=== PATIENT | male | born 1945 | race Caucasian/White ===

== ENCOUNTER 2024-01-31 11:18 | Emergency (ER) | payer MEDICARE, OTHER, SELFPAY ==
[2024-01-31 11:24] VITALS: BP 118/64
[2024-01-31 11:53] LABS: % Basophils 0.4 % (0-2); % Eosinophils 0.1 % (0-6); % Immature Granulocytes 0.6 % (0-0.5); % Monocytes 11.7 % (1.7-9.3); % Neutrophils 75.2 % (42.2-75.2); Absolute Basophils 0.1 10^3/uL (0-0.2); Absolute Immature Granulocytes 0.1 10^3/uL (0-0.05); Absolute Lymphocytes 1.6 10^3/uL (1.2-3.4); Absolute Monocytes 1.6 10^3/uL (0.1-0.6); Absolute Neutrophils 10.1 10^3/uL (1.4-6.5); Hematocrit 43.4 % (39.0-52.0); Hemoglobin 14.8 g/dL (13.0-18.0); Mean Corp Hgb Conc. 34.1 g/dL (33.0-37.0); Mean Corpuscular Hgb 31.5 pg (27.0-31.0); Mean Corpuscular Volume 92.3 fL (80.0-94.0); Mean Platelet Volume 9.9 fL (7.4-10.4); Nucleated Red Blood Cells % 0 % (-); Platelet Count 181 10^3/uL (130-400); Red Cell Dist. Width 13.3 % (11.5-14.5); White Blood Cell Count 13.5 10^3/uL (4.8-10.8)
[2024-01-31 12:01] LABS: ALT (SGPT) 42 U/L (0-50); AST (SGOT) 37 U/L (17-59); Albumin 4.1 g/dl (3.5-5.0); Alkaline Phosphatase 113 U/L (38-126); Blood Urea Nitrogen 21 mg/dl (9-20); Calcium 9.2 mg/dl (8.4-10.2); Carbon Dioxide 23 mmol/L (22-30); Chloride 101 mmol/L (98-107); Glucose 125 mg/dl (70-99); Lipase 59 U/L (23-300); Potassium 3.9 mmol/L (3.5-5.1); Sodium 138 mmol/L (135-145); Total Bilirubin 3.5 mg/dl (0.2-1.3); eGFR > 60.00
[2024-01-31 12:11] LABS: Urine Albumin Negative (Neg - Trace); Urine Bilirubin Negative (Negative); Urine Character Clear (Clear); Urine Color Yellow; Urine Glucose 3+ (Negative); Urine Ketone 1+ (Negative); Urine Leukocyte Trace (Negative); Urine Nitrite Negative (Negative); Urine Occult Blood Negative (Negative); Urine Urobilinogen Negative (Neg - 1+)
[2024-01-31 12:30] VITALS: BP 105/60; BMI 32.5
--- NOTE | 2024-01-31 12:47 | ED.GENMED ---
History of Present Illness
General
Chief Complaint: Abdominal Symptoms
Source: patient and spouse
Exam Limitations: none
Time Seen by Provider: 01/31/24 12:15
Nursing documentation reviewed up to this point in time: agreed with
History of Present Illness
History of Present Illness:
78-year-old male with a past medical history of hypertension, hyperlipidemia, diabetes, CAD status post CABG, pacemaker who presents to the emergency department with his for evaluation of flank pain. Patient reports onset of symptoms about 2
days ago and they have been constant since that time. He reports a sharp pain in the left flank that radiates in a band around his lower abdomen and back. Worse with certain movements. No clear relieving factors noted. Associated with mild
nausea this morning but no vomiting. He says he had some loose stools earlier this week but has been constipated since Saturday. He denies any fever or chills. He denies any dysuria, hematuria, change in urinary frequency. He denies any weakness
or numbness in the legs and has not had any incontinence of bowel or bladder or saddle anesthesia. He does not have radicular symptoms. He does have a history of kidney stones as well as sciatica but says symptoms today are different; he denies
having had symptoms like this in the past. He denies any trauma or injury.
Review of Systems
Review of Systems
All Other Systems: ROS reviewed and negative except as documented in HPI and ROS
Constitutional: Denies fever or chills
Respiratory: Denies trouble breathing
Cardiac: Denies chest pain
ABD/GI: Reports abdominal pain, nausea and constipated; Denies vomiting or diarrhea
: Reports flank pain; Denies dysuria, frequency or bleeding
Musculoskeletal: Reports back pain; Denies neck pain
Neurological: Denies dizzy, headache, weakness or numbness
Phy Exam
Physical Exam
Physical Exam:
General: Awake, alert, oriented x3; no acute distress
Head: Normocephalic, atraumatic
Eyes: Conjunctiva normal, sclera anicteric
Throat: Airway intact, handling secretions
Neck: Trachea midline, supple without meningismus
Lungs: Clear to auscultation bilaterally, no wheezing, rales, rhonchi
Heart: Regular rate and rhythm, no murmurs, gallops, or rubs
Abd: Soft, non distended, tender to palpation across lower abdomen, no palpable masses
No CVA tenderness, mild left paraspinal tenderness in the upper lumbar region
Neuro: Cranial nerves grossly intact, speech fluid, motor and sensory intact lower extremities bilaterally
Skin: no rash
Extremities: No edema in extremities, warm and well-perfused
Scores
Heart Failure Risk
Heart Failure Risk Score: Not Applicable
Heart Score for Chest Pain Patients
STEMI patient?: Not applicable
Withdrawal Assessment of Alcohol
Withdrawal Assessment Completed?: Not applicable
Course
Orders/Labs/Results
Orders:
Orders
01/31/24 11:29
Electrocardiogram (*1) Urgent
Reason for Study: Abdominal Pain
EKG- Treatment ONCE
01/31/24 11:39
Complete Blood Count/With Diff Urgent
Comprehensive Metabolic Panel Urgent
Lipase Urgent
Urinalysis Reflex To Culture Urgent
Date Specimen was Collected: 01/31/24
Time Specimen was Collected: 11:29
Urine Microscopic Reflex Cult Urgent
01/31/24 12:17
CT Abd/pelvis W Iv Cont Urgent
Comment:
Reason For Exam: abd and back pain, constipation
01/31/24 12:46
Ketorolac [Toradol] 15 mg IV NOW STA
01/31/24 15:21
Magnesium Citrate [Citroma] 300 ml PO ONCE ONE
Abnormal Lab Results
01/31/24
11:39
WBC 13.5 H 10^3/uL
(4.8-10.8)
MCH 31.5 H pg
(27.0-31.0)
Abs Immat Gran (auto) 0.1 H 10^3/uL
(0-0.05)
Absolute Neuts (auto) 10.1 H 10^3/uL
(1.4-6.5)
Absolute Monos (auto) 1.6 H 10^3/uL
(0.1-0.6)
Immature Gran % 0.6 H %
(0-0.5)
Lymphocytes % 12.0 L %
(20.5-51.1)
Monocytes % 11.7 H %
(1.7-9.3)
BUN 21 H mg/dl
(9-20)
Glucose 125 H mg/dl
(70-99)
Total Bilirubin 3.5 H mg/dl
(0.2-1.3)
Urine Ketones 1+ A
(Negative)
Leukocyte Esterase Rfl Trace A
(Negative)
Urine Bacteria (Reflex) Few A
(Negative)
Urine Glucose 3+ A
(Negative)
01/31/24 11:39
01/31/24 11:39
Vital Signs
Initial and Last Documented VS:
Initial Vital Signs
Temp Pulse Resp BP Pulse Ox
36.4 C 83 16 118/64 98
01/31/24 11:24 01/31/24 11:24 01/31/24 11:24 01/31/24 11:24 01/31/24 11:24
Last Documented Vital Signs
Temp Pulse Resp BP Pulse Ox
36.4 C 83 18 101/57 95
01/31/24 11:24 01/31/24 14:00 01/31/24 14:00 01/31/24 14:00 01/31/24 14:00
MDM/Problems Addressed
Differential Diagnosis Includes:
Diverticulitis, nephrolithiasis, UTI/pyelonephritis, musculoskeletal back pain, constipation
MDM/Problems Addressed:
78-year-old male presents to the emergency room for evaluation of left flank pain radiating a band across lower abdomen and back for the past 2 days. Vitals and exam as above. Plan to place an IV check labs including a CBC and a CMP, urinalysis.
Will check CT abdomen pelvis. Will treat pain and provide some fluids. Reassess after the above.
Initial labs reviewed: CBC shows leukocytosis to 13.5. CMP shows isolated hyperbilirubinemia with otherwise normal LFTs�unlikely given acute clinical significance possible Gilbert's disease. Urinalysis no infection. Awaiting results of CT.
CT abdomen pelvis shows gallstones incidentally no biliary tract dilation or signs of cholecystitis�while he did have isolated T. bili elevation his LFTs were otherwise normal and he had no upper abdominal tenderness and his pain is really primarily
in the left flank/low back and radiates across the low abdomen and back. And clinically it is very unlikely that gallstones account for his symptoms. He did have moderate volume of stool in the colon and reports that he has been constipated I
think this is a more likely cause of his symptoms although positional pain and reproducible lumbar tenderness would also suggest some component of musculoskeletal pain. On clinical reassessment patient's pain greatly improved with Toradol. His
vitals have been stable. I had a long discussion with the patient about findings on CT and potential diagnoses. He feels comfortable going home we will plan to treat his constipation with magnesium citrate. If this is not improving his symptoms
he will trial NSAIDs, heat and gentle stretching for possible muscular pain. He assured me that if his symptoms are worsening at any point or if he develops any fevers or any other symptoms he would return for reassessment here. We did speak about
follow-up for his gallstones and he feels comfortable with this as well. All questions answered.
*Radiology
Radiology exam reviewed: radiology read reviewed
*Pulse Oximetry
Patient hypoxic: no
*EKG
Interpreted by ED Provider?: Yes
Heart Rate: 83
Rhythm: ventricular paced
*Critical Care Note
Total Time (30-74mins, 75-104mins- exclusive of procedures): Not Applicable
ED Attending Note
-
Portions of this chart may have been created with voice recognition software.� Occasional wrong word or��sound alike� substitutions may have occurred due to the inherent limitations of voice recognition software.
Discharge Plan
Departure
Patient Disposition: Home (Routine Discharge)
Date of Disposition: 01/31/24
Time of Disposition: 15:24
Patient with high blood pressure during this ER visit?: No
Discharge Problem:
Flank pain, Constipation
Instructions: Constipation, Adult (DC), Back Pain
Referrals:
Luly Mendieta, [Family Provider] - Follow up in 5-7 days
Activity Restrictions/Additional Instructions:
You were seen in the emergency room for flank/back pain. You were evaluated with a CT scan and lab work. Your scan did show that you were constipated but it did not show any other serious abnormalities (gallstones were found incidentally but we
think it is unlikely this is causing your symptoms).
It is possible that your symptoms are due to severe constipation and so we gave you medicine to help you move your bowels. You should take this tonight and make sure you are drinking plenty of fluids with it.
It is also possible that your symptoms are from a muscle pain�if your symptoms or not improving with treatment of constipation you should try anti-inflammatories/NSAIDs. You can take ibuprofen 400 mg every 6 hours for the next few days in addition
to heat pack and gentle stretching.
If neither of these interventions is helping you should follow-up with your primary care physician. If at any point in time your symptoms are worsening or if you develop fevers or chills or any new symptoms such as weakness or numbness in the legs
you should immediately return to the emergency room to be reassessed.
Thank you for visiting the Emergency Department at [facility].
1. Please schedule a follow up appointment as directed. Call first thing tomorrow morning to make an appointment.
2. If indicated, please take your medications as instructed and indicated on discharge paperwork.
3. If any of your symptoms do not improve, or persist, or become more severe within 6-12 hours, please return to the emergency department for further care.
4. Please return to the emergency department if you develop a headache, neck pain/stiffness, fever greater than 100.4F, chest pain, shortness of breath, persistent nausea, vomiting, slurred speech, difficulty walking, numbness/tingling, weakness,
signs of infection or any other symptoms that are worrisome to you.
Please call [phone] if you have any questions.
Interventions
Interventions:
*Risk Screen - Suicide Last Done: 01/31/24 11:24
*General Assessment Last Done: 01/31/24 12:30
*Neglect/Abuse Screening Last Done: 01/31/24 11:24
ED- Fall Risk Assessment Last Done: 01/31/24 12:30
*ED COVID-19 Vaccine History Last Done: 01/31/24 12:30
NC-Pvyqmu-Jlopfmxhnn Assessment Last Done: 01/31/24 12:30
Discharge Date and Time
Print Language: CANADIAN
[2024-01-31] MEDS: TORADOL 15 MG IV (13:35)
[2024-01-31 13:57] LABS: Urine Bacteria Few (Negative); Urine Mucus Few; Urine Squamous Cell 0-2 /LPF (Few)
[2024-01-31 13:58] LABS: Urine Red Blood Cell 0-2 /HPF (0-2)
[2024-01-31 14:00] VITALS: BP 101/57
[2024-01-31] MEDS: CITROMA 300 ML PO (15:30)
[2024-01-31 15:36] VITALS: BP 111/66
== END 2024-01-31 16:13 | disposition home or self-care (01) ==
LOC: EMR 11:18
PROVIDERS: Emergency Medicine; EMERGENCY PHYSICIAN Emergency Medicine; FAMILY PHYSICIAN Internal Medicine
DX: R10.9 Unspecified abdominal pain (principal); K59.00 Constipation, unspecified; I10 Essential (primary) hypertension; E78.00 Pure hypercholesterolemia, unspecified; E11.9 Type 2 diabetes mellitus without complications; I25.10 Atherosclerotic heart disease of native coronary artery without angina pectoris; Z87.442 Personal history of urinary calculi; Z95.0 Presence of cardiac pacemaker; Z95.1 Presence of aortocoronary bypass graft
CPT/HCPCS: 99284; 96374; 74177; 80053; 81003; 81015; 83690; 85025; 93005; Q9967

== ENCOUNTER 2024-02-03 02:19 | Inpatient (IN) | payer MEDICARE, OTHER, SELFPAY ==
[2024-02-02 22:44] VITALS: BP 146/84
[2024-02-02 23:02] LABS: % Basophils 0.4 % (0-2); % Eosinophils 0.3 % (0-6); % Immature Granulocytes 1.3 % (0-0.5); % Lymphocytes 9.9 % (20.5-51.1); % Monocytes 10.2 % (1.7-9.3); % Neutrophils 77.9 % (42.2-75.2); Absolute Basophils 0.1 10^3/uL (0-0.2); Absolute Immature Granulocytes 0.2 10^3/uL (0-0.05); Absolute Lymphocytes 1.2 10^3/uL (1.2-3.4); Absolute Monocytes 1.2 10^3/uL (0.1-0.6); Absolute Neutrophils 9.4 10^3/uL (1.4-6.5); Hematocrit 40.9 % (39.0-52.0); Hemoglobin 14.2 g/dL (13.0-18.0); Mean Corp Hgb Conc. 34.7 g/dL (33.0-37.0); Mean Corpuscular Hgb 31.6 pg (27.0-31.0); Mean Corpuscular Volume 90.9 fL (80.0-94.0); Mean Platelet Volume 10.1 fL (7.4-10.4); Nucleated Red Blood Cells % 0 % (-); Platelet Count 215 10^3/uL (130-400); Red Cell Dist. Width 13.3 % (11.5-14.5)
[2024-02-02 23:15] LABS: ALT (SGPT) 332 U/L (0-50); AST (SGOT) 440 U/L (17-59); Albumin 3.8 g/dl (3.5-5.0); Alkaline Phosphatase 617 U/L (38-126); Blood Urea Nitrogen 16 mg/dl (9-20); Calcium 9.1 mg/dl (8.4-10.2); Carbon Dioxide 20 mmol/L (22-30); Chloride 101 mmol/L (98-107); Glucose 237 mg/dl (70-99); Sodium 136 mmol/L (135-145); Total Bilirubin 5.9 mg/dl (0.2-1.3); Total Protein 6.8 g/dl (6.3-8.2); eGFR > 60.00
[2024-02-02 23:16] LABS: Lactic Acid 1.2 mmol/L (0.7-2.0)
[2024-02-03] VITALS (9 sets, daily range): BP systolic 99–139; BP diastolic 52–92; BMI 31.4; BMI 32.0
--- NOTE | 2024-02-03 00:19 | ED.GENMED ---
History of Present Illness
General
Chief Complaint: Abdominal Pain
Source: patient
Exam Limitations: none
Time Seen by Provider: 02/03/24 00:07
History of Present Illness
History of Present Illness:
This is a 78 year old male that comes in with c/o constipation. States that he was here on Saturday as he had low back pain that comes around. State that he also felt Constipated. States that they did a CT scan and he was sent home with Magnesium
Citrate. States that this did not work. States that he took Dulcolax and this didn't help. States that he started vomiting last night and he vomited tonight at 6pm. States that he still has low back pain and sometimes the pain is up higher. State
that his abd is tender and that occasionally he feels dizzy. Denies any fever, chills, chest pain, SOB, diarrhea, headache, urinary burning.
Past History
Past History
ED Past Medical History: CAD, HTN, Hypercholesterolemia and NIDDM
ED Past Surgical History: Cardiac (CABG, SC, Pacemaker, Stent x 1)
Social History
Tobacco: Former smoker
Alcohol: None
Personal:
Living: with family
Review of Systems
Review of Systems
All Other Systems: ROS reviewed and negative except as documented in HPI and ROS
Constitutional: Reports no symptoms; Denies fever or chills
EENT: Reports no symptoms
Respiratory: Reports no symptoms; Denies cough or trouble breathing
Cardiac: Reports no symptoms; Denies chest pain
ABD/GI: Reports abdominal pain (Tender), nausea, vomiting and constipated; Denies diarrhea
: Reports no symptoms; Denies dysuria, frequency or urgency
Musculoskeletal: Reports no symptoms
Skin: Reports no symptoms
Neurological: Reports dizzy (occasionally); Denies headache
Psychiatric: Reports no symptoms
Phy Exam
General Physical Exam
General Presentation: mild distress
General age: appears stated age
General Skin: warm and dry
General Habitus: elderly
General Mental: alert
General Hydration: dry mucous membranes
ENT Exam
ENT Exam: TM's normal, pharynx normal, neck supple and other (Recent nose blood. Dried blood both nostrals)
Eye Exam
Eye Exam: EOMI
Cardiovascular Exam
Cardiovascular Exam: regular rate/rhythm, no edema, no murmur and normal peripheral pulses
Pulmonary Exam
Pulmonary Exam: lungs clear, no respiratory distress, no rales, chest non tender, no crackles, no rhonchi, no wheezing and no cough
Gastrointestinal Exam
Gastrointestinal Exam: soft, no organomegaly, no pulsatile mass, non distended, tender (Slight left sided tenderness with palpation) and other (Hypoactive bowel sounds)
Musculoskeletal Exam
Musculoskeletal Exam: full ROM and no edema
Skin Exam
Skin Exam: normal color, warm/dry, no rash and no petechia
Psychiatric Exam
Psychiatric Exam: normal mood/affect
Course
Orders/Labs/Results
Orders:
Orders
02/02/24 22:54
Complete Blood Count/With Diff Urgent
Comprehensive Metabolic Panel Urgent
Direct Bilirubin Urgent
Comment: ADD ON
Lipase Urgent
02/02/24 22:55
Lactic Acid Urgent
02/03/24 00:18
0.9% Sodium Chloride 1000 ml [Nss] 1,000 ml IV BOLUS
Ketorolac [Toradol] 30 mg IV NOW STA
Ondansetron Injectable [Zofran] 4 mg IV NOW STA
US Abdomen Limited Urgent
Reason For Exam: Elevated liver enzymes,
02/03/24 00:24
Add On- LAB Urgent
Tests Added?: Lipase
02/03/24 00:27
Add On- LAB Urgent
Tests Added?: Direct ana maria
02/03/24 00:33
Prothrombin Time Urgent
Abnormal Lab Results
02/02/24 02/03/24
22:54 00:33
WBC 12.0 H 10^3/uL
(4.8-10.8)
RBC 4.50 L 10^6/uL
(4.70-6.10)
MCH 31.6 H pg
(27.0-31.0)
Abs Immat Gran (auto) 0.2 H 10^3/uL
(0-0.05)
Absolute Neuts (auto) 9.4 H 10^3/uL
(1.4-6.5)
Absolute Monos (auto) 1.2 H 10^3/uL
(0.1-0.6)
Immature Gran % 1.3 H %
(0-0.5)
Neutrophils % 77.9 H %
(42.2-75.2)
Lymphocytes % 9.9 L %
(20.5-51.1)
Monocytes % 10.2 H %
(1.7-9.3)
PT 16.4 H Sec
(11.4-14.6)
Carbon Dioxide 20 L mmol/L
(22-30)
Glucose 237 H mg/dl
(70-99)
Total Bilirubin 5.9 H D mg/dl
(0.2-1.3)
AST 440 H U/L
(17-59)
ALT 332 H U/L
(0-50)
Alkaline Phosphatase 617 H U/L
(38-126)
02/02/24 22:54
02/02/24 22:54
Leukocytosis, carbon dioxide slightly low. Hyperglycemia, Total ana maria elevation, AST/ALT significantly elevated compared to 01/31/24 labs, Alk phos elevation. Lactic acid normal at 1.2
Vital Signs
Initial and Last Documented VS:
Initial Vital Signs
Temp Pulse Resp BP Pulse Ox
97.8 F 87 18 146/84 99
02/02/24 22:44 02/02/24 22:44 02/02/24 22:44 02/02/24 22:44 02/02/24 22:44
Last Documented Vital Signs
Temp Pulse Resp BP Pulse Ox
97.8 F 87 18 146/84 99
02/02/24 22:44 02/02/24 22:44 02/02/24 22:44 02/02/24 22:44 02/02/24 22:44
MDM/Problems Addressed
Differential Diagnosis Includes:
Gallbladder disease,
MDM/Problems Addressed:
This is a 78 year old male that comes in with c/o constipation and vomiting. States that he was here on Saturday and he has not been able to go. States that he also started with vomiting on saturday night and vomiting on Saturday.
Will check labs and get limited Ultrasound to check gallbladder. Explained to patient that his Liver enzymes are elevated and he will most likely be admitted.
Back into see patient. Explained that his US shows gallstones at the neck of the gallbladder. Will admit patient. Hospitalist notified.
Chronic conditions affecting care: DM and CAD
Acute Exacerbation and/or Progression of Chronic Illness: DM
*Radiology
Radiology exam reviewed: radiology read reviewed (US night hawk- The gallbladder contains multiple gallstones near the gallbladder neck. No gallbladder wall thickening, pericholecystic fluid, or a sonographic Mcdaniel's sign. Common bile duct measures
4mm. Unremarkable liver and right kidney. The pancreas is obscured due to [id number] bowel gas)
*Pulse Oximetry
Patient hypoxic: no
*EKG
Interpreted by ED Provider?: NA
Rate: EKG- N/A
*Critical Care Note
Total Time (30-74mins, 75-104mins- exclusive of procedures): Not Applicable
ED Attending Note
-
Portions of this chart may have been created with voice recognition software.� Occasional wrong word or��sound alike� substitutions may have occurred due to the inherent limitations of voice recognition software.
Discharge Plan
Departure
Patient Disposition: Admit
Date of Disposition: 02/03/24
Time of Disposition: 01:23
Admit to: Med/Surg
Presentation/result/management discussed w/ accepting MD/DO: Hospitalist
Patient with high blood pressure during this ER visit?: Yes
Condition: Good
Covid-19: Not Applicable
Discharge Problem:
Elevated liver enzymes, Cholelithiasis
Referrals:
Luly Mendieta DO [Family Provider] -
Interventions
Interventions:
*Risk Screen - Suicide Last Done: 02/03/24 00:16
*General Assessment Last Done: 02/02/24 22:44
*Neglect/Abuse Screening Last Done: 02/03/24 00:16
ED- Fall Risk Assessment Last Done: 02/03/24 00:16
*ED COVID-19 Vaccine History Last Done: 02/02/24 22:44
BF-Rknxwm-Alzmxqymup Assessment Last Done: 02/03/24 00:16
Discharge Date and Time
Print Language: DIVEHI
[2024-02-03] MEDS: NSS 1000 IV (00:35)
[2024-02-03] MEDS: ZOFRAN 4 MG IV (00:37)
[2024-02-03] MEDS: TORADOL 30 MG IV (00:39)
[2024-02-03 00:58] LABS: INR 1.29; PT 16.4 Sec (11.4-14.6)
[2024-02-03 01:50] LABS: Direct Bilirubin 3.5 mg/dl (0.0-0.4); Lipase 223 U/L (23-300)
--- NOTE | 2024-02-03 02:27 | HPS.HSE ---
Family Physician
-
Family Physician: Luly Mendieta
Chief Complaint
-
Abdominal pain nausea vomiting
History of Present Illness
This is a 78-year-old male was past medical history of CAD status post CABG, status post PCI x 1, hypertension, status post pacemaker, A-fib on anticoagulation, and pzm-qaakqmo-rjfvhnxpp diabetes who presents to the emergency department with
recurrent episode of abdominal pain nausea vomiting and found to have elevated LFTs.
The patient reported that she initially had an episode of abdominal distention and pain localized to the bilateral lower quadrants about 1 week ago. She was seen in the ED at that time. Found to have constipation. Urine was negative. He was
given laxatives and discharge. Patient reported that he took laxatives with minimal efficacy. The pain did subside. However sleep few days later he started having abdominal discomfort again. He reports bilateral lower quadrant abdominal pain
that is diffuse and crampy. Denies any urinary symptoms. Reports nausea and vomiting that was nonbloody and nonbilious. Unable to tolerate p.o. Denies having any fevers or chills. Denies right upper quadrant pain. Denies any jaundice. Denies
any urinary symptoms.
In the emergency department the patient was afebrile, blood pressure was stable at 140/80 with a pulse of 87. He has a white count of 12 with otherwise normal CBC. BUN electrolytes are within normal limits. LFTs shows elevation in total bilirubin
to 5.9 and increased from 3.6. ALT and AST are now significantly increased as well as alk phos. Normal lipase. A ultrasound of the abdomen shows common bile duct of 4 mm, numerous gallstones near the neck of the gallbladder. No pericholecystic
fluid or gallbladder wall thickening and no sonographic Mcdaniel sign.
Medical History
Past Medical History
Past Medical History: Reports Arrhythmia (Atrial fibrillation, status post pacemaker), CAD (Status post CABG, status post stents x 1), HTN, Hypercholesterolemia and NIDDM
Additional Past Medical History:
HALLIE on CPAP
Past Surgical History: Reports Cardiac (CABG)
Social History
Tobacco: Former Smoker
Alcohol: None
Drug: None
Personal:
Living: With Family
Family History
Family History: Not pertinent
Allergies / Home Medications
Allergies reflects when Allergies were last updated in [facility].
Home Medications with original date entered in [facility]
Allergy/Medication List:
Allergies
Allergy/AdvReac Type Severity Reaction Status Date / Time
brimonidine Allergy Unknown Verified 01/31/24 11:28
enalapril Allergy Unknown Verified 01/31/24 11:28
metformin Allergy Unknown Verified 01/31/24 11:28
valsartan Allergy Unknown Verified 01/31/24 11:28
Home Medications
apixaban 5 mg tablet 5 mg PO BID 02/03/24
atorvastatin 40 mg tablet 40 mg PO DAILY 02/03/24
cholecalciferol (vitamin D3) 50 mcg (2,000 unit) tablet 50 mcg PO DAILY 02/03/24
cyanocobalamin (vitamin B-12) 1,000 mcg tablet 1,000 mcg PO BID 02/03/24
metoprolol succinate 200 mg tablet,extended release 24 hr 200 mg PO DAILY 02/03/24
multivitamin 1 tab PO DAILY 02/03/24
semaglutide 1 mg/dose (2 mg/1.5 mL) subcutaneous pen injector 1 mg SC QWEEK 02/03/24
spironolactone 25 mg tablet 25 mg PO BID 02/03/24
tamsulosin 0.4 mg capsule 0.4 mg PO HS 02/03/24
Review of Systems
-
History Source: Patient
Constitutional: Reports No Symptoms
EENT: Reports No Symptoms
Respiratory: Reports No Symptoms
Cardiac: Reports No Symptoms
Abdomen/GI: Reports Abdominal Pain, Nausea, Vomiting and Constipated
: Reports No Symptoms
Musculoskeletal: Reports No Symptoms
Skin: Reports No Symptoms
Neurological: Reports No Symptoms
Endocrine: Reports No Symptoms
Hematologic/Lymphatic: Reports No Symptoms
Psych: Reports No Symptoms
Physical Exam
Vital Signs
Vital Signs
Temp Pulse Resp BP Pulse Ox
97.8 F 87 18 146/84 99
02/02/24 22:44 02/02/24 22:44 02/02/24 22:44 02/02/24 22:44 02/02/24 22:44
Physical Exam
General: Well Developed, Well Nourished, No Apparent Distress and Comfortable
HEENT: NormoCephalic, Anicteric, Moist mucous membranes and Atraumatic
Respiratory: Clear
Cardiac: S1/S2 and Regular Rhythm
GI: Soft, Non Distended, Normal Bowel Sounds and Tender
Genito-urinary: Clear Urine
Musculoskeletal: No Clubbing, No Cyanosis and No Edema
Skin: Warm
Neuro: AO x 3
Hematologic/Lymphatic: No Lymphadenopathy
Laboratory Results
-
02/02/24 22:54
02/02/24 22:54
Laboratory Results
PT 16.4 Sec (11.4-14.6) H 02/03/24 00:33
INR 1.29 02/03/24 00:33
Lactic Acid 1.2 mmol/L (0.7-2.0) 02/02/24 22:55
Total Bilirubin 5.9 mg/dl (0.2-1.3) H D 02/02/24 22:54
AST 440 U/L (17-59) H 02/02/24 22:54
ALT 332 U/L (0-50) H 02/02/24 22:54
Alkaline Phosphatase 617 U/L (38-126) H 02/02/24 22:54
Lipase 223 U/L (23-300) 02/02/24 22:54
Data Reviewed
-
Ultrasound: Report Reviewed by me
Lab Data: Labs Reviewed by me
Old Records: Reviewed
Impression/Plan
-
IMPRESSION:
78-year-old with past medical history of CAD status post CABG, atrial fibrillation, status post pacemaker placement with paced rhythm, HALLIE on CPAP, diabetes not on insulin presenting to the emergency department with abdominal pain found to have
likely cholelithiasis with possible choledocholithiasis. No evidence of cholangitis or acute cholecystitis at this time. He is nontoxic-appearing and hemodynamically stable. He has been afebrile. LFTs are moderately elevated. No evidence of
acute pancreatitis.
PLAN:
1. Cholelithiasis - Likely passing stones through the CBD. Does not appear to currently have a stone in CBD but LFTs are elevated.
- admit to telemetry due to paced rhythm,
- npo for now
- trend lfts and lipase
- MRCP in am (Realie RECREATION DIRECTOR-D mod [id number], cond MRI for 1.5 and 3 T)
- pain control and antiemetics
- GI consultation
- Surgery consultation
2. Atrial Fibrillation - paced rhythm seen on telemetry
- holding eliquis in am pending consultations
- continue metoprolol succinate daily
3. DM II
- sliding scale insulin q 6 while NPO
4. Volume - Euvolemic appearing. Limited PO intake
- LR at 60 ml/hr while NPO
- continue spironolactone for now and monitor K
Continue tamsulosin
DVT PPX - SCD pending continuation of anticoagulation
Code Status - Full Code
[2024-02-03] MEDS: LR 1000 IV ×2 (05:04→21:46)
--- NOTE | 2024-02-03 05:05 | PTCARENOTE ---
Patient received from ED. LR gtt started. Admission and assessment completed and documented. RT bedside to put pt on CPAP. Oriented to unit, call waller is within reach.
[2024-02-03 05:56] LABS: Glucose - Point of Care 138 mg/dl (70-99)
[2024-02-03 06:29] LABS: Hematocrit 37.4 % (39.0-52.0); Hemoglobin 12.8 g/dL (13.0-18.0); Mean Corp Hgb Conc. 34.2 g/dL (33.0-37.0); Mean Corpuscular Hgb 31.8 pg (27.0-31.0); Mean Platelet Volume 10.5 fL (7.4-10.4); Platelet Count 182 10^3/uL (130-400); Red Blood Cell Count 4.02 10^6/uL (4.70-6.10); Red Cell Dist. Width 13.2 % (11.5-14.5); White Blood Cell Count 11.4 10^3/uL (4.8-10.8)
--- NOTE | 2024-02-03 06:58 | CON.GI ---
Addendum entered and electronically signed by Cary Mims MD 02/03/24 13:38:
I saw and examined the patient.
The LOCOMOTIVE REPAIRER DIESEL's note was reviewed and I agree with the note.
Comment: This is a 78-year-old male with past medical history as listed below including CABG, A-fib on Eliquis, diabetes on Ozempic, HALLIE who presented with symptoms of abdominal pain with bloating and was constipated and nausea and vomiting, no
fevers or chills and was noted to have elevated LFTs and gallstones. He was in the ER a few days ago with left flank pain. He has not had any further nausea or vomiting his abdominal pain is improved. Ultrasound shows gallstones but no ductal
dilatation or CBD stone and is scheduled for an MRI with MRCP today also been seen by general surgery.
Assessment and plan abdominal pain with nausea vomiting and imaging with gallstones no ductal dilatation and abnormal LFTs will need to rule out possible CBD stone he is scheduled for an MRI with MRCP today if has CBD stone will schedule him for an
ERCP tomorrow otherwise will need cholecystectomy timing per general surgery.
For constipation continue MiraLAX most likely was related to Ozempic
Original Note:
Consultation
-
Date/Time Consultation Requested: 02/03/245
Date/Time Consultation Performed: 02/03/24 0810
Requesting Provider: Rebekah Todd MD
Performing Provider: AAMIR Lomeli, Cary Mims MD
Reason for Consultation: abdominal pain
Medical History
Chief Complaint / HPI
History of Present Illness:
Pt is a 78yo with hx afib on Eliquis, NIDDM on Ozempic with 12 lbs wt loss, CAD with prior CABG and stents, pacer, HTN, hypercholesterolemia, HALLIE with onset of left sided abdominal pain with nausea and vomiting. On admission noted with WBC 12,000
with bili 5.9, T bili 3.5, AST 440, ALT 332, alk phos 617 with rise in lipase to 488 after admission. Pt was in ER several days prior with flank pain and stable labs and only elevated bili 3.5. Initial imaging with CT on 01/30 with cholelithiasis
no duct dilatation, no free air, moderate stool and asbestosis. He now returns with constipation as was recommended mag citrate on prior visit without improvement. He also started with vomiting and noted further rise in LFT's on return. Preliminary
US with stones in GB neck CBD 4 mm pancreas obscured.
At this time Pt states symptoms going on since last week. He admits to left sided pain into back. He also admits to vomiting after eating pizza prior to admission. He denies any change in stool or urine color. He does also have constipation.
+ wt loss 12 lbs with use of Ozempic. He was given mag citrate after ER visit 01/30 with no stools since that time. he denies dysphagia, GERD diarrhea or rectal bleeding. No prior EGD but colon in past at [facility] about 4 years ago.
Past Medical History
Past Medical History: Arrhythmias (afib ), CAD, HTN, Hypercholesterolemia, NIDDM and Other (HALLIE with cpap use)
Past Surgical History: Cardiac (pacer, prior CABG, prior stents)
Social History
Tobacco: Former Smoker (1969)
Alcohol: Former (no current use, heavy in s)
Drug: None
Personal:
Living: With Family
Employment: Retired
Family History
Family History: Other (father with hx colon CA at age 75)
Allergies / Home Medications
Allergy/AdvReac Type Severity Reaction Status Date / Time
brimonidine Allergy Unknown Verified 01/31/24 11:28
enalapril Allergy Unknown Verified 01/31/24 11:28
metformin Allergy Unknown Verified 01/31/24 11:28
valsartan Allergy Unknown Verified 01/31/24 11:28
�Medication �Instructions �Recorded
apixaban 5 mg tablet 5 mg PO BID 02/03/24
atorvastatin 40 mg tablet 40 mg PO DAILY 02/03/24
cholecalciferol (vitamin D3) 50 50 mcg PO DAILY 02/03/24
mcg (2,000 unit) tablet
cyanocobalamin (vitamin B-12) 1,000 mcg PO BID 02/03/24
1,000 mcg tablet
metoprolol succinate 200 mg 200 mg PO DAILY 02/03/24
tablet,extended release 24 hr
multivitamin 1 tab PO DAILY 02/03/24
semaglutide 1 mg/dose (2 mg/1.5 1 mg SC QWEEK 02/03/24
mL) subcutaneous pen injector
spironolactone 25 mg tablet 25 mg PO BID 02/03/24
tamsulosin 0.4 mg capsule 0.4 mg PO HS 02/03/24
Review of Systems
-
History Source: Patient
Constitutional: Reports Weight Loss
EENT: Reports No Symptoms
Respiratory: Reports No Symptoms
Cardiac: Reports No Symptoms
Abdomen/GI: Reports Abdominal Pain, Nausea, Vomiting and Constipated
Musculoskeletal: Reports Other (back pain)
Skin: Reports No Symptoms
Neurological: Reports Weakness
Endocrine: Reports No Symptoms
Hematologic/Lymphatic: Reports No Symptoms
Vital Signs
Temp Pulse Resp BP Pulse Ox
97.9 F 75 18 129/92 95
02/03/24 04:24 02/03/24 04:24 02/03/24 04:24 02/03/24 04:24 02/03/24 05:27
Physical Exam
Exam
General: Well Developed, Well Nourished and No Apparent Distress
HEENT: Normocephalic and Other (jaundice )
Respiratory: Clear
Cardiac: Regular Rhythm
GI: Soft, Non Distended and Tender (left sided pain )
Musculoskeletal: No Clubbing and No Cyanosis
Skin: Warm and Dry
Neuro: Awake, Alert and AO x 3
Psych: Calm
Results
WBC 11.4 10^3/uL (4.8-10.8) H 02/03/24 05:42
Hgb 12.8 g/dL (13.0-18.0) L 02/03/24 05:42
Hct 37.4 % (39.0-52.0) L 02/03/24 05:42
MCV 93.0 fL (80.0-94.0) 02/03/24 05:42
Plt Count 182 10^3/uL (130-400) 02/03/24 05:42
Absolute Neuts (auto) 9.4 10^3/uL (1.4-6.5) H 02/02/24 22:54
PT 16.4 Sec (11.4-14.6) H 02/03/24 00:33
INR 1.29 02/03/24 00:33
Sodium 136 mmol/L (135-145) 02/02/24 22:54
Potassium 4.0 mmol/L (3.5-5.1) 02/02/24 22:54
Chloride 101 mmol/L (98-107) 02/02/24 22:54
Carbon Dioxide 20 mmol/L (22-30) L 02/02/24 22:54
BUN 16 mg/dl (9-20) 02/02/24 22:54
Creatinine 0.8 mg/dL (0.7-1.3) 02/02/24 22:54
Calcium 9.1 mg/dl (8.4-10.2) 02/02/24 22:54
Total Bilirubin 5.9 mg/dl (0.2-1.3) H D 02/02/24 22:54
AST 440 U/L (17-59) H 02/02/24 22:54
ALT 332 U/L (0-50) H 02/02/24 22:54
Alkaline Phosphatase 617 U/L (38-126) H 02/02/24 22:54
Lipase 223 U/L (23-300) 02/02/24 22:54
Diagnostic Image Results:
01/31/24 CT A/p with Iv contrast
Cholelithiasis. No biliary tract dilatation.
Limited evaluation of intestinal tract without oral contrast. No intestinal obstruction or free air. Moderate volume right colonic stool. Small volume stool throughout the remainder of the colon.
Pleural calcification seen within the lower chest bilaterally compatible with asbestos related pleural disease.
No findings to suggest obstructive uropathy bilaterally.
02/03/24 US abdomen pending
02/02 MRI pending
Prior GI Procedures:
EGD: none
Colonoscopy: last 4 years ago at [facility]
Assessment / Plan
-
Pt is a 78yo with hx afib on Eliquis, NIDDM, CAD with prior CABG and stents, pacer, HTN, hypercholesterolemia, HALLIE with onset of abdominal pain with nausea and vomiting. On admission noted with WBC 12,000 with bili 5.9, T bili 3.5, AST 440, ALT 332,
alk phos 617. Pt was in ER several days prior with flank pain and stable labs and only elevated bili 3.5. Initial imaging with CT on 01/30 with cholelithiasis no duct dilatation, no free air, moderate stool and asbestosis. He now returns with
constipation as was recommended mag citrate on prior visit without improvement. He also started with vomiting and noted further rise in LFT's on return. Preliminary US with stones in GB neck CBD 4 mm pancreas obscured.
-abdominal pain with nausea and vomiting and jaundice on admission
-elevated LFT's and lipase
-leukocytosis
-cholelithiasis with possible concern for stone in GB neck
-constipation
-afib on Eliquis
-NIDDM- on Ozempic prior to admission
other med problems:
-CAD with prior CABG/stent
-pacer
-HTN
-hyperlipidemia
-HALLIE
PLAN:etiology of symptoms related to choledocholithiasis with ? stone in GB neck, underlying pancreatic issue vs other
await final read on US
for MRI with MRCP
if + stone than will need to consider ERCP
for surgical eval
remains on IV Zosyn
trend LFT's and lipase
NPO
Eliquis hold last dose 12/8 AM
Ozempic hold last dose 12/5
add Miralax PRN with constipation
-
-
Thank you for consultation and allowing me to participate in the patient's care. Please call the clarification operator GI physician during the after hours with any questions or concerns.
[2024-02-03 07:00] LABS: ALT (SGPT) 259 U/L (0-50); AST (SGOT) 244 U/L (17-59); Albumin 3.1 g/dl (3.5-5.0); Alkaline Phosphatase 474 U/L (38-126); Blood Urea Nitrogen 16 mg/dl (9-20); Calcium 8.5 mg/dl (8.4-10.2); Carbon Dioxide 24 mmol/L (22-30); Chloride 104 mmol/L (98-107); Estimated Creatinine Clearance 71 ml/min; Glucose 137 mg/dl (70-99); Lipase 488 U/L (23-300); Potassium 3.9 mmol/L (3.5-5.1); Sodium 139 mmol/L (135-145); Total Bilirubin 3.7 mg/dl (0.2-1.3); Total Protein 5.8 g/dl (6.3-8.2); eGFR > 60.00
[2024-02-03] MEDS: LIPITOR 40 MG PO (08:50)
[2024-02-03] MEDS: ALDACTONE 25 MG PO ×2 (08:50→19:40)
[2024-02-03] MEDS: TOPROL XL 200 MG PO (08:50)
--- NOTE | 2024-02-03 09:41 | CON.GS ---
Addendum entered and electronically signed by Keven Tucker MD 02/03/24 11:24:
I saw and examined the patient independently.
The Esthetic Dermatologist's note was reviewed and I agree with the note, assessment and plan except where noted below.
Comment: This is a 78-year-old male who presents to our hospital 01 30 for left-sided abdominal pain, LFTs noted to be elevated but no acute findings on CT (but numerous gallstones were noted) and he was discharged home. He represented to our
hospital yesterday with abdominal pain, mild leukocytosis elevated bilirubinemia and lipase concerning for choledocholithiasis and gallstone pancreatitis. His exam is unremarkable.
MRCP to rule out choledocholithiasis. If present will defer to GI regarding management.
Will likely need cholecystectomy this admission.
N.p.o. for now.
IV antibiotics ordered, continue IV fluids.
Hold anticoagulation (last dose of Eliquis was 02/02/2024)
General Surgery will continue to follow
Original Note:
Consultation
-
Date/Time Consultation Requested: 02/03/24 7015
Requesting Provider: Rebekah
Reason for Consultation: cholelithiasis/choledocholithiasis
Medical History
-
Chief Complaint: n/v
History of Present Illness:
Mr. Ferreira is a 78 yo male with a h/o AFib on Eliquis ( morning of 02/01), CABG, PPM, CVA, DM who presented initially on 01/30 for left sided flank pain and GI upset. LFT's noted to be elevated but no acute findings on CT imaging at that time and he
was discharged to home. He notes that he has been persistently constipated and did take mag citrate to relieve his symptoms at home without improvement. On 01/31, he went out for dinner and had [employer] [place] and a few hours later developed nausea and
vomiting. The following day, he did not eat until the afternoon when he had some pizza and again a few hours later developed nausea and vomiting. He notes that the pain to his left flank is now more to his midback. On exam, he does have very minimal
tenderness to the right upper abdomen. He denies jaundice or acholic stools. He denies fevers or chills.
Past Medical History
Past Medical History: Arrhythmias (Afib on Eliquis LD 02/02/24 in the morning, PPM), CAD, CVA, HTN, Hypercholesterolemia, NIDDM and Other (HALLIE uses CPAP, obese on ozempic)
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
Social History
Tobacco: Former Smoker (quit )
Alcohol: None
Personal:
Living: With Family
Family History
Family History: Reviewed & Not Pertinent
Allergies / Home Medications
Allergy/AdvReac Type Severity Reaction Status Date / Time
brimonidine Allergy Unknown Verified 01/31/24 11:28
enalapril Allergy Unknown Verified 01/31/24 11:28
metformin Allergy Unknown Verified 01/31/24 11:28
valsartan Allergy Unknown Verified 01/31/24 11:28
�Medication �Instructions �Recorded �Confirmed �Type
apixaban 5 mg tablet 5 mg PO BID 02/03/24 02/03/24 History
atorvastatin 40 mg tablet 40 mg PO DAILY 02/03/24 02/03/24 History
cholecalciferol (vitamin D3) 50 50 mcg PO DAILY 02/03/24 02/03/24 History
mcg (2,000 unit) tablet
cyanocobalamin (vitamin B-12) 1,000 mcg PO BID 02/03/24 02/03/24 History
1,000 mcg tablet
metoprolol succinate 200 mg 200 mg PO DAILY 02/03/24 02/03/24 History
tablet,extended release 24 hr
multivitamin 1 tab PO DAILY 02/03/24 02/03/24 History
semaglutide 1 mg/dose (2 mg/1.5 1 mg SC QWEEK 02/03/24 02/03/24 History
mL) subcutaneous pen injector
spironolactone 25 mg tablet 25 mg PO BID 02/03/24 02/03/24 History
tamsulosin 0.4 mg capsule 0.4 mg PO HS 02/03/24 02/03/24 History
Review of Systems
-
History Source: Patient
All other systems: Negative unless noted
A 10 point review of systems was completed, and was negative except as per HPI.
Physical Exam
Vital Signs
Temp Pulse Resp BP Pulse Ox
97.5 F 73 18 139/67 98
02/03/24 07:15 02/03/24 07:15 02/03/24 07:15 02/03/24 07:15 02/03/24 07:15
02/02/24 02/03/24 02/04/24
06:59 06:59 06:59
Actual Weight 90 kg
Body Mass Index (BMI) 32.0
Lab Results
02/03/24 05:42
02/03/24 05:42
WBC 11.4 10^3/uL (4.8-10.8) H 02/03/24 05:42
Hgb 12.8 g/dL (13.0-18.0) L 02/03/24 05:42
Hct 37.4 % (39.0-52.0) L 02/03/24 05:42
Plt Count 182 10^3/uL (130-400) 02/03/24 05:42
Abs Immat Gran (auto) 0.2 10^3/uL (0-0.05) H 02/02/24 22:54
Neutrophils % 77.9 % (42.2-75.2) H 02/02/24 22:54
Physical Exam
General: Well Developed and Well Nourished
HEENT: Moist Mucous Membranes
Respiratory: Non Labored Respirations
GI: Soft, Non Distended, Tender (very mild to RUQ) and Obese
Skin: Warm, Dry and Jaundice (mild)
Neuro: Awake, Alert and AO x 3
Psych: Calm
Data Reviewed
-
CT Scan: Image Personally Visualized and interpreted, Report Reviewed by me, Discussed with Physician and Discussed with Patient
Ultrasound: Image Personally Visualized and interpreted, Report Reviewed by me, Discussed with Physician and Discussed with Patient
Labs: Labs Reviewed by me, Discussed with Physician and Discussed with Patient
Old Records: Reviewed
Assessment / Plan
-
78 yo male h/o AFib on Eliquis (LD morning of 02/01), CABG, PPM, CVA, DM on glargine insulin in addition to PO agents and Ozempic who presents with GI upset/n/v after fatty meals over the past 3 days with back pain initially on the left and now more
mid back. CT from ED visit on 01/30 and US from this admission with multiple gallstones although inflammatory changes that would indicate cholecystitis. Hepatic steatosis present. LFT's are elevated with mild elevation in lipase. Bilirubin 3.6 (7.5,
3.5) and direct of 2.0 (3.5). Leukocytosis present. Afebrile with stable vital signs.
Suspect biliary colic with possible choledocholithiasis. Atypical pain pattern, but this can be seen in diabetics. Would recommend cholecystectomy after Eliquis washout but need to determine if choledocholithiasis is present first as he would need
ERCP prior to surgery.
--MRCP pending
--Trend labs/exams
--Start IV abx empirically given possibility of obstructing stone
--NPO for testing
--Hold Eliquis
Medical management as per primary team
[2024-02-03] MEDS: ZOSYN 50 IV ×3 (09:44→19:41)
--- NOTE | 2024-02-03 12:10 | W.PN.HOSP.TC ---
Today's Communication/Plan
-
Awaiting MRI/MRCP
Continue IV Zosyn
IV fluids
GI is following the patient. If MRI/MRCP is positive he might need an ERCP.
Assessment / Plan
Assessment / Plan
78-year-old admitted with abdominal pain nausea and vomiting
Ultrasound of the abdomen-diffuse hepatic echogenicity consistent with fatty infiltration. Cholelithiasis. No acute evidence of cholecystitis
Patient is awake alert oriented x 3.
Pain is better this morning. Cardiovascular system S1-S2 appreciated
Chest clear to auscultation
Abdomen he has right upper quadrant pain.
No pedal edema noted.
CT abdomen pelvis-cholelithiasis. Moderate volume right colonic stool. Pleural calcification in the lower chest compatible with prior pleural disease with asbestos exposure
# Cholelithiasis with pain with jaundice
N.p.o. with IV fluids
Trend LFTs
MRI/MRCP-if positive will need ERCP
Continue IV Zosyn
GI evaluation appreciated
Surgical evaluation appreciated
Hold Eliquis last dose was 02/02/2024 and Ozempic-last dose was 01/30/2024
# Constipation-bowels regimen as soon as patient is able to take anything by mouth.
# Elevated lipase-possible mild gallstone pancreatitis
# Coronary artery disease with history of CABG and stent-hold atorvastatin. Hold Eliquis as above. Continue metoprolol.
# Pacemaker
# Hypertension-continue metoprolol, Aldactone
# Hyperlipidemia-hold statin
# Diabetes-on Ozempic. Hold sliding scale coverage
# Sleep apnea-continue CPAP
# History of CVA-hold Eliquis and statin as above
# Prostate disease-continue Flomax
# Obesity with a BMI of 32-on Ozempic as outpatient
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
# DVT prophylaxis-SCDs
# Full code
Case discussed with the patient's at bedside. Discussed that patient is going to go for an MRI/MRCP now. If it is positive he might need to go for an ERCP.
Anticipated Discharge: > 48 hours
Subjective/Interval History
-
Date of Service: February 03, 2024
Objective Data
-
Labs:
Laboratory Results
02/03/24 02/03/24
00:33 05:42
WBC 11.4 H
Hgb 12.8 L
Hct 37.4 L
Plt Count 182
PT 16.4 H
INR 1.29
Sodium 139
Potassium 3.9
Chloride 104
Carbon Dioxide 24
BUN 16
Creatinine 0.9
Glucose 137 H
Calcium 8.5
Total Bilirubin 3.7 H
AST 244 H
ALT 259 H
Alkaline Phosphatase 474 H
Vital Signs:
Vital Signs
Temp Pulse Resp BP Pulse Ox
97.5 F 73 18 139/67 98
02/03/24 07:15 02/03/24 07:15 02/03/24 07:15 02/03/24 07:15 02/03/24 07:15
I&O
02/02/24 02/03/24 02/04/24
06:59 06:59 06:59
Output Total 200 / 200 200 / 200
Balance -200 / -200 -200 / -200
--- NOTE | 2024-02-03 12:29 | CM ---
Met with pt and his Cindy at bedside
Pt reports he lives with his in a bi-level home; 3 steps to enter. 5 steps to 2nd fl
Retired, active, occasionally uses cane when ambulating, independent with ADL's, driving
DME - single point cane, rolling walker, CPAP thru [facility]
SNF - denies past hx
HH - in past - unsure of agency
Has ride home at discharge
PCP - Dr Ivey at [facility]
Pharm - [facility], [place]
Plan - anticipate home no needs when medially ready
[2024-02-03 12:53] LABS: Glucose - Point of Care 105 mg/dl (70-99)
[2024-02-03 15:51] LABS: Glucose - Point of Care 101 mg/dl (70-99)
[2024-02-03] MEDS: NOVOLOG FLEXPEN-LOW RESISTANCE SC (15:53)
[2024-02-03 21:11] LABS: Glucose - Point of Care 165 mg/dl (70-99)
[2024-02-03] MEDS: FLOMAX 0.4 MG PO (21:46)
[2024-02-04] VITALS (10 sets, daily range): BP systolic 130–149; BP diastolic 65–77; BMI 32.1
[2024-02-04] MEDS: TORADOL 10 MG IV (00:21)
--- NOTE | 2024-02-04 01:12 | PTCARENOTE ---
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
--- NOTE | 2024-02-04 01:43 | PTCARENOTE ---
Pt see a personal service workers at the [facility] in [place]. Pt gave me the clinics number [phone]. pt had pacemaker placed at the [facility] in [place] . number will be reported to oncoming shift, I called they are closed hours 8a-4p, information retrieved per CHICKEN CATCHER
recommendations.
[2024-02-04] MEDS: ZOSYN 50 IV ×4 (02:25→19:36)
[2024-02-04] MEDS: DILAUDID 0.5 MG IV ×2 (02:26→19:51)
[2024-02-04 05:45] LABS: Glucose - Point of Care 133 mg/dl (70-99)
--- NOTE | 2024-02-04 05:45 | W.PN.HOSP.TC ---
Today's Communication/Plan
-
lidocaine patch right lower back pain
cont pain control
NPO IVF support
pending MRCP
Assessment / Plan
Assessment / Plan
Physical Exam
General: no acute distress appears comfortable at this time
Cardiovascular system S1-S2 appreciated NSR
Chest clear to auscultation
Abdomen soft nontender bowel sounds present.
Musculoskeletal: right lower back tenderness
Ext:No pedal edema noted.
Neuro: AOx3
Psych: calm
78-year-old admitted with abdominal pain nausea and vomiting
Ultrasound of the abdomen-diffuse hepatic echogenicity consistent with fatty infiltration. Cholelithiasis. No acute evidence of cholecystitis
CT abdomen pelvis-cholelithiasis. Moderate volume right colonic stool. Pleural calcification in the lower chest compatible with prior pleural disease with asbestos exposure
# Cholelithiasis with pain with jaundice
N.p.o. with IV fluids
Trend LFTs
MRI/MRCP-if positive will need ERCP
Continue IV Zosyn
GI evaluation appreciated
Surgical evaluation appreciated
Hold Eliquis last dose was 02/02/2024 and Ozempic-last dose was 01/30/2024
#Right lower back pain
lidocaine patch
# Constipation-bowels regimen as soon as patient is able to take anything by mouth.
# Elevated lipase-possible mild gallstone pancreatitis
# Coronary artery disease with history of CABG and stent-hold atorvastatin. Hold Eliquis as above. Continue metoprolol.
# Pacemaker
# Hypertension-continue metoprolol, Aldactone
# Hyperlipidemia-hold statin
# Diabetes-on Ozempic. Hold sliding scale coverage
# Sleep apnea-continue CPAP
# History of CVA-hold Eliquis and statin as above
# Prostate disease-continue Flomax
# Obesity with a BMI of 32-on Ozempic as outpatient
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
# DVT prophylaxis-SCDs
# Full code
I spent a total of 50 minutes with the patient or on the floor. More than 50% of this time involved counseling and coordination of care.
Anticipated Discharge: 24 - 48 hours
Subjective/Interval History
-
Date of Service: February 04, 2024
No acute distress, resting comfortably in bed. Overall reports feeling well. Notes right lower back pain tenderness.
Objective Data
-
Labs:
Laboratory Results
02/04/24
06:00
WBC Pending
Hgb Pending
Hct Pending
Plt Count Pending
Sodium Pending
Potassium Pending
Chloride Pending
Carbon Dioxide Pending
BUN Pending
Creatinine Pending
Glucose Pending
Calcium Pending
Total Bilirubin Pending
AST Pending
ALT Pending
Alkaline Phosphatase Pending
Vital Signs:
Vital Signs
Temp Pulse Resp BP Pulse Ox
98.3 F 66 18 136/66 93
02/04/24 03:09 02/04/24 03:09 02/04/24 03:09 02/04/24 03:09 02/04/24 03:09
I&O
02/02/24 02/03/24 02/04/24
06:59 06:59 06:59
Intake Total 2680 / 2680
Output Total 200 / 200 1450 / 1450
Balance -200 / -200 1230 / 1230
[2024-02-04 07:20] LABS: Hematocrit 40.1 % (39.0-52.0); Hemoglobin 13.3 g/dL (13.0-18.0); Mean Corp Hgb Conc. 33.2 g/dL (33.0-37.0); Mean Corpuscular Hgb 31.8 pg (27.0-31.0); Mean Corpuscular Volume 95.9 fL (80.0-94.0); Mean Platelet Volume 10.5 fL (7.4-10.4); Platelet Count 207 10^3/uL (130-400); Red Blood Cell Count 4.18 10^6/uL (4.70-6.10); Red Cell Dist. Width 13.2 % (11.5-14.5); White Blood Cell Count 10.2 10^3/uL (4.8-10.8)
--- NOTE | 2024-02-04 07:25 | W.PN.GS2 ---
Today's Communication / Plan
-
-- MRI
Assessment / Plan
-
Patient is a 78 yo M p/w choledocholithiasis
AVSS
Repeat labs pending
GI consult noted and plan for MRI today. Role of cholecystectomy was reviewed. Ultimately recommend laparoscopic cholecystectomy during this admission.
-- MRI
-- NPO, IVF
-- Continue to hold Apixaban
-- Abx: Zosyn
-- Timing of lap grcae TBD based on MRI results
Subjective Data
-
Date of Service: February 04, 2024
Continues to have some RIGHT sided abdominal discomfort. No nausea or emesis. No fevers. Symptoms have been present for almost 2 weeks. Work with fatty meals. Denies and pale stools or tea colored urine. No abdominal surgery. Of note, he does
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
Objective Data
-
Intake and Output
02/03/24 02/04/24 02/05/24
06:59 06:59 06:59
Intake Total 2680 / 2680
Output Total 200 / 200 1450 / 1450
Balance -200 / -200 1230 / 1230
Intake:
Oral fluids 1680 / 1680
IV fluids (Total) 900 / 900
IV piggybacks 100 / 100
Output:
Urine, Voided 200 / 200 1450 / 1450
Other:
Number of approximated MODERATE 3
amounts of urine
Vital Signs
Temp Pulse Resp BP Pulse Ox
98.3 F 66 18 136/66 93
02/04/24 03:09 02/04/24 03:09 02/04/24 03:09 02/04/24 03:09 02/04/24 03:09
Lab Results
02/04/24 05:56
Calcium 8.5 mg/dl (8.4-10.2) 02/03/24 05:42
Total Bilirubin 3.7 mg/dl (0.2-1.3) H 02/03/24 05:42
Direct Bilirubin 2.0 mg/dl (0.0-0.4) H 02/03/24 05:42
AST 244 U/L (17-59) H 02/03/24 05:42
ALT 259 U/L (0-50) H 02/03/24 05:42
Alkaline Phosphatase 474 U/L (38-126) H 02/03/24 05:42
Total Protein 5.8 g/dl (6.3-8.2) L 02/03/24 05:42
Albumin 3.1 g/dl (3.5-5.0) L 02/03/24 05:42
Physical Exam
-
Gen: NAD
Abd: obese, soft, mild tenderness in RUQ, ND, non-peritoneal, no palpable mass or GB
[2024-02-04 07:31] LABS: ALT (SGPT) 171 U/L (0-50); AST (SGOT) 102 U/L (17-59); Albumin 3.2 g/dl (3.5-5.0); Alkaline Phosphatase 364 U/L (38-126); Blood Urea Nitrogen 15 mg/dl (9-20); Calcium 8.3 mg/dl (8.4-10.2); Carbon Dioxide 18 mmol/L (22-30); Chloride 103 mmol/L (98-107); Estimated Creatinine Clearance 81 ml/min; Glucose 97 mg/dl (70-99); Potassium 4.5 mmol/L (3.5-5.1); Sodium 135 mmol/L (135-145); Total Bilirubin 2.9 mg/dl (0.2-1.3); Total Protein 6.2 g/dl (6.3-8.2); eGFR > 60.00
[2024-02-04 08:03] LABS: Glucose - Point of Care 131 mg/dl (70-99)
[2024-02-04] MEDS: NOVOLOG FLEXPEN-LOW RESISTANCE SC ×3 (08:06→17:19)
[2024-02-04] MEDS: ALDACTONE 25 MG PO ×2 (08:25→19:36)
[2024-02-04] MEDS: TOPROL XL 200 MG PO (08:25)
--- NOTE | 2024-02-04 11:26 | CM ---
Patient seen at bedside. MRCP today per physician. Patient plan is home with no needs at this time. CM will continue to follow for discharge planning needs.
Plan; home with no needs pending physician assessment
[2024-02-04] MEDS: LIDOCAINE 4% PATCH 1 PATCH TOPICAL (11:37)
[2024-02-04] MEDS: LR 1000 IV (11:38)
--- NOTE | 2024-02-04 12:20 | W.PN.GI.CBS2 ---
Today's Communication / Plan
-
MRI with MRCP today
clears ok after MRI if no plan for CCY today
Assessment / Plan
-
Pt is a 78yo with hx afib on Eliquis, NIDDM, CAD with prior CABG and stents, pacer, HTN, hypercholesterolemia, HALLIE with onset of abdominal pain with nausea and vomiting. On admission noted with WBC 12,000 with bili 5.9, T bili 3.5, AST 440, ALT 332,
alk phos 617. Pt was in ER several days prior with flank pain and stable labs and only elevated bili 3.5. Initial imaging with CT on 01/30 with cholelithiasis no duct dilatation, no free air, moderate stool and asbestosis. He now returns with
constipation as was recommended mag citrate on prior visit without improvement. He also started with vomiting and noted further rise in LFT's on return. Preliminary US with stones in GB neck CBD 4 mm pancreas obscured.
-abdominal pain with nausea and vomiting and jaundice on admission
-elevated LFT's and lipase
-leukocytosis
-cholelithiasis with possible concern for stone in GB neck
-constipation
-afib on Eliquis
-NIDDM- on Ozempic prior to admission
other med problems:
-CAD with prior CABG/stent
-pacer
-HTN
-hyperlipidemia
-HALLIE
PLAN:etiology of symptoms related to choledocholithiasis with ? stone in GB neck, underlying pancreatic issue vs other
for MRI with MRCP
if + stone than will need ERCP
surgery on board, timing of CCY per surgery
remains on IV Zosyn
trend LFT's and lipase
Can have clears after the MRI if no plan for surgery today
Eliquis hold last dose 12/8 AM
Ozempic hold last dose 12/5
added Miralax PRN with constipation
Subjective
Subjective
Date of Service: February 04, 2024
Complains of mild abdominal pain but more back pain. Awaiting MRI LFTs are trending down afebrile on antibiotics
Objective
Data Reviewed
Laboratory Data:
Laboratory Results
02/04/24 05:56
02/04/24 05:56
Laboratory Results
PT 16.4 Sec (11.4-14.6) H 02/03/24 00:33
INR 1.29 02/03/24 00:33
Total Bilirubin 2.9 mg/dl (0.2-1.3) H 02/04/24 05:56
AST 102 U/L (17-59) H 02/04/24 05:56
ALT 171 U/L (0-50) H 02/04/24 05:56
Alkaline Phosphatase 364 U/L (38-126) H 02/04/24 05:56
Lipase 488 U/L (23-300) H 02/03/24 05:42
Vital Signs and I&O:
Vital Signs
Temp Pulse Resp BP Pulse Ox
97.4 F 71 18 140/77 95
02/04/24 11:00 02/04/24 11:00 02/04/24 11:00 02/04/24 11:00 02/04/24 11:00
I&O
02/03/24 02/04/24 02/05/24
06:59 06:59 06:59
Intake Total 2680 / 2680
Output Total 200 / 200 1450 / 1450
Balance -200 / -200 1230 / 1230
Physical Exam
Physical Exam
Cardiology: Normal Sinus Rhythm
Pulmonary: Clear
GI: Soft, Non Distended, Tender (Mild right upper quadrant tenderness) and Normal Bowel Sounds
[2024-02-04] MEDS: LR IV (12:44)
[2024-02-04 12:49] LABS: Glucose - Point of Care 198 mg/dl (70-99)
--- NOTE | 2024-02-04 13:15 | W.PN.UPDATE ---
Update Note
Progress Note Update
reviewd with patient and family as delay with MRI. Pt agreeable to proceed with EUS with possible ERCP later today as alternative.
[2024-02-04 15:49] LABS: Glucose - Point of Care 114 mg/dl (70-99)
[2024-02-04 16:57] LABS: Glucose - Point of Care 92 mg/dl (70-99)
--- NOTE | 2024-02-04 17:34 | PTCARENOTE ---
Pt returned to 2S via stretcher, ambulated to bed AX1, gait steady. IVF infusing per order. at bedside asking for an update from the doctor. Dr Gandhi notified via tiger text, awaiting response. Pt verbalized understanding of clear liquid diet.
Bed locked and in the lowest position, safety maintained. Oriented to room and call waller.
[2024-02-04] MEDS: MIRALAX 17 GRAMS PO (19:51)
[2024-02-04] MEDS: FLOMAX 0.4 MG PO (21:24)
[2024-02-04 21:35] LABS: Glucose - Point of Care 191 mg/dl (70-99)
[2024-02-05] VITALS (17 sets, daily range): BP systolic 123–152; BP diastolic 53–80
[2024-02-05 00:49] LABS: Glucose - Point of Care 163 mg/dl (70-99)
[2024-02-05] MEDS: ZOSYN 50 IV ×3 (02:21→20:56)
[2024-02-05 06:43] LABS: Glucose - Point of Care 129 mg/dl (70-99)
[2024-02-05 06:50] LABS: Hematocrit 37.5 % (39.0-52.0); Hemoglobin 13.3 g/dL (13.0-18.0); Mean Corp Hgb Conc. 35.5 g/dL (33.0-37.0); Mean Corpuscular Hgb 32.2 pg (27.0-31.0); Mean Corpuscular Volume 90.8 fL (80.0-94.0); Platelet Count 234 10^3/uL (130-400); Red Blood Cell Count 4.13 10^6/uL (4.70-6.10); Red Cell Dist. Width 12.9 % (11.5-14.5); White Blood Cell Count 12.2 10^3/uL (4.8-10.8)
--- NOTE | 2024-02-05 06:59 | W.PN.HOSP.TC ---
Today's Communication/Plan
-
cont abx
IVF support
NPO for cholecystectomy today
Assessment / Plan
Assessment / Plan
Physical Exam
General: no acute distress appears comfortable at this time
Cardiovascular system S1-S2 appreciated NSR
Chest clear to auscultation
Abdomen soft nontender bowel sounds present.
Musculoskeletal: right lower back tenderness
Ext:No pedal edema noted.
Neuro: AOx3
Psych: calm
78-year-old admitted with abdominal pain nausea and vomiting
Ultrasound of the abdomen-diffuse hepatic echogenicity consistent with fatty infiltration. Cholelithiasis. No acute evidence of cholecystitis
CT abdomen pelvis-cholelithiasis. Moderate volume right colonic stool. Pleural calcification in the lower chest compatible with prior pleural disease with asbestos exposure
# Cholelithiasis with pain with jaundice
IV fluids support while NPO
Trend LFTs
Continue IV Zosyn
GI evaluation appreciated MRI delayed d/t pacemaker EUS performed noted gallstones no evidence pathology Ampulla, Left Lobe Liver, Pancreatic Head
Surgical evaluation appreciated NPO for cholecystectomy today
Hold Eliquis last dose was 02/02/2024 and Ozempic-last dose was 01/30/2024
#Right lower back pain
lidocaine patch
# Constipation-bowels regimen as soon as patient is able to take anything by mouth.
# Elevated lipase-possible mild gallstone pancreatitis
# Coronary artery disease with history of CABG and stent-hold atorvastatin. Hold Eliquis as above. Continue metoprolol.
# Pacemaker
# Hypertension-continue metoprolol, Aldactone
# Hyperlipidemia-hold statin
# Diabetes-on Ozempic. Hold sliding scale coverage
# Sleep apnea-continue CPAP
# History of CVA-hold Eliquis and statin as above
# Prostate disease-continue Flomax
# Obesity with a BMI of 32-on Ozempic as outpatient
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
# DVT prophylaxis-SCDs
# Full code
I spent a total of 50 minutes with the patient or on the floor. More than 50% of this time involved counseling and coordination of care.
Anticipated Discharge: 24 - 48 hours
Subjective/Interval History
-
Date of Service: February 05, 2024
no acute distress, back pain persists.
Objective Data
-
Labs:
Laboratory Results
02/05/24
06:31
WBC 12.2 H
Hgb 13.3
Hct 37.5 L
Plt Count 234
Sodium Pending
Potassium Pending
Chloride Pending
Carbon Dioxide Pending
BUN Pending
Creatinine Pending
Glucose Pending
Calcium Pending
Total Bilirubin Pending
AST Pending
ALT Pending
Alkaline Phosphatase Pending
Vital Signs:
Vital Signs
Temp Pulse Resp BP Pulse Ox
97.8 F 71 18 130/66 100
02/05/24 02:28 02/05/24 02:28 02/05/24 02:28 02/05/24 02:28 02/05/24 02:28
I&O
02/03/24 02/04/24 02/05/24
06:59 06:59 06:59
Intake Total 2680 / 2680 2685 / 2685
Output Total 200 / 200 1450 / 1450 1750 / 1750
Balance -200 / -200 1230 / 1230 935 / 935
[2024-02-05 07:14] LABS: ALT (SGPT) 113 U/L (0-50); AST (SGOT) 52 U/L (17-59); Albumin 2.9 g/dl (3.5-5.0); Alkaline Phosphatase 277 U/L (38-126); Blood Urea Nitrogen 17 mg/dl (9-20); Calcium 8.3 mg/dl (8.4-10.2); Carbon Dioxide 22 mmol/L (22-30); Chloride 99 mmol/L (98-107); Estimated Creatinine Clearance 81 ml/min; Glucose 118 mg/dl (70-99); Magnesium 2.1 mg/dl (1.6-2.3); Phosphorus 3.7 mg/dl (2.5-4.5); Potassium 4.4 mmol/L (3.5-5.1); Sodium 134 mmol/L (135-145); Total Protein 5.7 g/dl (6.3-8.2); eGFR > 60.00
[2024-02-05] MEDS: LR 1000 IV (07:17)
[2024-02-05] MEDS: NOVOLOG FLEXPEN-LOW RESISTANCE SC ×2 (08:39→11:55)
--- NOTE | 2024-02-05 08:47 | W.PN.UPDATE ---
Update Note
Progress Note Update
Pt seen and evaluated at bedside. No complaints, feels well this am. Denies abd pain. On exam belly soft, nt. Plan for CCY today lap vs robo. Procedure discussed in detail with diagrams. Risks including bleeding, infection, injury to intra-abdominal
structures including but not limited to bowel, bile ducts, liver, stomach, bile leak, conversion to open discussed and pt verbalized understanding and agreed to proceed. Added on to today's schedule.
[2024-02-05] MEDS: ALDACTONE 25 MG PO ×2 (08:48→20:52)
[2024-02-05] MEDS: TOPROL XL 200 MG PO (08:48)
[2024-02-05] MEDS: LIDOCAINE 4% PATCH TOPICAL (08:49)
[2024-02-05] MEDS: TYLENOL 650 MG PO ×2 (08:55→17:42)
--- NOTE | 2024-02-05 11:50 | W.PN.GI.CBS2 ---
Today's Communication / Plan
-
CCY per surgery today
added senna and Miralax
Assessment / Plan
-
Pt is a 78yo with hx afib on Eliquis, NIDDM, CAD with prior CABG and stents, pacer, HTN, hypercholesterolemia, HALLIE with onset of abdominal pain with nausea and vomiting. On admission noted with WBC 12,000 with bili 5.9, T bili 3.5, AST 440, ALT 332,
alk phos 617. Pt was in ER several days prior with flank pain and stable labs and only elevated bili 3.5. Initial imaging with CT on 01/30 with cholelithiasis no duct dilatation, no free air, moderate stool and asbestosis. He now returns with
constipation as was recommended mag citrate on prior visit without improvement. He also started with vomiting and noted further rise in LFT's on return. Preliminary US with stones in GB neck CBD 4 mm pancreas obscured.
-abdominal pain with nausea and vomiting and jaundice on admission
-elevated LFT's and lipase
-leukocytosis
-cholelithiasis with possible concern for stone in GB neck
-constipation
-afib on Eliquis
-NIDDM- on Ozempic prior to admission
other med problems:
-CAD with prior CABG/stent
-pacer
-HTN
-hyperlipidemia
-HALLIE
PLAN:
Symptoms are most likely from gallstones with possible mild cholecystitis and also likely passed a CBD stone
LFTs are trending down
Was unable to get MRI since they were unable to [facility] about [facility]
Status post EUS yesterday with gallstones no CBD stone
surgery on board, for CCY today per surgery
remains on IV Zosyn
Eliquis hold last dose 12/8 AM
Ozempic hold last dose 5
Complains of constipation will start him on MiraLAX after the surgery daily with senna
GI will s/o and will be available as needed
Subjective
Subjective
Date of Service: February 05, 2024
Still has mild right upper quadrant but mostly back pain, status post EUS yesterday with no CBD stone, LFTS trending down
Objective
Data Reviewed
Laboratory Data:
Laboratory Results
02/05/24 06:31
02/05/24 06:31
Laboratory Results
PT 16.4 Sec (11.4-14.6) H 02/03/24 00:33
INR 1.29 02/03/24 00:33
Phosphorus 3.7 mg/dl (2.5-4.5) 02/05/24 06:31
Magnesium 2.1 mg/dl (1.6-2.3) 02/05/24 06:31
Total Bilirubin 2.0 mg/dl (0.2-1.3) H 02/05/24 06:31
AST 52 U/L (17-59) 02/05/24 06:31
ALT 113 U/L (0-50) H 02/05/24 06:31
Alkaline Phosphatase 277 U/L (38-126) H 02/05/24 06:31
Lipase 488 U/L (23-300) H 02/03/24 05:42
Vital Signs and I&O:
Vital Signs
Temp Pulse Resp BP Pulse Ox
97.9 F 65 20 135/63 94
02/05/24 11:10 02/05/24 11:10 02/05/24 11:10 02/05/24 11:10 02/05/24 11:10
I&O
02/04/24 02/05/24 02/06/24
06:59 06:59 06:59
Intake Total 2680 / 2680 2685 / 2685
Output Total 1450 / 1450 1750 / 1750
Balance 1230 / 1230 935 / 935
Physical Exam
Physical Exam
Cardiology: Normal Sinus Rhythm
Pulmonary: Clear
GI: Soft, Non Distended, Non Tender and Normal Bowel Sounds
[2024-02-05 11:56] LABS: Glucose - Point of Care 145 mg/dl (70-99)
[2024-02-05] MEDS: ZOSYN IV (14:00)
--- NOTE | 2024-02-05 14:34 | CM ---
Chart reviewed
For OR today
CM will follow for d/c needs post op
Plan - tbd post op
--- NOTE | 2024-02-05 14:46 | W.IMMPOSTOP ---
Surgical Immed Post Op Note
-
Primary Surgeon: Gerald
Assisting: Noel RAWLS
Pre-op Diagnosis: Biliary pancreatitis
Post-op Diagnosis: Chronic cholecystitis
Procedure Performed: Laparoscopic cholecystectomy
Anesthesia Type: GETA
Specimen / Cultures: Gallbladder
Estimated Blood Loss: 25cc
Complications: None immediate
Operative Findings: Softly distended gallbladder with thickened fibrotic wall
--- NOTE | 2024-02-05 14:48 | OR.RPT ---
Operative Report
Operative Report
Primary Surgeon: Gerald
Assisting: Noel RAWLS
Pre-op Diagnosis: Biliary pancreatitis
Post-op Diagnosis: Chronic cholecystitis
Procedure Performed: Laparoscopic cholecystectomy
Anesthesia Type: GETA
Specimen / Cultures: Gallbladder
Estimated Blood Loss: 25cc
Complications: None immediate
Operative Findings: Softly distended gallbladder with thickened fibrotic wall
Date of Surgery: 02/05/24
Indications: This 78M developed abd pain and workup revealed a likely passed stone. EUS was performed and was negative for choledocholithiasis. Laparoscopic cholecystectomy was elected.
Description of procedure: The patient was placed on the operating table in the supine position. General anesthesia was induced. A time-out was completed verifying correct patient, procedure,
site, positioning, and special equipment prior to beginning this procedure. An orogastric tube was placed. The abdomen was prepped and draped in the usual sterile fashion. A stab incision was made in left upper quadrant and the Veress needle was
inserted. Proper position was confirmed by aspiration and saline meniscus test. The abdomen was insufflated with carbon dioxide to a pressure of 12 mmHg. The patient tolerated insufflation well.
A 5mm optical trocar was then inserted at the umbilicus. The laparoscope was inserted and the abdomen inspected. No injuries from initial trocar placement or Veress needle insertion were noted. Additional trocars were then inserted in the following
locations: a 12-mm trocar in the right epigastrium and two 5-mm trocars along the right costal margin. The abdomen was inspected and no abnormalities were found. The table was placed in the reverse Trendelenburg position with the right side up. The
dome of the gallbladder was grasped with an atraumatic grasper and retracted over the dome of the liver. The infundibulum was also grasped with an atraumatic grasper and retracted toward the right lower quadrant. This maneuver exposed Calot�s
triangle. The peritoneum overlying the gallbladder infundibulum was then incised and the cystic duct and cystic artery identified and circumferentially dissected so that a clear view of the liver was achieved through a window between the cystic duct
an cystic artery. At this time, the only two structures going into the gallbladder were the cystic artery and cystic duct.
The cystic duct and cystic artery were then doubly clipped and divided close to the gallbladder. The gallbladder was then dissected from its peritoneal attachments by electrocautery. Hemostasis was assured and the gallbladder and contained stones
were removed using an endoscopic retrieval bag placed through the subxiphoid port. The gallbladder was passed off the table as a specimen. The gallbladder fossa was copiously irrigated with saline and hemostasis was again assured. There was no
evidence of bleeding from the gallbladder fossa or cystic artery or leakage of the bile from the cystic duct stump. The subxiphoid trocar site was closed at the fascial level laparoscopically with 2-0 PDS. Secondary trocars were removed under direct
vision and noted to be hemostatic. The laparoscope was withdrawn and the umbilical trocar removed. The abdomen was allowed to collapse. The skin was closed with subcuticular sutures of 4-0 monocryl and topical skin adhesive. The orogastric tube was
removed.
The patient tolerated the procedure well and was taken to the postanesthesia care unit in stable condition.
[2024-02-05 15:18] LABS: Glucose - Point of Care 157 mg/dl (70-99)
[2024-02-05] MEDS: DILAUDID 0.5 MG IV (15:36)
--- NOTE | 2024-02-05 17:25 | PTCARENOTE ---
Pt received from the PACU via bed. Transport was w/o incident. Pt is AAOx3, Denies pain or nausea at this time. VSS, pt is afebrile. Pt's abd with 5 Lap sites well approximated with surgi glue, no drainage noted. Pt instructed on plan of care. Pt
verbalized understanding of instructions, call waller is within reach.
[2024-02-05 17:33] LABS: Glucose - Point of Care 239 mg/dl (70-99)
[2024-02-05] MEDS: NOVOLOG FLEXPEN-LOW RESISTANCE 2 UNITS SC (17:40)
[2024-02-05] MEDS: FLOMAX 0.4 MG PO (20:52)
[2024-02-05 21:37] LABS: Glucose - Point of Care 263 mg/dl (70-99)
[2024-02-05] MEDS: LR IV (23:00)
[2024-02-05] MEDS: SENOKOT 17.2 MG PO (23:53)
[2024-02-06 03:29] VITALS: BP 146/74
[2024-02-06] MEDS: ZOSYN 50 IV ×2 (03:32→09:06)
[2024-02-06] MEDS: LR IV (06:13)
[2024-02-06 06:20] LABS: Hematocrit 37.5 % (39.0-52.0); Hemoglobin 12.7 g/dL (13.0-18.0); Mean Corp Hgb Conc. 33.9 g/dL (33.0-37.0); Mean Corpuscular Hgb 31.4 pg (27.0-31.0); Mean Corpuscular Volume 92.8 fL (80.0-94.0); Mean Platelet Volume 10.1 fL (7.4-10.4); Platelet Count 226 10^3/uL (130-400); Red Blood Cell Count 4.04 10^6/uL (4.70-6.10)
[2024-02-06] MEDS: TYLENOL 650 MG PO ×2 (06:44→13:51)
[2024-02-06 06:50] LABS: Glucose - Point of Care 146 mg/dl (70-99)
[2024-02-06 06:51] LABS: ALT (SGPT) 110 U/L (0-50); AST (SGOT) 91 U/L (17-59); Albumin 2.8 g/dl (3.5-5.0); Alkaline Phosphatase 244 U/L (38-126); Blood Urea Nitrogen 14 mg/dl (9-20); Calcium 7.9 mg/dl (8.4-10.2); Carbon Dioxide 24 mmol/L (22-30); Chloride 100 mmol/L (98-107); Estimated Creatinine Clearance 81 ml/min; Glucose 127 mg/dl (70-99); Magnesium 2.1 mg/dl (1.6-2.3); Phosphorus 3.2 mg/dl (2.5-4.5); Potassium 4.1 mmol/L (3.5-5.1); Sodium 134 mmol/L (135-145); Total Bilirubin 1.9 mg/dl (0.2-1.3); Total Protein 5.6 g/dl (6.3-8.2); eGFR > 60.00
[2024-02-06 07:00] VITALS: BP 144/69
[2024-02-06] MEDS: NOVOLOG FLEXPEN-LOW RESISTANCE SC (07:00)
--- NOTE | 2024-02-06 07:06 | W.PN.HOSP.TC ---
Today's Communication/Plan
-
discharge
Assessment / Plan
Assessment / Plan
Physical Exam
General: no acute distress appears comfortable at this time
Cardiovascular system S1-S2 appreciated NSR
Chest clear to auscultation
Abdomen soft nontender bowel sounds present.
Musculoskeletal: right upper buttocks tenderness
Ext:No pedal edema noted.
Neuro: AOx3
Psych: calm
78-year-old admitted with abdominal pain nausea and vomiting
Ultrasound of the abdomen-diffuse hepatic echogenicity consistent with fatty infiltration. Cholelithiasis. No acute evidence of cholecystitis
CT abdomen pelvis-cholelithiasis. Moderate volume right colonic stool. Pleural calcification in the lower chest compatible with prior pleural disease with asbestos exposure
# Cholelithiasis with pain with jaundice
IV fluids support while NPO (completed)
Trend LFTs, improving, repeat CMP with primary outpt recommended.
Empiric IV Zosyn completed following surgical cure/cholecystectomy
GI eval appreciated MRI delayed d/t pacemaker EUS performed noted gallstones no evidence pathology Ampulla, Left Lobe Liver, Pancreatic Head
Surgical evaluation appreciated cholecystectomy completed 02/04, cleared for discharge from surgical standpoint
Hold Eliquis last dose was 02/02/2024, cont hold 72 hr post op as per surgery.
#Right lower back pain
lidocaine patch did not help, discontinue
Patient report pain had resolved but he later developed right upper buttocks pain he attributes to hospital bed.
Likely musculoskeletal possible cramping.
Able to ambulate with walker which he has at home.
Declined PT eval for possible benefit home services, prefer outpt therapy (script provided)
# Constipation-bowels regimen as soon as patient is able to take anything by mouth.
# Elevated lipase-possible mild gallstone pancreatitis
# Coronary artery disease with history of CABG and stent-hold atorvastatin. Hold Eliquis as above. Continue metoprolol.
# Pacemaker
# Hypertension-continue metoprolol, Aldactone
# Hyperlipidemia-hold statin
# Diabetes-on Ozempic.
[correction to prior documentation] sliding scale coverage while inpt (required minimal correction)
# Sleep apnea-continue CPAP
# History of CVA-hold Eliquis and statin as above
# Prostate disease-continue Flomax
# Obesity with a BMI of 32-on Ozempic as outpatient
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
# DVT prophylaxis-SCDs
# Full code
Medically stable for discharge home with outpatient follow up recommendations.
Discussed with patient and patient's Cindy.
Total Time Preparing Discharge ___40____ minutes including examination of the patient, summary of the hospital stay, instructions for continuing care to all relevant caregivers; and preparation of discharge records, prescriptions, and referral
forms if necessary.
Anticipated Discharge: Today
Subjective/Interval History
-
Date of Service: February 06, 2024
Seen and examined at bedside in no acute distress resting comfortably in bed. Reports overall feeling well though notes right buttocks pain, starting in morning, patient attributes to hospital bed. Able to ambulate with walker without issues,
reports having walker at home as well. Eager to go home. Discussed PT eval for potential home services, patient however declines in favor of outpt therapy. Denies abd pain tenderness. Tolerated low fat diet.
Objective Data
-
Labs:
Laboratory Results
02/06/24
04:53
WBC 15.0 H
Hgb 12.7 L
Hct 37.5 L
Plt Count 226
Sodium 134 L
Potassium 4.1
Chloride 100
Carbon Dioxide 24
BUN 14
Creatinine 0.8
Glucose 127 H
Calcium 7.9 L
Total Bilirubin 1.9 H
AST 91 H
ALT 110 H
Alkaline Phosphatase 244 H
Vital Signs:
Vital Signs
Temp Pulse Resp BP Pulse Ox
97.5 F 72 20 146/74 94
02/06/24 03:29 02/06/24 03:29 02/06/24 03:29 02/06/24 03:29 02/06/24 03:29
I&O
02/05/24 02/06/24 02/07/24
06:59 06:59 06:59
Intake Total 2685 / 2685 1580 / 1580
Output Total 1750 / 1750 2099 / 2099
Balance 935 / 935 -520 / -520
--- NOTE | 2024-02-06 08:58 | W.PN.GS2 ---
Today's Communication / Plan
-
`
Assessment / Plan
-
Assessment: 78-year-old male POD #1 status post lap grace
AFVSS
Doing well postop
LFTs improving
Leukocytosis noted but likely reactive on postop day 1
Plan: Okay for discharge from surgical standpoint
Discharge instructions reviewed
Recommend holding therapeutic anticoagulation, apixaban for 72 hours postop. Okay to resume on Saturday evening dose
Subjective Data
-
Date of Service: February 06, 2024
Patient seen and examined. at bedside.
Reports some postoperative distention and bloating and mild pain but controlled.
No nausea.
Ate his omelette for breakfast
Passing occasional flatus but no BM
Objective Data
-
Intake and Output
02/05/24 02/06/24 02/07/24
06:59 06:59 06:59
Intake Total 2685 / 2685 1580 / 1580
Output Total 1750 / 1750 2099 / 2099
Balance 935 / 935 -520 / -520
Intake:
Oral fluids 960 / 960 480 / 480
IV fluids (Total) 1525 / 1525 1100 / 1100
NSS 50 / 50
Normosol 200 / 200
IV piggybacks 200 / 200
Output:
Urine, Voided 1750 / 1750 2099 / 2099
Other:
Number of approximated LARGE 1
amounts of urine
Vital Signs
Temp Pulse Resp BP Pulse Ox
97.6 F 71 16 144/69 96
02/06/24 07:00 02/06/24 07:00 02/06/24 07:00 02/06/24 07:00 02/06/24 07:00
Lab Results
02/06/24 04:53
12/12/24 04:53
Calcium 7.9 mg/dl (8.4-10.2) L 02/06/24 04:53
Phosphorus 3.2 mg/dl (2.5-4.5) 02/06/24 04:53
Magnesium 2.1 mg/dl (1.6-2.3) 02/06/24 04:53
Total Bilirubin 1.9 mg/dl (0.2-1.3) H 02/06/24 04:53
Direct Bilirubin 2.0 mg/dl (0.0-0.4) H 02/03/24 05:42
AST 91 U/L (17-59) H 02/06/24 04:53
ALT 110 U/L (0-50) H 02/06/24 04:53
Alkaline Phosphatase 244 U/L (38-126) H 02/06/24 04:53
Total Protein 5.6 g/dl (6.3-8.2) L 02/06/24 04:53
Albumin 2.8 g/dl (3.5-5.0) L 02/06/24 04:53
Physical Exam
-
NAD AAOx3
ABD: Softly protuberant, obese, mild tenderness to palpation at incision sites.
Incisions with glue dressings.
[2024-02-06] MEDS: PROTONIX 40 MG PO (09:07)
[2024-02-06] MEDS: ALDACTONE 25 MG PO (09:07)
[2024-02-06] MEDS: MIRALAX 17 GRAMS PO (09:07)
[2024-02-06] MEDS: TOPROL XL 200 MG PO (09:07)
[2024-02-06] MEDS: SENOKOT 17.2 MG PO (09:07)
[2024-02-06] MEDS: LIDOCAINE 4% PATCH TOPICAL (09:07)
[2024-02-06 11:05] VITALS: BP 107/55
[2024-02-06 13:15] LABS: Glucose - Point of Care 183 mg/dl (70-99)
[2024-02-06] MEDS: NOVOLOG FLEXPEN-LOW RESISTANCE 2 UNITS SC (13:50)
[2024-02-06 15:05] VITALS: BP 140/75
--- NOTE | 2024-02-06 16:21 | CM ---
Chart reviewed
Clears - adv as tanja
Plan - anticipate home no needs when medically stable
--- NOTE | 2024-02-06 16:37 | W.DCSUMMARY ---
Discharge Summary
Discharge Data
Date of Admission: 02/03/24
Date of Discharge: 02/06/24
-
Pending Results: Yes
Additional Pending Results:
pathology result
Discharge Plan
-
Patient Disposition: Home (Routine Discharge)
Discharge Diagnosis/Procedures: Symptomatic Cholelithiasis
Biliary Pancreatitis
Chronic Cholecystitis
status post Laparoscopic cholecystectomy
Pleural calcification seen within the lower chest bilaterally compatible with asbestos related pleural disease
Condition: Good
Diet: As tolerated and Low Fat
Additional Diets: Smaller meals initially after surgery as abdominal bloating and distention are common for the first few days
Activity: No strenuous activity
Additional Activity: No lifting over 20 pounds. Walking, standing, stairs and routine daily activities are all okay as tolerated.
Driving Restrictions: No driving 2 to 3 days or if using narcotics
Bathing Restrictions: OK to Shower
Other Services: PT
Wound Care: Glue at surgical sites typically peels off in 2 to 3 weeks
Activity Restrictions/Additional Instructions:
Please follow up with primary care provider in 1 week of discharge, surgeon in 2-3 weeks of discharge, and Pulmonary in 2-4 weeks of discharge.
Tylenol prescribed as needed for pain. This is available over the counter.
Oxycodone prescribed as needed for moderate to severe pain. Do no drive when using this medication/narcotic.
Please take medications as prescribed/recommended and follow up with primary care provider and/or other healthcare provider involved in your care for refills and/or further adjustment to your medication regimen as necessary.
Call if fever >101 �F, worsening abdominal pains, nausea and vomiting, yellowing of the skin or eyes or any concerns or questions postoperatively.
Instructions: Cholecystectomy (DC)
Referrals:
Andrés Miller MD [Active] - in two to four weeks
Floyd Duarte MD [Active] - in two to three weeks
Luly Mendieta DO [Family Provider] - in one week
Prescriptions:
New
acetaminophen 325 mg Tablet
650 mg PO Q4HPRN PRN (Reason: mild pain/PIERRE/temp> 100.4F) Qty: 100 0RF
oxycodone 5 mg tablet
5 mg PO BID PRN (Reason: moderate severe pain) Qty: 10 0RF
Continued
multivitamin Tablet
1 tab PO DAILY
atorvastatin 40 mg Tablet
40 mg PO DAILY
metoprolol succinate 200 mg Tablet Extended Release 24 Hr
200 mg PO DAILY
cyanocobalamin (vitamin B-12) 1,000 mcg Tablet
1,000 mcg PO BID
spironolactone 25 mg Tablet
25 mg PO BID
tamsulosin 0.4 mg Capsule
0.4 mg PO HS
cholecalciferol (vitamin D3) 50 mcg (2,000 unit) Tablet
50 mcg PO DAILY
semaglutide 1 mg/dose (2 mg/1.5 mL) Pen Injector
1 mg SC QWEEK
Rx Instructions:
1mg/0.75ml inj. pen 3 ml
Held
apixaban 5 mg Tablet
5 mg PO BID
Hold Instructions: Resume on 02/08/24. Hold apixaban for 72 hours postop. Okay to resume Saturday evening dose. 02/08/2024
Discharge Orders:
Discharge Patient (As Directed); Ordered 02/06/24
Ordered By: Patricia Najera
Discharge Date and Time
Print Language: [place]
== END 2024-02-06 17:20 | disposition home or self-care (01) | DRG 417 ==
LOC: 2 SOUTH 02:19
PROVIDERS: Clinical Nurse Specialist Family Health; Emergency Medicine; Internal Medicine Gastroenterology; Nurse Practitioner Adult Health; Surgery; ADMITTING PHYSICIAN Internal Medicine; ATTENDING PHYSICIAN Internal Medicine; CONSULT PHYSICIAN Internal Medicine Gastroenterology; EMERGENCY PHYSICIAN Emergency Medicine; FAMILY PHYSICIAN Internal Medicine; OTHER PHYSICIAN Surgery
PROC: BD47ZZZ Ultrasonography of Gastrointestinal Tract (ICD-10-PCS; 2024-02-04)
PROC: 0DJ08ZZ Inspection of Upper Intestinal Tract, Via Natural or Artificial Opening Endoscopic (ICD-10-PCS; 2024-02-04)
PROC: 0FT44ZZ Resection of Gallbladder, Percutaneous Endoscopic Approach (ICD-10-PCS; 2024-02-05)
DX: K80.64 Calculus of gallbladder and bile duct with chronic cholecystitis without obstruction (principal); K85.10 Biliary acute pancreatitis without necrosis or infection; J61 Pneumoconiosis due to asbestos and other mineral fibers; I25.10 Atherosclerotic heart disease of native coronary artery without angina pectoris; Z95.0 Presence of cardiac pacemaker; Z95.5 Presence of coronary angioplasty implant and graft; G47.33 Obstructive sleep apnea (adult) (pediatric); Z95.1 Presence of aortocoronary bypass graft; Z87.891 Personal history of nicotine dependence; Z88.8 Allergy status to other drugs, medicaments and biological substances; Z79.85 Long-term (current) use of injectable non-insulin antidiabetic drugs; E11.65 Type 2 diabetes mellitus with hyperglycemia; E66.9 Obesity, unspecified; I10 Essential (primary) hypertension; E78.00 Pure hypercholesterolemia, unspecified; I48.91 Unspecified atrial fibrillation; Z86.73 Personal history of transient ischemic attack (TIA), and cerebral infarction without residual deficits; Z79.899 Other long term (current) drug therapy; Z79.01 Long term (current) use of anticoagulants; Z68.32 Body mass index [BMI] 32.0-32.9, adult
CPT/HCPCS: 88304; 74177; 76705; 80053; 81003; 81015; 82248; 82962; 83605; 83690; 83735; 84100; 85025; 85027; 85610; 93005; 96361; 96374; 96375; 99285; Q9967

== ENCOUNTER 2024-02-27 13:38 | Emergency (ER) | payer MEDICARE, OTHER, SELFPAY ==
[2024-02-27] VITALS (8 sets, daily range): BP systolic 100–138; BP diastolic 75–100; PULSE 83–100
[2024-02-27 14:31] LABS: % Basophils 0.1 % (0-2); % Eosinophils 0.4 % (0-6); % Immature Granulocytes 0.7 % (0-0.5); % Lymphocytes 5.2 % (20.5-51.1); % Neutrophils 91.6 % (42.2-75.2); Absolute Eosinophils 0.1 10^3/uL (0-0.7); Absolute Immature Granulocytes 0.1 10^3/uL (0-0.05); Absolute Lymphocytes 0.8 10^3/uL (1.2-3.4); Absolute Monocytes 0.3 10^3/uL (0.1-0.6); Absolute Neutrophils 14.8 10^3/uL (1.4-6.5); Hematocrit 37.4 % (39.0-52.0); Hemoglobin 13.1 g/dL (13.0-18.0); Mean Corpuscular Hgb 30.8 pg (27.0-31.0); Mean Corpuscular Volume 87.8 fL (80.0-94.0); Mean Platelet Volume 10.1 fL (7.4-10.4); Nucleated Red Blood Cells % 0 % (-); Platelet Count 243 10^3/uL (130-400); Red Blood Cell Count 4.26 10^6/uL (4.70-6.10); Red Cell Dist. Width 13.1 % (11.5-14.5); White Blood Cell Count 16.1 10^3/uL (4.8-10.8)
[2024-02-27 14:56] LABS: ALT (SGPT) 82 U/L (0-50); AST (SGOT) 55 U/L (17-59); Albumin 3.8 g/dl (3.5-5.0); Alkaline Phosphatase 210 U/L (38-126); Blood Urea Nitrogen 22 mg/dl (9-20); Carbon Dioxide 22 mmol/L (22-30); Chloride 100 mmol/L (98-107); Glucose 278 mg/dl (70-99); Potassium 3.9 mmol/L (3.5-5.1); Sodium 136 mmol/L (135-145); Total Bilirubin 1.3 mg/dl (0.2-1.3); Total Protein 6.8 g/dl (6.3-8.2); eGFR > 60.00
--- NOTE | 2024-02-27 17:10 | ED.GENMED ---
History of Present Illness
General
Chief Complaint: Blood Pressure Problem
Time Seen by Provider: 02/27/24 16:46
History of Present Illness
History of Present Illness:
78-year-old male with history of high blood pressure presenting to the emergency department for concern of low blood pressure. Patient reports that he has been having URI symptoms with cough and congestion. He went to urgent care 2 days ago and
was told that his blood pressure was slightly low. He has since not been taking his antihypertensive medication. He has been checking his blood pressure at home, has remained low so we talked to his primary care doctor who advised that he come to
the hospital. Over the past few months his blood pressure has been fluctuating between low and high. Several weeks ago he had his gallbladder removed, denies any complications from that surgery. He did develop a slight rash in between his buttock
region which his has been treating with ketoconazole. Denies chest pain. Denies fever. Denies abdominal pain. Denies any urinary complaints. Denies weakness or lightheadedness. Denies additional acute medical complaint
Past History
Past History
ED Past Medical History: CAD, HTN, Hypercholesterolemia and NIDDM
ED Past Surgical History: Cardiac (CABG, [place], Pacemaker, Stent x 1)
Social History
Tobacco: Former smoker
Alcohol: None
Personal:
Living: with family
Phy Exam
Physical Exam
Physical Exam:
General: Well-appearing, no clinical signs of dehydration, nontoxic and in no acute distress
HEENT: protecting airway
Neck: appears supple
CV: Normal heart rate, regular rhythm
Resp: No accessory muscle use, no increased work of breathing, lungs clear to auscultation bilaterally
Abd: Soft and non-distended, no tenderness to palpation
Extremities: No deformities, no swelling
Neuro: alert, no focal neurologic deficit
: deferred
Rectal: deferred
Psych: Normal affect
Skin: Slight area of skin breakdown in between the proximal gluteal region. No fluctuance or erythema
Course
Orders/Labs/Results
Orders:
Orders
02/27/24 14:13
Complete Blood Count/With Diff Urgent
Comprehensive Metabolic Panel Urgent
02/27/24 17:00
Orthostatic VS- Treatment ONCE
CR Chest - 2 Views Urgent
Comment:
Reason For Exam: cough
02/27/24 18:15
COVID-19 Antigen Urgent
Source: Nasal Swab
Lactic Acid Urgent
Urinalysis Reflex To Culture Urgent
Date Specimen was Collected: 02/27/24
Time Specimen was Collected: 18:10
Influenza A+B Rapid Molecular Urgent
DARA Source: Nasal Swab
Specimen Description:
Abnormal Lab Results
02/27/24 02/27/24
14:13 18:15
WBC 16.1 H 10^3/uL
(4.8-10.8)
RBC 4.26 L 10^6/uL
(4.70-6.10)
Hct 37.4 L %
(39.0-52.0)
Abs Immat Gran (auto) 0.1 H 10^3/uL
(0-0.05)
Absolute Neuts (auto) 14.8 H 10^3/uL
(1.4-6.5)
Absolute Lymphs (auto) 0.8 L 10^3/uL
(1.2-3.4)
Immature Gran % 0.7 H %
(0-0.5)
Neutrophils % 91.6 H %
(42.2-75.2)
Lymphocytes % 5.2 L %
(20.5-51.1)
BUN 22 H mg/dl
(9-20)
Glucose 278 H mg/dl
(70-99)
ALT 82 H U/L
(0-50)
Alkaline Phosphatase 210 H U/L
(38-126)
Urine Glucose 3+ A
(Negative)
02/27/24 14:13
02/27/24 14:13
Vital Signs
Initial and Last Documented VS:
Initial Vital Signs
Temp Pulse Resp BP Pulse Ox
97.3 F 106 18 113/75 99
02/27/24 14:02 02/27/24 14:02 02/27/24 14:02 02/27/24 14:02 02/27/24 14:02
Last Documented Vital Signs
Temp Pulse Resp BP Pulse Ox
97.6 F 79 22 131/81 92
02/27/24 17:34 02/27/24 19:15 02/27/24 19:15 02/27/24 19:00 02/27/24 19:15
MDM/Problems Addressed
MDM/Problems Addressed:
78-year-old male with history of high blood pressure presenting for low blood pressure readings. Vital signs on arrival are normal, normotensive.
On exam patient is well-appearing, no acute distress or discomfort. No clinical signs of dehydration, with lower suspicion for volume depletion as etiology of low blood pressure. Patient notes that he has been having URI symptoms, so infection
such as pneumonia is a consideration to be causing low blood pressure. Again currently normotensive, however patient is usually on antihypertensive medications. Patient had laboratory analysis obtained prior to my assessment, does have a
leukocytosis, however is currently on prednisone as prescribed by urgent care for his cough. Will add a lactic acid. Will obtain chest x-ray imaging and viral swab. Will also obtain orthostatics. Will check urinalysis. No tenderness to abdomen
without concern for postsurgical complication or intra-abdominal infection. Patient's rash in between the gluteal region is small in quality, appears consistent with skin breakdown, without concern for systemic infection.
19:40 -chest x-ray is clear. Patient swab is positive for influenza, consistent with symptoms. He is out of the window for Tamiflu. Blood pressure remained stable, orthostatics negative. Feel stable for discharge. However advised holding his
antihypertensive medication until following up with his doctor given normal pressures and sometimes low pressures. Strict return precautions communicated and patient verbalized understanding
*Critical Care Note
Total Time (30-74mins, 75-104mins- exclusive of procedures): Not Applicable
ED Attending Note
-
Portions of this chart may have been created with voice recognition software.� Occasional wrong word or��sound alike� substitutions may have occurred due to the inherent limitations of voice recognition software.
Discharge Plan
Departure
Prescriptions:
No Action
multivitamin Tablet
1 tab PO DAILY
atorvastatin 40 mg Tablet
40 mg PO DAILY
metoprolol succinate 200 mg Tablet Extended Release 24 Hr
200 mg PO DAILY
cyanocobalamin (vitamin B-12) 1,000 mcg Tablet
1,000 mcg PO BID
spironolactone 25 mg Tablet
25 mg PO BID
tamsulosin 0.4 mg Capsule
0.4 mg PO HS
cholecalciferol (vitamin D3) 50 mcg (2,000 unit) Tablet
50 mcg PO DAILY
apixaban 5 mg Tablet
5 mg PO BID
semaglutide 1 mg/dose (2 mg/1.5 mL) Pen Injector
1 mg SC QWEEK
Rx Instructions:
1mg/0.75ml inj. pen 3 ml
acetaminophen 325 mg Tablet
650 mg PO Q4HPRN PRN (Reason: mild pain/PIERRE/temp> 100.4F) Qty: 100 0RF
oxycodone 5 mg tablet
5 mg PO BID PRN (Reason: moderate severe pain) Qty: 10 0RF
Referrals:
Mike Doe MD [Family Provider] -
Interventions
Interventions:
*Risk Screen - Suicide Last Done: 02/27/24 19:21
*General Assessment Last Done: 02/27/24 19:21
*ED COVID-19 Vaccine History Last Done: 02/27/24 19:21
ED- Cardiac Assessment Last Done: 02/27/24 19:21
ED- Neurological Assessment Last Done: 02/27/24 19:21
ED- Pulmonary Assessment Last Done: 02/27/24 19:21
Discharge Date and Time
Print Language: ROMANSH
[2024-02-27 18:25] LABS: Urine Albumin Negative (Neg - Trace); Urine Bilirubin Negative (Negative); Urine Character Clear (Clear); Urine Color Yellow; Urine Glucose 3+ (Negative); Urine Ketone Negative (Negative); Urine Leukocyte Negative (Negative); Urine Nitrite Negative (Negative); Urine Occult Blood Negative (Negative); Urine Specific Gravity 1.015 (<1.030); Urine Urobilinogen Negative (Neg - 1+)
[2024-02-27 18:36] LABS: Lactic Acid 1.4 mmol/L (0.7-2.0)
[2024-02-27 18:50] LABS: COVID-19 Antigen Negative (Negative)
== END 2024-02-27 20:06 | disposition home or self-care (01) ==
LOC: EMR 13:38
PROVIDERS: Emergency Medicine; EMERGENCY PHYSICIAN Student in an Organized Health Care Education/Training Program; FAMILY PHYSICIAN Internal Medicine
DX: J10.1 Influenza due to other identified influenza virus with other respiratory manifestations (principal); I10 Essential (primary) hypertension; I25.10 Atherosclerotic heart disease of native coronary artery without angina pectoris; E78.00 Pure hypercholesterolemia, unspecified; E11.9 Type 2 diabetes mellitus without complications; Z87.891 Personal history of nicotine dependence; Z90.49 Acquired absence of other specified parts of digestive tract; Z91.148 Patient's other noncompliance with medication regimen for other reason; Z95.0 Presence of cardiac pacemaker; Z95.1 Presence of aortocoronary bypass graft; Z95.5 Presence of coronary angioplasty implant and graft
CPT/HCPCS: 99283; 71046; 80053; 81003; 83605; 85025; 87502; 87811

== ENCOUNTER 2024-03-02 04:08 | Emergency (ER) | payer MEDICARE, OTHER, SELFPAY ==
[2024-03-02] VITALS (17 sets, daily range): BP systolic 95–126; BP diastolic 57–78; BMI 29.3
[2024-03-02 05:37] LABS: % Basophils 0.2 % (0-2); % Eosinophils 0.1 % (0-6); % Immature Granulocytes 0.7 % (0-0.5); % Lymphocytes 7.9 % (20.5-51.1); % Monocytes 6.5 % (1.7-9.3); % Neutrophils 84.6 % (42.2-75.2); Absolute Immature Granulocytes 0.1 10^3/uL (0-0.05); Absolute Lymphocytes 1.3 10^3/uL (1.2-3.4); Absolute Monocytes 1.1 10^3/uL (0.1-0.6); Absolute Neutrophils 13.6 10^3/uL (1.4-6.5); Hematocrit 41.6 % (39.0-52.0); Mean Corp Hgb Conc. 33.7 g/dL (33.0-37.0); Mean Corpuscular Hgb 29.9 pg (27.0-31.0); Mean Corpuscular Volume 88.7 fL (80.0-94.0); Mean Platelet Volume 9.7 fL (7.4-10.4); Nucleated Red Blood Cells % 0 % (-); Platelet Count 243 10^3/uL (130-400); Red Blood Cell Count 4.69 10^6/uL (4.70-6.10); Red Cell Dist. Width 13.3 % (11.5-14.5); White Blood Cell Count 16.1 10^3/uL (4.8-10.8)
[2024-03-02 06:00] LABS: Troponin I < 0.012 ng/ml
[2024-03-02 06:03] LABS: ALT (SGPT) 43 U/L (0-50); AST (SGOT) 24 U/L (17-59); Albumin 3.7 g/dl (3.5-5.0); Alkaline Phosphatase 151 U/L (38-126); Blood Urea Nitrogen 17 mg/dl (9-20); Calcium 8.7 mg/dl (8.4-10.2); Carbon Dioxide 27 mmol/L (22-30); Chloride 98 mmol/L (98-107); Estimated Creatinine Clearance 70 ml/min; Glucose 182 mg/dl (70-99); Potassium 3.6 mmol/L (3.5-5.1); Sodium 137 mmol/L (135-145); Total Bilirubin 2.5 mg/dl (0.2-1.3); Total Protein 6.7 g/dl (6.3-8.2); eGFR > 60.00
--- NOTE | 2024-03-02 06:40 | ED.GENMED ---
History of Present Illness
General
Chief Complaint: Extremity Pain (non-traumatic)
Source: patient
Exam Limitations: none
Time Seen by Provider: 03/02/24 06:30
History of Present Illness
History of Present Illness:
See MDM
Past History
Past History
ED Past Medical History: CAD, HTN, Hypercholesterolemia and NIDDM
ED Past Surgical History: Cardiac (CABG, [place], Pacemaker, Stent x 1)
Social History
Tobacco: Former smoker
Alcohol: None
Personal:
Living: with family
Phy Exam
Physical Exam
Physical Exam:
See MDM
Course
Orders/Labs/Results
Orders:
Orders
03/02/24 04:30
ECG [Electrocardiogram (*1)] Urgent
Reason for Study: Other
Other Reason for Exam: left arm pain
03/02/24 04:31
EKG- Treatment ONCE
03/02/24 05:27
Complete Blood Count/With Diff Urgent
Comprehensive Metabolic Panel Urgent
Lipase Urgent
Comment: ADD ON
03/02/24 05:30
Troponin I Urgent
03/02/24 06:38
Add On- LAB Urgent
Tests Added?: lipase
Ketorolac [Toradol] 30 mg IV NOW STA
diazePAM [Valium Injection] 2 mg IV NOW STA
03/02/24 06:39
CR Chest - 2 Views Urgent
Comment:
Reason For Exam: chest and back pain
03/02/24 08:07
Troponin I Urgent
03/02/24 10:07
Case Management Consult ONCE
Case Management Consult: Discharge Planning
Pt Eval And Treat Urgent
Activity Level: Ambulate
Abnormal Lab Results
03/02/24
05:27
WBC 16.1 H 10^3/uL
(4.8-10.8)
RBC 4.69 L 10^6/uL
(4.70-6.10)
Abs Immat Gran (auto) 0.1 H 10^3/uL
(0-0.05)
Absolute Neuts (auto) 13.6 H 10^3/uL
(1.4-6.5)
Absolute Monos (auto) 1.1 H 10^3/uL
(0.1-0.6)
Immature Gran % 0.7 H %
(0-0.5)
Neutrophils % 84.6 H %
(42.2-75.2)
Lymphocytes % 7.9 L %
(20.5-51.1)
Glucose 182 H mg/dl
(70-99)
Total Bilirubin 2.5 H mg/dl
(0.2-1.3)
Alkaline Phosphatase 151 H U/L
(38-126)
03/02/24 05:27
03/02/24 05:27
Vital Signs
Initial and Last Documented VS:
Initial Vital Signs
Temp Pulse Resp BP Pulse Ox
97.8 F 104 22 106/68 97
03/02/24 04:13 03/02/24 04:13 03/02/24 04:13 03/02/24 04:13 03/02/24 04:13
Last Documented Vital Signs
Temp Pulse Resp BP Pulse Ox
97.8 F 94 23 124/78 93
03/02/24 04:13 03/02/24 07:23 03/02/24 07:23 03/02/24 07:23 03/02/24 07:19
MDM/Problems Addressed
Differential Diagnosis Includes:
HPI and MDM Narrative:
78-year-old male presenting for evaluation of chest and back pain. Patient states his back hurts with certain movements. Patient was just here emergency department and diagnosed with influenza. Patient states he was having back pain at that time
too. Appears to be going on for almost a week. It is not worse with exertion.
Blood work was performed prior to my evaluation. His EKG appears unchanged from prior and troponin is negative. Given his past medical history, will obtain second troponin. On exam, he does have tenderness to his back consistent with muscle
spasm. Will Toradol and Valium. Patient states he is not taking his Eliquis for several days. 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
Physical exam
General: Well appearing and non-toxic
HEENT: protecting airway
Neck: appears supple
CV: No evidence of cyanosis. Regular rate and rhythm
Resp: No accessory muscle use. Lungs clear
Back: mild spasm to the left trapezius
Abd: Non-distended
Extremities: No deformities
Neuro: alert
Psych: Normal affect
Skin: Intact
Problems Addressed including Acute and Chronic Conditions affecting care:
1. Back pain
Acuity: acute
Prognosis: stable
Details: Given the point tenderness in the muscle spasm, will give dose of Toradol and Valium. Given his past medical history, will obtain second troponin and will obtain chest x-ray
Updates
Chest x-ray clear. Troponin negative x 2. Patient feeling somewhat better but seems to be having trouble with activities of daily living. Will have case management PT evaluate for possible rehab placement
Differential Diagnosis (but not limited to): Muscle spasm, ACS, pneumonia
Testing considered: D-dimer
Drug therapy (if applicable): OTC meds, please see d/c instruction regarding Rx drugs
Amount and/or Complexity of Data Reviewed
Clinical info obtained from: Patient
External data reviewed: N/A
Labs I independently reviewed (but not limited to): Leukocytosis and elevated bilirubin appears to be unchanged from prior
Radiology: X-ray independently reviewed: Chest x-ray clear
Pulse Ox: not hypoxic
EKG independently reviewed: Paced rhythm, PVCs, no STEMI
Drama Professor: Paced rhythm
Critical Care: N/A
Risk of Complication:
Social Determinants of health: Good social support
Discussed with other providers: N/A
Escalation of Care includes Admit/Obs: Case management working on rehab placement
Occasional wrong word or 'sound a like' substitutions may have occurred due to the inherent limitations of voice recognition software. Read the chart carefully and recognize, using context, where substitutions have occurred.
*Critical Care Note
Total Time (30-74mins, 75-104mins- exclusive of procedures): Not Applicable
ED Attending Note
-
Portions of this chart may have been created with voice recognition software.� Occasional wrong word or��sound alike� substitutions may have occurred due to the inherent limitations of voice recognition software.
Discharge Plan
Departure
Patient Disposition: Acute Rehab Facility
Date of Disposition: 03/02/24
Time of Disposition: 09:14
Patient with high blood pressure during this ER visit?: No
Discharge Problem:
Muscle spasm of back
Instructions: Upper Back Pain (DC)
Prescriptions:
New
diazepam [Valium] 5 mg tablet
5 mg PO BID PRN (Reason: muscle spasm) Qty: 14 0RF
No Action
multivitamin Tablet
1 tab PO DAILY
atorvastatin 40 mg Tablet
40 mg PO DAILY
metoprolol succinate 200 mg Tablet Extended Release 24 Hr
200 mg PO DAILY
cyanocobalamin (vitamin B-12) 1,000 mcg Tablet
1,000 mcg PO BID
spironolactone 25 mg Tablet
25 mg PO BID
tamsulosin 0.4 mg Capsule
0.4 mg PO HS
cholecalciferol (vitamin D3) 50 mcg (2,000 unit) Tablet
50 mcg PO DAILY
apixaban 5 mg Tablet
5 mg PO BID
semaglutide 1 mg/dose (2 mg/1.5 mL) Pen Injector
1 mg SC QWEEK
Rx Instructions:
1mg/0.75ml inj. pen 3 ml
acetaminophen 325 mg Tablet
650 mg PO Q4HPRN PRN (Reason: mild pain/PIERRE/temp> 100.4F) Qty: 100 0RF
oxycodone 5 mg tablet
5 mg PO BID PRN (Reason: moderate severe pain) Qty: 10 0RF
Referrals:
Mike Doe MD [Family Provider] -
Activity Restrictions/Additional Instructions:
Please return for any worsening symptoms.
You may return at any time if you have further concerns.
Please follow up with your doctor at the first available appointment, preferably this week.
Thank you for choosing [facility].
Interventions
Interventions:
*Risk Screen - Suicide Last Done: 03/02/24 04:13
*General Assessment Last Done: 03/02/24 05:23
*Neglect/Abuse Screening Last Done: 03/02/24 04:13
*ED COVID-19 Vaccine History Last Done: 03/02/24 05:23
ED-Skin Assessment Last Done: 03/02/24 05:32
ED-Peripheral Vascular Assessment Last Done: 03/02/24 05:32
ED-Musculoskeletal Assessment Last Done: 03/02/24 05:32
Discharge Date and Time
Print Language: [place] CITIZEN
[2024-03-02] MEDS: VALIUM INJECTION 2 MG IV (07:15)
[2024-03-02] MEDS: TORADOL 30 MG IV (07:15)
[2024-03-02 07:31] LABS: Lipase 81 U/L (23-300)
[2024-03-02 08:51] LABS: Troponin I < 0.012 ng/ml
--- NOTE | 2024-03-02 10:45 | CM ---
Addendum entered by Delmy Mcghee RN 03/02/24 12:27:
[facility]
Report
[phone]
FAx
[phone]
Addendum entered by Delmy Mcghee RN 03/02/24 12:25:
CM received call from patient's and she would like [facility]. CM updated [facility] admissions.
CM updated Krysten at [facility].
Addendum entered by Delmy Mcghee RN 03/02/24 12:09:
CAMILA spoke with patient's who wants to see if [facility] can accept pending flu swab.
Addendum entered by Delmy Mcghee RN 03/02/24 12:03:
[facility] can accept if flu swab comes back negative. CM requested a flu swab.
[facility] can offer a bed. CM will discuss choices with .
Addendum entered by Delmy Mcghee RN 03/02/24 11:29:
CM updated referral with PT notes. [facility] is reviewing clinical.
Addendum entered by Delmy Mcghee RN 03/02/24 10:59:
[facility] has a bed available and is currently reviewing clinical.
Original Note:
CM spoke with patient's and she expressed concern that patient is not able to care for himself or function at home due to pain. Patient stated that he would be agreeable to placement. CM sent referrals to [facility], [facility],
[facility] and [facility].
CM is pending PT evaluation. CM updated ED physician with plan.
--- NOTE | 2024-03-02 12:33 | CM ---
Addendum entered by Delmy Mcghee RN 03/02/24 12:36:
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
Original Note:
CM updated bedside RN and patient. Patient is agreeable to transfer.
== END 2024-03-02 14:15 ==
LOC: EMR 04:08
PROVIDERS: Emergency Medicine; EMERGENCY PHYSICIAN Student in an Organized Health Care Education/Training Program; FAMILY PHYSICIAN Internal Medicine
DX: R07.89 Other chest pain (principal); M54.9 Dorsalgia, unspecified; M62.838 Other muscle spasm; I25.10 Atherosclerotic heart disease of native coronary artery without angina pectoris; I10 Essential (primary) hypertension; E78.00 Pure hypercholesterolemia, unspecified; E11.9 Type 2 diabetes mellitus without complications; Z87.891 Personal history of nicotine dependence; Z95.0 Presence of cardiac pacemaker; Z95.1 Presence of aortocoronary bypass graft; Z95.5 Presence of coronary angioplasty implant and graft
CPT/HCPCS: 99283; 96374; 96375; 71046; 80053; 83690; 84484; 85025; 87502; 93005

== ENCOUNTER → 2024-03-17 08:08 | Outpatient (REF) | payer MEDICARE, OTHER, SELFPAY | LOC: MRI 08:08 | PROVIDERS: ATTENDING PHYSICIAN Surgery; FAMILY PHYSICIAN Internal Medicine | DX: K80.50 Calculus of bile duct without cholangitis or cholecystitis without obstruction (principal) | CPT/HCPCS: 74181 ==

== ENCOUNTER 2024-04-16 00:48 | Inpatient (IN) | payer MEDICARE, OTHER, SELFPAY ==
[2024-04-15] VITALS (13 sets, daily range): BP systolic 90–133; BP diastolic 50–90; BMI 27.3
[2024-04-15 17:10] LABS: % Basophils 0.4 % (0-2); % Eosinophils 0.1 % (0-6); % Lymphocytes 7.8 % (20.5-51.1); % Monocytes 7.6 % (1.7-9.3); % Neutrophils 83.1 % (42.2-75.2); Absolute Basophils 0.1 10^3/uL (0-0.2); Absolute Immature Granulocytes 0.2 10^3/uL (0-0.05); Absolute Lymphocytes 1.7 10^3/uL (1.2-3.4); Absolute Monocytes 1.6 10^3/uL (0.1-0.6); Absolute Neutrophils 17.9 10^3/uL (1.4-6.5); Hematocrit 40.1 % (39.0-52.0); Hemoglobin 12.6 g/dL (13.0-18.0); Mean Corp Hgb Conc. 31.4 g/dL (33.0-37.0); Mean Corpuscular Hgb 27.8 pg (27.0-31.0); Mean Corpuscular Volume 88.5 fL (80.0-94.0); Mean Platelet Volume 9.8 fL (7.4-10.4); Nucleated Red Blood Cells % 0 % (-); Platelet Count 239 10^3/uL (130-400); Red Blood Cell Count 4.53 10^6/uL (4.70-6.10); White Blood Cell Count 21.5 10^3/uL (4.8-10.8)
[2024-04-15 17:19] LABS: AST (SGOT) 62 U/L (17-59); Albumin 3.9 g/dl (3.5-5.0); Alkaline Phosphatase 187 U/L (38-126); Blood Urea Nitrogen 26 mg/dl (9-20); Calcium 9.1 mg/dl (8.4-10.2); Carbon Dioxide 20 mmol/L (22-30); Chloride 88 mmol/L (98-107); Glucose 297 mg/dl (70-99); Potassium 4.8 mmol/L (3.5-5.1); Sodium 128 mmol/L (135-145); Total Bilirubin 2.1 mg/dl (0.2-1.3); Total Protein 7.7 g/dl (6.3-8.2); eGFR > 60.00
[2024-04-15 17:27] LABS: ALT (SGPT) 86 U/L (0-50)
--- NOTE | 2024-04-15 20:53 | ED.GENMED ---
History of Present Illness
<AAMIR Ross - Last Filed: 04/15/24 23:27>
General
Chief Complaint: Abnormal Lab Value
Source: patient and spouse
Exam Limitations: none
Time Seen by Provider: 04/15/24 20:32
Nursing documentation reviewed up to this point in time: agreed with
History of Present Illness
History of Present Illness:
79-year-old male with past with a history of CAD hypertension hyperlipidemia diabetes CVA presents to the ER for evaluation. Patient started with recurrence of neck pain 4 days ago on Saturday. reports that patient was seen here March 02 for
neck pain and went to rehab for muscular neck pain. This did seem to improve however restarted again on Saturday. Patient complains of severe pain to the back of the neck which hurts with movement coughing turning. He now has limited range of
motion because of pain. He has had the chills and recently saw his family doctor and was sent for elevated white count and bacteria in his urine. He also does complain of back pain across the mid back but denies any injury. He denies any
radiation of pain to his legs. Denies any bowel or bladder incontinence.
He denies any sore throat. His blood sugar is elevated.
Past History
<AAMIR Ross - Last Filed: 04/15/24 23:27>
Past History
ED Past Medical History: CAD, HTN, Hypercholesterolemia and NIDDM
ED Past Surgical History: Cardiac (CABG, [place], Pacemaker, Stent x 1)
Social History
Tobacco: Former smoker
Alcohol: None
Personal:
Living: with family
Review of Systems
<AAMIR Ross - Last Filed: 04/15/24 23:27>
Review of Systems
Allergies reviewed?: Yes
Other source history: family
All Other Systems: ROS reviewed and negative except as documented in HPI and ROS
Constitutional: Reports chills
EENT: Reports no symptoms
Respiratory: Reports no symptoms
Cardiac: Reports no symptoms
ABD/GI: Denies abdominal pain, nausea or vomiting
: Reports no symptoms
Musculoskeletal: Reports neck pain and back pain
Skin: Reports no symptoms
Neurological: Reports no symptoms
Psychiatric: Reports no symptoms
Phy Exam
<AAMIR Ross - Last Filed: 04/15/24 23:27>
General Physical Exam
General Presentation: mild distress
General age: appears stated age
General Skin: warm and dry
General Habitus: elderly
General Mental: alert
General Hydration: dry mucous membranes
Cardiovascular Exam
Cardiovascular Exam: tachycardia
Pulmonary Exam
Pulmonary Exam: other (crackles at bases )
Gastrointestinal Exam
Gastrointestinal Exam: soft and other (Nonspecific abdominal tenderness)
Neurological Exam
Neurological Exam: alert and oriented x3
Musculoskeletal Exam
Musculoskeletal Exam: other (pain to neck with any ROM tender to posterior neck no erythema , tender across thoracic region no erythema )
Skin Exam
Skin Exam: normal color and warm/dry
Psychiatric Exam
Psychiatric Exam: normal mood/affect
Course
<AAMIR Ross - Last Filed: 04/15/24 23:27>
Orders/Labs/Results
Orders:
Orders
04/15/24 16:55
Complete Blood Count/With Diff Urgent
Comprehensive Metabolic Panel Urgent
04/15/24 21:04
CT Head W/o Iv Contrast Urgent
Comment:
Reason For Exam: fever
CT Neck With Iv Contrast Urgent
Comment:
Reason For Exam: neck pain /fever
04/15/24 21:06
0.9% Sodium Chloride 1000 ml [Nss] 1,000 ml IV BOLUS
Acetaminophen [Tylenol] 650 mg PO NOW STA
Morphine Sulfate 4 mg IV NOW STA
04/15/24 21:12
Lactic Acid Q4H
Comment: CANCEL 2nd LACTIC ACID IF 1st LACTIC ACID IS LESS THAN 2
Blood Culture Q30M
DARA Source: Blood/Venous
Specimen Description:
04/15/24 21:17
CT Abd/Pel (IV only)-DH only Urgent
Comment:
Reason For Exam: pain
04/15/24 21:20
COVID-19 Antigen Urgent
Source: Nasal Swab
Influenza A+B Rapid Molecular Urgent
DARA Source: Nasal Swab
Specimen Description:
04/15/24 21:22
Fentanyl Citrate/Pf [Sublimaze] 25 mcg IV NOW STA
04/15/24 21:30
Blood Culture Q30M
DARA Source: Blood/Venous
Specimen Description:
04/15/24 21:45
Urinalysis Reflex To Culture Urgent
Date Specimen was Collected: 04/15/24
Time Specimen was Collected: 21:40
Urine Microscopic Reflex Cult Urgent
Urine Culture Urgent
DARA Source: U
Specimen Description:
Date Specimen was Collected: 04/15/24
Time Specimen was Collected: 21:40
04/15/24 22:12
0.9% Sodium Chloride 1000 ml [Nss] 1,000 ml IV BOLUS
0.9% Sodium Chloride 500 ml [Nss] 500 ml IV BOLUS
04/15/24 23:00
0.9% Sodium Chloride 500 ml [Nss] 300 ml IV 300 mls/hr
04/15/24 23:11
Piperacillin/Tazo 3.375 Gram [Zosyn] 3.375 gram in 50 ml IV NOW
04/15/24 23:23
Electrocardiogram (*1) Stat
Reason for Study: Abdominal Pain
EKG- Treatment ONCE
Vancomycin [Vancocin] 2,000 mg 0.9% Sodium Chloride 500 ml [Nss] 500 ml IV NOW
04/16/24 01:15
Lactic Acid Q4H
Comment: CANCEL 2nd LACTIC ACID IF 1st LACTIC ACID IS LESS THAN 2
Abnormal Lab Results
04/15/24 04/15/24 04/15/24
16:55 21:12 21:45
WBC 21.5 H 10^3/uL
(4.8-10.8)
RBC 4.53 L 10^6/uL
(4.70-6.10)
Hgb 12.6 L g/dL
(13.0-18.0)
MCHC 31.4 L g/dL
(33.0-37.0)
RDW 16.0 H %
(11.5-14.5)
Abs Immat Gran (auto) 0.2 H 10^3/uL
(0-0.05)
Absolute Neuts (auto) 17.9 H 10^3/uL
(1.4-6.5)
Absolute Monos (auto) 1.6 H 10^3/uL
(0.1-0.6)
Immature Gran % 1.0 H %
(0-0.5)
Neutrophils % 83.1 H %
(42.2-75.2)
Lymphocytes % 7.8 L %
(20.5-51.1)
Sodium 128 L mmol/L
(135-145)
Chloride 88 L mmol/L
(98-107)
Carbon Dioxide 20 L mmol/L
(22-30)
BUN 26 H mg/dl
(9-20)
Glucose 297 H mg/dl
(70-99)
Lactic Acid 3.0 H mmol/L
(0.7-2.0)
Total Bilirubin 2.1 H mg/dl
(0.2-1.3)
AST 62 H U/L
(17-59)
ALT 86 H U/L
(0-50)
Alkaline Phosphatase 187 H U/L
(38-126)
Ur Occult Blood Reflex 3+ A
(Negative)
Urine RBC 3-6 A /HPF
(0-2)
Urine Bacteria (Reflex) Moderate A
(Negative)
Urine Glucose 4+ A
(Negative)
Urine Albumin (Reflex) 2+ A
(Neg - Trace)
04/15/24 16:55
04/15/24 16:55
Vital Signs
Initial and Last Documented VS:
Initial Vital Signs
Pulse Resp BP Pulse Ox
70 20 133/90 96
04/15/24 16:40 04/15/24 16:40 04/15/24 16:40 04/15/24 16:40
Last Documented Vital Signs
Temp Pulse Resp BP Pulse Ox
102.7 F H 99 22 109/67 95
04/15/24 21:02 04/15/24 23:15 04/15/24 23:15 04/15/24 23:15 04/15/24 23:15
T[employer] Tile [employer]ter consulted with Physician
Terrazzo Tile [employer]ter consulted with physician?: Yes
Name of Physician Consulted: DR Victoria
<Jorge Victoria, DO - Last Filed: 04/15/24 21:29>
Orders/Labs/Results
Orders:
Orders
04/15/24 16:55
Complete Blood Count/With Diff Urgent
Comprehensive Metabolic Panel Urgent
04/15/24 21:04
CT Head W/o Iv Contrast Urgent
Comment:
Reason For Exam: fever
CT Neck With Iv Contrast Urgent
Comment:
Reason For Exam: neck pain /fever
04/15/24 21:06
0.9% Sodium Chloride 1000 ml [Nss] 1,000 ml IV BOLUS
Acetaminophen [Tylenol] 650 mg PO NOW STA
Morphine Sulfate 4 mg IV NOW STA
04/15/24 21:12
Lactic Acid Q4H
Comment: CANCEL 2nd LACTIC ACID IF 1st LACTIC ACID IS LESS THAN 2
Blood Culture Q30M
DARA Source: Blood/Venous
Specimen Description:
04/15/24 21:17
CT Abd/Pel (IV only)-DH only Urgent
Comment:
Reason For Exam: pain
04/15/24 21:20
COVID-19 Antigen Urgent
Source: Nasal Swab
Influenza A+B Rapid Molecular Urgent
DARA Source: Nasal Swab
Specimen Description:
04/15/24 21:22
Fentanyl Citrate/Pf [Sublimaze] 25 mcg IV NOW STA
04/15/24 21:30
Blood Culture Q30M
DARA Source: Blood/Venous
Specimen Description:
04/15/24 21:45
Urinalysis Reflex To Culture Urgent
Date Specimen was Collected: 04/15/24
Time Specimen was Collected: 21:40
Urine Microscopic Reflex Cult Urgent
Urine Culture Urgent
DARA Source: U
Specimen Description:
Date Specimen was Collected: 04/15/24
Time Specimen was Collected: 21:40
04/15/24 22:12
0.9% Sodium Chloride 1000 ml [Nss] 1,000 ml IV BOLUS
0.9% Sodium Chloride 500 ml [Nss] 500 ml IV BOLUS
04/15/24 23:00
0.9% Sodium Chloride 500 ml [Nss] 300 ml IV 300 mls/hr
04/15/24 23:11
Piperacillin/Tazo 3.375 Gram [Zosyn] 3.375 gram in 50 ml IV NOW
04/15/24 23:23
Electrocardiogram (*1) Stat
Reason for Study: Abdominal Pain
EKG- Treatment ONCE
Vancomycin [Vancocin] 2,000 mg 0.9% Sodium Chloride 500 ml [Nss] 500 ml IV NOW
04/16/24 01:15
Lactic Acid Q4H
Comment: CANCEL 2nd LACTIC ACID IF 1st LACTIC ACID IS LESS THAN 2
Abnormal Lab Results
04/15/24 04/15/24 04/15/24
16:55 21:12 21:45
WBC 21.5 H 10^3/uL
(4.8-10.8)
RBC 4.53 L 10^6/uL
(4.70-6.10)
Hgb 12.6 L g/dL
(13.0-18.0)
MCHC 31.4 L g/dL
(33.0-37.0)
RDW 16.0 H %
(11.5-14.5)
Abs Immat Gran (auto) 0.2 H 10^3/uL
(0-0.05)
Absolute Neuts (auto) 17.9 H 10^3/uL
(1.4-6.5)
Absolute Monos (auto) 1.6 H 10^3/uL
(0.1-0.6)
Immature Gran % 1.0 H %
(0-0.5)
Neutrophils % 83.1 H %
(42.2-75.2)
Lymphocytes % 7.8 L %
(20.5-51.1)
Sodium 128 L mmol/L
(135-145)
Chloride 88 L mmol/L
(98-107)
Carbon Dioxide 20 L mmol/L
(22-30)
BUN 26 H mg/dl
(9-20)
Glucose 297 H mg/dl
(70-99)
Lactic Acid 3.0 H mmol/L
(0.7-2.0)
Total Bilirubin 2.1 H mg/dl
(0.2-1.3)
AST 62 H U/L
(17-59)
ALT 86 H U/L
(0-50)
Alkaline Phosphatase 187 H U/L
(38-126)
Ur Occult Blood Reflex 3+ A
(Negative)
Urine RBC 3-6 A /HPF
(0-2)
Urine Bacteria (Reflex) Moderate A
(Negative)
Urine Glucose 4+ A
(Negative)
Urine Albumin (Reflex) 2+ A
(Neg - Trace)
04/15/24 16:55
04/15/24 16:55
Vital Signs
Initial and Last Documented VS:
Initial Vital Signs
Pulse Resp BP Pulse Ox
70 20 133/90 96
04/15/24 16:40 04/15/24 16:40 04/15/24 16:40 04/15/24 16:40
Last Documented Vital Signs
Temp Pulse Resp BP Pulse Ox
102.7 F H 99 22 109/67 95
04/15/24 21:02 04/15/24 23:15 04/15/24 23:15 04/15/24 23:15 04/15/24 23:15
<AAMIR Ross - Last Filed: 04/15/24 23:27>
MDM/Problems Addressed
MDM/Problems Addressed:
Patient is document is a 79year-old male who presented to the ER for evaluation. Patient was seen by his family doctor and told his white count was elevated and he had question bacteria in his urine. He presents to the ER complaining neck pain and
back pain. He had neck pain back in Feb which was felt to be muscular went to rehab which improved however for the past 4 days he has had increasing reoccurrence of the neck pain. Pain is worse in his neck with any type of movement. He does also
complain of back pain with question of bacteria in the urine was sent here to the ER. He presents with chills and was found to have a rectus however 102.7 with an elevated white count of 21,000 with a lactic acid of 3.0. His blood pressure was on
the low side he was given septic fluids. He however was awake and alert and able to give good history. His sodium was found to be low at 128 and his BUN was 26 his creatinine was 1.0. His urine does not appear infected. soft tissue neck CT with
IV contrast was done which is negative for any mass or collection in the neck however CAT scan of the abdomen shows irregular endplate destruction at T11-T10 disc base suspicious for discitis and osteomyelitis. Case reviewed with ED physician will
give IV antibiotics.
Pt's pain improved with Fentanyl (was given fentanyl as his blood pressure was in the 90s)
Chronic conditions affecting care:
IDDM
<AAMIR Ross - Last Filed: 04/15/24 23:27>
*Radiology
Radiology exam reviewed: radiology read reviewed
*Pulse Oximetry
Patient hypoxic: no
*Critical Care Note
Total Time (30-74mins, 75-104mins- exclusive of procedures): Not Applicable
ED Attending Note
<AAMIR Ross - Last Filed: 04/15/24 23:27>
-
Portions of this chart may have been created with voice recognition software.� Occasional wrong word or��sound alike� substitutions may have occurred due to the inherent limitations of voice recognition software.
<Jorge Victoria DO - Last Filed: 04/15/24 21:29>
ED Attending Note
Patient seen and examined by attending physician: Yes
I performed the substantive portion of visit, reviewed & personally made and approve the management plan that is documented in note by myself or [place].: Yes
ED Attending Note:
I have seen and evaluated the patient with a [id number] encounter. I have spoken to the advance practicer provider and involved in the medical history, the physical exam, medical decision making.
Evaluation and management service: agree unless noted differently below.
Results interpretation: agree unless noted differently below.
Focused HPI: 79-year-old male presenting with fever, fatigue and neck and back pain. Patient has been evaluated with muscle spasm and was sent to rehab. It did improve with Valium. Patient states symptoms have reoccurred for the past several
days. He is now febrile. He saw his PCP and had urinalysis showing bacteriuria and hematuria. Patient was sent in for evaluation
Physical exam: Uncomfortable, posterior cervical muscle spasm (similar to prior muscle spasm per patient). Mild generalized abdominal tenderness. Dry mucous membranes
Medical Decision Making: Given duration of symptoms, I do doubt bacterial meningitis. Will obtain CT head, CT neck and CT abdomen/pelvis. Patient will ultimately require admission for IV antibiotics.
Discharge Plan
Departure
Patient Disposition: Admit
Date of Disposition: 04/15/24
Time of Disposition: 23:21
Admit to: ICU
Admit to doctor: hospitalist
Presentation/result/management discussed w/ accepting MD/DO: Hospitalist
Patient with high blood pressure during this ER visit?: No
Condition: Fair
Covid-19: Not Applicable
Discharge Problem:
Osteomyelitis, Discitis, Sepsis
Prescriptions:
No Action
atorvastatin 40 mg Tablet
40 mg PO DAILY
metoprolol succinate 200 mg Tablet Extended Release 24 Hr
200 mg PO DAILY
cyanocobalamin (vitamin B-12) 1,000 mcg Tablet
1,000 mcg PO BID
spironolactone 25 mg Tablet
50 mg PO DAILY
tamsulosin 0.4 mg Capsule
0.4 mg PO HS
cholecalciferol (vitamin D3) 50 mcg (2,000 unit) Tablet
50 mcg PO DAILY
apixaban 5 mg Tablet
5 mg PO BID
latanoprost 0.005 % Drops
1 drp BOTH EYES HS
Theragen Tablet
1 tab PO DAILY
furosemide 20 mg Tablet
10 mg PO DAILY
insulin glargine 100 unit/mL (3 mL) Insulin Pen
30 unit SC HS
omega 2-rbt-gbo-fish oil [Fish Oil] 1,000 (120-180) mg Capsule
1 cap PO BID
Jardiance 25 mg Tablet
25 mg PO DAILY
Referrals:
Mike Doe MD [Family Provider] -
Interventions
Interventions:
*Risk Screen - Suicide Last Done: 04/15/24 16:40
*General Assessment Last Done: 04/15/24 20:51
*Neglect/Abuse Screening Last Done: 04/15/24 20:52
*ED COVID-19 Vaccine History Last Done: 04/15/24 20:51
Discharge Date and Time
Print Language: [place]
[2024-04-15] MEDS: NSS 1000 IV ×2 (21:19→22:53)
[2024-04-15] MEDS: TYLENOL 650 MG PO (21:32)
[2024-04-15] MEDS: SUBLIMAZE 25 MCG IV (21:38)
[2024-04-15 21:54] LABS: Urine Albumin 2+ (Neg - Trace); Urine Bilirubin Negative (Negative); Urine Character Clear (Clear); Urine Color Yellow; Urine Glucose 4+ (Negative); Urine Ketone Negative (Negative); Urine Leukocyte Negative (Negative); Urine Nitrite Negative (Negative); Urine Occult Blood 3+ (Negative); Urine Urobilinogen Negative (Neg - 1+)
[2024-04-15 22:09] LABS: COVID-19 Antigen Negative (Negative)
[2024-04-15 22:29] LABS: Urine Squamous Cell 0-2 /LPF (Few)
[2024-04-15 22:30] LABS: Urine Bacteria Moderate (Negative)
[2024-04-15] MEDS: NSS 300 IV (22:54)
[2024-04-15] MEDS: ZOSYN 50 IV (23:24)
[2024-04-16] VITALS (20 sets, daily range): BP systolic 84–128; BP diastolic 47–74; BMI 26.7
--- NOTE | 2024-04-16 00:01 | HPS.HSE ---
Family Physician
-
Family Physician: Mike Doe
Chief Complaint
-
Back pain and fever
History of Present Illness
This is a 79-year-old with past medical history of CAD status post CABG, uremia status post pacemaker placement, type 2 diabetes, CHF, preserved EF hypertension presenting to the emergency department with neck and back pain and fever.
Patient reports approximately 1 month history of ongoing back pain. He started having neck pain about 4 days ago. Which was intermittent and waxing and waning. He then said that his back pain became more severe and worse with any movement. He
has limited range of motion because of pain currently. Patient reports chills. He saw his family doctor and was sent in for elevated white count and positive UA.
He denies neck stiffness. He denies any weakness in his upper or lower extremities. He denies any numbness or tingling. Denies any nausea vomiting or diarrhea. Patient denies any headache. He denies incontinence of the bowel or bladder.
He had a recent hospitalization in January for a laparoscopic scopic cholecystectomy but otherwise has been in usual state of health.
In the emergency department his blood pressure was initially 100/60 with a pulse of 99 and a temp of 102.7. He is satting 98% on room air. He had a white count of 21,000 hemoglobin 12.6 platelet 239. Electrolytes notable for a sodium of 128 with
otherwise unremarkable. BUN and creatinine are still stable at 26 and 1.0 with a blood glucose of 297. He had mild transaminitis. Uric acid was elevated at 3.0. UA shows negative leukocyte esterase and negative nitrites with a few white cells
and few bacteria.
CT of the abdomen pelvis shows 'irregular endplate destruction at the T10-11 disc space, and findings are highly suggestive of discitis and osteomyelitis.
This does not appear to extend to the posterior margin of the disc space at this time, and no gross evidence to suggest extension of inflammatory process and the spinal canal on CT. As warranted, further evaluation with MRI of the lower thoracic
spine without and with contrast could be considered.'
Medical History
Past Medical History
Past Medical History: Reports Arrhythmia (A-fib on anticoagulation, status post PPM), CAD (Status post CABG), HTN, Hypercholesterolemia, IDDM and Other (BPH)
Past Surgical History: Reports Cardiac (Coverage) and Cholecystectomy
Social History
Tobacco: Former Smoker
Alcohol: None
Drug: None
Personal:
Living: With Family
Employment: Retired
Family History
Family History: Not pertinent
Allergies / Home Medications
Allergies reflects when Allergies were last updated in [facility].
Home Medications with original date entered in [facility]
Allergy/Medication List:
Allergies
Allergy/AdvReac Type Severity Reaction Status Date / Time
brimonidine Allergy Unknown Verified 04/15/24 20:51
enalapril Allergy Unknown Verified 04/15/24 20:51
metformin Allergy Unknown Verified 04/15/24 20:51
valsartan Allergy Unknown Verified 04/15/24 20:51
Home Medications
apixaban 5 mg tablet 5 mg PO BID 02/03/24
atorvastatin 40 mg tablet 40 mg PO DAILY 02/03/24
cholecalciferol (vitamin D3) 50 mcg (2,000 unit) tablet 50 mcg PO DAILY 02/03/24
cyanocobalamin (vitamin B-12) 1,000 mcg tablet 1,000 mcg PO BID 02/03/24
metoprolol succinate 200 mg tablet,extended release 24 hr 200 mg PO DAILY 02/03/24
spironolactone 25 mg tablet 50 mg PO DAILY 02/03/24
tamsulosin 0.4 mg capsule 0.4 mg PO HS 02/03/24
empagliflozin 25 mg tablet (Jardiance) 25 mg PO DAILY 04/15/24
furosemide 20 mg tablet 10 mg PO DAILY 04/15/24
insulin glargine 100 unit/mL (3 mL) subcutaneous pen 30 unit SC HS 04/15/24
latanoprost 0.005 % eye drops 1 drp BOTH EYES HS 04/15/24
omega 2-bwv-qla-fish oil 1,000 mg (120 mg-180 mg) capsule (Fish Oil) 1 cap PO BID 04/15/24
therapeutic multivitamin 1 tab PO DAILY 04/15/24
Review of Systems
-
History Source: Patient
Constitutional: Reports Fever
EENT: Reports No Symptoms
Respiratory: Reports No Symptoms
Cardiac: Reports No Symptoms
Abdomen/GI: Reports No Symptoms
: Reports No Symptoms
Musculoskeletal: Reports Joint Pain
Skin: Reports No Symptoms
Neurological: Reports No Symptoms
Endocrine: Reports No Symptoms
Hematologic/Lymphatic: Reports No Symptoms
Psych: Reports No Symptoms
Physical Exam
Vital Signs
Vital Signs
Temp Pulse Resp BP Pulse Ox
102.7 F H 99 22 109/67 95
04/15/24 21:02 04/15/24 23:15 04/15/24 23:15 04/15/24 23:15 04/15/24 23:15
Physical Exam
General: Well Developed and Pain
HEENT: NormoCephalic, Anicteric, Moist mucous membranes, Atraumatic and PERRLA
Respiratory: Clear
Cardiac: S1/S2 and Regular Rhythm
Breast: Deferred by me
GI: Soft, Non Tender, Non Distended and Normal Bowel Sounds
Rectal: Deferred by Provider
Genito-urinary: Clear Urine
Musculoskeletal: No Clubbing, No Cyanosis and No Edema
Skin: Warm
Neuro: AO x 3 and Nonfocal/grossly intact
Hematologic/Lymphatic: No Lymphadenopathy
Psych: Calm
Laboratory Results
-
04/15/24 16:55
04/15/24 16:55
Laboratory Results
Lactic Acid 3.0 mmol/L (0.7-2.0) H 04/15/24 21:12
Total Bilirubin 2.1 mg/dl (0.2-1.3) H 04/15/24 16:55
AST 62 U/L (17-59) H 04/15/24 16:55
ALT 86 U/L (0-50) H 04/15/24 16:55
Alkaline Phosphatase 187 U/L (38-126) H 04/15/24 16:55
Data Reviewed
-
CT Scan: Report Reviewed by me
Lab Data: Labs Reviewed by me
Old Records: Reviewed
Impression/Plan
-
IMPRESSION:
73-year-old with past medical history of diabetes, atrial fibrillation on anticoagulation and status post pacemaker placement, CAD status post CABG and BPH who presents to the emergency department with neck and back pain was found to have vertebral
osteomyelitis and discitis affecting T10- 11 vertebrae. No abscess. No fluid collection and no clear extension of osteomyelitis. No focal neurological deficits on exam at this time. He is however febrile, elevated lactic acid and soft blood
pressure with a MAP of 63. Sodium is 128. Bicarb is 20.
Patient has osteomyelitis with sepsis. No clear evidence of hematogenous source at this time.
PLAN:
1. Vertebral osteomyelitis with sepsis - No myelopathy. D/W ID and Neurosurgery.
- Admit to IMU
- blood cultures sent,
- esr crp pending
- will get echo if cultures positive or persistent illness
- given sepsis picture got 30ml/kg bolus
- IV vanc/Zosyn started, will continue for now
- urine cultures
- influenza -, cov -
- ID consult
- neurosurgery consult
2. Blood pressure/ CHF - MAP 63 soft s/p 2.7 L
- will give LR at 100 ml/hr for now
- pressors to keep MAP > 65
- monitor i/os
- hold metoprolol succinate, 200, change to iv metoprolol 2.5 q 6 with hold parameters
- hold spironolactone, jardiance and furosemide
3. AFIB - currently rate controlled
- tele
- continue apixaban for now
- type and screen
- rate control method depending on need for pressors. Currently NSR.
4. DM II
- npo for now
- insulin sliding scale q4 hours , monitor for dka
5. BPH
- continue tamsulosin
DVT PPX - on apixaban
Code status - DNR (ok to be intubated for surgery)
[2024-04-16] MEDS: VANCOCIN 540 MG IV (00:13)
[2024-04-16 00:58] LABS: Erythrocyte Sed Rate 48 mm/hour (0-20)
[2024-04-16 01:30] LABS: Lactic Acid 0.8 mmol/L (0.7-2.0)
[2024-04-16] MEDS: LR 1000 IV ×3 (01:49→20:56)
[2024-04-16 03:43] LABS: Hematocrit 32.7 % (39.0-52.0); Hemoglobin 10.8 g/dL (13.0-18.0); Mean Corpuscular Hgb 28.1 pg (27.0-31.0); Mean Corpuscular Volume 84.9 fL (80.0-94.0); Platelet Count 160 10^3/uL (130-400); Red Blood Cell Count 3.85 10^6/uL (4.70-6.10); Red Cell Dist. Width 15.9 % (11.5-14.5); White Blood Cell Count 27.1 10^3/uL (4.8-10.8)
[2024-04-16 03:54] LABS: ALT (SGPT) 66 U/L (0-50); AST (SGOT) 52 U/L (17-59); Albumin 2.5 g/dl (3.5-5.0); Alkaline Phosphatase 154 U/L (38-126); Blood Urea Nitrogen 27 mg/dl (9-20); Calcium 7.8 mg/dl (8.4-10.2); Carbon Dioxide 21 mmol/L (22-30); Chloride 101 mmol/L (98-107); Estimated Creatinine Clearance 55 ml/min; Glucose 163 mg/dl (70-99); Potassium 4.5 mmol/L (3.5-5.1); Sodium 130 mmol/L (135-145); Total Bilirubin 1.7 mg/dl (0.2-1.3); Total Protein 5.6 g/dl (6.3-8.2); eGFR > 60.00
--- NOTE | 2024-04-16 04:24 | PTCARENOTE ---
Patient arrived into room 3343 from ER. Oriented to room and use of call waller. Afebrile. Tele applied showing Atrial-sensed ventricular-paced rhythm.BP stable, Levo gtt not infusing. Reports pain to the back of his neck and lower back upon moving,
but is manageable at rest, declined pain medication. IVF continue per MAR. IV Abx infusing. Assisted pt with urinal. 2 RN skin check complete. Bilateral buttock with stage 2 wounds. Wound care consulted. Foam Mepilex applied. Call waller and tray
table within reach. Pt appreciative of care.
[2024-04-16 04:32] LABS: Glucose - Point of Care 308 mg/dl (70-99)
[2024-04-16] MEDS: NOVOLOG FLEXPEN-MODERATE RESISTANCE 1 UNITS SC (05:53)
[2024-04-16] MEDS: ZOSYN 50 IV (05:56)
[2024-04-16 06:03] LABS: Glucose - Point of Care 170 mg/dl (70-99)
--- NOTE | 2024-04-16 08:13 | W.PN.HOSP.TC ---
Today's Communication/Plan
-
MRI
hold Eliquis
IVF
appreciate consultants
Assessment / Plan
Assessment / Plan
IMPRESSION:
73-year-old with past medical history of diabetes, atrial fibrillation on anticoagulation and status post pacemaker placement, CAD status post CABG and BPH who presents to the emergency department with neck and back pain was found to have vertebral
osteomyelitis and discitis affecting T10- 11 vertebrae. No abscess. No fluid collection and no clear extension of osteomyelitis. No focal neurological deficits on exam at this time. He is however febrile, elevated lactic acid.
Abdomen/Pelvis CT
IMPRESSION: There is irregular endplate destruction at the T10-11 disc space, and findings are highly suggestive of discitis and osteomyelitis.
This does not appear to extend to the posterior margin of the disc space at this time, and no gross evidence to suggest extension of inflammatory process and the spinal canal on CT. As warranted, further evaluation with MRI of the lower thoracic
spine without and with contrast could be considered.
No focal abnormality kidneys. No focal abnormality of the visualized pelvicalyceal systems, ureters, or urinary bladder.
Several calcified pleural plaques, compatible with previous asbestos exposure.
Mild to moderate atelectasis in the visualized lower lungs, which limits evaluation for any changes of interstitial fibrosis/asbestosis.
Status post cholecystectomy with no evidence for biliary ductal dilation.
Neck CT
IMPRESSION: No evidence for mass or collection within the neck.
There are changes of degenerative disc disease within the neck as well as bilateral facet degenerative change.
Vascular calcifications, mild to moderate.
Mild patchy mucosal thickening of the ethmoid sinuses. Minimal peripheral mucosal thickening of the lateral and inferior right maxillary sinus.
IMPRESSION:
No evidence of acute intracranial abnormality.
PLAN:
1. Vertebral osteomyelitis with sepsis - No myelopathy. D/W ID and Neurosurgery.
- Admitted to IMU
- IV vanc/Zosyn started, will continue for now
- F/U blood cultures
- discussed with Neurosurgery and MRI C/T/L spine ordered with and without contrast. Patient has a PPM but had a MRI here last month
- ID consult
- neurosurgery consult
2. Blood pressure/ CHF - MAP 63 soft s/p 2.7 L
- will give LR at 100 ml/hr for now
- pressors to keep MAP > 65
- monitor i/os
- resume lower dose [employer] metoprolol
- hold spironolactone, jardiance and furosemide
- monitor volume status closely
3. AFIB - currently rate controlled
- tele
- type and screen
- will resume lower dose metoprolol
- hold Eliquis until MRI results
4. DM II
- npo for now
- insulin sliding scale q4 hours , monitor for dka
5. BPH
- continue tamsulosin
DVT PPX - SCD's, hold Eliquis until MRI results
Code status - DNR (ok to be intubated for surgery)
Anticipated Discharge: > 48 hours
Subjective/Interval History
-
Date of Service: April 16, 2024
significant neck pain and lower back pain
Objective Data
-
Labs:
Laboratory Results
04/16/24
03:13
WBC 27.1 H
Hgb 10.8 L
Hct 32.7 L
Plt Count 160 D
Sodium 130 L
Potassium 4.5
Chloride 101
Carbon Dioxide 21 L
BUN 27 H
Creatinine 1.0
Glucose 163 H
Calcium 7.8 L
Total Bilirubin 1.7 H
AST 52
ALT 66 H
Alkaline Phosphatase 154 H
Vital Signs:
Vital Signs
Temp Pulse Resp BP Pulse Ox
97.2 F 73 18 119/60 95
04/16/24 03:17 04/16/24 06:15 04/16/24 06:15 04/16/24 06:00 04/16/24 06:15
I&O
04/15/24 04/16/24 04/17/24
06:59 06:59 06:59
Intake Total 50 / 50
Output Total 850 / 850
Balance -800 / -800
Review of Systems
-
History Source: Patient
All other systems: Reviewed and negative
Physical Exam
-
General: No Apparent Distress
HEENT: PERRLA and Other (neck stiffness )
Respiratory: Clear to Auscultation; Negative Wheezes
Cardiac: Regular Rhythm and S1/S2
GI: Soft and Nontender
Musculoskeletal: No Edema
Skin: Warm and Dry; Negative Rash
Neuro: AO x 3
Psych: Calm
Data Reviewed
-
Diagnostic Radiology: Report Reviewed by me
Labs: Labs Reviewed by me
[2024-04-16] MEDS: DILAUDID 0.5 MG IV ×3 (08:44→20:49)
--- NOTE | 2024-04-16 08:51 | PHA.VAN.IN ---
Assessment
- Assessment
Renal Function: Appears similar to baseline
Concomitant Antimicrobials: piperacillin/tazobactam
AUC Dosing Plan
- Dosing Variables
Dosing Weight (kg): 75
Dosing CrCl (ml/min): 55
Vd coefficient (L/kg): 0.7
- Empiric Dosing
Initial / Loading Dose: 2000mg - 04/16 00:13
Maintenance Regimen: Vanc 1250mg Q24H starting 04/17 0600
Estimated AUC (mcg*h/mL): 494
Estimated Peak (mcg*h/mL): 34.1
Estimated Trough (mcg/ml): 11
Estimated Half Life (H): 13.8
- Monitoring
No levels ordered at this time: follow renal function trend
Pharmacokinetics Vancomycin I
- -
Patient Age: 79
Patient Sex: Male
Vancomycin Day #: 1
Indication: [facility]
Requesting Provider: Dr. Welch
Pertinent Antimicrobial Allergies:
no pertinent antibiotic allergies
Height / Weight:
Height 5 ft 6 in
Actual Weight 74.956 kg
Pertinent Past Medical History: DM II
- Vital Signs / Lab Results
Temp Pulse Resp BP Pulse Ox
97.6 F 73 18 119/60 95
04/16/24 07:30 04/16/24 06:15 04/16/24 06:15 04/16/24 06:00 04/16/24 06:15
Lab Results - Hematology
04/15/24 04/16/24
16:55 03:13
WBC 21.5 H 27.1 H
Lab Results - Chemistry
04/15/24 04/16/24
16:55 03:13
BUN 26 H 27 H
Creatinine 1.0 1.0
Estimated Creat Clear 55
Albumin 3.9 2.5 L
04/15/24 04/16/24 04/16/24
21:12 01:10 02:36
Lactic Acid 3.0 H 0.8 Cancelled
04/16/24 04/16/24 04/16/24
06:36 10:36 14:36
Lactic Acid Cancelled Cancelled Cancelled
Lab Results - Urine
04/15/24
21:45
Urine Nitrite (Reflex) Negative
Leukocyte Esterase Rfl Negative
Urine WBC (Reflex) 3-5
Ur Squamous Epith Cells 0-2
Urine Bacteria (Reflex) Moderate A
Microbiology Results
04/15/24 21:30 Blood Culture - Preliminary
Blood/Venous Positive culture in progress
Gram Stain - Final
04/15/24 21:20 Influenza Types A & B ([facility]) - Final
Nasal Swab Negative for Influenza A & B, NAAT
Negative results must be combined with clinical observations
and patient history.
Nucleic Acid Amplification test (NAAT)performed on the
[employer] platform.
[2024-04-16] MEDS: LIPITOR 40 MG PO (09:33)
[2024-04-16] MEDS: TOPROL XL 50 MG PO (09:33)
--- NOTE | 2024-04-16 10:11 | CON.ID ---
Consultation
-
Date/Time Consultation Requested: April 16, 2024 0236
Date/Time Consultation Performed: April 16, 2024 1010
Requesting Provider: Dr. Margareth Richards
Performing Provider: Dr. Cathi Abreu
Reason for Consultation: Sepsis, vertebral osteomyelitis
Chief Complaint / Past History
Chief Complaint
Fever and back/neck pain
History of Present Illness
History obtained from the patient as well as from his at bedside. He is a 79-year-old male from the [place] with history of diabetes mellitus, CAD status post CABG, pacemaker placement, who was sent in to the hospital April 15 by his
primary care physician due to leukocytosis and fever. Patient's mid back pain started in late December 2023. He was hospitalized February 02 to February 06, 2024: Workup included EUS + gallstones without findings of gallstones in the bile duct.
Pain thought to be due to biliary pancreatitis as patient was jaundiced he therefore underwent laparoscopic cholecystectomy on February 04. Pathology showed acute and chronic cholecystitis with cholelithiasis. However despite cholecystectomy, he
continued to have back pain. Back pain appeared to be worse and seem to move all over to different places. Surgery ordered MRCP done March 23 manage her mom will call if she is needed which showed no evidence choledocholithiasis. About 2 weeks
ago patient then developed neck pain which wax and wane. Last week the neck pain and mid back pain got worse. He had subjective fever. He saw his PCP who ordered lab work and out of bed and noted to have leukocytosis and abnormal UA. He was
therefore sent to the ER yesterday. Rectal temperature 102.7. White count 21.5 which increased to 27.1 today. CRP 166. Please see CAT scan of the abdomen pelvis showed T10-T11 endplate destruction. Admission blood cultures are positive for GPC
in pairs and chains. Patient is awaiting for MRI. Last dental work was in September 2023. No headache or sore throat. Positive dry cough for several weeks. +25 pound weight loss since January. Continues to have neck pain and mid back pain. No
urinary symptoms. He is moving his bowels. No focal weakness.
Past History
Additional Past Medical History:
DM2
Hypertension
HLD
CAD status post CABG/stent
Atrial fibrillation
Pacemaker placement
HFpEF
HALLIE
BPH
Lap cholecystectomy 02/05/24
Allergy History:
brimonidine Allergy (Verified 04/15/24 20:51)
Unknown
enalapril Allergy (Verified 04/15/24 20:51)
Unknown
metformin Allergy (Verified 04/15/24 20:51)
Unknown
valsartan Allergy (Verified 04/15/24 20:51)
Unknown
Medications Reviewed: Yes
Current Antibiotics:
Vancomycin
Zosyn
Social History
Tobacco: Non-Smoker
Alcohol: None
Drug: None
Personal:
Family History
Family History: Not Pertinent
Review of Systems
Review of Systems
General: Fever, Chills and Change in Appetite
HEENT: Stiff Neck; Negative Sinus Problems, Headache or Pharyngitis
Cardiovascular: Negative Chest Pain or Edema
Respiratory: Cough; Negative Dyspnea or Sputum Production
Gasteroenterology: Weight Loss; Negative Nausea, Vomiting or Diarrhea
Genital / Urological: Negative Dysuria or Flank Pain
Endocrine: Weakness
Skin / Hair / Nails: Negative Rash
Neurological: Negative Dizziness
All systems: All other systems were reviewed and were negative
Vital Signs
Temp Pulse Resp BP Pulse Ox
97.6 F 73 18 112/52 95
04/16/24 07:30 04/16/24 09:33 04/16/24 06:15 04/16/24 09:33 04/16/24 06:15
Selected Entries
04/15/24
21:02
Temp 102.7 F H
Physical Exam
Physical Exam
Constitutional: Non-toxic
Head: Other (No frontal or max or sinus tenderness)
Eyes: No Conjunctival Hemorrhage and Sclera Anicteric
Pharynx: Benign
Oral: Other (Good dentition)
Cardiovascular: Regular Rate, S1/S2 and Other (Left chest wall pacemaker site without induration or erythema)
Pulmonary: Clear
Gastrointestinal: Soft, Non Tender, Non Distended and Normal Bowel Sounds
Genito-Urinary: Negative CVA Tenderness
Extremities: Negative Edema
Musculoskeletal: Other (Neck; limited ROM due to pain)
Neurological: AO x 3
Lab / Diagnostic Study Results
04/16/24 03:13
04/16/24 03:13
Abs Immat Gran (auto) 0.2 10^3/uL (0-0.05) H 04/15/24 16:55
Absolute Neuts (auto) 17.9 10^3/uL (1.4-6.5) H 04/15/24 16:55
Absolute Lymphs (auto) 1.7 10^3/uL (1.2-3.4) 04/15/24 16:55
Absolute Monos (auto) 1.6 10^3/uL (0.1-0.6) H 04/15/24 16:55
Absolute Basos (auto) 0.1 10^3/uL (0-0.2) 04/15/24 16:55
Immature Gran % 1.0 % (0-0.5) H 04/15/24 16:55
Neutrophils % 83.1 % (42.2-75.2) H 04/15/24 16:55
Lymphocytes % 7.8 % (20.5-51.1) L 04/15/24 16:55
Monocytes % 7.6 % (1.7-9.3) 04/15/24 16:55
Eosinophils % 0.1 % (0-6) 04/15/24 16:55
Basophils % 0.4 % (0-2) 04/15/24 16:55
ESR 48 mm/hour (0-20) H 04/15/24 16:55
Lactic Acid Cancelled 04/16/24 14:36
C-Reactive Protein 166.20 mg/L (0.0-10.00) H 04/15/24 16:55
Ur Squamous Epith Cells 0-2 /LPF (Few) 04/15/24 21:45
Microbiology Results
Micro:
04/15/24 21:12 Blood Culture - Preliminary
Blood/Venous Positive culture in progress
Gram Stain - Preliminary
04/15/24 21:30 Blood Culture - Preliminary
Blood/Venous Positive culture in progress
Gram Stain - Final
04/15/24 21:45 Urine Culture - Pending
Urine
04/15/24 21:20 Influenza Types A & B ([facility]) - Final
Nasal Swab Negative for Influenza A & B, NAAT
Negative results must be combined with clinical observations
and patient history.
Nucleic Acid Amplification test (NAAT)performed on the
[employer] platform.
04/15/24 CT a/p: There is irregular endplate destruction at the T10-11 disc space, and findings are highly suggestive of discitis and osteomyelitis.
This does not appear to extend to the posterior margin of the disc space at this time, and no gross evidence to suggest extension of inflammatory process and the spinal canal on CT. As warranted, further evaluation with MRI of the lower thoracic
spine without and with contrast could be considered.
Assessment / Plan
# Acute neck pain and upper mid back pain.
#Vertebral discitis/osteo
# GPC pairs and chains bacteremia (2 sets)
# Leukocytosis trending up
# Fever
# Presence of PPM
- Awaiting MRI C/T/L spine wo and with contrast.
Need to turn off PPM for MRI.
- Ordered TTE
- Repeat blood cultures until clear.
-Suspect Enterococcus vs Streptococcus.
- DC Vancomycin and Zosyn.
-Start IV Ampicillin 2g IV q4 h and ceftriaxone 2g IV q12
# Conditions prior to admission
DM2
Hypertension
HLD
CAD status post CABG/stent
Atrial fibrillation
Pacemaker placement
HFpEF
HALLIE
BPH
Lap cholecystectomy 02/05/24
--- NOTE | 2024-04-16 11:27 | WOUNDNOTE ---
BILATERAL ISCHIUM (Lower buttocks)
--- NOTE | 2024-04-16 11:33 | WOUNDNOTE ---
[facility] RN note: Patient admitted with Vertebral osteomyelitis with sepsis
See H&P for complete history.
PMH: CHF, type 2 diabetes, afib, BPH
Wound Location and type/assessment: Patient admitted with stage 2 PI of bilateral lower ischium/buttocks. Wounds appear to have been caused by a combination of pressure and friction and shearing. Both wounds are superficial and w/o odor or
drainage. Patient and report that patient slides out of chair at home due to pain. They both report the wounds being present for about a month and have been using Desitin for open area. Patient also using air cushion to chair at home. He needs
assistance of 2 to turn in bed due to pain. He denies incontinence. Heels blanchable and intact.
Appetite: Reports poor appetite
Pressure redistribution devices in place: Centrella Max Air, heels off-loaded with pillows under calves, patient positioned in right semi-side lying position.
Plan: Air cushion provided to chair. Sacral foam maintained and Calazime at beside. Instructed on avoiding sliding when standing. Will confirm orders with hospitalist and update nurse.
updated care plan and will follow as needed.
Note to case management of equipment requested for discharge:
Recommend follow up at wound care center upon discharge.
[2024-04-16] MEDS: AMPICILLIN 108 MG IV ×3 (12:19→19:59)
[2024-04-16 12:34] LABS: Glucose - Point of Care 113 mg/dl (70-99)
--- NOTE | 2024-04-16 15:05 | CARDSERVLU ---
Echocardiogram with [facility] completed after protocol screening completed. Allergies verified.
Patent IV site: __left arm cephalic 18 G PC___
IV site flushed with 0.9% NaCl pre and post administration.
Diluted bolus method utilized to enhance visualization of ventricular soriano.
Total volume given: ___3_ mL
Patient tolerated all procedures well without complications. Pt offers no complaints.
--- NOTE | 2024-04-16 16:04 | CON.CAR ---
Addendum entered and electronically signed by Robert Person MD 04/16/24 17:13:
Patient seen and examined
Agree with DARIO Sims's note and assessment
Pre with DARIO Sims's plan
Discussed plan of care with patient and at the bedside. 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 Before the last 3 months he has been fairly active. Of note he was at
[facility] for a cholecystectomy in January. His BiV ICD was implanted at the [facility] in [address] Estrada. We will interrogate his device tomorrow. He has had chills and was diagnosed with spinal
osteomyelitis�discitis along with positive blood cultures and an echocardiogram today which demonstrates a vegetation on his atrial lead which is sizable and presumed mitral valve vegetation on transthoracic echo. Normal ejection fraction. He was
seen today by infectious disease specialists.
����Physical Exam
���������������������General:��no apparent distress, not acutely ill
���������������������������Neck:��supple. no meningeal signs. normal psoterior pharynx
������������������������
���������������������������Heart:��s1/s2 regular rate and rhythm, no murmur. equal radial pulses. He has no significant murmur on auscultation
��������������������������Lungs: ��no acute respiratory distress. clear bilaterally
����������������������Abdomen:�normal bowel sounds. not tender. no CVAT
��������������������������Neuro:��alert and oriented. no focal neurological deficits
������������������������������Skin: ��no rash
�����������������������Psychiatric:�well kept. interactive and cooperative
�����������������������Extremities:��no edema. no calf tenderness. negative homans. good distal pulses
��
�
Impression:
Admitted with neck and back pain 04/15/24
Sepsis
Vertebral osteomyelitis
Hypotension
Vegetation on the pacing lead
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
s/p [employer] BiV ICD 12/28/16-implanted by Dr. Estrada
CAD with KS
s/p 3 mm Taxus LUCIO to unknown vessel 10/15/05
s/p CABG x 2 2006 at [place]
Atrial fibrillation of unclear chronicity and duration-he is in sinus rhythm with ventricular demand pacing today by telemetry
Chronic Eliquis OAC
HLD
DM2
remote former smoker
s/p lap grace 01/2024
Echo 04/16/2024: EF 50 to 55%, normal regional wall motion, pacer wire seen in the RV with large density (1.7 x 1.9 cm) on pacemaker which could be consistent with vegetation, thickened mitral valve leaflets with MAC and peak/mean 8/4 mmHg, mobile
echodensity on the MV consistent with vegetation, at least moderate eccentric MR, aortic sclerosis without stenosis, no aortic regurgitation, mild TR with PAP 20 to 25 mmHg
Plan:
-Appreciate ID consultation and recommendations
-Await culture and sensitivity data
-will interrogate device in AM as unclear if dependent. would program at VVI @35 if not dependent and plan for evaluation for extraction. Currently he is biventricular pacing and at evaluation can see if he is pacemaker dependent
-Plan ELLIE early next week to size the vegetation on the pacing lead and to get a better idea of the extent of the mitral valve involvement or aorto-mitral continuity involvement. may require CT surgical evaluation. further recommendations pending
clinical progress
-OP eliquis on hold
-will attempt to obtain records from primary scientific laboratory supervisor at [facility]
-d/w nursing
-MD d/w hospitalist, ID via TT
-d/w patient and at bedside
Original Note:
Consultation
Consultation Request
Date/Time Consultation Requested: 04/16/24
Date/Time Consultation Performed: 04/16/24
Requesting Provider: Dr. Richards
Performing Provider: Enedina Sims PA-C for Dr. Person
Reason for Consultation: Abnormal echo
Medical History
-
Chief Complaint: neck pain, fever
History of Present Illness:
Patient came to [facility] with neck pain on 04/15/24 and was admitted with osteomyelitis and cardiology is now consulted for eval of abnormal echo. Patient has routine cardiology care at [facility] Dr. Servin. Patient was admitted to 02/03/24 until 02/06/24
with abdominal pain and had lap grace 02/05/24. Patient was then in the ER 02/27/24 for hypotension and URI symptoms at the recommendation of his PCP, but BP was normal and no evidence of acute process so patient was sent home. Patient came back to ER
03/02/24 with chest and back pain and troponin negative and he was given toradol and valium for spasm. Patient was sent to [facility] for rehab briefly however then went home. Patient came to last night with neck pain that started Saturday
04/11/24. He reports limited neck mobility and development of fever. He was noted by imaging to have evidence of osteomyelitis then underwent echo which showed large mobile echodensity consistent with mitral valve vegetation, MR, and large density on
ppm also with concern for vegetation. Blood cultures prelim positive. cardiology consulted for evaluation.
PMH:
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
s/p [employer] ICD 12/28/16
CAD with KS
s/p 3 mm Taxus LUCIO to unknown vessel 10/15/05
s/p CABG x 2 2005 at [place]
Atrial fibrillation of unclear chronicity and duration
Chronic Eliquis OAC
HLD
DM2
remote former smoker
s/p lap grace 01/2024
Past Medical History
Past Medical History: Other (in HPI)
Past Surgical History: Cardiac (CABG and PCI, s/p PPM) and Cholecystectomy (01/2024)
Social History
Tobacco: Former Smoker
Alcohol: Former (increased ETOH use in the 1960s, but none now)
Drug: None
Personal:
Living: With Family (was at [facility] for rehab, but now back at home with his )
Family History
Family History: Cancer (colon cancer)
Allergies / Home Medications
Allergy/AdvReac Type Severity Reaction Status Date / Time
martellonidine Allergy Unknown Verified 04/15/24 20:51
enalapril Allergy Unknown Verified 04/15/24 20:51
metformin Allergy Unknown Verified 04/15/24 20:51
valsartan Allergy Unknown Verified 04/15/24 20:51
�Medication �Instructions �Recorded �Confirmed �Type
apixaban 5 mg tablet 5 mg PO BID 02/03/24 04/15/24 History
atorvastatin 40 mg tablet 40 mg PO DAILY 02/03/24 04/15/24 History
cholecalciferol (vitamin D3) 50 50 mcg PO DAILY 02/03/24 04/15/24 History
mcg (2,000 unit) tablet
cyanocobalamin (vitamin B-12) 1,000 mcg PO BID 02/03/24 04/15/24 History
1,000 mcg tablet
metoprolol succinate 200 mg 200 mg PO DAILY 02/03/24 04/15/24 History
tablet,extended release 24 hr
spironolactone 25 mg tablet 50 mg PO DAILY 02/03/24 04/15/24 History
tamsulosin 0.4 mg capsule 0.4 mg PO HS 02/03/24 04/15/24 History
empagliflozin 25 mg tablet 25 mg PO DAILY 04/15/24 04/15/24 History
(Jardiance)
furosemide 20 mg tablet 10 mg PO DAILY 04/15/24 04/15/24 History
insulin glargine 100 unit/mL (3 30 unit SC HS 04/15/24 04/15/24 History
mL) subcutaneous pen
latanoprost 0.005 % eye drops 1 drp BOTH EYES HS 04/15/24 04/15/24 History
omega 4-awl-iab-fish oil 1,000 mg 1 cap PO BID 04/15/24 04/15/24 History
(120 mg-180 mg) capsule (Fish Oil)
therapeutic multivitamin 1 tab PO DAILY 04/15/24 04/15/24 History
fluorouracil 5 % topical cream See Rx Instructions .Route .COMPLEX 04/16/24 04/16/24 History
Review of Systems
-
History Source: Patient and Family
All other systems: Negative unless noted
Physical Exam
Vital Signs
Temp Pulse Resp BP Pulse Ox
97.6 F 73 18 112/52 95
04/16/24 11:30 04/16/24 09:33 04/16/24 06:15 04/16/24 09:33 04/16/24 06:15
Lab Results
04/16/24 03:13
04/16/24 03:13
Physical Exam
General: No Apparent Distress and Comfortable
HEENT: Normocephalic, Anicteric and Moist Mucous Membranes
Respiratory: Clear and Non Labored Respirations
Cardiac: S1/S2, Regular Rhythm and Murmur
GI: Soft, Non Tender, Non Distended and Normal Bowel Sounds
Musculoskeletal: No Clubbing and No Cyanosis
Skin: Warm and Dry
Neuro: AO x 3
Impression / Plan
-
PCP: Dr. Mike Doe
Cardiology: Dr. [facility] of [facility]
Impression:
Admitted with neck and back pain 04/15/24
Sepsis
Vertebral osteomyelitis
Hypotension
Abnormal echo suggesting pacer wire vegetation in the RV and vegetation on the mitral valve 04/16/2024
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
s/p [employer] ICD 12/28/16
CAD with KS
s/p 3 mm Taxus LUCIO to unknown vessel 10/15/05
s/p CABG x 2 2005 at [place]
Atrial fibrillation of unclear chronicity and duration
Chronic Eliquis OAC
HLD
DM2
remote former smoker
s/p lap grace 01/2024
Echo 04/16/2024: EF 50 to 55%, normal regional wall motion, pacer wire seen in the RV with large density (1.7 x 1.9 cm) on pacemaker which could be consistent with vegetation, thickened mitral valve leaflets with MAC and peak/mean 8/4 mmHg, mobile
echodensity on the MV consistent with vegetation, at least moderate eccentric MR, aortic sclerosis without stenosis, no aortic regurgitation, mild TR with PAP 20 to 25 mmHg
Plan:
-Patient came to [facility] with neck pain on 04/15/24 and was admitted with osteomyelitis and cardiology is now consulted for eval of abnormal echo. Patient has [facility] care at [facility] - [facility]. Servin. Patient was admitted to 02/03/24 until 02/06/24
with abdominal pain and had lap grace 02/05/24. Patient was then in the ER 02/27/24 for hypotension and URI symptoms at the recommendation of his PCP, but BP was normal and no evidence of acute process so patient was sent home. Patient came back to ER
03/02/24 with chest and back pain and troponin negative and he was given toradol and valium for spasm. Patient was sent to [facility] for rehab briefly however then went home. Patient came to last night with neck pain that started Saturday
04/11/24. He reports limited neck mobility and development of fever. He was noted by imaging to have evidence of osteomyelitis then underwent echo which showed large mobile echodensity consistent with mitral valve vegetation, MR, and large density on
ppm also with concern for vegetation. Blood cultures prelim positive. cardiology consulted for evaluation.
-appreciate ID input regarding abx regimen and duration
-will interrogate device in AM as unclear if dependent. would program at VVI @35 if not dependent and plan for evaluation for extraction
-may need ELLIE. may require CT surgical evaluation. further recommendations pending clinical progress
-OP eliquis on hold
-patient very sick
-will attempt to obtain records from primary scientific laboratory supervisor at [facility]
-d/w nursing
-MD d/w hospitalist, ID via TT
-d/w patient and at bedside
Data Reviewed
-
EKG: Tracing Personally Visualized and interpreted
Ultrasound: Report Reviewed by me
Medical Tests (Nuc Med, Echo etc): Report Reviewed by me
Labs: Labs Reviewed by me
Old Records: Reviewed
--- NOTE | 2024-04-16 16:20 | CM ---
Patient with Dx Vertebral osteomyelitis with sepsis. MRI Spine today. Room air. Receiving IVF, IV Abx, IV Dilaudid prn. Echo today. Seen by wound care nurse.
Met with patient and Cindy;
the patient resides with his in a bi-level house with 3 steps to enter, 5 steps to 2nd fl.
The patient was independent in ADLs and ambulation using his cane.
was doing wound care for patient at home.
DME - SPC, RW, CPAP
Prior [facility]
Prior [facility] - would not return there
PCP - Dr Ivey at [facility]
Pharmacy - [facility]
CM continuing to follow for d/c needs.
Plan TBD.
[2024-04-16 17:04] LABS: Glucose - Point of Care 203 mg/dl (70-99)
--- NOTE | 2024-04-16 17:04 | PTCARENOTE ---
Assessment and care as documented. Medicated with PRN Dilaudid for pain with good effect. IVF infusing as ordered. Ringing appropriately, call waller within reach.
[2024-04-16] MEDS: FLUSH (NSS) IV ×2 (17:09→17:29)
--- NOTE | 2024-04-16 17:20 | CON.NS ---
Consultation
-
Date/Time Consultation Performed: 04/16/2024; 17:20
Performing Provider: Regis
Chief Complaint
History of Present Illness
This is a neurosurgical consultation on a 79-year-old gentleman with active medical issues including coronary artery disease, status post CABG, uremia, status post pacemaker placement, type 2 diabetes, congestive heart failure, who presented with
neck pain, back pain, fever. Patient reports back pain, with neck pain that started 4 days prior. He was found to be febrile in the emergency room with a temperature of 102.7. He also had a white blood cell count of 21,000. He had a CT of the
abdomen/pelvis that did demonstrate irregular endplate destruction at T10/11 suspicious for possible osteomyelitis/discitis. Neurosurgery consulted for further input.
Patient was admitted, blood culture sent, ESR/CRP were ordered. Patient has already been started on IV vancomycin/Zosyn. Eliquis is on hold until patient undergoes MRI.
Patient was seen by infectious disease. Admission blood cultures are positive for gram-positive cocci in pairs and chains, and 2 sets. Antibiotics have been changed to IV ampicillin, and ceftriaxone.
Additionally, most recently, patient was found to have vegetation on his atrial lead on echocardiogram today, and presumed mitral valve vegetation on transthoracic echocardiogram.
Patient seen and examined. Currently complains of significant neck pain and stiffness. Inability to move neck, for the past 4 days. Denies any numbness, tingling, pain in upper extremities. Denies any lower extremity pain, numbness, tingling.
denies any bowel bladder changes
Review of Systems
-
10 point review of systems including constitutional, ENT, cardiovascular, respiratory, GI, , hematologic, endocrinologic, neurologic, musculoskeletal was performed, and was negative except for as stated in HPI.
Medication and Allergies
Home Medications
Home Medications
�Medication �Instructions �Recorded
apixaban 5 mg tablet 5 mg PO BID 02/03/24
atorvastatin 40 mg tablet 40 mg PO DAILY 02/03/24
cholecalciferol (vitamin D3) 50 50 mcg PO DAILY 02/03/24
mcg (2,000 unit) tablet
cyanocobalamin (vitamin B-12) 1,000 mcg PO BID 02/03/24
1,000 mcg tablet
metoprolol succinate 200 mg 200 mg PO DAILY 02/03/24
tablet,extended release 24 hr
spironolactone 25 mg tablet 50 mg PO DAILY 02/03/24
tamsulosin 0.4 mg capsule 0.4 mg PO HS 02/03/24
empagliflozin 25 mg tablet 25 mg PO DAILY 04/15/24
(Jardiance)
furosemide 20 mg tablet 10 mg PO DAILY 04/15/24
insulin glargine 100 unit/mL (3 30 unit SC HS 04/15/24
mL) subcutaneous pen
latanoprost 0.005 % eye drops 1 drp BOTH EYES HS 04/15/24
omega 4-cic-gve-fish oil 1,000 mg 1 cap PO BID 04/15/24
(120 mg-180 mg) capsule (Fish Oil)
therapeutic multivitamin 1 tab PO DAILY 04/15/24
fluorouracil 5 % topical cream See Rx Instructions .Route .COMPLEX 04/16/24
Allergies
Allergies
Allergy/AdvReac Type Severity Reaction Status Date / Time
brimonidine Allergy Unknown Verified 04/15/24 20:51
enalapril Allergy Unknown Verified 04/15/24 20:51
metformin Allergy Unknown Verified 04/15/24 20:51
valsartan Allergy Unknown Verified 04/15/24 20:51
Physical Exam
-
Exam:
White blood cell count 27.1, up from 21.5 yesterday. ESR 48. CRP 166.20
Blood cultures from 04/15/2024 positive for gram-positive cocci in pairs
Awake, alert, no apparent distress.
Does have significant neck pain, limited range of motion in flexion, extension, bilateral lateral rotation
Motor: 5/5 strength bilaterally in upper extremities in all muscle groups. Sensation to light touch is intact in upper extremities.
5/5 bilaterally lower extremities normal scrips. Sensation to light touch is intact in lower extremities.
Noncontrast CT scan of the cervical spine performed on 04/15/2024 was reviewed. I see no obvious evidence of extensive prevertebral edema. Patient has multilevel cervical spondylotic changes. No obvious evidence of lysis of the endplates/discs
within the cervical spine is noted to suggest cervical osteodiscitis.
CT of the abdomen/pelvis was reviewed. Images reviewed and interpreted by me. There is evidence of subtle bony erosion noted of the T10-T11 to space. This could be secondary to discitis, with adjacent osteomyelitis. Sagittal alignment is
maintained. No obvious evidence of height loss, or retropulsion is seen.
Problems
-
Problem Status Onset Code
Sepsis A41.9
Discitis M46.40
Osteomyelitis M86.9
Assessment / Plan
-
This is a 79-year-old gentleman who presents with progressive back pain in the setting of bacteremia, positive blood cultures, presumed endocarditis, vegetation on pacemaker lead.
CT of the abdomen/pelvis suggests possible T10/T11 osteodiscitis. This is likely seeding to the spine from patient's bacteremia. Patient also has neck pain, and so there is high suspicion for possible cervical infection.
Patient has already been initiated on antibiotics for bacteremia/sepsis.
Elevated ESR/CRP
At the present time, continue workup possible sources for patient's bacteremia, and obtain MRI of the cervical, and thoracolumbar spine with and without contrast.
Would not recommend any invasive neurosurgical intervention, unless the patient starts developing neurological symptoms/deterioration.
Will continue to follow, and follow-up MRI cervical, thoracolumbar.
[2024-04-16] MEDS: STERILE WATER FOR INJECTION 20 ML IV (17:35)
[2024-04-16] MEDS: ROCEPHIN 2000 MG IV (17:35)
[2024-04-16] MEDS: NOVOLOG FLEXPEN-MODERATE RESISTANCE 3 UNITS SC (17:39)
[2024-04-16] MEDS: NON-FORMULARY ITEM 1 UNIT TOPICAL (20:00)
[2024-04-16] MEDS: XALATAN OPHTHALMIC SOLUTION 1 DROP BOTH EYES (20:01)
--- NOTE | 2024-04-16 20:17 | PTCARENOTE ---
Caring for pt overnight. aaox3, pleasant. 8/10 pain in neck, 7/10 throughout back, dilaudid prn. av paced/a paced w/ bbb on monitor. Remains RA. NO SOB. ivabx. BA for safety. Q2T. Unable to move neck d/t pain. Neuro checks wnl, pupils a little
sluggish..will monitor overnight. NO other issues, call waller in reach. Will monitor.
[2024-04-16] MEDS: FLOMAX 0.4 MG PO (20:53)
[2024-04-16 23:19] LABS: Glucose - Point of Care 126 mg/dl (70-99)
[2024-04-17] VITALS (11 sets, daily range): BP systolic 122–137; BP diastolic 51–65; BMI 27.0
[2024-04-17] MEDS: AMPICILLIN 108 MG IV ×6 (00:24→20:00)
[2024-04-17] MEDS: DILAUDID 0.5 MG IV ×6 (01:10→21:01)
[2024-04-17] MEDS: ROCEPHIN 2000 MG IV ×2 (05:33→17:23)
[2024-04-17] MEDS: STERILE WATER FOR INJECTION 20 ML IV ×2 (05:34→17:23)
[2024-04-17] MEDS: FLUSH (NSS) 10 FLUSH IV ×2 (05:34→05:48)
[2024-04-17 05:49] LABS: Glucose - Point of Care 147 mg/dl (70-99)
[2024-04-17] MEDS: NOVOLOG FLEXPEN-MODERATE RESISTANCE SC (07:11)
[2024-04-17] MEDS: LIPITOR 40 MG PO (07:49)
[2024-04-17] MEDS: TOPROL XL 50 MG PO (07:49)
[2024-04-17] MEDS: NON-FORMULARY ITEM 1 UNIT TOPICAL ×2 (07:50→20:00)
--- NOTE | 2024-04-17 08:00 | PTCARENOTE ---
PT AAOx3, pt has a stiff neck and asks not to be moved or turned . Awaiting MRI . NPO.
--- NOTE | 2024-04-17 08:50 | W.PN.HOSP.TC ---
Addendum entered and electronically signed by Margareth Richards MD 04/18/24 08:18:
hypotension on admission responsive to IVF - has not required pressors
Yes, stage 2 pressure injury bilateral ischium/buttocks, POA
Original Note:
Today's Communication/Plan
-
see plan
Assessment / Plan
Assessment / Plan
IMPRESSION:
73-year-old with past medical history of diabetes, atrial fibrillation on anticoagulation and status post pacemaker placement, CAD status post CABG and BPH who presents to the emergency department with neck and back pain was found to have vertebral
osteomyelitis and discitis affecting T10- 11 vertebrae. No abscess. No fluid collection and no clear extension of osteomyelitis. No focal neurological deficits on exam at this time. He is however febrile, elevated lactic acid.
Abdomen/Pelvis CT
IMPRESSION: There is irregular endplate destruction at the T10-11 disc space, and findings are highly suggestive of discitis and osteomyelitis.
This does not appear to extend to the posterior margin of the disc space at this time, and no gross evidence to suggest extension of inflammatory process and the spinal canal on CT. As warranted, further evaluation with MRI of the lower thoracic
spine without and with contrast could be considered.
No focal abnormality kidneys. No focal abnormality of the visualized pelvicalyceal systems, ureters, or urinary bladder.
Several calcified pleural plaques, compatible with previous asbestos exposure.
Mild to moderate atelectasis in the visualized lower lungs, which limits evaluation for any changes of interstitial fibrosis/asbestosis.
Status post cholecystectomy with no evidence for biliary ductal dilation.
Neck CT
IMPRESSION: No evidence for mass or collection within the neck.
There are changes of degenerative disc disease within the neck as well as bilateral facet degenerative change.
Vascular calcifications, mild to moderate.
Mild patchy mucosal thickening of the ethmoid sinuses. Minimal peripheral mucosal thickening of the lateral and inferior right maxillary sinus.
IMPRESSION:
No evidence of acute intracranial abnormality.
TTE
CONCLUSIONS
Left ventricle is moderately dilated. Mild concentric left ventricular
hypertrophy. Normal left ventricular systolic function. Normal regional wall
motion. LV ejection fraction is 50-55% by Aly's method of discs. Diastolic
function indeterminate.
Normal right ventricular size and function. Pacer wire seen in right ventricle
with large density (1.7 x 1.9 cm) on pacemaker which could be cw vegetation.
Thickened mitral valve leaflets. Mitral annular calcification. Peak/mean
gradients across the mitral valve are 8/4 mmHg. Mobile density on mitral valve
which may be consistent with vegetation. At least moderate eccentric mitral
regurgitation.
Trileaflet aortic valve. Aortic sclerosis without stenosis. No aortic
regurgitation is seen.
Tricuspid valve opens normally. Mild tricuspid regurgitation. Estimated
pulmonary artery pressure of 20-25 mmHg. Assuming a right atrial pressure of 3
mmHg.
PLAN:
Vertebral osteomyelitis
Gram Positive Cocci Bacteremia
Vegetations seen on TTE - pacer wire and Mitral Valve
Sepsis 2/2 above
Hx PPM
- Admitted to IMU
- appreciate ID - antibiotics changed to IV Ampicillin and IV Ceftriaxone
- F/U final blood cultures
- awaiting MRI C/T/L spine (has PPM, had MRI last month)
- appreciate ID, Neurosurgery and Cardiology consults
- PPM to be interrogated to see if patient pacer dependent, ideally would be removed for source control
- ELLIE early next week
- IVF
- hold spironolactone, jardiance and furosemide
AFIB - currently rate controlled
- tele
- will resume lower dose metoprolol
- hold Eliquis
DM II
- NPO
- monitor BGL
- patient is on Lantus 30 units qhs at home, Jardiance
BPH
- continue tamsulosin
DVT PPX - SCD's, hold Eliquis until MRI results
Code status - DNR (ok to be intubated for surgery)
51 minutes spent on patient care
Anticipated Discharge: > 48 hours
Subjective/Interval History
-
Date of Service: April 17, 2024
continues to have significant neck pain
Objective Data
-
Labs:
Laboratory Results
04/17/24
08:43
WBC Pending
Hgb Pending
Hct Pending
Plt Count Pending
Sodium Pending
Potassium Pending
Chloride Pending
Carbon Dioxide Pending
BUN Pending
Creatinine Pending
Glucose Pending
Calcium Pending
Vital Signs:
Vital Signs
Temp Pulse Resp BP Pulse Ox
97.4 F 64 22 129/53 95
04/17/24 07:33 04/17/24 07:49 04/17/24 06:00 04/17/24 07:49 04/17/24 06:00
I&O
04/16/24 04/17/24 04/18/24
06:59 06:59 06:59
Intake Total 50 / 50 100 / 100
Output Total 850 / 850 2049 / 2049 400 / 400
Balance -800 / -800 -2049 / -2049 -300 / -300
Review of Systems
-
History Source: Patient
All other systems: Reviewed and negative
Physical Exam
-
General: No Apparent Distress
HEENT: PERRLA and Other (neck stiffness )
Respiratory: Clear to Auscultation; Negative Wheezes
Cardiac: Regular Rhythm and S1/S2
GI: Soft and Nontender
Musculoskeletal: No Edema
Skin: Warm and Dry; Negative Rash
Neuro: AO x 3
Psych: Calm
Data Reviewed
-
Diagnostic Radiology: Report Reviewed by me
Labs: Labs Reviewed by me
--- NOTE | 2024-04-17 08:50 | W.PN.CARDCBS ---
Addendum entered and electronically signed by Garrett Diaz DO 04/17/24 11:11:
I saw and examined the patient.
The Director Of Teacher Education's note was reviewed and I agree with the note.
Comment:
Resting comfortably in bed reporting head and neck pain. Denies chest pain, shortness of breath, palpitations, fever, chills.
GEN: No distress, awake, alert, oriented x3
HEENT: supple, anicteric, mmm, EOMI
LUNGS: CTA bilaterally, no wheezes
CV: Reg, S1/S2, 1/6 murmur; left CIED site well-healed soft, nontender, no erythema or swelling
ABD: soft, BS+, NT/ND
EXT: No cyanosis, clubbing, edema
NEURO: Gross non-focal
SKIN: Warm, pink, dry. No rash
Telemetry: A sensed V paced/a paced V paced, occasional PVC
Assessment and plan as below
Pending device interrogation of [email or web address] CIED to assess for dependency
Antibiotic therapy per infectious disease/primary service
ELLIE tentatively scheduled for Saturday for better assessment of mitral valve and lead vegetations
MRI pending per neurosurgery, anticoagulation on hold pending MRI, resume when able per neurosurgery
Original Note:
Today's Communication / Plan
-
continue abx
device interrogation
ELLIE Saturday
await MRI results
Impression / Plan
-
PCP: Dr. Mike Doe
Cardiology: Dr. Servin of [facility]
Impression:
Admitted with neck and back pain 04/15/24
Sepsis
Vertebral osteomyelitis
Hypotension
Abnormal echo suggesting pacer wire vegetation in the RV and vegetation on the mitral valve 04/16/2024
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
s/p [employer] ICD 12/28/16
CAD with NE
s/p 3 mm Taxus LUCIO to unknown vessel 8/21/06
s/p CABG x 2 2005 at [place]
Atrial fibrillation of unclear chronicity and duration
Chronic Eliquis OAC
HLD
DM2
remote former smoker
s/p lap grace 01/2024
Echo 04/16/2024: EF 50 to 55%, normal regional wall motion, pacer wire seen in the RV with large density (1.7 x 1.9 cm) on pacemaker which could be consistent with vegetation, thickened mitral valve leaflets with MAC and peak/mean 8/4 mmHg, mobile
echodensity on the MV consistent with vegetation, at least moderate eccentric MR, aortic sclerosis without stenosis, no aortic regurgitation, mild TR with PAP 20 to 25 mmHg
Plan:
-Patient reports continued neck pain. Neurosurgery evaluated patient, no plans for surgery at this time. Awaiting blood culture data. Continue antibiotics per ID
-For device interrogation today to see if dependent. currently av paced. would program at VVI @35 if not dependent and plan for evaluation for extraction
-Will plan for ELLIE on Thursday 04/20
-OP eliquis on hold until MRI completed. if ok, then will plan to resume
-in SR. on lower dose of toprol at present than as OP
-will attempt to obtain records from primary case reviewer at [facility]
-d/w nursing
PREADMIT DATA:
-Patient came to [facility] with neck pain on 04/15/24 and was admitted with osteomyelitis and cardiology is now consulted for eval of abnormal echo. Patient has routine cardiology care at [facility] - Dr. Servin. Patient was admitted to 02/03/24 until 02/06/24
with abdominal pain and had lap grace 02/05/24. Patient was then in the ER 02/27/24 for hypotension and URI symptoms at the recommendation of his PCP, but BP was normal and no evidence of acute process so patient was sent home. Patient came back to ER
03/02/24 with chest and back pain and troponin negative and he was given toradol and valium for spasm. Patient was sent to [facility] for rehab briefly however then went home. Patient came to last night with neck pain that started Saturday
04/11/24. He reports limited neck mobility and development of fever. He was noted by imaging to have evidence of osteomyelitis then underwent echo which showed large mobile echodensity consistent with mitral valve vegetation, MR, and large density on
ppm also with concern for vegetation. Blood cultures prelim positive. cardiology consulted for evaluation.
Progress Note - Pocket Creaser
Subjective
Date of Service: April 17, 2024
Reports neck pain. Denies chest pain, shortness of breath, palpitations
Objective
Labs:
Labs
Hgb 10.8 g/dL (13.0-18.0) L 04/16/24 03:13
Hct 32.7 % (39.0-52.0) L 04/16/24 03:13
Plt Count 160 10^3/uL (130-400) D 04/16/24 03:13
Sodium 130 mmol/L (135-145) L 04/16/24 03:13
Potassium 4.5 mmol/L (3.5-5.1) 04/16/24 03:13
BUN 27 mg/dl (9-20) H 04/16/24 03:13
Creatinine 1.0 mg/dL (0.7-1.3) 04/16/24 03:13
Glucose 163 mg/dl (70-99) H 04/16/24 03:13
Vital Signs and I&O:
Vital Signs
Temp Pulse Resp BP Pulse Ox
97.4 F 64 22 129/53 95
04/17/24 07:33 04/17/24 07:49 04/17/24 06:00 04/17/24 07:49 04/17/24 06:00
Vital Signs
Temp Pulse Resp BP Pulse Ox
97.4 F 64 22 129/53 95
04/17/24 07:33 04/17/24 07:49 04/17/24 06:00 04/17/24 07:49 04/17/24 06:00
Intake & Output
04/15/24 04/16/24 04/17/24 04/18/24
07:59 07:59 07:59 07:59
Intake Total 50 / 50 100 / 100
Output Total 850 / 850 2250 / 2250 200 / 200
Balance -800 / -800 -2250 / -2250 -100 / -100
Physical Exam
Physical Exam
GEN: No distress, awake, alert, oriented x3
HEENT: supple, anicteric, mmm, EOMI
LUNGS: CTA bilaterally, no wheezes
CV: Reg, S1/S2, 1/6 murmur
ABD: soft, BS+, NT/ND
EXT: No cyanosis, clubbing, edema
NEURO: Gross non-focal
SKIN: Warm, pink, dry. No rash
--- NOTE | 2024-04-17 09:22 | W.PN.ID1 ---
Date of Service
Date of Service: April 17, 2024
Today's Communication
Continue Amp/ceftriaxone.
See below.
Assessment / Plan
# Complicated GPC pairs and chains bacteremia (3 sets)
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
# Vertebral discitis/osteo; Acute neck and back pain.
# Leukocytosis trending down
# Fever - resolved
- CT a/p: T10-11 endplate destruction
- Awaiting MRI C/T/L spine wo and with contrast.
Need to turn off PPM for MRI.
- TTE 1.7 x 1.9 cm on ICD wire, mobile density on MV
- Appreciate cardiology. For ELLIE Saturday.
-Neurosurgery following.
- Repeat blood cultures daily until clear x 2
-Suspect Enterococcus vs Streptococcus.
-Continue Ampicillin 2g IV q4 h and ceftriaxone 2g IV q12
- Follow clinically
# Conditions prior to admission
DM2
Hypertension
HLD
CAD status post CABG/stent
Atrial fibrillation
BiV ICD placement 2016
HFpEF
HALLIE
BPH
Lap cholecystectomy 02/05/24
Chief Complaint
-: Bacteremia and Other (Endocarditis, discitis)
Subjective / Review of Systems
Continues to have severe neck pain, mid back pain.
No focal weakness.
Vital Signs / Physical Exam
Vital Signs
Vital Signs
Temp Pulse Resp BP Pulse Ox
97.4 F 64 22 129/53 95
04/17/24 07:33 04/17/24 07:49 04/17/24 06:00 04/17/24 07:49 04/17/24 06:00
Physical Exam
Constitutional: Acutely Ill
Eyes: No Conjunctival Hemorrhage and Sclera Anicteric
Cardiovascular: Regular Rate, S1/S2, Murmur (1/6 murmur) and Other (LCW PPM site no erythema/induration)
Pulmonary: Clear
Gastrointestinal: Soft, Non Tender and Non Distended
Extremities: Negative Edema, Splinter Hemorrhage or Janeway Lesions
Neurological: AO x 3 and Normal Muscle Strength (BUE/BLE)
Psychological: Calm
Objective Data
Lab Data
ESR 48 mm/hour (0-20) H 04/15/24 16:55
Estimated Creat Clear 55 ml/min 04/16/24 03:13
Lactic Acid Cancelled 04/16/24 14:36
Total Bilirubin 1.7 mg/dl (0.2-1.3) H 04/16/24 03:13
AST 52 U/L (17-59) 04/16/24 03:13
ALT 66 U/L (0-50) H 04/16/24 03:13
Alkaline Phosphatase 154 U/L (38-126) H 04/16/24 03:13
C-Reactive Protein 166.20 mg/L (0.0-10.00) H 04/15/24 16:55
Most recent labs reviewed.
Micro Results:
04/16/24 09:58 Blood Culture - Preliminary
Blood/Venous Positive culture in progress
Gram Stain - Preliminary
04/17/24 04:34 Blood Culture - Pending
Blood/Venous
04/15/24 21:12 Blood Culture - Preliminary
Blood/Venous Positive culture in progress
Gram Stain - Final
04/15/24 21:30 Blood Culture - Preliminary
Blood/Venous Positive culture in progress
Gram Stain - Final
04/15/24 21:45 Urine Culture - Pending
Urine
04/15/24 21:20 Influenza Types A & B (BRADLEY) - Final
Nasal Swab Negative for Influenza A & B, NAAT
Negative results must be combined with clinical observations
and patient history.
Nucleic Acid Amplification test (NAAT)performed on the
[employer] platform.
2/19/25 CT a/p: There is irregular endplate destruction at the T10-11 disc space, and findings are highly suggestive of discitis and osteomyelitis.
This does not appear to extend to the posterior margin of the disc space at this time, and no gross evidence to suggest extension of inflammatory process and the spinal canal on CT. As warranted, further evaluation with MRI of the lower thoracic
spine without and with contrast could be considered.
Care Review
Plan reviewed with: Physician (Drs. Richards and Calixto Rosales)
[2024-04-17 10:17] LABS: % Basophils 0.3 % (0-2); % Eosinophils 0.7 % (0-6); % Immature Granulocytes 0.8 % (0-0.5); % Lymphocytes 7.9 % (20.5-51.1); % Monocytes 8.2 % (1.7-9.3); % Neutrophils 82.1 % (42.2-75.2); Absolute Eosinophils 0.1 10^3/uL (0-0.7); Absolute Immature Granulocytes 0.1 10^3/uL (0-0.05); Absolute Lymphocytes 1.1 10^3/uL (1.2-3.4); Absolute Monocytes 1.1 10^3/uL (0.1-0.6); Hematocrit 31.9 % (39.0-52.0); Hemoglobin 10.6 g/dL (13.0-18.0); Mean Corp Hgb Conc. 33.2 g/dL (33.0-37.0); Mean Corpuscular Hgb 28.6 pg (27.0-31.0); Mean Corpuscular Volume 86.2 fL (80.0-94.0); Mean Platelet Volume 9.4 fL (7.4-10.4); Nucleated Red Blood Cells % 0 % (-); Platelet Count 151 10^3/uL (130-400); Red Cell Dist. Width 15.9 % (11.5-14.5); White Blood Cell Count 13.4 10^3/uL (4.8-10.8)
--- NOTE | 2024-04-17 10:29 | PN.CDI ---
CDI
- -
CDI:
Physician Documentation Request
Admit Date: 04/16/24 00:48
Dear Doctor Susie,
Please review the following and provide your response in the progress notes.
Current documentation includes a diagnosis of hypotension.
Clinical Indicators:
PN, 04/16
#2. Blood pressure/ CHF -
#...MAP 63 soft s/p 2.7 L
#...- will give LR at 100 ml/hr for now
#...- pressors to keep MAP > 65
Selected Entries
04/16/24
00:30 04/16/24
00:45 04/16/24
01:00
MAP (cuff-Tal Monitor) 66 63 65
04/16/24
01:15 04/16/24
01:30 04/16/24
01:47
MAP (cuff-Tal Monitor) 66 67 67
04/16/24
11:28 04/16/24
12:00 04/16/24
14:00
MAP (cuff-Tal Monitor) 64 69 66
Medications
#Norepinephrine Bitartrate (Levophed) 4 mg in 250 mls @ 0 mls/hr IV PER PROTOCOL WILLIAM; Protocol
#...04/16... 01:32, 01:49 and 02:49
Please clarify which of the following is the most likely etiology of the above symptoms and treatment rendered:
Septic shock
Cardiogenic shock
Shock, unknown type
Hypotension - unknown type/etiology
Other(please specify)
Use of terms such as suspected, likely, concern for, or probable (associated with a specific diagnosis that is being evaluated, monitored, or treated as if it exists) are acceptable and can be coded in the inpatient setting, when documented at the
time of discharge.
Thank you,
Cherie Camarillo RN BSN CCDS
CDI Specialist
please contact via tiger text
Please use your independent medical judgment in providing your response.
[2024-04-17 10:30] LABS: Blood Urea Nitrogen 14 mg/dl (9-20); Calcium 8.2 mg/dl (8.4-10.2); Carbon Dioxide 24 mmol/L (22-30); Chloride 101 mmol/L (98-107); Estimated Creatinine Clearance 92 ml/min; Glucose 116 mg/dl (70-99); Magnesium 1.8 mg/dl (1.6-2.3); Potassium 3.8 mmol/L (3.5-5.1); Sodium 133 mmol/L (135-145); eGFR > 60.00
--- NOTE | 2024-04-17 10:45 | PN.CDI ---
CDI
- -
CDI:
Physician Documentation Request
Admit Date: 04/16/24 00:48
Dear Doctor Susie,
Please review the following and provide your response in the progress notes.
Clinical Indicators:
04/16/24 11:33 - Wound Note
#Wound Location and type/assessment:
#...admitted with stage 2 PI of bilateral lower ischium/buttocks.
#...Wounds appear to have been caused by a combination of pressure and
#...friction and shearing.
#...Both wounds are superficial and w/o odor or drainage.
Physician documentation of the type and location of wounds is required for compliant documentation. Based on the above clinical findings and your assessment, please provide the following in your progress note:
Yes, stage 2 pressure injury bilateral ischium/buttocks, POA
No, stage 2 pressure injury bilateral ischium/buttocks.
Other (please specify)
Location of the ulcer/wound, including laterality.
Type (etiology) of ulcer/wound:
- Diabetic ulcer
- Arterial (ischemic) ulcer
- Traumatic wound
- Venous stasis ulcer
- Pressure (decubitus) ulcer
- Non-healing surgical wound
For a pressure ulcer, please also include the stage* of the ulcer:
- Stage 1 - Skin intact, non-blanchable redness
- Stage 2 - Partial thickness loss of dermis, includes intact or open blister
- Stage 3 - Full thickness tissue not including bone, tendon or muscle
- Stage 4 - Full thickness tissue loss, including exposed bone, tendon or muscle
Use of terms such as suspected, likely, concern for, or probable (associated with a specific diagnosis that is being evaluated, monitored, or treated as if it exists) are acceptable and can be coded in the inpatient setting, when documented at the
time of discharge.
Thank you,
Cherie Camarillo RN BSN CCDS
CDI Specialist
please contact via tiger text
Please use your independent medical judgment in providing your response.
*Source: National Pressure Ulcer Advisory Panel (NPUAP)
--- NOTE | 2024-04-17 11:00 | PTCARENOTE ---
Pt for ELLIE on Saturday TT DR Richards for a diet order. MRI awaiting cardiac clearance from [facility] bridge rigger .
[2024-04-17] MEDS: LR 1000 IV (11:45)
[2024-04-17 12:26] LABS: Glucose - Point of Care 152 mg/dl (70-99)
--- NOTE | 2024-04-17 13:30 | PTCARENOTE ---
[facility] clearance obtained pt for MRI at 1430 , must have nurse with him, test will take 2 hrs. S[tran with [facility] who has an ICU nurse who can accompany him
[2024-04-17] MEDS: NOVOLOG FLEXPEN-MODERATE RESISTANCE 1 UNITS SC (13:47)
--- NOTE | 2024-04-17 14:50 | PTCARENOTE ---
Pt to MRI with RN.
--- NOTE | 2024-04-17 15:08 | PTCARENOTE ---
called MRI to update Gretchen that PT is a DNR and there is a problem with the [facility] cardioligist order for pacer. [facility]ing to resolve with the [facility]
[2024-04-17] MEDS: NOVOLOG FLEXPEN-MODERATE RESISTANCE 5 UNITS SC (17:37)
[2024-04-17 17:52] LABS: Glucose - Point of Care 256 mg/dl (70-99)
[2024-04-17] MEDS: FLUSH (NSS) IV ×2 (18:33)
[2024-04-17] MEDS: TYLENOL 650 MG PO (20:00)
[2024-04-17] MEDS: XALATAN OPHTHALMIC SOLUTION 1 DROP BOTH EYES (20:07)
[2024-04-17] MEDS: FLOMAX 0.4 MG PO (20:07)
[2024-04-17 22:46] LABS: Glucose - Point of Care 214 mg/dl (70-99)
--- NOTE | 2024-04-17 23:04 | PTCARENOTE ---
Assumed care of Pt from previous RN. Pt AAOx3. Pt is AV paced on monitor HR 65. pt using own bipap HS while sleeping. Pt does c/o 11/04 neck pain. pt given ordered prn Dilaudid for pain, see MAR. Assessment as documented. Call light in reach.
[2024-04-18] VITALS (9 sets, daily range): BP systolic 114–143; BP diastolic 49–101; BMI 27.0
[2024-04-18] MEDS: AMPICILLIN 108 MG IV ×7 (00:05→23:18)
[2024-04-18] MEDS: DILAUDID 0.5 MG IV ×4 (00:05→17:43)
[2024-04-18 04:54] LABS: % Basophils 0.5 % (0-2); % Eosinophils 2.2 % (0-6); % Immature Granulocytes 0.8 % (0-0.5); % Lymphocytes 13.4 % (20.5-51.1); % Monocytes 9.3 % (1.7-9.3); % Neutrophils 73.8 % (42.2-75.2); Absolute Basophils 0.1 10^3/uL (0-0.2); Absolute Eosinophils 0.3 10^3/uL (0-0.7); Absolute Immature Granulocytes 0.1 10^3/uL (0-0.05); Absolute Lymphocytes 1.5 10^3/uL (1.2-3.4); Absolute Monocytes 1.1 10^3/uL (0.1-0.6); Absolute Neutrophils 8.5 10^3/uL (1.4-6.5); Hematocrit 30.8 % (39.0-52.0); Hemoglobin 10.1 g/dL (13.0-18.0); Mean Corp Hgb Conc. 32.8 g/dL (33.0-37.0); Mean Corpuscular Hgb 28.4 pg (27.0-31.0); Mean Corpuscular Volume 86.5 fL (80.0-94.0); Mean Platelet Volume 9.7 fL (7.4-10.4); Nucleated Red Blood Cells % 0 % (-); Platelet Count 155 10^3/uL (130-400); Red Blood Cell Count 3.56 10^6/uL (4.70-6.10); Red Cell Dist. Width 15.6 % (11.5-14.5); White Blood Cell Count 11.5 10^3/uL (4.8-10.8)
[2024-04-18 05:21] LABS: ALT (SGPT) 51 U/L (0-50); AST (SGOT) 37 U/L (17-59); Albumin 2.5 g/dl (3.5-5.0); Alkaline Phosphatase 134 U/L (38-126); Blood Urea Nitrogen 11 mg/dl (9-20); Calcium 8.2 mg/dl (8.4-10.2); Carbon Dioxide 29 mmol/L (22-30); Chloride 100 mmol/L (98-107); Direct Bilirubin 0.3 mg/dl (0.0-0.4); Estimated Creatinine Clearance 92 ml/min; Glucose 133 mg/dl (70-99); Magnesium 1.7 mg/dl (1.6-2.3); Potassium 3.8 mmol/L (3.5-5.1); Sodium 133 mmol/L (135-145); Total Bilirubin 0.9 mg/dl (0.2-1.3); Total Protein 5.6 g/dl (6.3-8.2); eGFR > 60.00
[2024-04-18] MEDS: ROCEPHIN 2000 MG IV ×2 (06:12→17:28)
[2024-04-18] MEDS: STERILE WATER FOR INJECTION 20 ML IV ×2 (06:13→17:29)
[2024-04-18] MEDS: FLUSH (NSS) IV ×4 (07:26→17:44)
--- NOTE | 2024-04-18 08:09 | W.PN.HOSP.TC ---
Today's Communication/Plan
-
start Lovenox
IV Antibiotics
MRI and ELLIE Saturday
appreciate consultants
pain control
Assessment / Plan
Assessment / Plan
IMPRESSION:
73-year-old with past medical history of diabetes, atrial fibrillation on anticoagulation and status post pacemaker placement, CAD status post CABG and BPH who presents to the emergency department with neck and back pain was found to have vertebral
osteomyelitis and discitis affecting T10- 11 vertebrae. No abscess. No fluid collection and no clear extension of osteomyelitis. No focal neurological deficits on exam at this time. He is however febrile, elevated lactic acid.
Abdomen/Pelvis CT
IMPRESSION: There is irregular endplate destruction at the T10-11 disc space, and findings are highly suggestive of discitis and osteomyelitis.
This does not appear to extend to the posterior margin of the disc space at this time, and no gross evidence to suggest extension of inflammatory process and the spinal canal on CT. As warranted, further evaluation with MRI of the lower thoracic
spine without and with contrast could be considered.
No focal abnormality kidneys. No focal abnormality of the visualized pelvicalyceal systems, ureters, or urinary bladder.
Several calcified pleural plaques, compatible with previous asbestos exposure.
Mild to moderate atelectasis in the visualized lower lungs, which limits evaluation for any changes of interstitial fibrosis/asbestosis.
Status post cholecystectomy with no evidence for biliary ductal dilation.
Neck CT
IMPRESSION: No evidence for mass or collection within the neck.
There are changes of degenerative disc disease within the neck as well as bilateral facet degenerative change.
Vascular calcifications, mild to moderate.
Mild patchy mucosal thickening of the ethmoid sinuses. Minimal peripheral mucosal thickening of the lateral and inferior right maxillary sinus.
IMPRESSION:
No evidence of acute intracranial abnormality.
TTE
CONCLUSIONS
Left ventricle is moderately dilated. Mild concentric left ventricular
hypertrophy. Normal left ventricular systolic function. Normal regional wall
motion. LV ejection fraction is 50-55% by Aly's method of discs. Diastolic
function indeterminate.
Normal right ventricular size and function. Pacer wire seen in right ventricle
with large density (1.7 x 1.9 cm) on pacemaker which could be cw vegetation.
Thickened mitral valve leaflets. Mitral annular calcification. Peak/mean
gradients across the mitral valve are 8/4 mmHg. Mobile density on mitral valve
which may be consistent with vegetation. At least moderate eccentric mitral
regurgitation.
Trileaflet aortic valve. Aortic sclerosis without stenosis. No aortic
regurgitation is seen.
Tricuspid valve opens normally. Mild tricuspid regurgitation. Estimated
pulmonary artery pressure of 20-25 mmHg. Assuming a right atrial pressure of 3
mmHg.
PLAN:
Vertebral osteomyelitis
Enterococcus Bacteremia
Vegetations seen on TTE - pacer wire and Mitral Valve
Sepsis 2/2 above
Hx PPM
- Admitted to IMU
- appreciate ID - antibiotics changed to IV Ampicillin and IV Ceftriaxone
- F/U final blood cultures
- awaiting MRI C/T/L spine (has PPM, had MRI last month) - unable to be performed yesterday per library circulation technician given PPM settings - will clarify and try to get it done Saturday - Neurosurgery and ID aware
- appreciate ID, Neurosurgery and Cardiology consults
- PPM to be interrogated to see if patient pacer dependent, ideally would be removed for source control
- ELLIE early next week
- hold spironolactone, jardiance and furosemide
AFIB - currently rate controlled
- tele
- will resume lower dose metoprolol
- will start Lovenox as no urgent procedures this weekend (unless neuro exam changes - discussed with Dr. Stacy, OK with resuming AC)
DM II
- monitor BGL
- patient is on Lantus 30 units qhs at home, Jardiance
- start Lantus 10 units qhs here
BPH
- continue tamsulosin
DVT PPX - Lovenox
Code status - DNR (ok to be intubated for surgery)
51 minutes spent on patient care
Anticipated Discharge: > 48 hours
Subjective/Interval History
-
Date of Service: April 18, 2024
continues to have some neck pain
Objective Data
-
Labs:
Laboratory Results
04/18/24
04:30
WBC 11.5 H
Hgb 10.1 L
Hct 30.8 L
Plt Count 155
Sodium 133 L
Potassium 3.8
Chloride 100
Carbon Dioxide 29
BUN 11
Creatinine 0.6 L
Glucose 133 H
Calcium 8.2 L
Total Bilirubin 0.9
AST 37
ALT 51 H
Alkaline Phosphatase 134 H
Vital Signs:
Vital Signs
Temp Pulse Resp BP Pulse Ox
97.7 F 64 17 129/66 96
04/18/24 07:10 04/18/24 06:00 04/18/24 06:00 04/18/24 06:00 04/18/24 06:00
I&O
04/17/24 04/18/24 04/19/24
06:59 06:59 06:59
Intake Total 848 / 848
Output Total 2049 1200 / 1200
Balance -2049 / -2049 -352 / -352
Review of Systems
-
History Source: Patient
All other systems: Reviewed and negative
Physical Exam
-
General: No Apparent Distress
HEENT: PERRLA and Other (neck stiffness with limited range of motion )
Respiratory: Clear to Auscultation; Negative Wheezes
Cardiac: Regular Rhythm and S1/S2
GI: Soft and Nontender
Musculoskeletal: No Edema
Skin: Warm and Dry; Negative Rash
Neuro: AO x 3 and Other (5/5 strength upper and lower extremities )
Psych: Calm
Data Reviewed
-
Diagnostic Radiology: Report Reviewed by me
Labs: Labs Reviewed by me
[2024-04-18] MEDS: LOVENOX 80 MG SC ×2 (08:23→19:44)
[2024-04-18] MEDS: LIPITOR 40 MG PO (08:24)
[2024-04-18] MEDS: NON-FORMULARY ITEM 1 UNIT TOPICAL ×2 (08:24→19:44)
[2024-04-18] MEDS: TOPROL XL 50 MG PO (08:24)
[2024-04-18 08:48] LABS: Glucose - Point of Care 142 mg/dl (70-99)
[2024-04-18] MEDS: NOVOLOG FLEXPEN-MODERATE RESISTANCE SC (10:06)
--- NOTE | 2024-04-18 10:06 | W.CARD.DEVCH ---
Cardiac Device Check
-
Device: Implanted Cardioverter-Defibrillator
Imaging Services Director: [employer]
The patient's device was interrogated with assistance of the device data entry representative followed by a complete physician review. The device had normal function. No abnormalities seen. Device and leads are MRI compatible. If MRI is needed would set at
DOO (preferably) or VOO at base rate of 80 bpm during MRI then reprogram back to original settings upon completition of MRI.
--- NOTE | 2024-04-18 10:21 | W.PN.ID1 ---
Date of Service
Date of Service: April 18, 2024
Today's Communication
- Repeat blood cultures daily until clear x 2
- Continue Ampicillin 2g IV q4h and ceftriaxone 2g IV q12h
Assessment / Plan
# Complicated Enterococcal bacteremia (3 sets)
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
# Vertebral discitis/osteo; Acute neck and back pain.
# Leukocytosis trending down
# Fever - resolved
- CT a/p: T10-11 endplate destruction
- Awaiting MRI C/T/L spine wo and with contrast planned for saturday - MRI compatible per cardiology
- TTE 1.7 x 1.9 cm on ICD wire, mobile density on MV
- Appreciate cardiology. For ELLIE Saturday.
- Neurosurgery following.
- Repeat blood cultures daily until clear x 2
- Continue Ampicillin 2g IV q4h and ceftriaxone 2g IV q12h
- Follow clinically
# Conditions prior to admission
DM2
Hypertension
HLD
CAD status post CABG/stent
Atrial fibrillation
BiV ICD placement 2016
HFpEF
HALLIE
BPH
Lap cholecystectomy 02/05/24
Chief Complaint
-: Bacteremia and Other (Endocarditis, discitis)
Subjective / Review of Systems
afebrile
bp stable
bipap overnight
neck pain ongoing
declining leukocytosis, resolved L shift
no new back pain or joint pains - neck remains significantly tender
no changes in vision
denies any other hardwear in the body
Vital Signs / Physical Exam
Vital Signs
Vital Signs
Temp Pulse Resp BP Pulse Ox
97.7 F 72 18 125/68 96
04/18/24 07:10 04/18/24 08:00 04/18/24 08:00 04/18/24 08:00 04/18/24 06:00
Physical Exam
Constitutional: No Acute Distress and Chronically Ill
Cardiovascular: Regular Rate and S1/S2; Negative Murmur or Rub
Pulmonary: Clear and Symmetric; Negative Wheezes or Rales
Gastrointestinal: Soft, Non Tender, Non Distended and Normal Bowel Sounds
Skin: Warm and Dry; Negative Rash or Jaundice
Lines: Other (pacemaker no erythema, warmth tenderness or drainage)
Objective Data
Lab Data
Lab Results
04/18/24 04:30
04/18/24 04:30
ESR 48 mm/hour (0-20) H 04/15/24 16:55
Estimated Creat Clear 92 ml/min 04/18/24 04:30
Lactic Acid Cancelled 04/16/24 14:36
Total Bilirubin 0.9 mg/dl (0.2-1.3) 04/18/24 04:30
AST 37 U/L (17-59) 04/18/24 04:30
ALT 51 U/L (0-50) H 04/18/24 04:30
Alkaline Phosphatase 134 U/L (38-126) H 04/18/24 04:30
C-Reactive Protein 166.20 mg/L (0.0-10.00) H 04/15/24 16:55
Most recent labs reviewed.
Micro Results:
04/15/24 21:30 Blood Culture - Preliminary
Blood/Venous Enterococcus species
Gram Stain - Final
04/15/24 21:12 Blood Culture - Preliminary
Blood/Venous Enterococcus species
Gram Stain - Final
04/16/24 09:58 Blood Culture - Preliminary
Blood/Venous Enterococcus species
Gram Stain - Preliminary
04/18/24 04:30 Blood Culture - Pending
Blood/Venous
04/17/24 04:34 Blood Culture - Preliminary
Blood/Venous No Growth in 24 hours- Final report to follow
04/15/24 21:45 Urine Culture - Preliminary
Urine Enterococcus species
04/15/24 21:20 Influenza Types A & B (BRADLEY) - Final
Nasal Swab Negative for Influenza A & B, NAAT
Negative results must be combined with clinical observations
and patient history.
Nucleic Acid Amplification test (NAAT)performed on the
[employer] platform.
04/15/24 CT a/p: There is irregular endplate destruction at the T10-11 disc space, and findings are highly suggestive of discitis and osteomyelitis.
This does not appear to extend to the posterior margin of the disc space at this time, and no gross evidence to suggest extension of inflammatory process and the spinal canal on CT. As warranted, further evaluation with MRI of the lower thoracic
spine without and with contrast could be considered.
[2024-04-18] MEDS: ROXICODONE 5 MG PO ×2 (10:37→16:33)
--- NOTE | 2024-04-18 11:00 | W.PN.CARDCBS ---
Today's Communication / Plan
-
Antibiotics per ID
MRI per neurosurgery
ELLIE 04/20/2024, n.p.o. after midnight 04/19/2024
Impression / Plan
-
PCP: Dr. Mike Doe
Cardiology: Dr. Servin of [place]
Impression:
Admitted with neck and back pain 04/15/24
Sepsis
Vertebral osteomyelitis
Hypotension
Abnormal echo suggesting pacer wire vegetation in the RV and vegetation on the mitral valve 04/16/2024
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
s/p [employer] ICD 12/28/16
-Device interrogation 04/17/2024 shows stable lead sensing, pacing threshold, and lead impedances; no AT AF; no VT VF since last interrogation or tachytherapies; discussed with [employer] apprenticeship training representative, Jose Adan, patient's device is MRI
compatible and safe; if patient to need MRI, would place patient DOO (preferable) or VOO at 80 bpm; patient is not reported as dependent
CAD with [place]
s/p 3 mm Taxus LUCIO to unknown vessel 10/15/05
s/p CABG x 2 2005 at [place]
Atrial fibrillation of unclear chronicity and duration
Chronic Eliquis OAC
HLD
DM2
remote former smoker
s/p lap grace 01/2024
Echo 04/16/2024: EF 50 to 55%, normal regional wall motion, pacer wire seen in the RV with large density (1.7 x 1.9 cm) on pacemaker which could be consistent with vegetation, thickened mitral valve leaflets with MAC and peak/mean 8/4 mmHg, mobile
echodensity on the MV consistent with vegetation, at least moderate eccentric MR, aortic sclerosis without stenosis, no aortic regurgitation, mild TR with PAP 20 to 25 mmHg
Plan:
-Patient reports continued neck pain. Neurosurgery evaluated patient, no plans for surgery at this time. Awaiting blood culture data. Continue antibiotics per ID
-Will plan for ELLIE on Thursday 04/20
-OP eliquis on hold until MRI completed or cleared by NSGY. if ok, then OK to resume AC
-in SR. on lower dose of toprol at present than as OP
-will attempt to obtain records from primary solar installer at [facility]
-d/w nursing
PREADMIT DATA:
-Patient came to [facility] with neck pain on 04/15/24 and was admitted with osteomyelitis and cardiology is now consulted for eval of abnormal echo. Patient has routine cardiology care at [place] - Dr. Servin. Patient was admitted to 02/03/24 until 02/06/24
with abdominal pain and had lap grace 02/05/24. Patient was then in the ER 02/27/24 for hypotension and URI symptoms at the recommendation of his PCP, but BP was normal and no evidence of acute process so patient was sent home. Patient came back to ER
03/02/24 with chest and back pain and troponin negative and he was given toradol and valium for spasm. Patient was sent to [facility] for rehab briefly however then went home. Patient came to last night with neck pain that started Saturday
04/11/24. He reports limited neck mobility and development of fever. He was noted by imaging to have evidence of osteomyelitis then underwent echo which showed large mobile echodensity consistent with mitral valve vegetation, MR, and large density on
ppm also with concern for vegetation. Blood cultures prelim positive. cardiology consulted for evaluation.
Progress Note - [employer]
Subjective
Date of Service: April 18, 2024
Patient seen and examined. No acute events overnight. Patient resting comfortably in bed. Patient does report continued neck discomfort. Patient denies any fever, chills, chest pain, shortness of breath, palpitations, weakness.
Objective
Labs:
04/18/24 04:30
04/18/24 04:30
Labs
Hgb 10.1 g/dL (13.0-18.0) L 04/18/24 04:30
Hct 30.8 % (39.0-52.0) L 04/18/24 04:30
Plt Count 155 10^3/uL (130-400) 04/18/24 04:30
Sodium 133 mmol/L (135-145) L 04/18/24 04:30
Potassium 3.8 mmol/L (3.5-5.1) 04/18/24 04:30
BUN 11 mg/dl (9-20) 04/18/24 04:30
Creatinine 0.6 mg/dL (0.7-1.3) L 04/18/24 04:30
Glucose 133 mg/dl (70-99) H 04/18/24 04:30
Vital Signs and I&O:
Vital Signs
Temp Pulse Resp BP Pulse Ox
97.7 F 70 24 143/74 100
04/18/24 07:10 04/18/24 10:00 04/18/24 10:00 04/18/24 10:00 04/18/24 10:00
Vital Signs
Temp Pulse Resp BP Pulse Ox
97.7 F 70 24 143/74 100
04/18/24 07:10 04/18/24 10:00 04/18/24 10:00 04/18/24 10:00 04/18/24 10:00
Intake & Output
04/16/24 04/17/24 04/18/24 04/19/24
06:59 06:59 06:59 06:59
Intake Total 50 / 50 848 / 848
Output Total 850 / 850 2049 1200 / 1200 300 / 300
Balance -800 / -800 -2049 / -2049 -352 / -352 -300 / -300
Physical Exam
Physical Exam
GEN: No distress, awake, alert, oriented x3
HEENT: supple, anicteric, mmm, EOMI
LUNGS: CTA bilaterally, no wheezes
CV: Reg, S1/S2, 1/6 murmur; left CIED site soft, nontender, nonerythematous, well-healed
ABD: soft, BS+, NT/ND
EXT: No cyanosis, clubbing, edema
NEURO: Gross non-focal
SKIN: Warm, pink, dry. No rash
[2024-04-18] MEDS: NOVOLOG FLEXPEN-MODERATE RESISTANCE 5 UNITS SC (11:51)
[2024-04-18 11:53] LABS: Glucose - Point of Care 299 mg/dl (70-99)
[2024-04-18 16:40] LABS: Glucose - Point of Care 196 mg/dl (70-99)
[2024-04-18] MEDS: NOVOLOG FLEXPEN-MODERATE RESISTANCE 1 UNITS SC (17:23)
--- NOTE | 2024-04-18 18:29 | PTCARENOTE ---
OOB to bsc/ chair few hours today- contact guard. GCS 15 neuro checks documented on flow sheet. Roxycodone given x1 this am with adequate pain control however this evenings dose did not - provider notified and IV Dilaudid administered. Much more
comfortable 10/04 per pt. LC, wears own CPAP when asleep. 100% v paced on tele. +Large BM today and continent bowel and bladder. Family present most of the day.
[2024-04-18] MEDS: FLOMAX 0.4 MG PO (19:44)
[2024-04-18] MEDS: XALATAN OPHTHALMIC SOLUTION 1 DROP BOTH EYES (19:45)
--- NOTE | 2024-04-18 19:58 | PTCARENOTE ---
Caring for pt overnight. aaox3, pleasant. c/o 5/10 neck pain. NO SOB. AV paced, remains RA and cpap HS. Neuro checks WNL. All other assessment is unchanged. Will monitor throughout the night. ivabx, q2t. Call waller in reach.
[2024-04-18] MEDS: LANTUS 0.1 UNITS SC (21:26)
[2024-04-18 21:35] LABS: Glucose - Point of Care 250 mg/dl (70-99)
[2024-04-18] MEDS: ROXICODONE 10 MG PO (23:16)
[2024-04-19] VITALS (12 sets, daily range): BP systolic 110–140; BP diastolic 64–84; BMI 27.3
[2024-04-19] MEDS: DILAUDID 0.5 MG IV ×2 (00:18→20:39)
[2024-04-19] MEDS: AMPICILLIN 108 MG IV ×5 (05:19→20:38)
[2024-04-19] MEDS: STERILE WATER FOR INJECTION 20 ML IV ×2 (05:19→17:03)
[2024-04-19] MEDS: ROCEPHIN 2000 MG IV ×2 (05:19→17:02)
[2024-04-19] MEDS: FLUSH (NSS) 1 FLUSH IV ×2 (05:19→05:20)
[2024-04-19 05:57] LABS: % Basophils 0.7 % (0-2); % Eosinophils 1.6 % (0-6); % Immature Granulocytes 0.8 % (0-0.5); % Lymphocytes 15.7 % (20.5-51.1); % Monocytes 7.9 % (1.7-9.3); % Neutrophils 73.3 % (42.2-75.2); Absolute Basophils 0.1 10^3/uL (0-0.2); Absolute Eosinophils 0.2 10^3/uL (0-0.7); Absolute Immature Granulocytes 0.1 10^3/uL (0-0.05); Absolute Lymphocytes 1.7 10^3/uL (1.2-3.4); Absolute Monocytes 0.9 10^3/uL (0.1-0.6); Absolute Neutrophils 7.9 10^3/uL (1.4-6.5); Hematocrit 32.9 % (39.0-52.0); Hemoglobin 10.6 g/dL (13.0-18.0); Mean Corp Hgb Conc. 32.2 g/dL (33.0-37.0); Mean Corpuscular Hgb 27.5 pg (27.0-31.0); Mean Corpuscular Volume 85.2 fL (80.0-94.0); Mean Platelet Volume 9.8 fL (7.4-10.4); Nucleated Red Blood Cells % 0 % (-); Platelet Count 182 10^3/uL (130-400); Red Blood Cell Count 3.86 10^6/uL (4.70-6.10); Red Cell Dist. Width 15.8 % (11.5-14.5); White Blood Cell Count 10.8 10^3/uL (4.8-10.8)
[2024-04-19 06:18] LABS: Blood Urea Nitrogen 8 mg/dl (9-20); Calcium 8.1 mg/dl (8.4-10.2); Carbon Dioxide 29 mmol/L (22-30); Chloride 98 mmol/L (98-107); Estimated Creatinine Clearance 92 ml/min; Glucose 143 mg/dl (70-99); Potassium 3.8 mmol/L (3.5-5.1); Sodium 131 mmol/L (135-145); eGFR > 60.00
[2024-04-19 07:58] LABS: Glucose - Point of Care 143 mg/dl (70-99)
--- NOTE | 2024-04-19 08:03 | W.PN.HOSP.TC ---
Today's Communication/Plan
-
IV Antibiotics
Lovenox
NPO after MN for ELLIE
hopefully MRI tomorrow
pain control
Assessment / Plan
Assessment / Plan
IMPRESSION:
73-year-old with past medical history of diabetes, atrial fibrillation on anticoagulation and status post pacemaker placement, CAD status post CABG and BPH who presents to the emergency department with neck and back pain was found to have vertebral
osteomyelitis and discitis affecting T10- 11 vertebrae. No abscess seen on CT and no focal neurological deficits. He is found to have Enterococcus bacteremia, and endocarditis. Awaiting MRI and ELLIE.
Abdomen/Pelvis CT 04/15/24
IMPRESSION: There is irregular endplate destruction at the T10-11 disc space, and findings are highly suggestive of discitis and osteomyelitis.
This does not appear to extend to the posterior margin of the disc space at this time, and no gross evidence to suggest extension of inflammatory process and the spinal canal on CT. As warranted, further evaluation with MRI of the lower thoracic
spine without and with contrast could be considered.
No focal abnormality kidneys. No focal abnormality of the visualized pelvicalyceal systems, ureters, or urinary bladder.
Several calcified pleural plaques, compatible with previous asbestos exposure.
Mild to moderate atelectasis in the visualized lower lungs, which limits evaluation for any changes of interstitial fibrosis/asbestosis.
Status post cholecystectomy with no evidence for biliary ductal dilation.
Neck CT 04/15/24
IMPRESSION: No evidence for mass or collection within the neck.
There are changes of degenerative disc disease within the neck as well as bilateral facet degenerative change.
Vascular calcifications, mild to moderate.
Mild patchy mucosal thickening of the ethmoid sinuses. Minimal peripheral mucosal thickening of the lateral and inferior right maxillary sinus.
Head CT 04/15/24
IMPRESSION:
No evidence of acute intracranial abnormality.
TTE 04/16/24
CONCLUSIONS
Left ventricle is moderately dilated. Mild concentric left ventricular
hypertrophy. Normal left ventricular systolic function. Normal regional wall
motion. LV ejection fraction is 50-55% by Aly's method of discs. Diastolic
function indeterminate.
Normal right ventricular size and function. Pacer wire seen in right ventricle
with large density (1.7 x 1.9 cm) on pacemaker which could be cw vegetation.
Thickened mitral valve leaflets. Mitral annular calcification. Peak/mean
gradients across the mitral valve are 8/4 mmHg. Mobile density on mitral valve
which may be consistent with vegetation. At least moderate eccentric mitral
regurgitation.
Trileaflet aortic valve. Aortic sclerosis without stenosis. No aortic
regurgitation is seen.
Tricuspid valve opens normally. Mild tricuspid regurgitation. Estimated
pulmonary artery pressure of 20-25 mmHg. Assuming a right atrial pressure of 3
mmHg.
PLAN:
Vertebral osteomyelitis
Enterococcus Bacteremia
Vegetations seen on TTE - pacer wire and Mitral Valve
Sepsis 2/2 above
Hx PPM
- Admitted to IMU
- appreciate ID - antibiotics changed to IV Ampicillin and IV Ceftriaxone
- follow blood cultures until clear
- awaiting MRI C/T/L spine (has PPM, had MRI last month) - unable to be performed on Monday 04/17 per home appliance tech given PPM settings [facility]?- appreciate cardiology evaluation into this - recommended settings are in their note. Hopefully can be
performed on Saturday
- appreciate ID, Neurosurgery and Cardiology consults
- PPM interrogated - stable lead sensing, pacing threshold and lead impedances - patient is not reported as dependent
- ELLIE tomorrow, NPO after MN
- hold spironolactone, jardiance and furosemide (on 10mg pO QD at home)
- pain control; patient had no response to oxycodone - will try oral Dilaudid with IV PRN; trial of lidocaine patch
AFIB - currently rate controlled
- patient is on Metoprolol XL 200mg PO QD; 50mg PO QD resumed here and HR's WNL
- 04/18: started therapeutic dose Lovenox as no urgent procedures this weekend (unless neuro exam changes - discussed with Dr. Stacy, OK with resuming AC)
DM II
- monitor BGL
- patient is on Lantus 30 units qhs at home, Jardiance
- start Lantus 10 units qhs here
BPH
- continue tamsulosin
DVT PPX - Lovenox
Code status - DNR (ok to be intubated for surgery)
51 minutes spent on patient care
Anticipated Discharge: > 48 hours
Subjective/Interval History
-
Date of Service: April 19, 2024
continues to have neck and back pain
Objective Data
-
Labs:
Laboratory Results
04/19/24
05:33
WBC 10.8
Hgb 10.6 L
Hct 32.9 L
Plt Count 182
Sodium 131 L
Potassium 3.8
Chloride 98
Carbon Dioxide 29
BUN 8 L
Creatinine 0.6 L
Glucose 143 H
Calcium 8.1 L
Vital Signs:
Vital Signs
Temp Pulse Resp BP Pulse Ox
97.4 F 75 22 128/68 93
04/19/24 03:05 04/19/24 06:00 04/19/24 06:00 04/19/24 06:00 04/19/24 06:00
I&O
04/18/24 04/19/24 04/20/24
06:59 06:59 06:59
Intake Total 848 / 848
Output Total 1200 / 1200 1150 / 1150
Balance -352 / -352 -1150 / -1150
Review of Systems
-
History Source: Patient
All other systems: Reviewed and negative
Physical Exam
-
General: No Apparent Distress
HEENT: PERRLA and Other (neck stiffness with limited range of motion )
Respiratory: Clear to Auscultation; Negative Wheezes
Cardiac: Regular Rhythm and S1/S2
GI: Soft and Nontender
Musculoskeletal: No Edema
Skin: Warm and Dry; Negative Rash
Neuro: AO x 3 and Other (5/5 strength upper and lower extremities )
Psych: Calm
Data Reviewed
-
Diagnostic Radiology: Report Reviewed by me
Labs: Labs Reviewed by me
[2024-04-19] MEDS: NOVOLOG FLEXPEN-MODERATE RESISTANCE SC (08:10)
[2024-04-19] MEDS: DILAUDID 4 MG PO ×2 (08:22→17:14)
[2024-04-19] MEDS: TOPROL XL 50 MG PO (08:22)
[2024-04-19] MEDS: LOVENOX 80 MG SC ×2 (08:23→20:38)
[2024-04-19] MEDS: LIDOCAINE 4% PATCH 1 PATCH TOPICAL (08:23)
[2024-04-19] MEDS: NON-FORMULARY ITEM 1 UNIT TOPICAL ×2 (08:24→20:40)
[2024-04-19] MEDS: LIPITOR 40 MG PO (08:24)
--- NOTE | 2024-04-19 10:24 | W.PN.ID1 ---
Date of Service
Date of Service: April 19, 2024
Today's Communication
- Continue Ampicillin 2g IV q4h and ceftriaxone 2g IV q12h
Assessment / Plan
# Complicated Enterococcal bacteremia (3 sets)
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
# Vertebral discitis/osteo; Acute neck and back pain.
# Leukocytosis trending down
# Fever - resolved
- CT a/p: T10-11 endplate destruction
- MRI C/T/L spine wo and with contrast planned for saturday - MRI compatible per cardiology
- TTE 1.7 x 1.9 cm on ICD wire, mobile density on MV
- Appreciate cardiology. For ELLIE Saturday.
- Neurosurgery following.
- Repeat blood cultures daily until clear x 2
- Continue Ampicillin 2g IV q4h and ceftriaxone 2g IV q12h
- Follow clinically
# Conditions prior to admission
DM2
Hypertension
HLD
CAD status post CABG/stent
Atrial fibrillation
BiV ICD placement 2016
HFpEF
HALLIE
BPH
Lap cholecystectomy 02/05/24
Chief Complaint
-: Bacteremia and Other (Endocarditis, discitis)
Subjective / Review of Systems
afebrile
bp stable
was in chair for a few hours yesterday
'I feel better'
Vital Signs / Physical Exam
Vital Signs
Vital Signs
Temp Pulse Resp BP Pulse Ox
97.4 F 78 16 123/73 97
04/19/24 07:00 04/19/24 08:22 04/19/24 08:21 04/19/24 08:22 04/19/24 08:21
Physical Exam
Constitutional: No Acute Distress and Chronically Ill
Cardiovascular: Regular Rate and S1/S2; Negative Murmur or Rub
Pulmonary: Clear and Symmetric; Negative Wheezes or Rales
Gastrointestinal: Soft, Non Tender, Non Distended and Normal Bowel Sounds
Skin: Warm and Dry; Negative Rash or Jaundice
Lines: Other (pacemaker no erythema, warmth, swelling or tenderness)
Objective Data
Lab Data
Lab Results
04/19/24 05:33
04/19/24 05:33
ESR 48 mm/hour (0-20) H 04/15/24 16:55
Estimated Creat Clear 92 ml/min 04/19/24 05:33
Lactic Acid Cancelled 04/16/24 14:36
Total Bilirubin 0.9 mg/dl (0.2-1.3) 04/18/24 04:30
AST 37 U/L (17-59) 04/18/24 04:30
ALT 51 U/L (0-50) H 04/18/24 04:30
Alkaline Phosphatase 134 U/L (38-126) H 04/18/24 04:30
C-Reactive Protein 166.20 mg/L (0.0-10.00) H 04/15/24 16:55
Most recent labs reviewed.
Micro Results:
04/16/24 09:58 Blood Culture - Final
Blood/Venous Enterococcus faecalis
Gram Stain - Final
04/17/24 04:34 Blood Culture - Preliminary
Blood/Venous Enterococcus faecalis
Gram Stain - Preliminary
04/19/24 07:49 Blood Culture - Pending
Blood/Venous
04/19/24 05:33 Blood Culture - Pending
Blood/Venous
04/18/24 04:30 Blood Culture - Preliminary
Blood/Venous No Growth in 24 hours- Final report to follow
04/15/24 21:45 Urine Culture - Final
Urine Enterococcus faecalis
04/15/24 21:30 Blood Culture - Final
Blood/Venous Enterococcus faecalis
Gram Stain - Final
04/15/24 21:12 Blood Culture - Final
Blood/Venous Enterococcus faecalis
Gram Stain - Final
04/15/24 21:20 Influenza Types A & B ([facility]) - Final
Nasal Swab Negative for Influenza A & B, NAAT
Negative results must be combined with clinical observations
and patient history.
Nucleic Acid Amplification test (NAAT)performed on the
[employer] platform.
04/15/24 CT a/p: There is irregular endplate destruction at the T10-11 disc space, and findings are highly suggestive of discitis and osteomyelitis.
This does not appear to extend to the posterior margin of the disc space at this time, and no gross evidence to suggest extension of inflammatory process and the spinal canal on CT. As warranted, further evaluation with MRI of the lower thoracic
spine without and with contrast could be considered.
[2024-04-19 11:27] LABS: Glucose - Point of Care 276 mg/dl (70-99)
[2024-04-19] MEDS: NOVOLOG FLEXPEN-MODERATE RESISTANCE 5 UNITS SC (12:17)
[2024-04-19 17:22] LABS: Glucose - Point of Care 217 mg/dl (70-99)
[2024-04-19] MEDS: FLUSH (NSS) IV ×2 (18:05)
[2024-04-19] MEDS: NOVOLOG FLEXPEN-MODERATE RESISTANCE 3 UNITS SC (18:05)
--- NOTE | 2024-04-19 18:18 | PTCARENOTE ---
Rec'd pt this AM. Pain improved with new pain regimen. OOB x1 to chair and bathroom, min assist required. good appetite. vital signs stable.
[2024-04-19] MEDS: FLOMAX 0.4 MG PO (20:39)
[2024-04-19 22:08] LABS: Glucose - Point of Care 150 mg/dl (70-99)
[2024-04-19] MEDS: LANTUS 0.1 UNITS SC (22:18)
[2024-04-19] MEDS: XALATAN OPHTHALMIC SOLUTION 1 DROP BOTH EYES (22:18)
[2024-04-20] VITALS (12 sets, daily range): BP systolic 124–153; BP diastolic 66–115; BMI 27.0
[2024-04-20] MEDS: AMPICILLIN 108 MG IV ×7 (00:49→23:49)
[2024-04-20] MEDS: DILAUDID 0.5 MG IV ×5 (00:51→20:43)
[2024-04-20] MEDS: DILAUDID 4 MG PO (03:36)
[2024-04-20] MEDS: FLUSH (NSS) 1 FLUSH IV ×2 (05:34)
[2024-04-20] MEDS: STERILE WATER FOR INJECTION 20 ML IV ×2 (05:35→17:26)
[2024-04-20] MEDS: ROCEPHIN 2000 MG IV ×2 (05:35→17:26)
[2024-04-20 05:41] LABS: % Basophils 0.9 % (0-2); % Eosinophils 1.8 % (0-6); % Immature Granulocytes 0.7 % (0-0.5); % Lymphocytes 17.2 % (20.5-51.1); % Monocytes 7.9 % (1.7-9.3); % Neutrophils 71.5 % (42.2-75.2); Absolute Basophils 0.1 10^3/uL (0-0.2); Absolute Eosinophils 0.2 10^3/uL (0-0.7); Absolute Immature Granulocytes 0.1 10^3/uL (0-0.05); Absolute Lymphocytes 1.8 10^3/uL (1.2-3.4); Absolute Monocytes 0.8 10^3/uL (0.1-0.6); Absolute Neutrophils 7.5 10^3/uL (1.4-6.5); Hematocrit 32.9 % (39.0-52.0); Hemoglobin 10.6 g/dL (13.0-18.0); Mean Corp Hgb Conc. 32.2 g/dL (33.0-37.0); Mean Corpuscular Hgb 27.7 pg (27.0-31.0); Mean Corpuscular Volume 86.1 fL (80.0-94.0); Mean Platelet Volume 9.3 fL (7.4-10.4); Nucleated Red Blood Cells % 0 % (-); Platelet Count 202 10^3/uL (130-400); Red Blood Cell Count 3.82 10^6/uL (4.70-6.10); Red Cell Dist. Width 15.9 % (11.5-14.5); White Blood Cell Count 10.4 10^3/uL (4.8-10.8)
[2024-04-20 05:43] LABS: Glucose - Point of Care 127 mg/dl (70-99)
--- NOTE | 2024-04-20 05:52 | PTCARENOTE ---
Received pt at change of shift. Pt complains of neck pain. IV dilaudid and PO dilaudid administered per order (see MAR). Relief felt after administration. NPO this AM for planned ELLIE today. Resting in bed with call waller in reach.
[2024-04-20 05:58] LABS: ALT (SGPT) 47 U/L (0-50); AST (SGOT) 38 U/L (17-59); Albumin 2.5 g/dl (3.5-5.0); Alkaline Phosphatase 120 U/L (38-126); Blood Urea Nitrogen 8 mg/dl (9-20); Calcium 8.5 mg/dl (8.4-10.2); Carbon Dioxide 31 mmol/L (22-30); Chloride 98 mmol/L (98-107); Estimated Creatinine Clearance 92 ml/min; Glucose 125 mg/dl (70-99); Magnesium 1.7 mg/dl (1.6-2.3); Sodium 132 mmol/L (135-145); Total Bilirubin 0.9 mg/dl (0.2-1.3); Total Protein 5.5 g/dl (6.3-8.2); eGFR > 60.00
[2024-04-20] MEDS: LOVENOX 80 MG SC ×2 (08:12→20:44)
[2024-04-20] MEDS: TOPROL XL 50 MG PO (08:13)
[2024-04-20] MEDS: LIDOCAINE 4% PATCH 1 PATCH TOPICAL (08:14)
[2024-04-20] MEDS: LIPITOR 40 MG PO (08:14)
[2024-04-20] MEDS: NON-FORMULARY ITEM 1 UNIT TOPICAL ×2 (08:15→19:55)
--- NOTE | 2024-04-20 08:37 | PTCARENOTE ---
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
--- NOTE | 2024-04-20 08:45 | W.PN.CARDCBS ---
Today's Communication / Plan
-
Consult CT surgery
Antibiotics per hospitalist and ID
Impression / Plan
-
PCP: Dr. Mike Doe
Cardiology: Dr. Servin of [place]
Impression:
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
Sepsis
Vertebral osteomyelitis
Hypotension
Abnormal echo suggesting pacer wire vegetation in the RV and vegetation on the mitral valve 04/16/2024
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
s/p [employer] ICD 12/28/16
-Device interrogation 04/17/2024 shows stable lead sensing, pacing threshold, and lead impedances; no AT AF; no VT VF since last interrogation or tachytherapies; discussed with [employer] compliance representative, Jose Adan, patient's device is MRI
compatible and safe; if patient to need MRI, would place patient DOO (preferable) or VOO at 80 bpm; patient is not reported as dependent
CAD with [place]
s/p 3 mm Taxus LUCIO to unknown vessel 10/15/05
s/p CABG x 2 2005 at [place]
Atrial fibrillation of unclear chronicity and duration
Chronic Eliquis OAC
HLD
DM2
remote former smoker
s/p lap grace 01/2024
Echo 04/16/2024: EF 50 to 55%, normal regional wall motion, pacer wire seen in the RV with large density (1.7 x 1.9 cm) on pacemaker which could be consistent with vegetation, thickened mitral valve leaflets with MAC and peak/mean 8/4 mmHg, mobile
echodensity on the MV consistent with vegetation, at least moderate eccentric MR, aortic sclerosis without stenosis, no aortic regurgitation, mild TR with PAP 20 to 25 mmHg
Plan:
Transesophageal echo has been completed and preliminary report on transesophageal echo suggest prominent vegetations on both leaflets of mitral valve and a small aortic valve vegetation as well as a large vegetation on the ventricular lead.
We will need to consult CT surgery.
He is on full dose Lovenox. Will continue for now, need to observe cautiously given risk of cerebral bleeding in the setting of vegetations.
PREADMIT DATA:
-Patient came to [facility] with neck pain on 04/15/24 and was admitted with osteomyelitis and cardiology is now consulted for eval of abnormal echo. Patient has routine cardiology care at [place] - Dr. Servin. Patient was admitted to 02/03/24 until 02/06/24
with abdominal pain and had lap grace 02/05/24. Patient was then in the ER 02/27/24 for hypotension and URI symptoms at the recommendation of his PCP, but BP was normal and no evidence of acute process so patient was sent home. Patient came back to ER
03/02/24 with chest and back pain and troponin negative and he was given toradol and valium for spasm. Patient was sent to [facility] for rehab briefly however then went home. Patient came to last night with neck pain that started Saturday
04/11/24. He reports limited neck mobility and development of fever. He was noted by imaging to have evidence of osteomyelitis then underwent echo which showed large mobile echodensity consistent with mitral valve vegetation, MR, and large density on
ppm also with concern for vegetation. Blood cultures prelim positive. cardiology consulted for evaluation.
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
Subjective
Date of Service: April 20, 2024:
Medications: Atorvastatin 40 mg a day, Xalatan, tamsulosin, metoprolol ER 50 mg daily, IV ampicillin, ceftriaxone, enoxaparin 80 subcu every 12, insulin, lidocaine patch
133/73, pulse 78, respiratory rate 18, afebrile, sats 96%, afebrile, weight 75.9 kg, sedated, lungs are relatively clear, MR murmur, abdomen benign, extremities without clubbing cyanosis or edema
Echo 04/16/2024: LVH, EF 50-55%, pacing wire seen, large density on RV lead, 1.7 x 1.9 cm, MAC, peak mitral valve gradient 8/4, mobile mitral valve echodensity, with moderate eccentric regurgitation, aortic sclerosis, mild TR, normal RV function,
normal atria, normal pulmonary artery pressure
Objective
Labs:
04/20/24 05:09
04/20/24 05:09
Labs
Hgb 10.6 g/dL (13.0-18.0) L 04/20/24 05:09
Hct 32.9 % (39.0-52.0) L 04/20/24 05:09
Plt Count 202 10^3/uL (130-400) 04/20/24 05:09
Sodium 132 mmol/L (135-145) L 04/20/24 05:09
Potassium 4.0 mmol/L (3.5-5.1) 04/20/24 05:09
BUN 8 mg/dl (9-20) L 04/20/24 05:09
Creatinine 0.5 mg/dL (0.7-1.3) L 04/20/24 05:09
Glucose 125 mg/dl (70-99) H 04/20/24 05:09
Vital Signs and I&O:
Vital Signs
Temp Pulse Resp BP Pulse Ox
36.8 C 78 18 133/73 96
04/20/24 07:38 04/20/24 08:13 04/20/24 04:00 04/20/24 08:13 04/20/24 04:00
Vital Signs
Temp Pulse Resp BP Pulse Ox
36.8 C 78 18 133/73 96
04/20/24 07:38 04/20/24 08:13 04/20/24 04:00 04/20/24 08:13 04/20/24 04:00
Intake & Output
04/18/24 04/19/24 04/20/24 04/21/24
07:59 07:59 07:59 07:59
Intake Total 848 / 848 324 / 324
Output Total 1000 / 1000 1150 / 1150 1800 / 1800
Balance -152 / -152 -1150 / -1150 -1476 / -1476
Physical Exam
Physical Exam
See above
--- NOTE | 2024-04-20 11:58 | PTCARENOTE ---
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 Pt is visibly upset re out come of ELLIE . Cardiac surgery now talking with pt.
--- NOTE | 2024-04-20 12:27 | CONSULT.CT ---
Consultation
-
Date/Time Consultation Requested: 04/20/2024
Date/Time Consultation Performed: 04/20/2024
Requesting Provider: Dr. Ware
Performing Provider: Nichole alcocer
Reason for Consultation: Endocarditis of aortic and mitral valve/eval. redo sternotomy, AVR/MVR
Patient History
Physicians
Family Physician: Mike Doe
Outpatient Director Product Management: Dr. Gareth Todd.
Inpatient Director Product Management: Paul Ware
History of Present Illness
Patient is a 79-year-old gentleman with significant past medical history of CAD status post CABG times 03/2005 at [facility]. Status post BiV ICD 2016 at [facility] in [place].
He presented to [facility] emergency department complaining of neck and back pain along with fever. He is complained of ongoing back pain for approximately 1 month. He started having neck pain approximately 4 days ago prior to admission.
Pain initially was waxing and waning and eventually became more severe and worse with any movement. Pain has increased and he has very limited range of motion because of pain. He initially presented to his PCP and was sent to the ED for elevated
white count and positive UA. He does admit to recent hospitalization in January for a laparoscopic cholecystectomy.
CT scan of abdomen and pelvis showed irregular endplate destruction at the T10-T11 disc space highly suggestive of discitis and osteomyelitis. He was seen by infectious disease and treated for osteomyelitis with sepsis. Echocardiogram performed on
04/16/2024 showed endocarditis of the mitral and aortic valve as well as infection of AICD pacer wire. Patient underwent ELLIE today 04/20/2024 which again showed vegetation on the mitral valve. He has a history of recovered ischemic cardiomyopathy
and 2016 his EF was noted to be 20% per patient and echo performed 04/16/2024 showed EF now 50 to 55% with normal regional wall motion.
He continues to be treated with IV antibiotics for enterococcal bacteremia. Leukocytosis has been trending down and his fever has resolved.
Last dental exam was in September 2023. No active infection per patient.
Cardiothoracic surgery now being consulted for redo sternotomy, aortic and mitral valve replacement along with removal of AICD wire secondary to infection.
Plan to obtain MRI and preoperative studies. May need a CT scan of chest to evaluate interstitial fibrosis. Will order a Panorex.
All studies to be reviewed by attending cardiothoracic surgeon and will follow-up with patient later this week.
Past Medical History
Past Medical History: Atrial Fib, BPH, CAD (Status post Cabg x2/2005 at [facility]([id number])sequential graft/[place] 2005 prior to CABG), CHF, ORDONEZ, HTN, Hypercholesterolemia, IDDM (Insulin-dependent diabetes x 20 years), WI ([place] 2005), HALLIE,
SOB and Valvular Disease
Atrial fibrillation
Interstitial fibrosis/asbestosis
Degenerative disc disease C3-C6
Hypertension
Hyperlipidemia
Insulin-dependent diabetes
BPH
Status post WI 2005
Past Surgical History
Past Surgical History: CABG (CABG times 03/2005), Cholecystectomy (Lap grace 1224 at [facility]) and Orthopedic (Left knee surgery)
History of dental implants which became infected and needed to be removed, last dental exam September 2023
Back surgery 5 years ago at [place] laminectomy of L4-L5
Laparoscopic cholecystectomy 02/17 at [facility]
AICD 2017 at [facility]
Dental History
History of dental implants and removal secondary to infection, last dental exam September 2023 no active infection noted at that time
Family History
Mother: at Age ( at age 94 had a pacemaker and was diabetic)
Father: at Age ( at 75 years of age from colon cancer, permanent pacemaker)
Family Medical History: CAD, Cancer and Diabetes
Social History
Alcohol: Occasional
Drug: None
Tobacco: Former Smoker (Smoked 1-2 packs per day x 6 years quit 1972)
Personal:
Living: With Spouse
Employment: Retired (Retired from [employer] 22 years)
Covid Vaccination History:
Patient admits to COVID-vaccine and booster, denies COVID infection
Allergies
Allergy/AdvReac Type Severity Reaction Status Date / Time
brimonidine Allergy Unknown Verified 04/15/24 20:51
enalapril Allergy Unknown Verified 04/15/24 20:51
metformin Allergy Unknown Verified 04/15/24 20:51
valsartan Allergy Unknown Verified 04/15/24 20:51
Home Medications
�Medication �Instructions �Recorded �Confirmed �Type
apixaban 5 mg tablet 5 mg PO BID Blood Clot 02/03/24 04/15/24 History
Prevention/Tx
atorvastatin 40 mg tablet 40 mg PO DAILY High Cholesterol 02/03/24 04/15/24 History
cholecalciferol (vitamin D3) 50 50 mcg PO DAILY Supplement 02/03/24 04/15/24 History
mcg (2,000 unit) tablet
cyanocobalamin (vitamin B-12) 1,000 mcg PO BID Supplement 02/03/24 04/15/24 History
1,000 mcg tablet
metoprolol succinate 200 mg 200 mg PO DAILY Blood Pressure 02/03/24 04/15/24 History
tablet,extended release 24 hr
spironolactone 25 mg tablet 50 mg PO DAILY Fluid 02/03/24 04/15/24 History
Retention/Swelling
tamsulosin 0.4 mg capsule 0.4 mg PO HS Urinary Issue 02/03/24 04/15/24 History
empagliflozin 25 mg tablet 25 mg PO DAILY Diabetes 04/15/24 04/15/24 History
(Jardiance)
furosemide 20 mg tablet 10 mg PO DAILY Fluid 04/15/24 04/15/24 History
Retention/Swelling
insulin glargine 100 unit/mL (3 30 unit SC HS Diabetes 04/15/24 04/15/24 History
mL) subcutaneous pen
latanoprost 0.005 % eye drops 1 drp BOTH EYES HS Eye Condition 04/15/24 04/15/24 History
omega 8-kgl-jzy-fish oil 1,000 mg 1 cap PO BID Supplement 04/15/24 04/15/24 History
(120 mg-180 mg) capsule (Fish Oil)
therapeutic multivitamin 1 tab PO DAILY Supplement 04/15/24 04/15/24 History
fluorouracil 5 % topical cream See Rx Instructions .Route 04/16/24 04/16/24 History
.COMPLEX Autoimmune Disorder
Review of Systems
-
History Source: Patient
General: Reports Fever and Fatigue
HEENT: Reports No Symptoms
Respiratory: Reports SOB and ORDONEZ
Cardiac: Reports CAD and Other
Abdomen/GI: Reports No Symptoms
: Reports Nocturia
Musculoskeletal: Reports Arthralgias and Joint Pain
Skin: Reports No Symptoms
Neurological: Reports Other (Neck pain)
Vascular: Reports No Symptoms
Physical Exam
Vital Signs
Temp 98.1 F 04/20/24 12:23
Temp route: Oral 04/20/24 12:23
Pulse 66 04/20/24 12:00
Rhythm: A-V paced atrial/venticul 04/20/24 08:00
With- Bundle Branch Block Confi 04/18/24 19:52
Resp Rate 15 04/20/24 12:00
Blood pressure 128/71 04/20/24 12:00
Blood pressure extremity used: Left upper arm 04/15/24 16:40
Position: Sitting 04/15/24 16:40
MAP (cuff-Tal Monitor) 88 04/20/24 12:00
MAP 75 04/15/24 20:50
Calculated MAP (manual cuff) 73 04/15/24 19:05
SaO2 97 04/20/24 12:00
Oxygen Mode of Delivery Room air 04/20/24 08:00
Can the patient verbally communicate their pain? Yes 04/20/24 11:33
Pain scale ratin 04/20/24 11:33
Actual Weight 167 lb 4.8 oz 04/20/24 05:12
Body Mass Index (BMI) 27.0 04/20/24 05:12
Labs
04/20/24 05:09
04/20/24 05:09
Urinalysis
Urine Color Yellow 04/15/24 21:45
Urine Clarity Clear (Clear) 04/15/24 21:45
Urine pH 6.0 (5.0-9.0) 04/15/24 21:45
Ur Specific [place] 1.010 (<1.030) 04/15/24 21:45
Urine Ketones Negative (Negative) 04/15/24 21:45
Ur Occult Blood Reflex 3+ (Negative) A 04/15/24 21:45
Urine Bilirubin Negative (Negative) 04/15/24 21:45
Leukocyte Esterase Rfl Negative (Negative) 04/15/24 21:45
Urine RBC 3-6 /HPF (0-2) A 04/15/24 21:45
Urine WBC (Reflex) 3-5 /HPF (0-5) 04/15/24 21:45
Ur Squamous Epith Cells 0-2 /LPF (Few) 04/15/24 21:45
Urine Bacteria (Reflex) Moderate (Negative) A 04/15/24 21:45
Urine Glucose 4+ (Negative) A 04/15/24 21:45
Urine Albumin (Reflex) 2+ (Neg - Trace) A 04/15/24 21:45
Exam
General: Well Developed, Well Nourished, No Apparent Distress, Comfortable and Other (Complaining of neck and back pain)
HEENT: Normocephalic, Anicteric and Atraumatic
Neck: Trachea Midline
Respiratory: Clear
Cardiac: Regular Rhythm and Murmur
GI: Soft, Non Tender, Non Distended, Normal Bowel Sounds and Flat
Rectal: Deferred by Provider
Skin: Warm and Dry
Neuro: Awake, Alert, Oriented and AO x 3
Extremities: Pulses (Distal pulses intact bilaterally, +2 dorsalis pedis pulses bilaterally, +1 posterior tibial pulses bilaterally, feet warm dry, no calf tenderness)
Lymph: No Lymphadenopathy
Psych: Calm
Assessment / Plan
-
Assessment:
Complicated enterococcal bacteremia
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
Vertebral osteomyelitis/discitis
Atrial fibrillation
Hypertension
Hyperlipidemia
Insulin-dependent diabetes
BPH
History of WI 2005
Status post CABG times 03/2005
Recent laparoscopic cholecystectomy at [facility]
Degenerative disc disease C3-C6
Plan: Review ELLIE today
Diagnostic studies ordered
Panorex ordered
Continue aggressive management of endocarditis
CT scan of chest to evaluate interstitial fibrosis
All studies to be reviewed by attending cardiothoracic surgeons and will discuss surgical options with patient later this week.
[2024-04-20 12:33] LABS: Glucose - Point of Care 148 mg/dl (70-99)
[2024-04-20] MEDS: NOVOLOG FLEXPEN-MODERATE RESISTANCE SC (12:49)
--- NOTE | 2024-04-20 14:28 | PTCARENOTE ---
Pt to CT scan and US.
--- NOTE | 2024-04-20 14:53 | CM ---
Patient with Hx ICD with Dx Vertebral osteomyelitis, bacteremia, sepsis and endocarditis. Room air. ELLIE today. Panorex/orthopantogram today. MRI spine ordered. Receiving IV Abx, Lidocaine Patch, PO Dilaudid prn. Seen by wound care nurse.
Message from Dr Jordan; patient will likely need IV Abx after d/c. ID will see again tomorrow, hasn't cleared blood cultures or had his MRI yet, may also need CT surgery.
CM continuing to follow for d/c needs.
Plan TBD.
--- NOTE | 2024-04-20 15:46 | W.PN.HOSP.TC ---
Today's Communication/Plan
-
IV antibiotics
CT surgery evaluation
MRI of the spine
Assessment / Plan
Assessment / Plan
IMPRESSION:
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
Vertebral osteomyelitis
Other conditions:*
CAD
� Status post LUCIO 09/2005.
Status post CABG x 2 2005.
Atrial fibrillation of unclear chronicity and duration.
Chronic anticoagulation with Eliquis
Type 2 diabetes.
Dyslipidemia.
Former smoker.
Status post laparoscopic cholecystectomy 02/17
Plan:
Enterococcal bacteremia complicated with mitral and aortic valve endocarditis service pacemaker lead infection.
Vertebral osteomyelitis
ELLIE
Normal biventricular size and systolic function without regional wall motion
abnormality.
Pacer wires seen with large echodensity prolapsing between the right atrium and
right ventricle through the tricuspid valve associated with the right
ventricular wire. There is a large bulbous portion (2. 4 x 1.46 cm) proximally
that tapers down along the course of the wire and into the right ventricle.
Echodensity consistent with vegetation seen on both anterior and posterior
leaflets of the mitral valve with associated severe mitral regurgitation.
Echodensity consistent with vegetation on the aortic valve, minimal aortic
regurgitation seen.
Complex atheroma in the descending aorta.
No prior TTE available for comparison.
CT AP
At T10-11, there is irregular bony destruction of the endplates at the disc space, and findings are highly suggestive of discitis and osteomyelitis. Slight prominence of paraspinal soft tissue at this disc space level on the axial images. There are
no gross findings that would suggest posterior epidural extension.
Continue antibiotics: Ampicillin/ceftriaxone
MRI of the spine.
CT surgery evaluation
Continue current analgesic regimen with Tylenol and hydromorphone
Neurosurgery evaluation appreciated with no plan for surgical intervention spine
CAD.
Stable
Continue beta-an and statin
Paroxysmal atrial fibrillation of unknown duration
Continue beta-blockade
Apixaban currently on hold
Continue Lovenox at therapeutic dose
Type 2 diabetes.
Preadmission regimen Lantus 30 units at bedtime/Jardiance.
Continue basal bolus protocol.
Currently on Lantus at reduced dose of 10 units at bedtime
BPH
Continue Flomax
CODE STATUS DNR
Anticipated Discharge: > 48 hours
Subjective/Interval History
-
Date of Service: April 20, 2024
Objective Data
-
Labs:
Laboratory Results
04/20/24
05:09
WBC 10.4
Hgb 10.6 L
Hct 32.9 L
Plt Count 202
Sodium 132 L
Potassium 4.0
Chloride 98
Carbon Dioxide 31 H
BUN 8 L
Creatinine 0.5 L
Glucose 125 H
Calcium 8.5
Total Bilirubin 0.9
AST 38
ALT 47
Alkaline Phosphatase 120
Vital Signs:
Vital Signs
Temp Pulse Resp BP Pulse Ox
98.1 F 86 17 124/86 95
04/20/24 12:23 04/20/24 14:00 04/20/24 14:00 04/20/24 14:00 04/20/24 14:00
I&O
04/19/24 04/20/24 04/21/24
06:59 06:59 06:59
Intake Total 324 / 324 108 / 108
Output Total 1150 / 1150 1800 / 1800
Balance -1150 / -1150 -1476 / -1476 108 / 108
Physical Exam
-
General: No Apparent Distress
HEENT: PERRLA and Other (neck stiffness with limited range of motion )
Respiratory: Clear to Auscultation; Negative Wheezes
Cardiac: Regular Rhythm and S1/S2
GI: Soft and Nontender
Musculoskeletal: No Edema
Skin: Warm and Dry; Negative Rash
Neuro: AO x 3 and Other (5/5 strength upper and lower extremities )
Psych: Calm
--- NOTE | 2024-04-20 16:15 | W.PN.ID1 ---
Date of Service
Date of Service: April 20, 2024
Today's Communication
Continue current antibiotics. Await further evaluation by CT Surgery
Assessment / Plan
# Complicated Enterococcal bacteremia (3 sets)
# Infective endocarditis of BiV ICD lead, MV and AV
# Vertebral discitis/osteo; Acute neck and back pain.
# Leukocytosis trending down
# Fever - resolved
- CT a/p: T10-11 endplate destruction
- MRI C/T/L spine wo and with contrast planned for saturday - MRI compatible per cardiology
- TTE 1.7 x 1.9 cm on ICD wire, mobile density on MV
- Appreciate cardiology.
- Neurosurgery following.
- Repeat blood cultures daily until clear x 2
- Continue Ampicillin 2g IV q4h and ceftriaxone 2g IV q12h
- Follow clinically
# Conditions prior to admission
DM2
Hypertension
HLD
CAD status post CABG/stent
Atrial fibrillation
BiV ICD placement 2016
HFpEF
HALLIE
BPH
Lap cholecystectomy 02/05/24
Chief Complaint
-: Bacteremia and Other (Endocarditis, discitis)
Subjective / Review of Systems
Review of Systems: No Fever and No Chills
Vital Signs / Physical Exam
Vital Signs
Vital Signs
Temp Pulse Resp BP Pulse Ox
98.1 F 72 15 144/69 98
04/20/24 12:23 04/20/24 16:00 04/20/24 16:00 04/20/24 16:00 04/20/24 16:00
Physical Exam
Constitutional: No Acute Distress and Chronically Ill
Eyes: No Conjunctival Hemorrhage
Cardiovascular: Regular Rate and S1/S2; Negative Murmur or Rub
Pulmonary: Clear and Symmetric; Negative Wheezes or Rales
Gastrointestinal: Soft, Non Tender, Non Distended and Normal Bowel Sounds
Extremities: Negative Splinter Hemorrhage or [place]ay Lesions
Skin: Warm and Dry; Negative Rash or Jaundice
Neurological: Awake and Alert
Lines: Other (pacemaker no erythema, warmth, swelling or tenderness)
Objective Data
Lab Data
Lab Results
04/20/24 05:09
04/20/24 05:09
ESR 48 mm/hour (0-20) H 04/15/24 16:55
Estimated Creat Clear 92 ml/min 04/20/24 05:09
Lactic Acid Cancelled 04/16/24 14:36
Total Bilirubin 0.9 mg/dl (0.2-1.3) 04/20/24 05:09
AST 38 U/L (17-59) 04/20/24 05:09
ALT 47 U/L (0-50) 04/20/24 05:09
Alkaline Phosphatase 120 U/L (38-126) 04/20/24 05:09
C-Reactive Protein 166.20 mg/L (0.0-10.00) H 04/15/24 16:55
Most recent labs reviewed.
Micro Results:
04/18/24 04:30 Blood Culture - Preliminary
Blood/Venous Enterococcus faecalis
Gram Stain - Preliminary
04/19/24 05:33 Blood Culture - Preliminary
Blood/Venous Positive culture in progress
Gram Stain - Preliminary
04/19/24 07:49 Blood Culture - Preliminary
Blood/Venous No Growth in 24 hours- Final report to follow
04/20/24 05:09 Blood Culture - Pending
Blood/Venous
04/20/24 05:09 Blood Culture - Pending
Blood/Venous
04/16/24 09:58 Blood Culture - Final
Blood/Venous Enterococcus faecalis
Gram Stain - Final
04/17/24 04:34 Blood Culture - Preliminary
Blood/Venous Enterococcus faecalis
Gram Stain - Preliminary
04/15/24 21:45 Urine Culture - Final
Urine Enterococcus faecalis
04/15/24 21:30 Blood Culture - Final
Blood/Venous Enterococcus faecalis
Gram Stain - Final
04/15/24 21:12 Blood Culture - Final
Blood/Venous Enterococcus faecalis
Gram Stain - Final
04/15/24 21:20 Influenza Types A & B (BRADLEY) - Final
Nasal Swab Negative for Influenza A & B, NAAT
Negative results must be combined with clinical observations
and patient history.
Nucleic Acid Amplification test (NAAT)performed on the
[employer] platform.
Imaging:
04/20/2024 ECHO (ELLIE): Normal biventricular size and systolic function. Pacer wire seen, with large echodensity prolapsing between the right atrium and right ventricle through the tricuspid valve, associated with the right ventricular wire. There
is a large bulbous portion (2.4 x 1.4 cm) proximally that tapers down along the course of the wire and into the right ventricle. Echodensity consistent with vegetation seen on both anterior and posterior leaflets of the mitral valve, with
associated severe mitral regurgitation. An echodensity consistent with vegetation is seen on the aortic valve, with minimal aortic regurgitation. Please see full dictation for additional detail.
04/15/24 CT a/p: There is irregular endplate destruction at the T10-11 disc space, and findings are highly suggestive of discitis and osteomyelitis.
This does not appear to extend to the posterior margin of the disc space at this time, and no gross evidence to suggest extension of inflammatory process and the spinal canal on CT. As warranted, further evaluation with MRI of the lower thoracic
spine without and with contrast could be considered.
[2024-04-20] MEDS: FLUSH (NSS) IV ×2 (17:41→18:01)
[2024-04-20] MEDS: NOVOLOG FLEXPEN-MODERATE RESISTANCE 5 UNITS SC (18:19)
[2024-04-20 18:30] LABS: Glucose - Point of Care 270 mg/dl (70-99)
[2024-04-20] MEDS: FLOMAX 0.4 MG PO (20:44)
--- NOTE | 2024-04-20 21:00 | PTCARENOTE ---
Pt aaox3. NSR on monitor. 98% on RA. VS and assessment as documented. WILLIAM medications administered. Pt c/o 12/04 pain in his neck that he stated is chronic. PRN Dilaudid administered (see MAR). Pt resting in bed with call waller in reach.
[2024-04-20] MEDS: LANTUS 0.1 UNITS SC (21:05)
[2024-04-20] MEDS: XALATAN OPHTHALMIC SOLUTION 1 DROP BOTH EYES (21:08)
[2024-04-20 21:15] LABS: Glucose - Point of Care 189 mg/dl (70-99)
[2024-04-21] VITALS (13 sets, daily range): BP systolic 102–138; BP diastolic 50–83; BMI 26.8
[2024-04-21] MEDS: DILAUDID 0.5 MG IV ×5 (02:26→22:04)
[2024-04-21] MEDS: AMPICILLIN 108 MG IV ×5 (03:42→19:44)
[2024-04-21 04:15] LABS: INR 1.13; PT 14.9 Sec (11.4-14.6)
[2024-04-21 04:16] LABS: APTT 40.1 Sec (23.4-35.0)
[2024-04-21 04:27] LABS: Hemoglobin 10.6 g/dL (13.0-18.0); Mean Corp Hgb Conc. 32.1 g/dL (33.0-37.0); Mean Corpuscular Hgb 27.6 pg (27.0-31.0); Mean Corpuscular Volume 85.9 fL (80.0-94.0); Mean Platelet Volume 9.7 fL (7.4-10.4); Platelet Count 221 10^3/uL (130-400); Red Blood Cell Count 3.84 10^6/uL (4.70-6.10); White Blood Cell Count 11.9 10^3/uL (4.8-10.8)
[2024-04-21 04:30] LABS: ALT (SGPT) 90 U/L (0-50); AST (SGOT) 79 U/L (17-59); Albumin 2.6 g/dl (3.5-5.0); Alkaline Phosphatase 152 U/L (38-126); Blood Urea Nitrogen 9 mg/dl (9-20); Calcium 8.6 mg/dl (8.4-10.2); Carbon Dioxide 31 mmol/L (22-30); Chloride 98 mmol/L (98-107); Direct Bilirubin 0.2 mg/dl (0.0-0.4); Estimated Creatinine Clearance 92 ml/min; Glucose 152 mg/dl (70-99); Potassium 4.3 mmol/L (3.5-5.1); Sodium 132 mmol/L (135-145); Total Bilirubin 0.7 mg/dl (0.2-1.3); Total Protein 5.6 g/dl (6.3-8.2); eGFR > 60.00
[2024-04-21] MEDS: FLUSH (NSS) 1 FLUSH IV ×2 (05:16→05:17)
[2024-04-21] MEDS: ROCEPHIN 2000 MG IV ×2 (05:17→18:23)
[2024-04-21] MEDS: STERILE WATER FOR INJECTION 20 ML IV ×2 (05:17→18:23)
[2024-04-21] MEDS: LIDOCAINE 4% PATCH TOPICAL (08:44)
[2024-04-21] MEDS: DILAUDID 2 MG PO (08:45)
[2024-04-21] MEDS: LIPITOR 40 MG PO (08:45)
[2024-04-21] MEDS: TOPROL XL 50 MG PO (08:46)
[2024-04-21] MEDS: LOVENOX 80 MG SC (08:46)
[2024-04-21] MEDS: NOVOLOG FLEXPEN-MODERATE RESISTANCE 1 UNITS SC ×2 (08:54→17:16)
[2024-04-21 09:05] LABS: Glucose - Point of Care 174 mg/dl (70-99)
[2024-04-21 09:14] LABS: Glycohemoglobin (HgbA1c) 6.9 % (4.0-5.6)
--- NOTE | 2024-04-21 09:57 | W.PN.CARDCBS ---
Today's Communication / Plan
-
Decrease Lovenox to 40 mg a day
Add aspirin
Cardiac catheterization towards the end of the week
Impression / Plan
-
PCP: Dr. Mike Doe
Cardiology: Dr. Servin of [facility]
Impression:
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
Sepsis
Vertebral osteomyelitis
Hypotension
Abnormal echo suggesting pacer wire vegetation in the RV and vegetation on the mitral valve 04/16/2024
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
s/p [employer] ICD 12/28/16
-Device interrogation 04/17/2024 shows stable lead sensing, pacing threshold, and lead impedances; no AT AF; no VT VF since last interrogation or tachytherapies; discussed with [employer] sales representative church furniture, Jose Adan, patient's device is MRI
compatible and safe; if patient to need MRI, would place patient DOO (preferable) or VOO at 80 bpm; patient is not reported as dependent
CAD with MN
s/p 3 mm Taxus LUCIO to unknown vessel 10/15/05
s/p CABG x 2 2005 at [place]
Atrial fibrillation of unclear chronicity and duration
Chronic Eliquis OAC
HLD
DM2
remote former smoker
s/p lap grace 01/2024
Echo 04/16/2024: EF 50 to 55%, normal regional wall motion, pacer wire seen in the RV with large density (1.7 x 1.9 cm) on pacemaker which could be consistent with vegetation, thickened mitral valve leaflets with MAC and peak/mean 8/4 mmHg, mobile
echodensity on the MV consistent with vegetation, at least moderate eccentric MR, aortic sclerosis without stenosis, no aortic regurgitation, mild TR with PAP 20 to 25 mmHg
Plan:
He seems relatively stable despite his endocarditis.
He will need cardiac catheterization probably towards the end of the week, timing to be determined.
He is currently on full dose Lovenox. He has not had atrial fibrillation. There is a hemorrhagic risk and endocarditis, so we will reduce Lovenox to 40 mg subcu daily. Add aspirin 81 mg a day.
Tentatively for surgery next week. Continue antibiotics.
PREADMIT DATA:
-Patient came to [facility] with neck pain on 04/15/24 and was admitted with osteomyelitis and cardiology is now consulted for eval of abnormal echo. Patient has routine cardiology care at [facility] - Dr. Servin. Patient was admitted to 02/03/24 until 02/06/24
with abdominal pain and had lap grace 02/05/24. Patient was then in the ER 02/27/24 for hypotension and URI symptoms at the recommendation of his PCP, but BP was normal and no evidence of acute process so patient was sent home. Patient came back to ER
03/02/24 with chest and back pain and troponin negative and he was given toradol and valium for spasm. Patient was sent to [facility] for rehab briefly however then went home. Patient came to last night with neck pain that started Saturday
04/11/24. He reports limited neck mobility and development of fever. He was noted by imaging to have evidence of osteomyelitis then underwent echo which showed large mobile echodensity consistent with mitral valve vegetation, MR, and large density on
ppm also with concern for vegetation. Blood cultures prelim positive. cardiology consulted for evaluation.
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
Subjective
Date of Service: April 21, 2024:
He has back pain related to osteomyelitis, at bedside, otherwise no complaints. Results of ELLIE noted.
CT surgery is evaluating, MRI is pending
Medications: Ampicillin IV, ceftriaxone, atorvastatin 40 mg a day, Xalatan eyedrops, tamsulosin 0.4 mg at bedtime, metoprolol ER 50 mg a day, enoxaparin 80 every 12, Lantus insulin
122/77, pulse 80, respiratory 18, afebrile, sats 95%, head neck exam unremarkable, lungs are clear, splinter hemorrhages right hand? Mitral regurgitation murmur, abdomen benign extremities without significant edema
White count 11.9, hemoglobin 10.6, BUN and creatinine are 9 and 0.6, glucose is 152, AST is 79, ALT is 90
Objective
Labs:
04/21/24 03:50
04/21/24 03:49
Labs
Hgb 10.6 g/dL (13.0-18.0) L 04/21/24 03:50
Hct 33.0 % (39.0-52.0) L 04/21/24 03:50
Plt Count 221 10^3/uL (130-400) 04/21/24 03:50
PT 14.9 Sec (11.4-14.6) H 04/21/24 03:49
INR 1.13 04/21/24 03:49
APTT 40.1 Sec (23.4-35.0) H 04/21/24 03:49
Sodium 132 mmol/L (135-145) L 04/21/24 03:49
Potassium 4.3 mmol/L (3.5-5.1) 04/21/24 03:49
BUN 9 mg/dl (9-20) 04/21/24 03:49
Creatinine 0.6 mg/dL (0.7-1.3) L 04/21/24 03:49
Glucose 152 mg/dl (70-99) H 04/21/24 03:49
Vital Signs and I&O:
Vital Signs
Temp Pulse Resp BP Pulse Ox
36.5 C 80 18 122/77 95
04/21/24 07:55 04/21/24 08:46 04/21/24 06:00 04/21/24 08:46 04/21/24 06:00
Vital Signs
Temp Pulse Resp BP Pulse Ox
36.5 C 80 18 122/77 95
04/21/24 07:55 04/21/24 08:46 04/21/24 06:00 04/21/24 08:46 04/21/24 06:00
Intake & Output
02/23/04/20/24 04/21/24 04/22/24
07:59 07:59 07:59 07:59
Intake Total 324 / 324 608 / 608
Output Total 1150 / 1150 1800 / 1800 1125 / 1125 325 / 325
Balance -1150 / -1150 -1476 / -1476 -517 / -517 -325 / -325
Physical Exam
Physical Exam
See above
--- NOTE | 2024-04-21 09:58 | W.PN.ID1 ---
Date of Service
Date of Service: April 21, 2024
Today's Communication
Continue amp/ceftriaxone
Assessment / Plan
# Complicated Enterococcal bacteremia (7 sets)
# Infective endocarditis of BiV ICD lead, MV and AV
# Vertebral discitis/osteo; Acute neck and back pain.
# Leukocytosis trending down
# Fever - resolved
- CT a/p: T10-11 endplate destruction
- MRI C/T/L spine wo and with contrast planned for this week; delay due to ICD
- ELLIE: 2.4 cm vege on ICD wire; echodensity on AV and MV with severe mitral regurgitaion
- Repeat blood cultures x2 from 04/20 neg to date
- Cardiothoracic surgery following
- Continue Ampicillin 2g IV q4h and ceftriaxone 2g IV q12h
- Follow clinically
# Conditions prior to admission
DM2
Hypertension
HLD
CAD status post CABG/stent
Atrial fibrillation
BiV ICD placement 2016
HFpEF
HALLIE
BPH
Lap cholecystectomy 02/05/24
Chief Complaint
-: Bacteremia and Other (Endocarditis, discitis)
Subjective / Review of Systems
Severe neck and back pain stable. No focal weakness.
Vital Signs / Physical Exam
Vital Signs
Vital Signs
Temp Pulse Resp BP Pulse Ox
97.7 F 80 18 122/77 95
04/21/24 07:55 04/21/24 08:46 04/21/24 06:00 04/21/24 08:46 04/21/24 06:00
Physical Exam
Constitutional: Acutely Ill
Eyes: No Conjunctival Hemorrhage and Sclera Anicteric
Cardiovascular: Regular Rate, S1/S2 and Murmur
Pulmonary: Clear
Gastrointestinal: Soft, Non Tender and Non Distended
Genito-Urinary: Negative CVA Tenderness
Extremities: Negative Edema
Neurological: AO x 3
Objective Data
Lab Data
Lab Results
04/21/24 03:50
04/21/24 03:49
ESR 48 mm/hour (0-20) H 04/15/24 16:55
PT 14.9 Sec (11.4-14.6) H 04/21/24 03:49
INR 1.13 04/21/24 03:49
APTT 40.1 Sec (23.4-35.0) H 04/21/24 03:49
Estimated Creat Clear 92 ml/min 04/21/24 03:49
Lactic Acid Cancelled 04/16/24 14:36
Total Bilirubin 0.7 mg/dl (0.2-1.3) 04/21/24 03:49
AST 79 U/L (17-59) H 04/21/24 03:49
ALT 90 U/L (0-50) H 04/21/24 03:49
Alkaline Phosphatase 152 U/L (38-126) H 04/21/24 03:49
C-Reactive Protein 166.20 mg/L (0.0-10.00) H 04/15/24 16:55
Most recent labs reviewed.
Micro Results:
04/19/24 07:49 Blood Culture - Preliminary
Blood/Venous No Growth in 48 hours- Final report to follow
04/20/24 05:09 Blood Culture - Preliminary
Blood/Venous No Growth in 24 hours- Final report to follow
04/20/24 05:09 Blood Culture - Preliminary
Blood/Venous No Growth in 24 hours- Final report to follow
04/18/24 04:30 Blood Culture - Preliminary
Blood/Venous Enterococcus faecalis
Gram Stain - Preliminary
04/19/24 05:33 Blood Culture - Preliminary
Blood/Venous Positive culture in progress
Gram Stain - Preliminary
04/16/24 09:58 Blood Culture - Final
Blood/Venous Enterococcus faecalis
Gram Stain - Final
04/17/24 04:34 Blood Culture - Preliminary
Blood/Venous Enterococcus faecalis
Gram Stain - Preliminary
04/15/24 21:45 Urine Culture - Final
Urine Enterococcus faecalis
04/15/24 21:30 Blood Culture - Final
Blood/Venous Enterococcus faecalis
Gram Stain - Final
04/15/24 21:12 Blood Culture - Final
Blood/Venous Enterococcus faecalis
Gram Stain - Final
04/15/24 21:20 Influenza Types A & B (BRADLEY) - Final
Nasal Swab Negative for Influenza A & B, NAAT
Negative results must be combined with clinical observations
and patient history.
Nucleic Acid Amplification test (NAAT)performed on the
[employer] platform.
Imaging:
04/20/2024 ECHO (ELLIE): Normal biventricular size and systolic function. Pacer wire seen, with large echodensity prolapsing between the right atrium and right ventricle through the tricuspid valve, associated with the right ventricular wire. There
is a large bulbous portion (2.4 x 1.4 cm) proximally that tapers down along the course of the wire and into the right ventricle. Echodensity consistent with vegetation seen on both anterior and posterior leaflets of the mitral valve, with
associated severe mitral regurgitation. An echodensity consistent with vegetation is seen on the aortic valve, with minimal aortic regurgitation. Please see full dictation for additional detail.
04/15/24 CT a/p: There is irregular endplate destruction at the T10-11 disc space, and findings are highly suggestive of discitis and osteomyelitis.
This does not appear to extend to the posterior margin of the disc space at this time, and no gross evidence to suggest extension of inflammatory process and the spinal canal on CT. As warranted, further evaluation with MRI of the lower thoracic
spine without and with contrast could be considered.
[2024-04-21] MEDS: NON-FORMULARY ITEM 1 UNIT TOPICAL ×2 (11:03→19:49)
[2024-04-21] MEDS: LOW STRENGTH ASPIRIN 324 MG PO (11:04)
[2024-04-21 12:26] LABS: Glucose - Point of Care 270 mg/dl (70-99)
[2024-04-21] MEDS: NOVOLOG FLEXPEN-MODERATE RESISTANCE 5 UNITS SC (12:44)
[2024-04-21] MEDS: DILAUDID 4 MG PO ×2 (12:54→18:51)
--- NOTE | 2024-04-21 15:05 | W.PN.UPDATE ---
Update Note
Progress Note Update
I met with Mr. Ferreira at the bedside with his family present. He has bacteremia and endocarditis, with very likely an infected endovascular lead from his PPM. He has vegetations on his mitral and aortic valves and severe regurgitation of the mitral.
This is likely more chronic in nature as he appears fairly well compensated. There is a heavy amount of debris on his PPM wires. His first set of blood cultures grew bacteria.
On my meeting with him, he denied fevers or chills and did not appear septic. He is functional at baseline and takes care of his ADLs and has strong family support. He had a previous CABG x 2 - but really one as it is a sequential of his GOODRICH and
diagonal branch. This is patent on the CTA of the chest. No root abscess was seen on my review. He will require redo sternotomy, AVR/MVR/TVr with explant of his R PPM leads at time of surgery. If he is PPM dependent, I would likely place epicardial
leads and tunnel them to the R chest with possible replacement of his PPM altogether. He will require a week of abx treatment to help clear his blood cultures. I plan to return to discuss high risk surgery with him for next week. He is receptive and
wants to move forward.
Thank you for involving me in the care of this patient. Please feel free to contact me with any questions or concerns.
Lemuel Nicholson MD, MS
Cardiothoracic Surgeon
[facility]
This dictation was created using the [employer] dictation system. Please excuse any grammatical, typographical, or 'sound alike' errors.
--- NOTE | 2024-04-21 16:23 | W.PN.HOSP.TC ---
Today's Communication/Plan
-
MRI of the spine pain
IV antibiotics
CT surgery evaluation
Adjust insulin dose
Assessment / Plan
Assessment / Plan
IMPRESSION:
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
Vertebral osteomyelitis
Other conditions:*
CAD
� Status post LUCIO 09/2005.
Status post CABG x 2 2005.
Atrial fibrillation of unclear chronicity and duration.
Chronic anticoagulation with Eliquis
Type 2 diabetes.
Dyslipidemia.
Former smoker.
Status post laparoscopic cholecystectomy 02/17
Plan:
Enterococcal bacteremia complicated with mitral and aortic valve endocarditis service pacemaker lead infection.
Vertebral osteomyelitis
ELLIE
Normal biventricular size and systolic function without regional wall motion
abnormality.
Pacer wires seen with large echodensity prolapsing between the right atrium and
right ventricle through the tricuspid valve associated with the right
ventricular wire. There is a large bulbous portion (2. 4 x 1.46 cm) proximally
that tapers down along the course of the wire and into the right ventricle.
Echodensity consistent with vegetation seen on both anterior and posterior
leaflets of the mitral valve with associated severe mitral regurgitation.
Echodensity consistent with vegetation on the aortic valve, minimal aortic
regurgitation seen.
Complex atheroma in the descending aorta.
No prior TTE available for comparison.
CT AP
At T10-11, there is irregular bony destruction of the endplates at the disc space, and findings are highly suggestive of discitis and osteomyelitis. Slight prominence of paraspinal soft tissue at this disc space level on the axial images. There are
no gross findings that would suggest posterior epidural extension.
Continue antibiotics: Ampicillin/ceftriaxone
MRI of the spine.
CT surgery evaluation
Plan for cardiac cath prior to surgical intervention end of this week
Continue current analgesic regimen with Tylenol and hydromorphone
Neurosurgery evaluation appreciated with no plan for surgical intervention spine
CAD.
Stable
Continue beta-an and statin
Paroxysmal atrial fibrillation of unknown duration
Continue beta-blockade
Apixaban currently on hold
Continue Lovenox initially and therapeutic/weight-based dose reduced to prophylactic in preparation for cardiac cath
Type 2 diabetes.
Preadmission regimen Lantus 30 units at bedtime/Jardiance.
Continue basal bolus protocol.
Currently on Lantus at reduced dose of 15 units at bedtime
BPH
Continue Flomax
CODE STATUS DNR
Anticipated Discharge: > 48 hours
Subjective/Interval History
-
Date of Service: April 21, 2024
Objective Data
-
Labs:
Laboratory Results
04/21/24 04/21/24
03:49 03:50
WBC 11.9 H
Hgb 10.6 L
Hct 33.0 L
Plt Count 221
PT 14.9 H
INR 1.13
APTT 40.1 H
Sodium 132 L
Potassium 4.3
Chloride 98
Carbon Dioxide 31 H
BUN 9
Creatinine 0.6 L
Glucose 152 H
Calcium 8.6
Total Bilirubin 0.7
AST 79 H
ALT 90 H
Alkaline Phosphatase 152 H
Vital Signs:
Vital Signs
Temp Pulse Resp BP Pulse Ox
97.5 F 78 14 116/75 99
04/21/24 15:20 04/21/24 14:00 04/21/24 14:00 04/21/24 14:00 04/21/24 14:00
I&O
04/20/24 04/21/24 04/22/24
06:59 06:59 06:59
Intake Total 324 / 324 608 / 608 240 / 240
Output Total 1800 / 1800 1125 / 1125 650 / 650
Balance -1476 / -1476 -517 / -517 -410 / -410
Physical Exam
-
General: No Apparent Distress
HEENT: PERRLA and Other (neck stiffness with limited range of motion )
Respiratory: Clear to Auscultation; Negative Wheezes
Cardiac: Regular Rhythm and S1/S2
GI: Soft and Nontender
Musculoskeletal: No Edema
Skin: Warm and Dry; Negative Rash
Neuro: AO x 3 and Other (5/5 strength upper and lower extremities )
Psych: Calm
[2024-04-21 16:58] LABS: Glucose - Point of Care 195 mg/dl (70-99)
[2024-04-21] MEDS: LOVENOX 40 MG SC (17:47)
[2024-04-21] MEDS: FLUSH (NSS) IV ×2 (18:24)
--- NOTE | 2024-04-21 18:45 | PTCARENOTE ---
Patient out of bed to chair all afternoon. Continent of bowel and bladder. Severe pain on neck treated as per doctors orders. Patient is for MRI tomorrow. IV antibiotics continue. Patient and family educated about plan of care.
--- NOTE | 2024-04-21 19:54 | PTCARENOTE ---
Assumed care of Pt from previous RN. Pt aaox3. q4 neuro checks assessed as ordered. Pt remains c/o neck and back pain. Pt is paced on monitor, HR 82. pts own cpap at bedside. currently on RA, satting 95%. hs oral care offered by PCT, pt declined to
brush their teeth at this time. assessment as documented. Call light in reach. Safe environment maintained.
[2024-04-21] MEDS: FLOMAX 0.4 MG PO (22:04)
[2024-04-21] MEDS: XALATAN OPHTHALMIC SOLUTION 1 DROP BOTH EYES (22:04)
[2024-04-21] MEDS: LANTUS 0.15 UNITS SC (22:15)
[2024-04-21 22:26] LABS: Glucose - Point of Care 179 mg/dl (70-99)
[2024-04-22] VITALS (9 sets, daily range): BP systolic 108–139; BP diastolic 51–71
[2024-04-22] MEDS: DILAUDID 4 MG PO ×5 (01:12→23:04)
[2024-04-22] MEDS: AMPICILLIN 108 MG IV ×6 (01:12→20:20)
[2024-04-22 06:07] LABS: % Basophils 0.9 % (0-2); % Eosinophils 2.6 % (0-6); % Immature Granulocytes 0.8 % (0-0.5); % Lymphocytes 21.4 % (20.5-51.1); % Monocytes 8.7 % (1.7-9.3); % Neutrophils 65.6 % (42.2-75.2); Absolute Basophils 0.1 10^3/uL (0-0.2); Absolute Eosinophils 0.3 10^3/uL (0-0.7); Absolute Immature Granulocytes 0.1 10^3/uL (0-0.05); Absolute Lymphocytes 2.1 10^3/uL (1.2-3.4); Absolute Monocytes 0.9 10^3/uL (0.1-0.6); Absolute Neutrophils 6.6 10^3/uL (1.4-6.5); Hematocrit 37.5 % (39.0-52.0); Hemoglobin 12.1 g/dL (13.0-18.0); Mean Corp Hgb Conc. 32.3 g/dL (33.0-37.0); Mean Corpuscular Hgb 28.1 pg (27.0-31.0); Mean Platelet Volume 9.1 fL (7.4-10.4); Nucleated Red Blood Cells % 0 % (-); Platelet Count 243 10^3/uL (130-400); Red Blood Cell Count 4.31 10^6/uL (4.70-6.10); Red Cell Dist. Width 16.3 % (11.5-14.5)
[2024-04-22 06:24] LABS: Blood Urea Nitrogen 7 mg/dl (9-20); Calcium 8.9 mg/dl (8.4-10.2); Carbon Dioxide 30 mmol/L (22-30); Chloride 98 mmol/L (98-107); Estimated Creatinine Clearance 92 ml/min; Glucose 136 mg/dl (70-99); Sodium 135 mmol/L (135-145); eGFR > 60.00
[2024-04-22] MEDS: FLUSH (NSS) 1 FLUSH IV ×2 (06:34→06:35)
[2024-04-22] MEDS: ROCEPHIN 2000 MG IV ×2 (06:35→17:59)
[2024-04-22] MEDS: STERILE WATER FOR INJECTION 20 ML IV ×2 (06:35→17:59)
--- NOTE | 2024-04-22 08:18 | PTCARENOTE ---
Patient received from casino shift manager. Patient resting comfortably in bed. AAO, VSS. No events noted overnight. Continued complaints of pain in neck area, see MAR. Currently on Room Air. Patient scheduled for MRI today, Vascular DIRECTOR OF INSTITUTIONAL GIVING to stay with
patient for the time of the imaging. No other tested scheduled after the MRI. Possible cath later this week. Call waller in reach.
[2024-04-22 08:36] LABS: Glucose - Point of Care 131 mg/dl (70-99)
[2024-04-22] MEDS: NOVOLOG FLEXPEN-MODERATE RESISTANCE SC ×2 (09:26→13:01)
[2024-04-22] MEDS: TOPROL XL 50 MG PO (09:27)
[2024-04-22] MEDS: LIDOCAINE 4% PATCH TOPICAL (09:27)
[2024-04-22] MEDS: NON-FORMULARY ITEM 1 UNIT TOPICAL ×2 (09:28→20:21)
[2024-04-22] MEDS: LOW STRENGTH ASPIRIN 81 MG PO (09:28)
[2024-04-22] MEDS: LIPITOR 40 MG PO (09:28)
--- NOTE | 2024-04-22 11:43 | W.PN.ID1 ---
Date of Service
Date of Service: April 22, 2024
Today's Communication
Continue ampicillin/ceftriaxone
Assessment / Plan
# Complicated Enterococcal bacteremia (7 sets)
# Infective endocarditis of BiV ICD lead, MV and AV
# Vertebral discitis/osteo; Acute neck and back pain.
# Leukocytosis trending down
# Fever - resolved
- CT a/p: T10-11 endplate destruction
- MRI C/T/L spine wo and with contrast planned for this week; delay due to ICD
- ELLIE: 2.4 cm vege on ICD wire; echodensity on AV and MV with severe mitral regurgitation
- Repeat blood cultures x2 from 04/20 neg to date
- Cardiothoracic surgery following. Surgery next week.
- Continue Ampicillin 2g IV q4h and ceftriaxone 2g IV q12h
# Conditions prior to admission
DM2
Hypertension
HLD
CAD status post CABG/stent
Atrial fibrillation
BiV ICD placement 2016
HFpEF
HALLIE
BPH
Lap cholecystectomy 02/05/24
Chief Complaint
-: Bacteremia and Other (Endocarditis, discitis)
Subjective / Review of Systems
No new complaints. Pain stable.
Vital Signs / Physical Exam
Vital Signs
Vital Signs
Temp Pulse Resp BP Pulse Ox
97.6 F 77 16 139/65 95
04/22/24 07:50 04/22/24 09:27 04/22/24 08:00 04/22/24 09:27 04/22/24 11:32
Physical Exam
Constitutional: No Acute Distress
Eyes: No Conjunctival Hemorrhage and Sclera Anicteric
Cardiovascular: Regular Rate, S1/S2 and Murmur
Pulmonary: Clear
Gastrointestinal: Soft, Non Tender and Non Distended
Genito-Urinary: Negative CVA Tenderness
Extremities: Negative Edema
Neurological: AO x 3
Objective Data
Lab Data
Lab Results
04/22/24 05:46
04/22/24 05:46
ESR 48 mm/hour (0-20) H 04/15/24 16:55
PT 14.9 Sec (11.4-14.6) H 04/21/24 03:49
INR 1.13 04/21/24 03:49
APTT 40.1 Sec (23.4-35.0) H 04/21/24 03:49
Estimated Creat Clear 92 ml/min 04/22/24 05:46
Lactic Acid Cancelled 04/16/24 14:36
Total Bilirubin 0.7 mg/dl (0.2-1.3) 04/21/24 03:49
AST 79 U/L (17-59) H 04/21/24 03:49
ALT 90 U/L (0-50) H 04/21/24 03:49
Alkaline Phosphatase 152 U/L (38-126) H 04/21/24 03:49
C-Reactive Protein 166.20 mg/L (0.0-10.00) H 04/15/24 16:55
Most recent labs reviewed.
Micro Results:
04/19/24 07:49 Blood Culture - Final
Blood/Venous Enterococcus faecalis
Gram Stain - Final
04/22/24 06:46 Blood Culture - Pending
Blood/Venous
04/22/24 05:46 Blood Culture - Pending
Blood/Venous
04/20/24 05:09 Blood Culture - Preliminary
Blood/Venous No Growth in 48 hours- Final report to follow
04/20/24 05:09 Blood Culture - Preliminary
Blood/Venous No Growth in 48 hours- Final report to follow
04/19/24 05:33 Blood Culture - Preliminary
Blood/Venous Enterococcus faecalis
Gram Stain - Preliminary
04/18/24 04:30 Blood Culture - Preliminary
Blood/Venous Enterococcus faecalis
Gram Stain - Preliminary
04/16/24 09:58 Blood Culture - Final
Blood/Venous Enterococcus faecalis
Gram Stain - Final
04/17/24 04:34 Blood Culture - Preliminary
Blood/Venous Enterococcus faecalis
Gram Stain - Preliminary
04/15/24 21:45 Urine Culture - Final
Urine Enterococcus faecalis
04/15/24 21:30 Blood Culture - Final
Blood/Venous Enterococcus faecalis
Gram Stain - Final
04/15/24 21:12 Blood Culture - Final
Blood/Venous Enterococcus faecalis
Gram Stain - Final
04/15/24 21:20 Influenza Types A & B (BRADLEY) - Final
Nasal Swab Negative for Influenza A & B, NAAT
Negative results must be combined with clinical observations
and patient history.
Nucleic Acid Amplification test (NAAT)performed on the
[employer] platform.
Imaging:
04/20/2024 ECHO (ELLIE): Normal biventricular size and systolic function. Pacer wire seen, with large echodensity prolapsing between the right atrium and right ventricle through the tricuspid valve, associated with the right ventricular wire. There
is a large bulbous portion (2.4 x 1.4 cm) proximally that tapers down along the course of the wire and into the right ventricle. Echodensity consistent with vegetation seen on both anterior and posterior leaflets of the mitral valve, with
associated severe mitral regurgitation. An echodensity consistent with vegetation is seen on the aortic valve, with minimal aortic regurgitation. Please see full dictation for additional detail.
04/15/24 CT a/p: There is irregular endplate destruction at the T10-11 disc space, and findings are highly suggestive of discitis and osteomyelitis.
This does not appear to extend to the posterior margin of the disc space at this time, and no gross evidence to suggest extension of inflammatory process and the spinal canal on CT. As warranted, further evaluation with MRI of the lower thoracic
spine without and with contrast could be considered.
[2024-04-22] MEDS: DILAUDID 2 MG PO ×2 (12:24→18:41)
[2024-04-22 12:40] LABS: Glucose - Point of Care 125 mg/dl (70-99)
--- NOTE | 2024-04-22 13:07 | W.PN.HOSP.TC ---
Today's Communication/Plan
-
MRI of the spine.
IV antibiotics per
Follow blood culture for clearance.
Assessment / Plan
Assessment / Plan
IMPRESSION:
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
Vertebral osteomyelitis
Other conditions:*
CAD
� Status post LUCIO 09/2005.
Status post CABG x 2 2005.
Atrial fibrillation of unclear chronicity and duration.
Chronic anticoagulation with Eliquis
Type 2 diabetes.
Dyslipidemia.
Former smoker.
Status post laparoscopic cholecystectomy 02/17
Plan:
Enterococcal bacteremia complicated with mitral and aortic valve endocarditis service pacemaker lead infection.
Vertebral osteomyelitis
ELLIE
Normal biventricular size and systolic function without regional wall motion
abnormality.
Pacer wires seen with large echodensity prolapsing between the right atrium and
right ventricle through the tricuspid valve associated with the right
ventricular wire. There is a large bulbous portion (2. 4 x 1.46 cm) proximally
that tapers down along the course of the wire and into the right ventricle.
Echodensity consistent with vegetation seen on both anterior and posterior
leaflets of the mitral valve with associated severe mitral regurgitation.
Echodensity consistent with vegetation on the aortic valve, minimal aortic
regurgitation seen.
Complex atheroma in the descending aorta.
No prior TTE available for comparison.
CT AP
At T10-11, there is irregular bony destruction of the endplates at the disc space, and findings are highly suggestive of discitis and osteomyelitis. Slight prominence of paraspinal soft tissue at this disc space level on the axial images. There are
no gross findings that would suggest posterior epidural extension.
Continue antibiotics: Ampicillin/ceftriaxone
MRI of the spine.
CT surgery evaluation
Plan for cardiac cath prior to surgical intervention end of this week
Continue current analgesic regimen with Tylenol and hydromorphone
Neurosurgery evaluation appreciated with no plan for surgical intervention spine
CAD.
Stable
Continue beta-an and statin
Paroxysmal atrial fibrillation of unknown duration
Continue beta-blockade
Apixaban currently on hold
Continue Lovenox initially and therapeutic/weight-based dose reduced to prophylactic in preparation for cardiac cath
Type 2 diabetes.
Preadmission regimen Lantus 30 units at bedtime/Jardiance.
Continue basal bolus protocol.
Currently on Lantus at reduced dose of 15 units at bedtime
BPH
Continue Flomax
CODE STATUS DNR
Anticipated Discharge: > 48 hours
Subjective/Interval History
-
Date of Service: April 22, 2024
Objective Data
-
Labs:
Laboratory Results
04/22/24
05:46
WBC 10.0
Hgb 12.1 L
Hct 37.5 L
Plt Count 243
Sodium 135
Potassium 4.0
Chloride 98
Carbon Dioxide 30
BUN 7 L
Creatinine 0.6 L
Glucose 136 H
Calcium 8.9
Vital Signs:
Vital Signs
Temp Pulse Resp BP Pulse Ox
97.6 F 77 16 139/65 95
04/22/24 07:50 04/22/24 09:27 04/22/24 08:00 04/22/24 09:27 04/22/24 11:32
I&O
04/21/24 04/22/24 04/23/24
06:59 06:59 06:59
Intake Total 608 / 608 240 / 240
Output Total 1125 / 1125 750 / 750
Balance -517 / -517 -510 / -510
Physical Exam
-
General: No Apparent Distress
HEENT: PERRLA and Other (neck stiffness with limited range of motion )
Respiratory: Clear to Auscultation; Negative Wheezes
Cardiac: Regular Rhythm and S1/S2
GI: Soft and Nontender
Musculoskeletal: No Edema
Skin: Warm and Dry; Negative Rash
Neuro: AO x 3 and Other (5/5 strength upper and lower extremities )
Psych: Calm
--- NOTE | 2024-04-22 14:25 | W.PN.CARDCBS ---
Addendum entered and electronically signed by Robert Persno MD 04/22/24 17:41:
Discussed outpatient care with Dr. Estrada his outpatient cobbler upper. His original device was placed for primary prevention and he has not had any ICD therapies as of last interrogation on April 03, 2024 in their office. His most recent
echocardiogram from the office demonstrated ejection fraction of 40% with akinesis of the inferior and inferolateral soriano from the base to mid ventricle with a nonreversible defect also seen on nuclear stress test in this region. Given his
ischemic substrate ultimately the ideal device would be [employer]ES REPRESENT[employer]IVE-D for the patient.
Discussed this with Dr. Nicholson and we are debating 2 potential options.
First option would be to consider a complete epicardial system including an ICD coil, sew on LV lead, sew on atrial lead which could be utilized through a dual-chamber generator.
Second option would be to add epicardial LV pacing lead plus or minus epicardial atrial pacing lead depending upon exposure and eventual endocardial ICD lead.
The advantage of the first option would be a complete epicardial system with nothing in the vasculature. Theoretically there would be slightly higher risk for infection with the second option. If we were to pursue the second option I would wait
for serial blood cultures to be negative prior to adding the endocardial hardware. Discussed with Dr. Nicholson, we will have further discussions as the operative date of next approaches. I reached out to our [employer] team mates to begin
ordering the epicardial ICD coil, the epicardial pacing leads we would plan to have different generators available depending upon what is achievable at time of surgery.
Ultimately will plan for left heart catheterization on Saturday and will have ongoing discussions with patient as well regarding device-based options.
Original Note:
Today's Communication / Plan
-
Cath Saturday
Tentative aortic�mitral valve surgery and lead removal/epicardial lead implant next week
Hold oral anticoagulation evening and Saturday in anticipation of left heart catheterization
Ongoing discussions with his outpatient cobbler upper Dr. Estrada at [facility]
We will follow with you
Impression / Plan
-
PCP: Dr. Mike Doe
Cardiology: Dr. Servin of [place]
Impression:
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
Sepsis
Vertebral osteomyelitis
Hypotension
Abnormal echo suggesting pacer wire vegetation in the RV and vegetation on the mitral valve 04/16/2024
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
s/p [employer] ICD 12/28/16
-Device interrogation 04/17/2024 shows stable lead sensing, pacing threshold, and lead impedances; no AT AF; no VT VF since last interrogation or tachytherapies; discussed with [employer] account maintenance representative, Jose Adan, patient's device is MRI
compatible and safe; if patient to need MRI, would place patient DOO (preferable) or VOO at 80 bpm; patient is not reported as dependent
CAD with ID
s/p 3 mm Taxus LUCIO to unknown vessel 10/15/05
s/p CABG x 2 2005 at [place]
Atrial fibrillation of unclear chronicity and duration
Chronic Eliquis OAC
HLD
DM2
remote former smoker
s/p lap grace 01/2024
Echo 04/16/2024: EF 50 to 55%, normal regional wall motion, pacer wire seen in the RV with large density (1.7 x 1.9 cm) on pacemaker which could be consistent with vegetation, thickened mitral valve leaflets with MAC and peak/mean 8/4 mmHg, mobile
echodensity on the MV consistent with vegetation, at least moderate eccentric MR, aortic sclerosis without stenosis, no aortic regurgitation, mild TR with PAP 20 to 25 mmHg
Plan:
He seems relatively stable despite his endocarditis. Continue antibiotics. Appreciate CT surgery and infectious disease input. I communicated with Dr. Estrada at the [facility] who implanted his device in 2017 and he will let me know whether
it was a primary or secondary prevention device. In speaking with the patient was put in for low ejection fraction so presumably his primary prevention. He has not had an ICD therapy/shock. Discussed lead removal with Dr. Nicholson who plans to remove
all the endovascular hardware and generator at time of mitral and aortic valve surgery. Would be reasonable to consider an epicardial pacing system only depending on epicardial access with an atrial right and left ventricular leads. I would be
reticent to add any endocardial leads within 6 to 12 weeks of prior hardware removal given his discitis, spinal osteomyelitis, and multivalve endocarditis.
If we were to discharge the patient with an epicardial pacing system only without defibrillator could consider options of LifeVest at discharge with eventual endocardial ICD implant in 6 to 12 weeks versus maintaining epicardial pacing system only
without defibrillator therapy. The patient is amenable to the latter and this may present the best solution to leave his vasculature free of hardware and minimize his infectious risk.
He will need cardiac catheterization Saturday
He is currently on full dose Lovenox. He has not had atrial fibrillation. There is a hemorrhagic risk and endocarditis, so we will reduce Lovenox to 40 mg subcu daily. Add aspirin 81 mg a day. Would defer to IC in terms of holding Lovenox but
typically would hold on in anticipation of a Saturday left heart catheterization to delineate his [place] and graft anatomy.
Tentatively for surgery next week. Continue antibiotics. We will follow with you
PREADMIT DATA:
-Patient came to [facility] with neck pain on 04/15/24 and was admitted with osteomyelitis and cardiology is now consulted for eval of abnormal echo. Patient has routine cardiology care at [place] - Dr. Servin. Patient was admitted to 02/03/24 until 02/06/24
with abdominal pain and had lap grace 02/05/24. Patient was then in the ER 02/27/24 for hypotension and URI symptoms at the recommendation of his PCP, but BP was normal and no evidence of acute process so patient was sent home. Patient came back to ER
03/02/24 with chest and back pain and troponin negative and he was given toradol and valium for spasm. Patient was sent to [facility] for rehab briefly however then went home. Patient came to last night with neck pain that started Saturday
04/11/24. He reports limited neck mobility and development of fever. He was noted by imaging to have evidence of osteomyelitis then underwent echo which showed large mobile echodensity consistent with mitral valve vegetation, MR, and large density on
ppm also with concern for vegetation. Blood cultures prelim positive. cardiology consulted for evaluation.
Progress Note - Machine Erector
Subjective
Date of Service: April 22, 2024
Patient tells me he feels stable
Objective
Labs:
04/22/24 05:46
04/22/24 05:46
Labs
Hgb 12.1 g/dL (13.0-18.0) L 04/22/24 05:46
Hct 37.5 % (39.0-52.0) L 04/22/24 05:46
Plt Count 243 10^3/uL (130-400) 04/22/24 05:46
PT 14.9 Sec (11.4-14.6) H 04/21/24 03:49
INR 1.13 04/21/24 03:49
APTT 40.1 Sec (23.4-35.0) H 04/21/24 03:49
Sodium 135 mmol/L (135-145) 04/22/24 05:46
Potassium 4.0 mmol/L (3.5-5.1) 04/22/24 05:46
BUN 7 mg/dl (9-20) L 04/22/24 05:46
Creatinine 0.6 mg/dL (0.7-1.3) L 04/22/24 05:46
Glucose 136 mg/dl (70-99) H 04/22/24 05:46
Vital Signs and I&O:
Vital Signs
Temp Pulse Resp BP Pulse Ox
97.6 F 85 22 139/65 96
04/22/24 07:50 04/22/24 14:00 04/22/24 14:00 04/22/24 09:27 04/22/24 14:00
Vital Signs
Temp Pulse Resp BP Pulse Ox
97.6 F 85 22 139/65 96
04/22/24 07:50 04/22/24 14:00 04/22/24 14:00 04/22/24 09:27 04/22/24 14:00
Intake & Output
04/20/24 04/21/24 04/22/24 04/23/24
06:59 06:59 06:59 06:59
Intake Total 324 / 324 608 / 608 240 / 240
Output Total 1800 / 1800 1125 / 1125 750 / 750 300 / 300
Balance -1476 / -1476 -517 / -517 -510 / -510 -300 / -300
Physical Exam
Physical Exam
����Physical Exam
���������������������General:��no apparent distress, not acutely ill
���������������������������Neck:��supple. no meningeal signs. normal psoterior pharynx
������������������������
���������������������������Heart:��s1/s2 regular rate and rhythm, no murmur. equal radial pulses.
��������������������������Lungs: ��no acute respiratory distress. clear bilaterally
����������������������Abdomen:�normal bowel sounds. not tender. no CVAT
��������������������������Neuro:��alert and oriented. no focal neurological deficits
������������������������������Skin: ��no rash
�����������������������Psychiatric:�well kept. interactive and cooperative
�����������������������Extremities:��no edema. no calf tenderness. negative homans. good distal pulses
��
�
--- NOTE | 2024-04-22 15:14 | WOUNDNOTE ---
[facility] RN NOTE: Patient visited to follow up on bilateral ischial/buttock wounds. Friction appearing skin has improved since last assessment. No open areas noted. Patient reports he still slides buttocks in bed when he changes position, but he is
avoiding sliding in chair. Patient preferred to have silicone foam placed on friction appearing skin. Staff/patient can also use barrier cream. Sacrum and heel intact. Patient has good appetite. Patient remains on [employer]rella Max Air and has air
cushion to chair. He demonstrates ability to stand and ambulate with walker. RN Christopher given update. Will sign off.
[2024-04-22 17:25] LABS: Glucose - Point of Care 269 mg/dl (70-99)
[2024-04-22] MEDS: NOVOLOG FLEXPEN-MODERATE RESISTANCE 5 UNITS SC (17:41)
[2024-04-22] MEDS: FLUSH (NSS) IV ×2 (17:58)
[2024-04-22] MEDS: LOVENOX 40 MG SC (17:59)
[2024-04-22] MEDS: DILAUDID 0.5 MG IV (20:20)
[2024-04-22] MEDS: XALATAN OPHTHALMIC SOLUTION 1 DROP BOTH EYES (20:27)
[2024-04-22 20:47] LABS: Urine Albumin Negative (Neg - Trace); Urine Bilirubin Negative (Negative); Urine Character Clear (Clear); Urine Color Yellow; Urine Glucose 3+ (Negative); Urine Ketone Negative (Negative); Urine Leukocyte Negative (Negative); Urine Nitrite Negative (Negative); Urine Occult Blood Negative (Negative); Urine Urobilinogen Negative (Neg - 1+); Urine pH 6.5 (5.0-9.0)
--- NOTE | 2024-04-22 22:06 | PTCARENOTE ---
Assumed care of pt from previous Rn. pt aa0x3. AV paced on monitor. c/o necks pain, pain medications administered as ordered, best level of pain control safely provided. Urinal in use. UA sent. Call light in reach. Assessment as documented.
[2024-04-22] MEDS: FLOMAX 0.4 MG PO (23:01)
[2024-04-22] MEDS: LANTUS 0.15 UNITS SC (23:01)
[2024-04-22 23:12] LABS: Glucose - Point of Care 222 mg/dl (70-99)
[2024-04-23] VITALS (9 sets, daily range): BP systolic 113–151; BP diastolic 60–72; BMI 27.9
[2024-04-23] MEDS: AMPICILLIN 108 MG IV ×7 (00:12→23:55)
[2024-04-23] MEDS: DILAUDID 4 MG PO ×4 (03:17→20:22)
[2024-04-23] MEDS: STERILE WATER FOR INJECTION 20 ML IV ×2 (05:24→17:27)
[2024-04-23] MEDS: ROCEPHIN 2000 MG IV ×2 (05:24→17:27)
[2024-04-23] MEDS: DILAUDID 2 MG PO (05:59)
[2024-04-23 06:36] LABS: Hematocrit 32.9 % (39.0-52.0); Hemoglobin 10.5 g/dL (13.0-18.0); Mean Corp Hgb Conc. 31.9 g/dL (33.0-37.0); Mean Corpuscular Volume 87.7 fL (80.0-94.0); Mean Platelet Volume 9.3 fL (7.4-10.4); Platelet Count 235 10^3/uL (130-400); Red Blood Cell Count 3.75 10^6/uL (4.70-6.10); Red Cell Dist. Width 16.2 % (11.5-14.5); White Blood Cell Count 9.5 10^3/uL (4.8-10.8)
[2024-04-23 07:08] LABS: Blood Urea Nitrogen 10 mg/dl (9-20); Calcium 8.7 mg/dl (8.4-10.2); Carbon Dioxide 29 mmol/L (22-30); Chloride 99 mmol/L (98-107); Estimated Creatinine Clearance 92 ml/min; Glucose 137 mg/dl (70-99); Potassium 4.1 mmol/L (3.5-5.1); Sodium 133 mmol/L (135-145); eGFR > 60.00
[2024-04-23] MEDS: FLUSH (NSS) IV ×4 (07:16→17:26)
[2024-04-23 07:49] LABS: Glucose - Point of Care 133 mg/dl (70-99)
--- NOTE | 2024-04-23 08:45 | PTCARENOTE ---
Patient received from shift commander. Patient resting comfortably in bed. AAO, VSS. No events noted overnight. Continued complaints of pain in neck area, see MAR. Currently on Room Air. Continuing ABX. Monitoring for patient to move bowels, no
BM past few days. NPO for cath tomorrow Monday 04/24. Call waller in reach.
--- NOTE | 2024-04-23 09:00 | W.PN.ID1 ---
Date of Service
Date of Service: April 23, 2024
Today's Communication
Continue amp/ceftriaxone.
Assessment / Plan
# Complicated Enterococcal bacteremia (7 sets)
# Infective endocarditis of BiV ICD lead, MV and AV
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
# Leukocytosis resolved
# Fever - resolved
- ELLIE: 2.4 cm vege on ICD wire; echodensity on AV and MV with severe mitral regurgitation
- Repeat blood cultures x4 from 04/20 and 04/22 neg to date
- Cardiothoracic surgery following. For cardiac cath. Potential surgery next week.
- Continue Ampicillin 2g IV q4h and ceftriaxone 2g IV q12h
# Conditions prior to admission
DM2
Hypertension
HLD
CAD status post CABG/stent
Atrial fibrillation
BiV ICD placement 2016
HFpEF
HALLIE
BPH
Lap cholecystectomy 02/05/24
Chief Complaint
-: Bacteremia and Other (Endocarditis, discitis)
Subjective / Review of Systems
No new complaints. Neck pain stable.
Vital Signs / Physical Exam
Vital Signs
Vital Signs
Temp Pulse Resp BP Pulse Ox
97.6 F 77 19 145/63 97
04/23/24 07:20 04/23/24 06:00 04/23/24 06:00 04/23/24 06:00 04/23/24 06:00
Physical Exam
Constitutional: No Acute Distress
Eyes: No Conjunctival Hemorrhage and Sclera Anicteric
Cardiovascular: Regular Rate, S1/S2, Murmur and Other (left CW ICD no erythema/induration)
Pulmonary: Clear
Gastrointestinal: Soft, Non Tender and Non Distended
Genito-Urinary: Negative CVA Tenderness
Extremities: Negative Edema
Neurological: AO x 3
Objective Data
Lab Data
Lab Results
04/23/24 05:40
04/23/24 05:40
ESR 48 mm/hour (0-20) H 04/15/24 16:55
PT 14.9 Sec (11.4-14.6) H 04/21/24 03:49
INR 1.13 04/21/24 03:49
APTT 40.1 Sec (23.4-35.0) H 04/21/24 03:49
Estimated Creat Clear 92 ml/min 04/23/24 05:40
Lactic Acid Cancelled 04/16/24 14:36
Total Bilirubin 0.7 mg/dl (0.2-1.3) 04/21/24 03:49
AST 79 U/L (17-59) H 04/21/24 03:49
ALT 90 U/L (0-50) H 04/21/24 03:49
Alkaline Phosphatase 152 U/L (38-126) H 04/21/24 03:49
C-Reactive Protein 166.20 mg/L (0.0-10.00) H 04/15/24 16:55
Most recent labs reviewed.
Micro Results:
04/22/24 06:46 Blood Culture - Preliminary
Blood/Venous No Growth in 24 hours- Final report to follow
04/22/24 05:46 Blood Culture - Preliminary
Blood/Venous No Growth in 24 hours- Final report to follow
04/20/24 05:09 Blood Culture - Preliminary
Blood/Venous No Growth in 72 hours- Final report to follow
04/20/24 05:09 Blood Culture - Preliminary
Blood/Venous No Growth in 72 hours- Final report to follow
04/19/24 07:49 Blood Culture - Final
Blood/Venous Enterococcus faecalis
Gram Stain - Final
04/19/24 05:33 Blood Culture - Preliminary
Blood/Venous Enterococcus faecalis
Gram Stain - Preliminary
04/18/24 04:30 Blood Culture - Preliminary
Blood/Venous Enterococcus faecalis
Gram Stain - Preliminary
04/16/24 09:58 Blood Culture - Final
Blood/Venous Enterococcus faecalis
Gram Stain - Final
04/17/24 04:34 Blood Culture - Preliminary
Blood/Venous Enterococcus faecalis
Gram Stain - Preliminary
04/15/24 21:45 Urine Culture - Final
Urine Enterococcus faecalis
04/15/24 21:30 Blood Culture - Final
Blood/Venous Enterococcus faecalis
Gram Stain - Final
04/15/24 21:12 Blood Culture - Final
Blood/Venous Enterococcus faecalis
Gram Stain - Final
04/15/24 21:20 Influenza Types A & B (BRADLEY) - Final
Nasal Swab Negative for Influenza A & B, NAAT
Negative results must be combined with clinical observations
and patient history.
Nucleic Acid Amplification test (NAAT)performed on the
[employer] platform.
Imaging:
04/20/2024 ECHO (ELLIE): Normal biventricular size and systolic function. Pacer wire seen, with large echodensity prolapsing between the right atrium and right ventricle through the tricuspid valve, associated with the right ventricular wire. There
is a large bulbous portion (2.4 x 1.4 cm) proximally that tapers down along the course of the wire and into the right ventricle. Echodensity consistent with vegetation seen on both anterior and posterior leaflets of the mitral valve, with
associated severe mitral regurgitation. An echodensity consistent with vegetation is seen on the aortic valve, with minimal aortic regurgitation. Please see full dictation for additional detail.
04/15/24 CT a/p: There is irregular endplate destruction at the T10-11 disc space, and findings are highly suggestive of discitis and osteomyelitis.
This does not appear to extend to the posterior margin of the disc space at this time, and no gross evidence to suggest extension of inflammatory process and the spinal canal on CT. As warranted, further evaluation with MRI of the lower thoracic
spine without and with contrast could be considered.
04/23/24 MRI C/T/L spine:
Cervical spine:
Multilevel advanced degenerative changes. No evidence of discitis or osteomyelitis. Subtle edema/hyperemia involving the interspinous soft tissues most pronounced at C5-6, possibly inflammatory in nature or possible interspinous ligament sprain.
Clinical correlation advised. Partially visualized nonspecific left supraspinatus and infraspinatus muscle edema. Clinical correlation necessary.
Thoracic spine:
T10-11 discitis/osteomyelitis. Inflammatory epidural soft tissue thickening. No epidural abscess. No paraspinal soft tissue abscess. Findings suspicious for right T10-11 facet septic arthritis. T11-12 with mild central canal narrowing. No cord
compression.
Lumbar spine:
No evidence of lumbar spine discitis or vertebral osteomyelitis. Abnormal signal and enhancement associated with right L3-4 and L5-S1 facets and adjacent/surrounding soft tissues, as described. In the absence of recent surgical intervention to
suggest postsurgical reactive inflammatory changes, the appearance would be highly suspicious for facet septic arthritis. No lumbar epidural collection or epidural abscess. No focal soft tissue collection or abscess. Otherwise, lumbar degenerative
changes, as described.
[2024-04-23] MEDS: NOVOLOG FLEXPEN-MODERATE RESISTANCE SC ×2 (09:11→17:12)
[2024-04-23] MEDS: LIDOCAINE 4% PATCH TOPICAL (10:05)
[2024-04-23] MEDS: LIPITOR 40 MG PO (10:06)
[2024-04-23] MEDS: NON-FORMULARY ITEM 1 UNIT TOPICAL ×2 (10:07→20:22)
[2024-04-23] MEDS: LOW STRENGTH ASPIRIN 81 MG PO (10:07)
[2024-04-23] MEDS: TOPROL XL 50 MG PO (10:08)
--- NOTE | 2024-04-23 11:08 | W.PN.CARDCBS ---
Today's Communication / Plan
-
Left heart catheterization 04/24/2024
Impression / Plan
-
PCP: Dr. Mike Doe
Cardiology: Dr. Servin of [place]
Impression:
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
Sepsis
Vertebral osteomyelitis
Hypotension
Abnormal echo suggesting pacer wire vegetation in the RV and vegetation on the mitral valve 04/16/2024
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
s/p [employer] ICD 12/28/16
-Device interrogation 04/17/2024 shows stable lead sensing, pacing threshold, and lead impedances; no AT AF; no VT VF since last interrogation or tachytherapies; discussed with [employer] financial representative, Jose Adan, patient's device is MRI
compatible and safe; if patient to need MRI, would place patient DOO (preferable) or VOO at 80 bpm; patient is not reported as dependent
CAD with LA
s/p 3 mm Taxus LUCIO to unknown vessel 10/15/05
s/p CABG x 2 2006 at [place]
Atrial fibrillation of unclear chronicity and duration
Chronic Eliquis OAC
HLD
DM2
remote former smoker
s/p lap grace 01/2024
Echo 04/16/2024: EF 50 to 55%, normal regional wall motion, pacer wire seen in the RV with large density (1.7 x 1.9 cm) on pacemaker which could be consistent with vegetation, thickened mitral valve leaflets with MAC and peak/mean 8/4 mmHg, mobile
echodensity on the MV consistent with vegetation, at least moderate eccentric MR, aortic sclerosis without stenosis, no aortic regurgitation, mild TR with PAP 20 to 25 mmHg
Plan:
Remains relatively stable from a cardiovascular standpoint with enterococcal bacteremia, vertebral osteomyelitis as well as aortic/mitral endocarditis with pacemaker lead involvement
-Plan for left heart catheterization tomorrow. Reviewed procedure details and answered all questions. Will hold subcutaneous Lovenox
-Reviewed CT surgery consultation with plan for removal of endovascular hardware/generator at the time of mitral and aortic valve surgery likely next week, timing per CT surgery.
-Cardiology team previously communicated with Dr. Estrada at the [facility] who implanted his device in 2017 and he will let me know whether it was a primary or secondary prevention device. In speaking with the patient was put in for low
ejection fraction so presumably his primary prevention. He has not had an ICD therapy/shock. Per EP, reasonable to consider epicardial pacing system.
-If we were to discharge the patient with an epicardial pacing system only without defibrillator could consider options of LifeVest at discharge with eventual endocardial ICD implant in 6 to 12 weeks versus maintaining epicardial pacing system only
without defibrillator therapy. The patient is amenable to the latter and this may present the best solution to leave his vasculature free of hardware and minimize his infectious risk.
-IV antibiotics per ID.
Will follow with you
PREADMIT DATA:
-Patient came to [facility] with neck pain on 04/15/24 and was admitted with osteomyelitis and cardiology is now consulted for eval of abnormal echo. Patient has routine cardiology care at [place] - Dr. Servin. Patient was admitted to 02/03/24 until 02/06/24
with abdominal pain and had lap grace 02/05/24. Patient was then in the ER 02/27/24 for hypotension and URI symptoms at the recommendation of his PCP, but BP was normal and no evidence of acute process so patient was sent home. Patient came back to ER
03/02/24 with chest and back pain and troponin negative and he was given toradol and valium for spasm. Patient was sent to [facility] for rehab briefly however then went home. Patient came to last night with neck pain that started Saturday
04/11/24. He reports limited neck mobility and development of fever. He was noted by imaging to have evidence of osteomyelitis then underwent echo which showed large mobile echodensity consistent with mitral valve vegetation, MR, and large density on
ppm also with concern for vegetation. Blood cultures prelim positive. cardiology consulted for evaluation.
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
Subjective
Date of Service: April 23, 2024
Patient seen and examined with present. Overall feels well except for neck/back pain related to osteomyelitis. Denies chest pain or pressure, shortness of breath or palpitations.
Objective
Labs:
04/23/24 05:40
04/23/24 05:40
Labs
Hgb 10.5 g/dL (13.0-18.0) L 04/23/24 05:40
Hct 32.9 % (39.0-52.0) L 04/23/24 05:40
Plt Count 235 10^3/uL (130-400) 04/23/24 05:40
PT 14.9 Sec (11.4-14.6) H 04/21/24 03:49
INR 1.13 04/21/24 03:49
APTT 40.1 Sec (23.4-35.0) H 04/21/24 03:49
Sodium 133 mmol/L (135-145) L 04/23/24 05:40
Potassium 4.1 mmol/L (3.5-5.1) 04/23/24 05:40
BUN 10 mg/dl (9-20) 04/23/24 05:40
Creatinine 0.6 mg/dL (0.7-1.3) L 04/23/24 05:40
Glucose 137 mg/dl (70-99) H 04/23/24 05:40
Vital Signs and I&O:
Vital Signs
Temp Pulse Resp BP Pulse Ox
97.6 F 87 19 140/71 97
04/23/24 07:20 04/23/24 10:08 04/23/24 06:00 04/23/24 10:08 04/23/24 06:00
Vital Signs
Temp Pulse Resp BP Pulse Ox
97.6 F 87 19 140/71 97
04/23/24 07:20 04/23/24 10:08 04/23/24 06:00 04/23/24 10:08 04/23/24 06:00
Intake & Output
04/21/24 04/22/24 04/23/24 04/24/24
06:59 06:59 06:59 06:59
Intake Total 608 / 608 240 / 240 480 / 480
Output Total 1125 / 1125 750 / 750 1750 / 1750
Balance -517 / -517 -510 / -510 -1270 / -1270
Physical Exam
Physical Exam
General: No acute distress, AAOX3
Neck: Negative JVD
Heart: Regular, positive S1/S2, 2/6 SM + Device
Lungs: CTA b/l, negative wheezes/rales/rhonchi
Abd: Positive BS, NT/ND, neg rebound/rigidity/guarding
Ext: no edema
Neuro: nonfocal
��
�
--- NOTE | 2024-04-23 11:19 | W.PN.HOSP.TC ---
Today's Communication/Plan
-
Continue IV antibiotics.
Ongoing cardiothoracic evaluation including plan For 04/24.
Continue carbohydrate controlled diet/basal bolus insulin/Lantus
Assessment / Plan
Assessment / Plan
IMPRESSION:
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
Vertebral osteomyelitis
Other conditions:*
CAD
� Status post LUCIO 09/2005.
Status post CABG x 2005.
Atrial fibrillation of unclear chronicity and duration.
Chronic anticoagulation with Eliquis
Type 2 diabetes.
Dyslipidemia.
Former smoker.
Status post laparoscopic cholecystectomy 02/17
Plan:
Enterococcal bacteremia complicated with mitral and aortic valve endocarditis service pacemaker lead infection.
Vertebral osteomyelitis
ELLIE
Normal biventricular size and systolic function without regional wall motion
abnormality.
Pacer wires seen with large echodensity prolapsing between the right atrium and
right ventricle through the tricuspid valve associated with the right
ventricular wire. There is a large bulbous portion (2. 4 x 1.46 cm) proximally
that tapers down along the course of the wire and into the right ventricle.
Echodensity consistent with vegetation seen on both anterior and posterior
leaflets of the mitral valve with associated severe mitral regurgitation.
Echodensity consistent with vegetation on the aortic valve, minimal aortic
regurgitation seen.
Complex atheroma in the descending aorta.
No prior TTE available for comparison.
CT AP
At T10-11, there is irregular bony destruction of the endplates at the disc space, and findings are highly suggestive of discitis and osteomyelitis. Slight prominence of paraspinal soft tissue at this disc space level on the axial images. There are
no gross findings that would suggest posterior epidural extension.
Continue antibiotics: Ampicillin/ceftriaxone
MRI of the spine confirms T10-T11 discitis/osteomyelitis
CT surgery evaluation
Plan for cardiac cath prior to surgical intervention end of this week
Continue current analgesic regimen with Tylenol and hydromorphone
Neurosurgery evaluation appreciated with no plan for surgical intervention spine
CAD.
Stable
Continue beta-an and statin
Paroxysmal atrial fibrillation of unknown duration
Continue beta-blockade
Apixaban currently on hold
Continue Lovenox initially and therapeutic/weight-based dose reduced to prophylactic in preparation for cardiac cath
Type 2 diabetes.
Preadmission regimen Lantus 30 units at bedtime/Jardiance.
Continue basal bolus protocol.
Currently on Lantus at reduced dose of 15 units at bedtime
BPH
Continue Flomax
CODE STATUS DNR
Anticipated Discharge: > 48 hours
Subjective/Interval History
-
Date of Service: April 23, 2024
Objective Data
-
Labs:
Laboratory Results
04/23/24
05:40
WBC 9.5
Hgb 10.5 L
Hct 32.9 L
Plt Count 235
Sodium 133 L
Potassium 4.1
Chloride 99
Carbon Dioxide 29
BUN 10
Creatinine 0.6 L
Glucose 137 H
Calcium 8.7
Vital Signs:
Vital Signs
Temp Pulse Resp BP Pulse Ox
97.6 F 87 19 140/71 97
04/23/24 07:20 04/23/24 10:08 04/23/24 06:00 04/23/24 10:08 04/23/24 06:00
I&O
04/22/24 04/23/24 04/24/24
06:59 06:59 06:59
Intake Total 240 / 240 480 / 480
Output Total 750 / 750 1750 / 1750
Balance -510 / -510 -1270 / -1270
Physical Exam
-
General: No Apparent Distress
HEENT: PERRLA and Other (neck stiffness with limited range of motion )
Respiratory: Clear to Auscultation; Negative Wheezes
Cardiac: Regular Rhythm and S1/S2
GI: Soft and Nontender
Musculoskeletal: No Edema
Skin: Warm and Dry; Negative Rash
Neuro: AO x 3 and Other (5/5 strength upper and lower extremities )
Psych: Calm
[2024-04-23 11:39] LABS: Glucose - Point of Care 224 mg/dl (70-99)
[2024-04-23] MEDS: NOVOLOG FLEXPEN-MODERATE RESISTANCE 3 UNITS SC (11:53)
--- NOTE | 2024-04-23 14:51 | PN.NS ---
Subjective
-
MRI reviewed. Chart reviewed. There is evidence of Enterococcus bacteremia, with endocarditis of the mitral valve, aortic valves, as well as infection of the CIED. Plan is to proceed with left heart catheterization tomorrow, as well as likely
cardiac surgery.
Physical Exam
-
Exam:
Awake, alert, no apparent distress.
Does have significant neck pain, limited range of motion in flexion, extension, bilateral lateral rotation
Motor: 5/5 strength bilaterally in upper extremities in all muscle groups. Sensation to light touch is intact in upper extremities.
5/5 bilaterally lower extremities normal scrips. Sensation to light touch is intact in lower extremities.
MRI of the cervical spine performed on 04/22/2024 was reviewed. I see no obvious evidence of significant acute infectious process with cervical spinal cord compression. There are multilevel spondylotic changes that are noted, without any obvious
evidence of cord signal change.
MRI of the thoracic spine with without contrast was reviewed. Images reviewed interpreted by me. There is evidence of contrast-enhancement within the T10/11 disc space with associated erosive changes, likely consistent with ostial
myelitis/discitis at this level. There is no obvious evidence of epidural abscess causing cord compression. No obvious evidence of cord signal change.
MRI of the lumbar spine was reviewed. No obvious evidence of acute neural compression is seen. No evidence of obvious epidural abscess is seen
Problems
-
Problem Status Onset Code
Sepsis A41.9
Discitis M46.40
Osteomyelitis M86.9
Assessment / Plan
-
This is a 79-year-old gentleman who presents with progressive back pain in the setting of bacteremia, positive blood cultures, endocarditis, vegetation on pacemaker lead.
Given patient's CT of the thoracic spine findings, and neck pain, MRI of the cervical, thoracic, and lumbar spine were performed. There is no obvious evidence of acute cord compression that is noted, that is infectious in nature. MRI of the
thoracic spine confirms T10/11 osteomyelitis/discitis, without any obvious evidence of focal epidural abscess causing cord compression.
Patient has already been initiated on antibiotics for bacteremia/sepsis and there are plans per cardiology/cardiac surgery regarding treating patient's endocarditis.
At present time, recommend continuing to treat patient's primary causes of infection, which is likely bacteremia with seeding in multiple areas. Continue with antibiotics.
Would recommend following ESR/CRP once patient has been discharged to ensure that they trend downward, to indicate resolving infection.
Would recommend repeat imaging if the patient develops new symptoms, likely in 8 weeks/per infectious disease.
If patient has significant mechanical pain upon ambulation/mobilization, could consider TLSO brace, provided he can tolerate this with cardiac surgery incision.
Patient can go home per my specialty: No
Today's Communication
-
Discussed with the patient, and . Provided my business card for follow-up.
[2024-04-23 17:11] LABS: Glucose - Point of Care 129 mg/dl (70-99)
--- NOTE | 2024-04-23 18:09 | CM ---
Patient with Hx ICD with Dx Vertebral osteomyelitis, bacteremia, sepsis and endocarditis. Plan left heart cath tomorrow 04/24. Room air. Receiving IV Abx. Seen by wound care nurse. Per nurse; A/O.
Message from Dr Jordan 04/20; patient will likely need IV Abx after d/c.
Patient will benefit from PT/OT once cardiac issues are stabilized.
CM continuing to follow for d/c needs.
Plan TBD.
[2024-04-23] MEDS: FLOMAX 0.4 MG PO (20:22)
[2024-04-23] MEDS: XALATAN OPHTHALMIC SOLUTION 1 DROP BOTH EYES (20:26)
[2024-04-23] MEDS: DILAUDID 0.5 MG IV (21:49)
[2024-04-23] MEDS: LANTUS 0.15 UNITS SC (21:50)
[2024-04-23 22:07] LABS: Glucose - Point of Care 157 mg/dl (70-99)
--- NOTE | 2024-04-23 22:46 | PTCARENOTE ---
assumed care of patient from previous RN. Patient Aox3 Patient c/o of head and neck pain ,see APR. Q4 neuro checks. NPO at midnight for cardiac cath 04/24. wearing home cpap. using urinal. assessment and vital signs as documented. call waller in reach.
[2024-04-24] VITALS (25 sets, daily range): BP systolic 120–162; BP diastolic 49–105; BMI 26.9
[2024-04-24 00:18] LABS: Glucose - Point of Care 140 mg/dl (70-99)
[2024-04-24] MEDS: AMPICILLIN 108 MG IV ×5 (03:52→19:36)
[2024-04-24] MEDS: DILAUDID 4 MG PO ×4 (04:51→22:07)
[2024-04-24] MEDS: STERILE WATER FOR INJECTION 20 ML IV ×2 (05:35→18:26)
[2024-04-24] MEDS: ROCEPHIN 2000 MG IV ×2 (05:35→18:26)
[2024-04-24] MEDS: FLUSH (NSS) IV ×3 (05:39→05:57)
--- NOTE | 2024-04-24 06:00 | PTCARENOTE ---
Patient refuses turns, says it is too painful to move and pillows are uncomfortable, likes to lay supine in the bed.
[2024-04-24 06:04] LABS: Glucose - Point of Care 127 mg/dl (70-99)
[2024-04-24] MEDS: NOVOLOG FLEXPEN-MODERATE RESISTANCE SC ×2 (08:01→13:20)
[2024-04-24 08:02] LABS: Glucose - Point of Care 119 mg/dl (70-99)
[2024-04-24] MEDS: LIDOCAINE 4% PATCH TOPICAL (08:02)
[2024-04-24] MEDS: LOW STRENGTH ASPIRIN 81 MG PO (08:03)
[2024-04-24] MEDS: TOPROL XL 50 MG PO (08:03)
[2024-04-24] MEDS: LIPITOR 40 MG PO (08:03)
[2024-04-24] MEDS: DILAUDID 0.5 MG IV ×3 (08:04→19:37)
[2024-04-24] MEDS: NON-FORMULARY ITEM 1 UNIT TOPICAL ×2 (08:05→19:37)
--- NOTE | 2024-04-24 08:17 | W.PN.UPDATE ---
Update Note
Progress Note Update
Patient sitting up in bed, only complaint is neck pain. Plan today for cardiac cath. All preoperative diagnostic testing has been completed. Patient now afebrile, leukocytosis resolving. Last blood culture negative. Will review cath when
completed and plan for surgery next week. Surgical plan will be redo sternotomy,AVR,MVR,TVR,AICD removal .
--- NOTE | 2024-04-24 09:54 | ITS.CL.CATH ---
[facility] - Catheterization
Cardiac Catheterization
Procedure Report:
LEFT HEART CATHETERIZATION
Date of Procedure: April 24, 2024
Referring: Dr. Robert Person
PROCEDURES:
1. Coronary angiography and selective JOANIE angiography.
2. Ascending aortography to assess for patent SVG graft; none found
INDICATION: 79-year-old gentleman with a past medical history notable for ischemic cardiomyopathy and coronary artery disease with history of coronary artery bypass grafting. He also has a history of BiV ICD implant in 2017. He was admitted to
[facility] with rigors and spinal osteomyelitis-discitis with positive blood cultures. A subsequent ELLIE was notable for a large echodensity on the pacemaker wire, anterior and posterior mitral leaflets with associated severe mitral
regurgitation and aortic valve. He is scheduled for valve surgery and removal of infected hardware with preoperative coronary angiogram before this procedure
ACCESS: Right common femoral artery, 6 Syriac sheath
HEMODYNAMICS : (mmHg)
AO (s/d) : 143/69
CORONARY ANGIOGRAPHY
Dominance: Right coronary artery
LEFT MAIN: Normal
LEFT ANTERIOR DESCENDING: The LAD arises normally from the left main and runs in the anterior interventricular groove. There is moderate diffuse atherosclerotic disease in the proximal LAD with patent GOORDICH graft to the first diagonal and mid LAD as
described below
RAMUS: The ramus is large and has a 90% stenosis at its origin with post stenotic dilation. The ramus bifurcates to two large daughter branches in its mid portion
CIRCUMFLEX: The circumflex supplies a very small OM1 and small-medium OM2.
RIGHT CORONARY ARTERY: The right coronary artery is a dominant vessel. There is a stent in the mid right coronary artery with diffuse 30% in-stent restenosis. The PDA has a 30% ostial stenosis.
GRAFT ANGIOGRAPHY:
1. GOODRICH-D-LAD: The GOODRICH graft appears to touch down in a [id number] fashion with the first diagonal branch an continues to the mid LAD where it is anastomosed in an end-to-side fashion. There is antegrade and retrograde filling of both the LAD
and diagonal branches.
ASCENDING AORTOGRAPHY: Ascending aortography was performed. No additional bypass conduits are appreciated. The aortic valve appears intact. The ascending thoracic aorta did not appear significantly dilate
RADIATION SUMMARY: Fluoro Time (min): 5.5, Dose (mGy): 671, DAP (Gy.cm2) : 47.5
Closure Device: TR band
CONCLUSION
1. Patent sequential GOODRICH [id number] which remains widely patent
2. Large ramus intermedius with 90% ostial stenosis with poststenotic dilation.
RECOMMENDATIONS
1. Angiography will be reviewed by CT surgery with possible coronary artery bypass grafting at the time of surgical intervention
Copy to: Dr. Robert Person
--- NOTE | 2024-04-24 10:15 | W.PN.ID1 ---
Date of Service
Date of Service: April 24, 2024
Today's Communication
Continue ampicillin/ceftriaxone.
Assessment / Plan
# Complicated Enterococcal bacteremia (7 sets)
# Infective endocarditis of BiV ICD lead, MV and AV
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
# Leukocytosis resolved
# Fever - resolved
- ELLIE: 2.4 cm vege on ICD wire; echodensity on AV and MV with severe mitral regurgitation
- Repeat blood cultures x4 from 04/20 and 04/22 neg to date
- Cardiothoracic surgery following.
For redo sternotomy,AVR,MVR,TVR,AICD removal next week.
- Continue Ampicillin 2g IV q4h and ceftriaxone 2g IV q12h
# Conditions prior to admission
DM2
Hypertension
HLD
CAD status post CABG/stent
Atrial fibrillation
BiV ICD placement 2016
HFpEF
HALLIE
BPH
Lap cholecystectomy 02/05/24
Chief Complaint
-: Bacteremia and Other (Endocarditis, discitis)
Subjective / Review of Systems
Just returned from cardiac cath.
Vital Signs / Physical Exam
Vital Signs
Vital Signs
Temp Pulse Resp BP Pulse Ox
97.9 F 76 13 128/60 98
04/24/24 07:05 04/24/24 08:03 04/24/24 08:00 04/24/24 08:03 04/24/24 08:00
Physical Exam
Constitutional: No Acute Distress
Eyes: No Conjunctival Hemorrhage and Sclera Anicteric
Cardiovascular: Regular Rate, S1/S2, Murmur and Other (left CW ICD no erythema/induration)
Pulmonary: Clear
Gastrointestinal: Soft, Non Tender and Non Distended
Genito-Urinary: Negative CVA Tenderness
Extremities: Negative Edema
Neurological: AO x 3
Objective Data
Lab Data
Lab Results
04/23/24 05:40
04/23/24 05:40
ESR 48 mm/hour (0-20) H 04/15/24 16:55
PT 14.9 Sec (11.4-14.6) H 04/21/24 03:49
INR 1.13 04/21/24 03:49
APTT 40.1 Sec (23.4-35.0) H 04/21/24 03:49
Estimated Creat Clear 92 ml/min 04/23/24 05:40
Lactic Acid Cancelled 04/16/24 14:36
Total Bilirubin 0.7 mg/dl (0.2-1.3) 04/21/24 03:49
AST 79 U/L (17-59) H 04/21/24 03:49
ALT 90 U/L (0-50) H 04/21/24 03:49
Alkaline Phosphatase 152 U/L (38-126) H 04/21/24 03:49
C-Reactive Protein 166.20 mg/L (0.0-10.00) H 04/15/24 16:55
Most recent labs reviewed.
Micro Results:
04/22/24 06:46 Blood Culture - Preliminary
Blood/Venous No Growth in 48 hours- Final report to follow
04/22/24 05:46 Blood Culture - Preliminary
Blood/Venous No Growth in 48 hours- Final report to follow
04/20/24 05:09 Blood Culture - Preliminary
Blood/Venous No Growth in 4 days- Final report to follow
04/20/24 05:09 Blood Culture - Preliminary
Blood/Venous No Growth in 4 days- Final report to follow
04/17/24 04:34 Blood Culture - Final
Blood/Venous Enterococcus faecalis
Gram Stain - Final
04/19/24 07:49 Blood Culture - Final
Blood/Venous Enterococcus faecalis
Gram Stain - Final
04/19/24 05:33 Blood Culture - Preliminary
Blood/Venous Enterococcus faecalis
Gram Stain - Preliminary
04/18/24 04:30 Blood Culture - Preliminary
Blood/Venous Enterococcus faecalis
Gram Stain - Preliminary
04/16/24 09:58 Blood Culture - Final
Blood/Venous Enterococcus faecalis
Gram Stain - Final
04/15/24 21:45 Urine Culture - Final
Urine Enterococcus faecalis
04/15/24 21:30 Blood Culture - Final
Blood/Venous Enterococcus faecalis
Gram Stain - Final
04/15/24 21:12 Blood Culture - Final
Blood/Venous Enterococcus faecalis
Gram Stain - Final
04/15/24 21:20 Influenza Types A & B (BRADLEY) - Final
Nasal Swab Negative for Influenza A & B, NAAT
Negative results must be combined with clinical observations
and patient history.
Nucleic Acid Amplification test (NAAT)performed on the
[employer] platform.
Imaging:
04/20/2024 ECHO (ELLIE): Normal biventricular size and systolic function. Pacer wire seen, with large echodensity prolapsing between the right atrium and right ventricle through the tricuspid valve, associated with the right ventricular wire. There
is a large bulbous portion (2.4 x 1.4 cm) proximally that tapers down along the course of the wire and into the right ventricle. Echodensity consistent with vegetation seen on both anterior and posterior leaflets of the mitral valve, with
associated severe mitral regurgitation. An echodensity consistent with vegetation is seen on the aortic valve, with minimal aortic regurgitation. Please see full dictation for additional detail.
04/15/24 CT a/p: There is irregular endplate destruction at the T10-11 disc space, and findings are highly suggestive of discitis and osteomyelitis.
This does not appear to extend to the posterior margin of the disc space at this time, and no gross evidence to suggest extension of inflammatory process and the spinal canal on CT. As warranted, further evaluation with MRI of the lower thoracic
spine without and with contrast could be considered.
04/23/24 MRI C/T/L spine:
Cervical spine:
Multilevel advanced degenerative changes. No evidence of discitis or osteomyelitis. Subtle edema/hyperemia involving the interspinous soft tissues most pronounced at C5-6, possibly inflammatory in nature or possible interspinous ligament sprain.
Clinical correlation advised. Partially visualized nonspecific left supraspinatus and infraspinatus muscle edema. Clinical correlation necessary.
Thoracic spine:
T10-11 discitis/osteomyelitis. Inflammatory epidural soft tissue thickening. No epidural abscess. No paraspinal soft tissue abscess. Findings suspicious for right T10-11 facet septic arthritis. T11-12 with mild central canal narrowing. No cord
compression.
Lumbar spine:
No evidence of lumbar spine discitis or vertebral osteomyelitis. Abnormal signal and enhancement associated with right L3-4 and L5-S1 facets and adjacent/surrounding soft tissues, as described. In the absence of recent surgical intervention to
suggest postsurgical reactive inflammatory changes, the appearance would be highly suspicious for facet septic arthritis. No lumbar epidural collection or epidural abscess. No focal soft tissue collection or abscess. Otherwise, lumbar degenerative
changes, as described.
[2024-04-24 13:32] LABS: Glucose - Point of Care 108 mg/dl (70-99)
--- NOTE | 2024-04-24 13:54 | PTCARENOTE ---
Patient AAOx3 with recurring pain of back. See mar for PRNs administered. Patient refusing Q2 turns d/t pain, educated about risk for pressure ulcers. currently at bedside. Patient had cath today, Right fem site CDI, pulses intact. VSS. RA. AV
paced. Continuing to closely monitor.
[2024-04-24] MEDS: NOVOLOG FLEXPEN-MODERATE RESISTANCE 3 UNITS SC (16:52)
[2024-04-24 16:55] LABS: Glucose - Point of Care 224 mg/dl (70-99)
--- NOTE | 2024-04-24 17:06 | W.PN.HOSP.TC ---
Today's Communication/Plan
-
IV antibiotics.
Plan for CT surgery for valve replacement, bypass and removal of infected AICD
Assessment / Plan
Assessment / Plan
IMPRESSION:
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
Vertebral osteomyelitis
Other conditions:*
CAD
� Status post LUCIO 09/2005.
Status post CABG x 2 2005.
Atrial fibrillation of unclear chronicity and duration.
Chronic anticoagulation with Eliquis
Type 2 diabetes.
Dyslipidemia.
Former smoker.
Status post laparoscopic cholecystectomy 02/17
Plan:
Enterococcal bacteremia complicated with mitral and aortic valve endocarditis service pacemaker lead infection.
Vertebral osteomyelitis
ELLIE
Normal biventricular size and systolic function without regional wall motion
abnormality.
Pacer wires seen with large echodensity prolapsing between the right atrium and
right ventricle through the tricuspid valve associated with the right
ventricular wire. There is a large bulbous portion (2. 4 x 1.46 cm) proximally
that tapers down along the course of the wire and into the right ventricle.
Echodensity consistent with vegetation seen on both anterior and posterior
leaflets of the mitral valve with associated severe mitral regurgitation.
Echodensity consistent with vegetation on the aortic valve, minimal aortic
regurgitation seen.
Complex atheroma in the descending aorta.
No prior TTE available for comparison.
CT AP
At T10-11, there is irregular bony destruction of the endplates at the disc space, and findings are highly suggestive of discitis and osteomyelitis. Slight prominence of paraspinal soft tissue at this disc space level on the axial images. There are
no gross findings that would suggest posterior epidural extension.
Continue antibiotics: Ampicillin/ceftriaxone
Follow-up cultures now negative
MRI of the spine confirms T10-T11 discitis/osteomyelitis
Continue current analgesic regimen with Tylenol and hydromorphone
Neurosurgery evaluation appreciated with no plan for surgical intervention spine
CAD.
Stable
Continue beta-an and statin
Left heart catheterization 04/24:
1. Patent sequential GOODRICH [id number] which remains widely patent
2. Large ramus intermedius with 90% ostial stenosis with poststenotic dilation.
Paroxysmal atrial fibrillation of unknown duration
Continue beta-blockade
Apixaban currently on hold
Continue Lovenox initially and therapeutic/weight-based dose reduced to prophylactic in preparation for cardiac cath
Type 2 diabetes.
Preadmission regimen Lantus 30 units at bedtime/Jardiance.
Continue basal bolus protocol.
Currently on Lantus at reduced dose of 15 units at bedtime
BPH
Continue Flomax
CODE STATUS DNR
Anticipated Discharge: > 48 hours
Subjective/Interval History
-
Date of Service: April 24, 2024
Objective Data
-
Vital Signs:
Vital Signs
Temp Pulse Resp BP Pulse Ox
97.2 F 69 13 132/75 99
04/24/24 15:05 04/24/24 14:00 04/24/24 14:00 04/24/24 14:00 04/24/24 14:00
I&O
04/23/24 04/24/24 04/25/24
06:59 06:59 06:59
Intake Total 480 / 480 716 / 716
Output Total 1750 / 1750 1550 / 1550 300 / 300
Balance -1270 / -1270 -834 / -834 -300 / -300
Physical Exam
-
General: No Apparent Distress
HEENT: PERRLA and Other (neck stiffness with limited range of motion )
Respiratory: Clear to Auscultation; Negative Wheezes
Cardiac: Regular Rhythm and S1/S2
GI: Soft and Nontender
Musculoskeletal: No Edema
Skin: Warm and Dry; Negative Rash
Neuro: AO x 3 and Other (5/5 strength upper and lower extremities )
Psych: Calm
[2024-04-24] MEDS: FLUSH (NSS) 1 FLUSH IV ×2 (18:26→19:25)
[2024-04-24 21:48] LABS: Glucose - Point of Care 219 mg/dl (70-99)
--- NOTE | 2024-04-24 21:49 | PTCARENOTE ---
gave verbal report to IVU RN. Transported patient via bed to room 2247 without issue. Patient belongings transported with him.
[2024-04-24] MEDS: FLOMAX 0.4 MG PO (21:55)
[2024-04-24] MEDS: XALATAN OPHTHALMIC SOLUTION 1 DROP BOTH EYES (21:57)
[2024-04-24] MEDS: LANTUS 0.15 UNITS SC (22:07)
--- NOTE | 2024-04-24 22:48 | PTCARENOTE ---
Pt rec'd from IMU awake,alert c/o 9 out of 10 pain in neck (right worse than left) . requested Dilaudid 4 mg po-dose given. paced on telemetry. Right femoral site dry and intact,no hematoma.
[2024-04-25] VITALS (7 sets, daily range): BP systolic 91–138; BP diastolic 42–86; BMI 27.4
[2024-04-25] MEDS: AMPICILLIN 108 MG IV ×6 (00:07→20:10)
[2024-04-25] MEDS: DILAUDID 4 MG PO ×4 (04:42→20:12)
[2024-04-25] MEDS: ROCEPHIN 2000 MG IV ×2 (05:44→17:45)
[2024-04-25] MEDS: STERILE WATER FOR INJECTION 20 ML IV ×2 (05:45→17:53)
[2024-04-25] MEDS: FLUSH (NSS) 1 FLUSH IV ×4 (05:46→17:45)
[2024-04-25 08:35] LABS: Glucose - Point of Care 132 mg/dl (70-99)
[2024-04-25] MEDS: NOVOLOG FLEXPEN-MODERATE RESISTANCE SC ×2 (08:40→17:41)
[2024-04-25] MEDS: LIDOCAINE 4% PATCH TOPICAL (08:41)
[2024-04-25] MEDS: LIPITOR 40 MG PO (08:41)
[2024-04-25] MEDS: LOW STRENGTH ASPIRIN 81 MG PO (08:42)
[2024-04-25] MEDS: NON-FORMULARY ITEM 1 UNIT TOPICAL ×2 (08:42→20:11)
[2024-04-25] MEDS: TOPROL XL 50 MG PO (08:48)
[2024-04-25] MEDS: FLUSH (NSS) 2 FLUSH IV (08:51)
--- NOTE | 2024-04-25 09:17 | PTCARENOTE ---
Received patient this morning resting in bed. Encouraged to be oob for meals and need to increase his activity prior to upcoming surgery. Required assist of one to the standing scale and assisted to the chair to eat breakfast. Patient complaining of
8/10 right sided neck pain and medicated with dilaudid PO as ordered, patient refused scheduled lidoderm patch, which he states is ineffective. Appears comfortable in the chair, call waller in reach.
--- NOTE | 2024-04-25 09:41 | W.PN.CARDCBS ---
Documented by User: Taya Garcia PA-C 04/25/24 10:19
Today's Communication / Plan
-
Continue abx per ID
Eventual CT surgery, timing TBD
Impression / Plan
-
PCP: Dr. Mike Doe
Cardiology: Dr. Servin of [place]
Impression:
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
Sepsis
Vertebral osteomyelitis
Hypotension
Abnormal echo suggesting pacer wire vegetation in the RV and vegetation on the mitral valve 04/16/2024
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
s/p [employer] ICD 12/28/16
-Device interrogation 04/17/2024 shows stable lead sensing, pacing threshold, and lead impedances; no AT AF; no VT VF since last interrogation or tachytherapies; discussed with [employer] civil rights representative, Jose Adan, patient's device is MRI
compatible and safe; if patient to need MRI, would place patient DOO (preferable) or VOO at 80 bpm; patient is not reported as dependent
CAD with OR
s/p 3 mm Taxus LUCIO to unknown vessel 10/15/05
s/p CABG x 2 2005 at [place]
Atrial fibrillation of unclear chronicity and duration
Chronic Eliquis OAC
HLD
DM2
remote former smoker
s/p lap grace 01/2024
Echo 04/16/2024: EF 50 to 55%, normal regional wall motion, pacer wire seen in the RV with large density (1.7 x 1.9 cm) on pacemaker which could be consistent with vegetation, thickened mitral valve leaflets with MAC and peak/mean 8/4 mmHg, mobile
echodensity on the MV consistent with vegetation, at least moderate eccentric MR, aortic sclerosis without stenosis, no aortic regurgitation, mild TR with PAP 20 to 25 mmHg
Plan:
-Presented with neck pain and admitted with osteomyelitis and enterococcal bacteremia. Found to have aortic/mitral endocarditis with pacemaker lead involvement.
-Plan is for redo sternotomy, AVR, MVR, TVR, and AICD removal. Timing per CT surgery.
-[facility] 04/24 revealed 90% stenosis of ostial ramus intermedius. Consideration for CABG at time of surgical intervention.
-Cardiology team previously communicated with Dr. Estrada at the [facility] who implanted his device in 2017. In speaking with the patient, device was put in for low ejection fraction so presumably is primary prevention.
-He has not had an ICD therapy/shock. Per EP, reasonable to consider epicardial pacing system.
-If we were to discharge the patient with an epicardial pacing system only without defibrillator could consider options of LifeVest at discharge with eventual endocardial ICD implant in 6 to 12 weeks versus maintaining epicardial pacing system only
without defibrillator therapy. The patient is amenable to the latter and this may present the best solution to leave his vasculature free of hardware and minimize his infectious risk.
-Continue IV antibiotics per ID.
-He feels well with no complaints currently other than neck pain which he reports is improving.
PREADMIT DATA: Patient came to [facility] with neck pain on 04/15/24 and was admitted with osteomyelitis and cardiology is now consulted for eval of abnormal echo. Patient has routine cardiology care at [place] - Dr. Servin. Patient was admitted to 02/03/24
until 02/06/24 with abdominal pain and had lap grace 02/05/24. Patient was then in the ER 02/27/24 for hypotension and URI symptoms at the recommendation of his PCP, but BP was normal and no evidence of acute process so patient was sent home. Patient
came back to ER 03/02/24 with chest and back pain and troponin negative and he was given toradol and valium for spasm. Patient was sent to [facility] for rehab briefly however then went home. Patient came to last night with neck pain that
started Saturday04/11/24. He reports limited neck mobility and development of fever. He was noted by imaging to have evidence of osteomyelitis then underwent echo which showed large mobile echodensity consistent with mitral valve vegetation, MR, and
large density on ppm also with concern for vegetation. Blood cultures prelim positive. cardiology consulted for evaluation.
Progress Note - Compliance Officer
Subjective
Date of Service: April 25, 2024
No complaints other than neck pain which he feels may be improving slightly.
Objective
Labs:
04/23/24 05:40
04/23/24 05:40
Labs
Hgb 10.5 g/dL (13.0-18.0) L 04/23/24 05:40
Hct 32.9 % (39.0-52.0) L 04/23/24 05:40
Plt Count 235 10^3/uL (130-400) 04/23/24 05:40
PT 14.9 Sec (11.4-14.6) H 04/21/24 03:49
INR 1.13 04/21/24 03:49
APTT 40.1 Sec (23.4-35.0) H 04/21/24 03:49
Sodium 133 mmol/L (135-145) L 04/23/24 05:40
Potassium 4.1 mmol/L (3.5-5.1) 04/23/24 05:40
BUN 10 mg/dl (9-20) 04/23/24 05:40
Creatinine 0.6 mg/dL (0.7-1.3) L 04/23/24 05:40
Glucose 137 mg/dl (70-99) H 04/23/24 05:40
Vital Signs and I&O:
Vital Signs
Temp Pulse Resp BP Pulse Ox
97.8 F 80 16 120/86 99
04/25/24 07:15 04/25/24 08:48 04/25/24 07:15 04/25/24 08:48 04/25/24 07:15
Vital Signs
Temp Pulse Resp BP Pulse Ox
97.8 F 80 16 120/86 99
04/25/24 07:15 04/25/24 08:48 04/25/24 07:15 04/25/24 08:48 04/25/24 07:15
Intake & Output
04/23/24 04/24/24 04/25/24 04/26/24
06:59 06:59 06:59 06:59
Intake Total 480 / 480 716 / 716 440 / 440
Output Total 1750 / 1750 1550 / 1550 1350 / 1350
Balance -1270 / -1270 -834 / -834 -910 / -910
Physical Exam
Physical Exam
GEN: No distress, awake, alert, oriented x3
HEENT: supple, anicteric, mmm
LUNGS: CTA b/l, no wheezes/rales
CV: Reg, S1/S2, 2/6 syst murmur
EXT: No clubbing, cyanosis, or edema
NEURO: Gross non-focal
SKIN: Warm, dry, no rash

Documented by User: Robert Person MD 04/25/24 10:55
Today's Communication / Plan
-
Continue abx per ID
Tentative surgery
Please see my daily note for details of the device removal and device implant considerations
Impression / Plan
-
PCP: Dr. Mike Doe
Cardiology: Dr. Servin of [place]
Impression:
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
Sepsis
Vertebral osteomyelitis
Hypotension
Abnormal echo suggesting pacer wire vegetation in the RV and vegetation on the mitral valve 04/16/2024
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
s/p [employer] ICD 12/28/16
-Device interrogation 04/17/2024 shows stable lead sensing, pacing threshold, and lead impedances; no AT AF; no VT VF since last interrogation or tachytherapies; discussed with [employer] civil rights representative, Jose Adan, patient's device is MRI
compatible and safe; if patient to need MRI, would place patient DOO (preferable) or VOO at 80 bpm; patient is not reported as dependent
CAD with OR
s/p 3 mm Taxus LUCIO to unknown vessel 10/15/05
s/p CABG x 2 2005 at [place]
Atrial fibrillation of unclear chronicity and duration
Chronic Eliquis OAC
HLD
DM2
remote former smoker
s/p lap grace 01/2024
Echo 04/16/2024: EF 50 to 55%, normal regional wall motion, pacer wire seen in the RV with large density (1.7 x 1.9 cm) on pacemaker which could be consistent with vegetation, thickened mitral valve leaflets with MAC and peak/mean 8/4 mmHg, mobile
echodensity on the MV consistent with vegetation, at least moderate eccentric MR, aortic sclerosis without stenosis, no aortic regurgitation, mild TR with PAP 20 to 25 mmHg
Plan:
-Presented with neck pain and admitted with osteomyelitis and enterococcal bacteremia. Found to have aortic/mitral endocarditis with pacemaker lead involvement.
-Plan is for redo sternotomy, AVR, MVR, TVR, and AICD removal. Timing per CT surgery and tentatively for this . Will also plan to epicardial ICD system at time of surgery as clinical stability and heart exposure allows. Discussed with our
[employer] team and we are ordering epicardial pacing leads and sew on ICD coil. Potential approach would be redundant right atrial and left ventricular pacing leads and either sew on or passive ICD coil which could all be placed into a dual-chamber
DF 1 ICD with the ICD coil into the RV coil port and the LV pacing lead into the RV pacing port.
-Cath results noted
-[facility] 04/24 revealed 90% stenosis of ostial ramus intermedius. Consideration for CABG at time of surgical intervention.
-I communicated with Dr. Estrada at the [facility] who implanted his device in 2017. No prior shock but does have inferior scar and ejection fraction of 40%
-Continue IV antibiotics per ID.
-He feels well with no complaints currently other than neck pain which he reports is improving.
PREADMIT DATA: Patient came to [facility] with neck pain on 04/15/24 and was admitted with osteomyelitis and cardiology is now consulted for eval of abnormal echo. Patient has routine cardiology care at [place] - Dr. Servin. Patient was admitted to 02/03/24
until 02/06/24 with abdominal pain and had lap grace 02/05/24. Patient was then in the ER 02/27/24 for hypotension and URI symptoms at the recommendation of his PCP, but BP was normal and no evidence of acute process so patient was sent home. Patient
came back to ER 03/02/24 with chest and back pain and troponin negative and he was given toradol and valium for spasm. Patient was sent to [facility] for rehab briefly however then went home. Patient came to last night with neck pain that
started Saturday04/11/24. He reports limited neck mobility and development of fever. He was noted by imaging to have evidence of osteomyelitis then underwent echo which showed large mobile echodensity consistent with mitral valve vegetation, MR, and
large density on ppm also with concern for vegetation. Blood cultures prelim positive. cardiology consulted for evaluation.
[2024-04-25 11:39] LABS: Glucose - Point of Care 230 mg/dl (70-99)
[2024-04-25] MEDS: NOVOLOG FLEXPEN-MODERATE RESISTANCE 3 UNITS SC (11:58)
--- NOTE | 2024-04-25 14:20 | W.PN.HOSP.TC ---
Today's Communication/Plan
-
IV antibiotics.
Plan for CT surgery for valve replacement, bypass and removal of infected AICD
Assessment / Plan
Assessment / Plan
IMPRESSION:
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
Vertebral osteomyelitis
Other conditions:*
CAD
� Status post LUCIO 09/2005.
Status post CABG x 2 2005.
Atrial fibrillation of unclear chronicity and duration.
Chronic anticoagulation with Eliquis
Type 2 diabetes.
Dyslipidemia.
Former smoker.
Status post laparoscopic cholecystectomy 02/17
Plan:
Enterococcal bacteremia complicated with mitral and aortic valve endocarditis service pacemaker lead infection.
Vertebral osteomyelitis
ELLIE
Normal biventricular size and systolic function without regional wall motion
abnormality.
Pacer wires seen with large echodensity prolapsing between the right atrium and
right ventricle through the tricuspid valve associated with the right
ventricular wire. There is a large bulbous portion (2. 4 x 1.46 cm) proximally
that tapers down along the course of the wire and into the right ventricle.
Echodensity consistent with vegetation seen on both anterior and posterior
leaflets of the mitral valve with associated severe mitral regurgitation.
Echodensity consistent with vegetation on the aortic valve, minimal aortic
regurgitation seen.
Complex atheroma in the descending aorta.
No prior TTE available for comparison.
CT AP
At T10-11, there is irregular bony destruction of the endplates at the disc space, and findings are highly suggestive of discitis and osteomyelitis. Slight prominence of paraspinal soft tissue at this disc space level on the axial images. There are
no gross findings that would suggest posterior epidural extension.
Continue antibiotics: Ampicillin/ceftriaxone
Follow-up cultures now negative
MRI of the spine confirms T10-T11 discitis/osteomyelitis
Continue current analgesic regimen with Tylenol and hydromorphone
Neurosurgery evaluation appreciated with no plan for surgical intervention spine
CAD.
Stable
Continue beta-an and statin
Left heart catheterization 04/24:
1. Patent sequential GOODRICH [id number] which remains widely patent
2. Large ramus intermedius with 90% ostial stenosis with poststenotic dilation.
Paroxysmal atrial fibrillation of unknown duration
Continue beta-blockade
Apixaban currently on hold
Continue Lovenox initially and therapeutic/weight-based dose reduced to prophylactic in preparation for cardiac cath
Type 2 diabetes.
Preadmission regimen Lantus 30 units at bedtime/Jardiance.
Continue basal bolus protocol.
Currently on Lantus at reduced dose of 15 units at bedtime
BPH
Continue Flomax
CODE STATUS DNR
Update 04/25 - f/u labs; cont abx; otherwise no acute events
Anticipated Discharge: > 48 hours
Subjective/Interval History
-
Date of Service: April 25, 2024
No acute events overnight
Objective Data
-
Vital Signs:
Vital Signs
Temp Pulse Resp BP Pulse Ox
97.8 F 71 18 106/63 96
04/25/24 11:04 04/25/24 11:03 04/25/24 11:04 04/25/24 11:03 04/25/24 11:04
I&O
04/24/24 04/25/24 04/26/24
06:59 06:59 06:59
Intake Total 716 / 716 440 / 440 936 / 936
Output Total 1550 / 1550 1350 / 1350 200 / 200
Balance -834 / -834 -910 / -910 736 / 736
Review of Systems
-
History Source: Patient
All other systems: Not reviewed unless documented
Data Reviewed
-
Diagnostic Radiology: Report Reviewed by me
Labs: Labs Reviewed by me
[2024-04-25 15:13] LABS: Hematocrit 34.5 % (39.0-52.0); Hemoglobin 11.1 g/dL (13.0-18.0); Mean Corp Hgb Conc. 32.2 g/dL (33.0-37.0); Mean Corpuscular Hgb 28.5 pg (27.0-31.0); Mean Corpuscular Volume 88.5 fL (80.0-94.0); Mean Platelet Volume 9.4 fL (7.4-10.4); Platelet Count 296 10^3/uL (130-400); Red Cell Dist. Width 16.9 % (11.5-14.5); White Blood Cell Count 14.7 10^3/uL (4.8-10.8)
[2024-04-25 15:14] LABS: Blood Urea Nitrogen 12 mg/dl (9-20); Calcium 8.9 mg/dl (8.4-10.2); Carbon Dioxide 30 mmol/L (22-30); Chloride 93 mmol/L (98-107); Estimated Creatinine Clearance 69 ml/min; Glucose 183 mg/dl (70-99); Potassium 4.2 mmol/L (3.5-5.1); Sodium 131 mmol/L (135-145); eGFR > 60.00
[2024-04-25] MEDS: DILAUDID 0.5 MG IV (16:37)
--- NOTE | 2024-04-25 17:05 | PTCARENOTE ---
Patient spent some time in the lounge visiting with family and held off on PO dilaudid for pain. After medicated for 8 right sided neck pain with usual dose of 4mg PO dilaudid, pain was still unrelieved 10/04 and he required break through IV
dilaudid. Resting in bed now, stating pain is decreasing at 6/10.
[2024-04-25 17:38] LABS: Glucose - Point of Care 128 mg/dl (70-99)
[2024-04-25] MEDS: FLOMAX 0.4 MG PO (21:52)
[2024-04-25] MEDS: LANTUS 0.15 UNITS SC (21:52)
[2024-04-25 21:53] LABS: Glucose - Point of Care 156 mg/dl (70-99)
[2024-04-25] MEDS: XALATAN OPHTHALMIC SOLUTION 1 DROP BOTH EYES (21:53)
--- NOTE | 2024-04-25 23:25 | PTCARENOTE ---
Pt rec'd at beginning of shift in bed. C/O neck pain. Medicated with Dilaudid po. Right base rales noted, no cough. Paced on telemetry. call waller within reach. Pt on own cpap machine at present.
[2024-04-26] VITALS (8 sets, daily range): BP systolic 102–135; BP diastolic 57–69; BMI 27.9
[2024-04-26] MEDS: AMPICILLIN 108 MG IV ×6 (00:07→20:04)
[2024-04-26] MEDS: DILAUDID 4 MG PO ×6 (00:09→21:19)
[2024-04-26 05:29] LABS: Hematocrit 29.1 % (39.0-52.0); Hemoglobin 9.4 g/dL (13.0-18.0); Mean Corp Hgb Conc. 32.3 g/dL (33.0-37.0); Mean Corpuscular Hgb 28.1 pg (27.0-31.0); Mean Corpuscular Volume 86.9 fL (80.0-94.0); Mean Platelet Volume 9.4 fL (7.4-10.4); Platelet Count 248 10^3/uL (130-400); Red Blood Cell Count 3.35 10^6/uL (4.70-6.10); Red Cell Dist. Width 16.7 % (11.5-14.5); White Blood Cell Count 13.1 10^3/uL (4.8-10.8)
[2024-04-26 05:50] LABS: ALT (SGPT) 45 U/L (0-50); AST (SGOT) 27 U/L (17-59); Albumin 2.6 g/dl (3.5-5.0); Alkaline Phosphatase 156 U/L (38-126); Blood Urea Nitrogen 10 mg/dl (9-20); Calcium 8.7 mg/dl (8.4-10.2); Carbon Dioxide 29 mmol/L (22-30); Chloride 96 mmol/L (98-107); Estimated Creatinine Clearance 92 ml/min; Glucose 116 mg/dl (70-99); Potassium 4.2 mmol/L (3.5-5.1); Sodium 131 mmol/L (135-145); Total Protein 5.6 g/dl (6.3-8.2); eGFR > 60.00
[2024-04-26] MEDS: STERILE WATER FOR INJECTION 20 ML IV ×2 (05:54→17:46)
[2024-04-26] MEDS: ROCEPHIN 2000 MG IV ×2 (05:54→17:45)
[2024-04-26] MEDS: FLUSH (NSS) 1 FLUSH IV ×6 (05:56→17:46)
[2024-04-26 07:58] LABS: Glucose - Point of Care 123 mg/dl (70-99)
--- NOTE | 2024-04-26 08:30 | W.PN.CARDCBS ---
Today's Communication / Plan
-
Antibiotics
Surgery
Impression / Plan
-
PCP: Dr. Mike Doe
Cardiology: Dr. Servin of [place]
Impression:
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
Sepsis
Vertebral osteomyelitis
Hypotension
Abnormal echo suggesting pacer wire vegetation in the RV and vegetation on the mitral valve 04/16/2024
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
s/p [employer] ICD 12/28/16
-Device interrogation 04/17/2024 shows stable lead sensing, pacing threshold, and lead impedances; no AT AF; no VT VF since last interrogation or tachytherapies; discussed with [employer] home office representative, Jose Adan, patient's device is MRI
compatible and safe; if patient to need MRI, would place patient DOO (preferable) or VOO at 80 bpm; patient is not reported as dependent
CAD with [place]
s/p 3 mm Taxus LUCIO to unknown vessel 10/15/05
s/p CABG x 2 2005 at [place]
Atrial fibrillation of unclear chronicity and duration
Chronic Eliquis OAC
HLD
DM2
remote former smoker
s/p lap grace 01/2024
Echo 04/16/2024: EF 50 to 55%, normal regional wall motion, pacer wire seen in the RV with large density (1.7 x 1.9 cm) on pacemaker which could be consistent with vegetation, thickened mitral valve leaflets with MAC and peak/mean 8/4 mmHg, mobile
echodensity on the MV consistent with vegetation, at least moderate eccentric MR, aortic sclerosis without stenosis, no aortic regurgitation, mild TR with PAP 20 to 25 mmHg
Plan:
-Plan is for redo sternotomy, AVR, MVR, TVR, and AICD removal. Timing per CT surgery and tentatively for this . Will also plan to epicardial ICD system at time of surgery as clinical stability and heart exposure allows. Discussed with our
[employer] team and we are ordering epicardial pacing leads and sew on ICD coil. Potential approach would be redundant right atrial and left ventricular pacing leads and either sew on or passive ICD coil which could all be placed into a dual-chamber
DF 1 ICD with the ICD coil into the RV coil port and the LV pacing lead into the RV pacing port.
-Cath results noted
-[facility] 04/24 revealed 90% stenosis of ostial ramus intermedius. Consideration for CABG at time of surgical intervention.
-I communicated with Dr. Estrada at the [facility] who implanted his device in 2017. No prior shock but does have inferior scar and ejection fraction of 40%
-Continue IV antibiotics per ID.
-He feels well with no complaints currently other than neck pain which he reports is improving.
PREADMIT DATA: [facility]24 and was admitted with osteomyelitis and cardiology is now consulted for eval of abnormal echo. Patient has routine cardiology care at [place] - Dr. Servin. Patient was admitted to 02/03/24
until 02/06/24 with abdominal pain and had lap grace 02/05/24. Patient was then in the ER 02/27/24 for hypotension and URI symptoms at the recommendation of his PCP, but BP was normal and no evidence of acute process so patient was sent home. Patient
came back to ER 03/02/24 with chest and back pain and troponin negative and he was given toradol and valium for spasm. Patient was sent to [facility] for rehab briefly however then went home. Patient came to last night with neck pain that
started Saturday04/11/24. He reports limited neck mobility and development of fever. He was noted by imaging to have evidence of osteomyelitis then underwent echo which showed large mobile echodensity consistent with mitral valve vegetation, MR, and
large density on ppm also with concern for vegetation. Blood cultures prelim positive. cardiology consulted for evaluation.
Progress Note - Irrigation District Manager
Subjective
Date of Service: April 26, 2024
No changes
Objective
Labs:
04/26/24 04:23
03/02/25 04:24
Labs
Hgb 9.4 g/dL (13.0-18.0) L 04/26/24 04:23
Hct 29.1 % (39.0-52.0) L 04/26/24 04:23
Plt Count 248 10^3/uL (130-400) 04/26/24 04:23
PT 14.9 Sec (11.4-14.6) H 04/21/24 03:49
INR 1.13 04/21/24 03:49
APTT 40.1 Sec (23.4-35.0) H 04/21/24 03:49
Sodium 131 mmol/L (135-145) L 04/26/24 04:24
Potassium 4.2 mmol/L (3.5-5.1) 04/26/24 04:24
BUN 10 mg/dl (9-20) 04/26/24 04:24
Creatinine 0.6 mg/dL (0.7-1.3) L 04/26/24 04:24
Glucose 116 mg/dl (70-99) H 04/26/24 04:24
Vital Signs and I&O:
Vital Signs
Temp Pulse Resp BP Pulse Ox
97.5 F 73 20 129/63 96
04/26/24 07:16 04/26/24 07:16 04/26/24 07:16 04/26/24 07:16 04/26/24 07:16
Vital Signs
Temp Pulse Resp BP Pulse Ox
97.5 F 73 20 129/63 96
04/26/24 07:16 04/26/24 07:16 04/26/24 07:16 04/26/24 07:16 04/26/24 07:16
Intake & Output
04/24/24 04/25/24 04/26/24 04/27/24
06:59 06:59 06:59 06:59
Intake Total 716 / 716 440 / 440 1476 / 1476
Output Total 1550 / 1550 1350 / 1350 1900 / 1900
Balance -834 / -834 -910 / -910 -424 / -424
Physical Exam
Physical Exam
����Physical Exam
���������������������General:��no apparent distress, not acutely ill
���������������������������Neck:��supple. no meningeal signs. normal psoterior pharynx
������������������������
���������������������������Heart:��s1/s2 regular rate and rhythm, murmurs are unchanged as noted
��������������������������Lungs: ��no acute respiratory distress. clear bilaterally
����������������������Abdomen:�normal bowel sounds. not tender. no CVAT
��������������������������Neuro:��alert and oriented. no focal neurological deficits
������������������������������Skin: ��no rash
�����������������������Psychiatric:�well kept. interactive and cooperative
�����������������������Extremities:��no edema. no calf tenderness. negative homans. good distal pulses
��
�
[2024-04-26] MEDS: NON-FORMULARY ITEM 1 UNIT TOPICAL ×2 (08:38→20:05)
[2024-04-26] MEDS: LOW STRENGTH ASPIRIN 81 MG PO (08:38)
[2024-04-26] MEDS: LIDOCAINE 4% PATCH TOPICAL (08:38)
[2024-04-26] MEDS: LIPITOR 40 MG PO (08:38)
[2024-04-26] MEDS: TOPROL XL 50 MG PO (08:39)
[2024-04-26] MEDS: NOVOLOG FLEXPEN-MODERATE RESISTANCE SC ×2 (08:43→16:50)
--- NOTE | 2024-04-26 10:09 | PTCARENOTE ---
Patient resting in the bed this morning, complaining of 9/10 neck pain and medicated with prn PO dilaudid as ordered. Assisted oob with the rolling walker to the chair, stating his neck pain is worse today. Call waller in reach.
[2024-04-26 11:52] LABS: Glucose - Point of Care 185 mg/dl (70-99)
[2024-04-26] MEDS: NOVOLOG FLEXPEN-MODERATE RESISTANCE 1 UNITS SC (12:04)
[2024-04-26] MEDS: LASIX 20 MG IV (12:29)
[2024-04-26] MEDS: FLUSH (NSS) 2 FLUSH IV (12:30)
--- NOTE | 2024-04-26 15:14 | W.PN.HOSP.TC ---
Today's Communication/Plan
-
resume lasix, iv lasix today
abx
surgery
Assessment / Plan
Assessment / Plan
IMPRESSION:
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
Vertebral osteomyelitis
Other conditions:*
CAD
� Status post LUCIO 09/2005.
Status post CABG x 2 2005.
Atrial fibrillation of unclear chronicity and duration.
Chronic anticoagulation with Eliquis
Type 2 diabetes.
Dyslipidemia.
Former smoker.
Status post laparoscopic cholecystectomy 02/17
Plan:
Enterococcal bacteremia complicated with mitral and aortic valve endocarditis service pacemaker lead infection.
Vertebral osteomyelitis
ELLIE
Normal biventricular size and systolic function without regional wall motion
abnormality.
Pacer wires seen with large echodensity prolapsing between the right atrium and
right ventricle through the tricuspid valve associated with the right
ventricular wire. There is a large bulbous portion (2. 4 x 1.46 cm) proximally
that tapers down along the course of the wire and into the right ventricle.
Echodensity consistent with vegetation seen on both anterior and posterior
leaflets of the mitral valve with associated severe mitral regurgitation.
Echodensity consistent with vegetation on the aortic valve, minimal aortic
regurgitation seen.
Complex atheroma in the descending aorta.
No prior TTE available for comparison.
CT AP
At T10-11, there is irregular bony destruction of the endplates at the disc space, and findings are highly suggestive of discitis and osteomyelitis. Slight prominence of paraspinal soft tissue at this disc space level on the axial images. There are
no gross findings that would suggest posterior epidural extension.
Continue antibiotics: Ampicillin/ceftriaxone
Follow-up cultures now negative
MRI of the spine confirms T10-T11 discitis/osteomyelitis
Continue current analgesic regimen with Tylenol and hydromorphone
Neurosurgery evaluation appreciated with no plan for surgical intervention spine
CAD.
Stable
Continue beta-an and statin
Left heart catheterization 04/24:
1. Patent sequential GOODRICH [id number] which remains widely patent
2. Large ramus intermedius with 90% ostial stenosis with poststenotic dilation.
Paroxysmal atrial fibrillation of unknown duration
Continue beta-blockade
Apixaban currently on hold
Continue Lovenox initially and therapeutic/weight-based dose reduced to prophylactic in preparation for cardiac cath
Type 2 diabetes.
Preadmission regimen Lantus 30 units at bedtime/Jardiance.
Continue basal bolus protocol.
Currently on Lantus at reduced dose of 15 units at bedtime
BPH
Continue Flomax
CODE STATUS DNR
Update 04/25 - f/u labs; cont abx; otherwise no acute events
Update 04/26: weight gain, given 1 dose iv lasix; resume back home dose diuretics; surg ; cont abx
Anticipated Discharge: > 48 hours
Subjective/Interval History
-
Date of Service: April 26, 2024
slight weight gain
Objective Data
-
Labs:
Laboratory Results
04/26/24 04/26/24
04:23 04:24
WBC 13.1 H
Hgb 9.4 L
Hct 29.1 L
Plt Count 248
Sodium 131 L
Potassium 4.2
Chloride 96 L
Carbon Dioxide 29
BUN 10
Creatinine 0.6 L
Glucose 116 H
Calcium 8.7
Total Bilirubin 1.0
AST 27
ALT 45
Alkaline Phosphatase 156 H
Vital Signs:
Vital Signs
Temp Pulse Resp BP Pulse Ox
98.4 F 75 20 121/57 100
04/26/24 15:00 04/26/24 12:29 04/26/24 15:00 04/26/24 12:29 04/26/24 15:00
I&O
04/25/24 04/26/24 04/27/24
06:59 06:59 06:59
Intake Total 440 / 440 1476 / 1476 816 / 816
Output Total 1350 / 1350 1900 / 1900 1250 / 1250
Balance -910 / -910 -424 / -424 -434 / -434
Review of Systems
-
History Source: Patient
All other systems: Not reviewed unless documented
Physical Exam
-
General: No Apparent Distress
HEENT: PERRLA and Other (neck stiffness with limited range of motion )
Respiratory: Clear to Auscultation; Negative Wheezes
Cardiac: Regular Rhythm and S1/S2
GI: Soft and Nontender
Musculoskeletal: No Edema
Skin: Warm and Dry; Negative Rash
Neuro: AO x 3 and Other (5/5 strength upper and lower extremities )
Psych: Calm
Data Reviewed
-
Diagnostic Radiology: Report Reviewed by me
Labs: Labs Reviewed by me
[2024-04-26] MEDS: DILAUDID PO (16:33)
[2024-04-26 16:50] LABS: Glucose - Point of Care 138 mg/dl (70-99)
[2024-04-26] MEDS: TYLENOL 650 MG PO (20:13)
[2024-04-26] MEDS: LANTUS 0.15 UNITS SC (21:18)
[2024-04-26 21:19] LABS: Glucose - Point of Care 203 mg/dl (70-99)
[2024-04-26] MEDS: FLOMAX 0.4 MG PO (21:19)
[2024-04-26] MEDS: XALATAN OPHTHALMIC SOLUTION 1 DROP BOTH EYES (21:22)
[2024-04-27] VITALS (7 sets, daily range): BP systolic 104–130; BP diastolic 58–73; BMI 27.6
[2024-04-27] MEDS: AMPICILLIN 108 MG IV ×7 (00:17→23:56)
[2024-04-27] MEDS: DILAUDID 4 MG PO ×4 (03:42→23:56)
[2024-04-27 04:13] LABS: Hematocrit 33.1 % (39.0-52.0); Hemoglobin 10.6 g/dL (13.0-18.0); Mean Corpuscular Hgb 27.8 pg (27.0-31.0); Mean Corpuscular Volume 86.9 fL (80.0-94.0); Mean Platelet Volume 9.3 fL (7.4-10.4); Platelet Count 290 10^3/uL (130-400); Red Blood Cell Count 3.81 10^6/uL (4.70-6.10); Red Cell Dist. Width 16.8 % (11.5-14.5); White Blood Cell Count 12.9 10^3/uL (4.8-10.8)
[2024-04-27 04:38] LABS: ALT (SGPT) 48 U/L (0-50); AST (SGOT) 29 U/L (17-59); Alkaline Phosphatase 177 U/L (38-126); Blood Urea Nitrogen 13 mg/dl (9-20); Calcium 9.2 mg/dl (8.4-10.2); Carbon Dioxide 32 mmol/L (22-30); Chloride 96 mmol/L (98-107); Estimated Creatinine Clearance 78 ml/min; Glucose 133 mg/dl (70-99); Potassium 4.1 mmol/L (3.5-5.1); Sodium 133 mmol/L (135-145); Total Protein 6.1 g/dl (6.3-8.2); eGFR > 60.00
--- NOTE | 2024-04-27 05:12 | PTCARENOTE ---
Rec'd pt at change of shift. Pt AAO*3, VSS, and AV paced on TELE monitor. Pt reported severe neck pain and PRN pain medication given as ordered. Pt resting with call waller in reach and plan of care ongoing.
[2024-04-27] MEDS: STERILE WATER FOR INJECTION 20 ML IV ×2 (05:46→18:22)
[2024-04-27] MEDS: ROCEPHIN 2000 MG IV ×2 (05:46→18:22)
[2024-04-27] MEDS: FLUSH (NSS) 1 FLUSH IV ×3 (05:55→08:14)
[2024-04-27] MEDS: FLUSH (NSS) 10 FLUSH IV (05:56)
[2024-04-27 07:47] LABS: Glucose - Point of Care 127 mg/dl (70-99)
[2024-04-27] MEDS: NOVOLOG FLEXPEN-MODERATE RESISTANCE SC (08:10)
[2024-04-27] MEDS: LASIX 10 MG PO (08:10)
[2024-04-27] MEDS: LOW STRENGTH ASPIRIN 81 MG PO (08:13)
[2024-04-27] MEDS: LIDOCAINE 4% PATCH TOPICAL (08:13)
[2024-04-27] MEDS: LIPITOR 40 MG PO (08:13)
[2024-04-27] MEDS: NON-FORMULARY ITEM 1 UNIT TOPICAL ×2 (08:13→19:49)
[2024-04-27] MEDS: TOPROL XL 50 MG PO (08:14)
--- NOTE | 2024-04-27 08:32 | PTCARENOTE ---
Received patient this morning resting in bed, complaining of neck pain rated 9/10. Medicated with PO dilaudid as ordered and assisted oob to the chair for breakfast, call waller within reach.
--- NOTE | 2024-04-27 09:38 | W.PN.CARDCBS ---
Addendum entered and electronically signed by Den Summers DO 04/27/24 11:33:
I saw and examined the patient.
The Septic Tank Installer's note was reviewed and I agree with the note.
Comment:
Plan:
Cont PO lasix, remains euvolemic
Cont abx as per ID
Plan for OR April 30 2024 for redo sternotomy, AVR, MVR, TVR, and ICD removal.
-[facility] 04/24 revealed 90% stenosis of ostial ramus intermedius.
Discussed with via telephone.
Original Note:
Today's Communication / Plan
-
Continue PO lasix
Continue IV abx per ID
Tentative plan for OR on , 04/30
Impression / Plan
-
PCP: Dr. Mike Doe
Cardiology: Dr. Servin of [facility]
Impression:
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
Sepsis
Vertebral osteomyelitis
Hypotension
Abnormal echo suggesting pacer wire vegetation in the RV and vegetation on the mitral valve 04/16/2024
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
s/p [employer] ICD 12/28/16
-Device interrogation 04/17/2024 shows stable lead sensing, pacing threshold, and lead impedances; no AT AF; no VT VF since last interrogation or tachytherapies; discussed with [employer] ocean import representative, Jose Adan, patient's device is MRI
compatible and safe; if patient to need MRI, would place patient DOO (preferable) or VOO at 80 bpm; patient is not reported as dependent
CAD with [place]
s/p 3 mm Taxus LUCIO to unknown vessel 10/15/05
s/p CABG x 2 2005 at [place]
Atrial fibrillation of unclear chronicity and duration
Chronic Eliquis OAC
HLD
DM2
remote former smoker
s/p lap grace 01/2024
Echo 04/16/2024: EF 50 to 55%, normal regional wall motion, pacer wire seen in the RV with large density (1.7 x 1.9 cm) on pacemaker which could be consistent with vegetation, thickened mitral valve leaflets with MAC and peak/mean 8/4 mmHg, mobile
echodensity on the MV consistent with vegetation, at least moderate eccentric MR, aortic sclerosis without stenosis, no aortic regurgitation, mild TR with PAP 20 to 25 mmHg
Plan:
-Presented with neck pain and admitted with osteomyelitis and enterococcal bacteremia. Found to have aortic/mitral endocarditis with pacemaker lead involvement.
-Plan is for redo sternotomy, AVR, MVR, TVR, and AICD removal. Tentatively planned for , 04/30/2024.
-Also planning to place epicardial ICD system at the time of surgery as clinical stability and heart exposure allows. Discussed with our [employer] team and we are ordering epicardial pacing leads and sew on ICD coil. Potential approach would be
redundant right atrial and left ventricular pacing leads and either sew on or passive ICD coil which could all be placed into a dual-chamber DF 1 ICD with the ICD coil into the RV coil port and the LV pacing lead into the RV pacing port.
-[facility] 04/24 revealed 90% stenosis of ostial ramus intermedius. Consideration for CABG at time of surgical intervention.
-Cardiology team previously communicated with Dr. Estrada at the [facility] who implanted his device in 2017. No prior shock but does have inferior scar and ejection fraction of 40%.
-Continue IV antibiotics per ID.
-He feels well, but does note ongoing neck pain.
-Also w/ LE edema that developed over the weekend. s/p 20mg IV lasix x 1 on 04/26. Weight 170 lbs /. Down 2lbs overnight, but still up slightly from admission weight of 165 lbs.
-Creat stable at 0.7. Now on PO lasix 10mg daily. Follow volume status closely and consider additional IV lasix if needed prior to procedure.
PREADMIT DATA: Patient came to [facility] with neck pain on 04/15/24 and was admitted with osteomyelitis and cardiology is now consulted for eval of abnormal echo. Patient has routine cardiology care at [facility] - Dr. Servin. Patient was admitted to 02/03/24
until 02/06/24 with abdominal pain and had lap grace 02/05/24. Patient was then in the ER 02/27/24 for hypotension and URI symptoms at the recommendation of his PCP, but BP was normal and no evidence of acute process so patient was sent home. Patient
came back to ER 03/02/24 with chest and back pain and troponin negative and he was given toradol and valium for spasm. Patient was sent to [facility] for rehab briefly however then went home. Patient came to last night with neck pain that
started Saturday04/11/24. He reports limited neck mobility and development of fever. He was noted by imaging to have evidence of osteomyelitis then underwent echo which showed large mobile echodensity consistent with mitral valve vegetation, MR, and
large density on ppm also with concern for vegetation. Blood cultures prelim positive. cardiology consulted for evaluation.
Progress Note - Cannon Crewmember
Subjective
Date of Service: April 27, 2024
Feeling well other than neck pain and mild LE edema.
Objective
Labs:
04/27/24 03:36
04/27/24 03:36
Labs
Hgb 10.6 g/dL (13.0-18.0) L 04/27/24 03:36
Hct 33.1 % (39.0-52.0) L 04/27/24 03:36
Plt Count 290 10^3/uL (130-400) 04/27/24 03:36
PT 14.9 Sec (11.4-14.6) H 04/21/24 03:49
INR 1.13 04/21/24 03:49
APTT 40.1 Sec (23.4-35.0) H 04/21/24 03:49
Sodium 133 mmol/L (135-145) L 04/27/24 03:36
Potassium 4.1 mmol/L (3.5-5.1) 04/27/24 03:36
BUN 13 mg/dl (9-20) 04/27/24 03:36
Creatinine 0.7 mg/dL (0.7-1.3) 04/27/24 03:36
Glucose 133 mg/dl (70-99) H 04/27/24 03:36
Vital Signs and I&O:
Vital Signs
Temp Pulse Resp BP Pulse Ox
97.3 F 75 16 117/73 97
04/27/24 07:50 04/27/24 08:00 04/27/24 07:50 04/27/24 07:44 04/27/24 07:50
Vital Signs
Temp Pulse Resp BP Pulse Ox
97.3 F 75 16 117/73 97
04/27/24 07:50 04/27/24 08:00 04/27/24 07:50 04/27/24 07:44 04/27/24 07:50
Intake & Output
04/25/24 04/26/24 04/27/24 04/28/24
06:59 06:59 06:59 06:59
Intake Total 440 / 440 1476 / 1476 816 / 816 348 / 348
Output Total 1350 / 1350 1900 / 1900 2850 / 2850 350 / 350
Balance -910 / -910 -424 / -424 -4 / -2033 -2 / -2
Physical Exam
Physical Exam
GEN: No distress, awake, alert, oriented x3
HEENT: supple, anicteric, mmm
LUNGS: CTA b/l, no wheezes/rales
CV: Reg, S1/S2, 2/6 syst murmur
EXT: No clubbing or cyanosis, trace b/l LE edema
NEURO: Gross non-focal
SKIN: Warm, dry, no rash
--- NOTE | 2024-04-27 10:31 | W.PN.ID1 ---
Date of Service
Date of Service: April 27, 2024
Today's Communication
Continue abx's.
Assessment / Plan
# Complicated Enterococcal bacteremia (7 sets)
# Infective endocarditis of BiV ICD lead, MV and AV
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
# Leukocytosis
# Fever - resolved
- ELLIE: 2.4 cm vege on ICD wire; echodensity on AV and MV with severe mitral regurgitation
- Repeat blood cultures x4 from 04/20 and 04/22 neg to date
- Cardiothoracic surgery following.
For redo sternotomy,AVR,MVR,TVR,AICD removal this week.
- Continue Ampicillin 2g IV q4h and ceftriaxone 2g IV q12h
# Neck pain present on admission
- MRI no cervical discitis/osteo; + edema along interspinous soft tissues
- Consider muscle relaxant.
- Ordered warm compress.
# Conditions prior to admission
DM2
Hypertension
HLD
CAD status post CABG/stent
Atrial fibrillation
BiV ICD placement 2016
HFpEF
HALLIE
BPH
Lap cholecystectomy 02/05/24
Chief Complaint
-: Bacteremia and Other (Endocarditis, discitis)
Subjective / Review of Systems
Back pain is better.
Neck pain still severe.
Vital Signs / Physical Exam
Vital Signs
Vital Signs
Temp Pulse Resp BP Pulse Ox
97.3 F 75 16 117/73 97
04/27/24 07:50 04/27/24 08:00 04/27/24 07:50 04/27/24 07:44 04/27/24 07:50
Physical Exam
Constitutional: No Acute Distress
Eyes: No Conjunctival Hemorrhage and Sclera Anicteric
Cardiovascular: Regular Rate, S1/S2, Murmur and Other (left CW ICD no erythema/induration)
Pulmonary: Clear
Gastrointestinal: Soft, Non Tender and Non Distended
Genito-Urinary: Negative CVA Tenderness
Extremities: Edema (BLE)
Neurological: AO x 3
Objective Data
Lab Data
Lab Results
04/27/24 03:36
04/27/24 03:36
ESR 48 mm/hour (0-20) H 04/15/24 16:55
PT 14.9 Sec (11.4-14.6) H 04/21/24 03:49
INR 1.13 04/21/24 03:49
APTT 40.1 Sec (23.4-35.0) H 04/21/24 03:49
Estimated Creat Clear 78 ml/min 04/27/24 03:36
Lactic Acid Cancelled 04/16/24 14:36
Total Bilirubin 1.0 mg/dl (0.2-1.3) 04/27/24 03:36
AST 29 U/L (17-59) 04/27/24 03:36
ALT 48 U/L (0-50) 04/27/24 03:36
Alkaline Phosphatase 177 U/L (38-126) H 04/27/24 03:36
C-Reactive Protein 166.20 mg/L (0.0-10.00) H 04/15/24 16:55
Most recent labs reviewed.
Micro Results:
04/22/24 06:46 Blood Culture - Final
Blood/Venous No Growth - Final Report
04/22/24 05:46 Blood Culture - Final
Blood/Venous No Growth - Final Report
04/19/24 05:33 Blood Culture - Final
Blood/Venous Enterococcus faecalis
Gram Stain - Final
04/20/24 05:09 Blood Culture - Final
Blood/Venous No Growth - Final Report
04/20/24 05:09 Blood Culture - Final
Blood/Venous No Growth - Final Report
04/18/24 04:30 Blood Culture - Final
Blood/Venous Enterococcus faecalis
Gram Stain - Final
04/17/24 04:34 Blood Culture - Final
Blood/Venous Enterococcus faecalis
Gram Stain - Final
04/19/24 07:49 Blood Culture - Final
Blood/Venous Enterococcus faecalis
Gram Stain - Final
04/16/24 09:58 Blood Culture - Final
Blood/Venous Enterococcus faecalis
Gram Stain - Final
04/15/24 21:45 Urine Culture - Final
Urine Enterococcus faecalis
04/15/24 21:30 Blood Culture - Final
Blood/Venous Enterococcus faecalis
Gram Stain - Final
04/15/24 21:12 Blood Culture - Final
Blood/Venous Enterococcus faecalis
Gram Stain - Final
04/15/24 21:20 Influenza Types A & B (BRADLEY) - Final
Nasal Swab Negative for Influenza A & B, NAAT
Negative results must be combined with clinical observations
and patient history.
Nucleic Acid Amplification test (NAAT)performed on the
[email or web address] platform.
Imaging:
04/20/2024 ECHO (ELLIE): Normal biventricular size and systolic function. Pacer wire seen, with large echodensity prolapsing between the right atrium and right ventricle through the tricuspid valve, associated with the right ventricular wire. There
is a large bulbous portion (2.4 x 1.4 cm) proximally that tapers down along the course of the wire and into the right ventricle. Echodensity consistent with vegetation seen on both anterior and posterior leaflets of the mitral valve, with
associated severe mitral regurgitation. An echodensity consistent with vegetation is seen on the aortic valve, with minimal aortic regurgitation. Please see full dictation for additional detail.
04/15/24 CT a/p: There is irregular endplate destruction at the T10-11 disc space, and findings are highly suggestive of discitis and osteomyelitis.
This does not appear to extend to the posterior margin of the disc space at this time, and no gross evidence to suggest extension of inflammatory process and the spinal canal on CT. As warranted, further evaluation with MRI of the lower thoracic
spine without and with contrast could be considered.
04/23/24 MRI C/T/L spine:
Cervical spine:
Multilevel advanced degenerative changes. No evidence of discitis or osteomyelitis. Subtle edema/hyperemia involving the interspinous soft tissues most pronounced at C5-6, possibly inflammatory in nature or possible interspinous ligament sprain.
Clinical correlation advised. Partially visualized nonspecific left supraspinatus and infraspinatus muscle edema. Clinical correlation necessary.
Thoracic spine:
T10-11 discitis/osteomyelitis. Inflammatory epidural soft tissue thickening. No epidural abscess. No paraspinal soft tissue abscess. Findings suspicious for right T10-11 facet septic arthritis. T11-12 with mild central canal narrowing. No cord
compression.
Lumbar spine:
No evidence of lumbar spine discitis or vertebral osteomyelitis. Abnormal signal and enhancement associated with right L3-4 and L5-S1 facets and adjacent/surrounding soft tissues, as described. In the absence of recent surgical intervention to
suggest postsurgical reactive inflammatory changes, the appearance would be highly suspicious for facet septic arthritis. No lumbar epidural collection or epidural abscess. No focal soft tissue collection or abscess. Otherwise, lumbar degenerative
changes, as described.
Care Review
Plan reviewed with: Physician (Dr. Gamino)
--- NOTE | 2024-04-27 11:15 | W.PN.HOSP.TC ---
Today's Communication/Plan
-
Plain is for cardiac surgery on 04/30
IV antibiotics
Add Flexeril for pain and muscle spasm
Assessment / Plan
Assessment / Plan
IMPRESSION:
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
Vertebral osteomyelitis
Other conditions:*
CAD
� Status post LUCIO 09/2005.
Status post CABG x 2005.
Atrial fibrillation of unclear chronicity and duration.
Chronic anticoagulation with Eliquis
Type 2 diabetes.
Dyslipidemia.
Former smoker.
Status post laparoscopic cholecystectomy 02/17
Plan:
Enterococcal bacteremia complicated with mitral and aortic valve endocarditis service pacemaker lead infection.
Vertebral osteomyelitis
ELLIE
Normal biventricular size and systolic function without regional wall motion
abnormality.
Pacer wires seen with large echodensity prolapsing between the right atrium and
right ventricle through the tricuspid valve associated with the right
ventricular wire. There is a large bulbous portion (2. 4 x 1.46 cm) proximally
that tapers down along the course of the wire and into the right ventricle.
Echodensity consistent with vegetation seen on both anterior and posterior
leaflets of the mitral valve with associated severe mitral regurgitation.
Echodensity consistent with vegetation on the aortic valve, minimal aortic
regurgitation seen.
Complex atheroma in the descending aorta.
No prior TTE available for comparison.
CT AP
At T10-11, there is irregular bony destruction of the endplates at the disc space, and findings are highly suggestive of discitis and osteomyelitis. Slight prominence of paraspinal soft tissue at this disc space level on the axial images. There are
no gross findings that would suggest posterior epidural extension.
Continue antibiotics: Ampicillin/ceftriaxone
Follow-up cultures now negative
MRI of the spine confirms T10-T11 discitis/osteomyelitis
Continue current analgesic regimen with Tylenol and hydromorphone
Neurosurgery evaluation appreciated with no plan for surgical intervention spine
CAD.
Stable
Continue beta-an and statin
Left heart catheterization 04/24:
1. Patent sequential GOODRICH [id number] which remains widely patent
2. Large ramus intermedius with 90% ostial stenosis with poststenotic dilation.
Paroxysmal atrial fibrillation of unknown duration
Continue beta-blockade
Apixaban currently on hold
Continue Lovenox initially and therapeutic/weight-based dose reduced to prophylactic in preparation for cardiac cath
Type 2 diabetes.
Preadmission regimen Lantus 30 units at bedtime/Jardiance.
Continue basal bolus protocol.
Currently on Lantus at reduced dose of 15 units at bedtime
BPH
Continue Flomax
CODE STATUS DNR
Anticipated Discharge: > 48 hours
Subjective/Interval History
-
Date of Service: April 27, 2024
Objective Data
-
Labs:
Laboratory Results
04/27/24
03:36
WBC 12.9 H
Hgb 10.6 L
Hct 33.1 L
Plt Count 290
Sodium 133 L
Potassium 4.1
Chloride 96 L
Carbon Dioxide 32 H
BUN 13
Creatinine 0.7
Glucose 133 H
Calcium 9.2
Total Bilirubin 1.0
AST 29
ALT 48
Alkaline Phosphatase 177 H
Vital Signs:
Vital Signs
Temp Pulse Resp BP Pulse Ox
97.3 F 75 16 117/73 97
04/27/24 07:50 04/27/24 08:00 04/27/24 07:50 04/27/24 07:44 04/27/24 07:50
I&O
04/26/24 04/27/24 04/28/24
06:59 06:59 06:59
Intake Total 1476 / 1476 816 / 816 348 / 348
Output Total 1899 / 1900 2850 / 2850 350 / 350
Balance -424 / -424 -2033 / -2033 - /
Physical Exam
-
General: No Apparent Distress
HEENT: PERRLA and Other (neck stiffness with limited range of motion )
Respiratory: Clear to Auscultation; Negative Wheezes
Cardiac: Regular Rhythm and S1/S2
GI: Soft and Nontender
Musculoskeletal: No Edema
Skin: Warm and Dry; Negative Rash
Neuro: AO x 3 and Other (5/5 strength upper and lower extremities )
Psych: Calm
[2024-04-27] MEDS: FLEXERIL 5 MG PO ×2 (11:46→22:19)
[2024-04-27 12:40] LABS: Glucose - Point of Care 273 mg/dl (70-99)
[2024-04-27] MEDS: NOVOLOG FLEXPEN-MODERATE RESISTANCE 5 UNITS SC (12:47)
--- NOTE | 2024-04-27 13:17 | CM ---
Reviewed chart. Mr. Ferreira was transferred to IVU. Met with and Mrs. Ferreira to review discharge plans. He states he is feeling okay and going for heart surgery later this week. He states prior to admission he resides with his spouse in a two
story home with six steps to enter. He states he has four steps to get to the the main living area. He states prior to admission he was independent with ambulation and adls. He states he recently starting using a walker due to his back pain. He
states she has a walker, single point cane and CPAP Machine. He states he has a prescription plan and uses the [facility]. His spouse states she will home to assist in his care when he goes home if needed. Medical work-up in progress. The
discharge plan is to return home with his spouse and a home visit by the Transitional Care Nurse when medically stable.
[2024-04-27 17:09] LABS: Glucose - Point of Care 241 mg/dl (70-99)
[2024-04-27] MEDS: NOVOLOG FLEXPEN-MODERATE RESISTANCE 3 UNITS SC (17:14)
--- NOTE | 2024-04-27 17:57 | PTCARENOTE ---
Patient tried dose of flexeril 5mg PO at 1146 for neck pain/spasms, tried to put off taking prn dilaudid for pain but stated his pain was an 8/10 90 mins later and requested PO dilaudid. Patient was oob in the chair, in visiting. Patient became
very sleepy, dozing off and assisted back to bed. When awoken for vital signs asked tech for pain medication. Upon entering the room patient was again falling asleep and stated he had been sleeping and she was concerned with him taking too much
pain med as he was doing at home as well. Informed the patient that he would need to space out pain medication and flexeril, he did admit to feeling very sleeping and not remembering his leaving when he returned to bed. Lying in bed now, call
waller in reach.
--- NOTE | 2024-04-27 19:12 | PTCARENOTE ---
Noted a 9 beat run of VT on telemetry alarms this afternoon, patient was asymptomatic. TT to Willy FRAGOSO, will continue to monitor for ectopy, no further orders at this time.
--- NOTE | 2024-04-27 20:13 | PTCARENOTE ---
Received patient at change of shift. Patient A&Ox3. Vitals stable. Right groin DRAPERY HANGER. Discussed plan of care for evening. Patient verbalized understanding. Call waller within reach.
[2024-04-27 21:57] LABS: Glucose - Point of Care 153 mg/dl (70-99)
[2024-04-27] MEDS: LANTUS 0.15 UNITS SC (22:19)
[2024-04-27] MEDS: FLOMAX 0.4 MG PO (22:19)
[2024-04-27] MEDS: XALATAN OPHTHALMIC SOLUTION 1 DROP BOTH EYES (22:21)
--- NOTE | 2024-04-28 00:22 | W.PN.CT ---
Today's Communication / Plan
-
Plan:
-Cont. current medical management per primary team
-Cont. current abx per ID, currently on Rocephin and Ampicillin
-Ongoing medical optimization
-For redo sternotomy, AVR/MVR/TVr/CABG with explant of his R BiV ICD leads by Dr. Nicholson, 04/30
-Will cont. to closely monitor
Assessment / Plan
-
Assessment:
-Endocarditis (Enterococcus faecalis) involving Aortic valve, Mitral valve, Tricuspid valve and BiV ICD
-Severe MR
-Bicuspid AV/trivial AI
-Mild TR
-Infected BiV ICD
-Hx ICM (EF 20%) S/P MRI compatible [employer] BiV ICD, 12/28/2016
-LVEF 50-55% per TTE 04/16/24
-Enterococcus faecalis UTI
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
-L3-S1 septic arthritis
-Soft tissue edema C5-C6 interspinous
-Fever (peaked @ 102.7)
-Leukocytosis (wbc peaked @ 27.1)
-Hx CAD S/P CABG x 1 (GOODRICH-LAD), 2005 (patent per cath 04/24)
-Single Vessel CAD (RI 90% ostial), per cath 04/24
-HTN
-HLD
-T2DM (hgb A1C 6.9, on insulin)
-A-fib (on Eliquis @ home)
-HALLIE
-BPH (on Flomax)
-DJD
-Interstitial fibrosis/asbestosis
-Former tobacco use
-S/p Lap Skylar, 02/05/24
-S/p removal of infected dental implants
-S/P L4/L5 Laminectomy, 2018
Discussed patient care with: Cardiology, Nursing, Pharmacy and Care Team
Subjective
-
Date of Service: April 28, 2024
No major issues overnight. C/O neck pain, denies CP/SOB
Objective Data
-
Lab Results
04/27/24 03:36
04/27/24 03:36
PT 14.9 Sec (11.4-14.6) H 04/21/24 03:49
INR 1.13 04/21/24 03:49
APTT 40.1 Sec (23.4-35.0) H 04/21/24 03:49
Vital Signs
Vital Signs
Temp Pulse Resp BP Pulse Ox
99.1 F 82 20 126/65 97
04/27/24 22:18 04/27/24 20:00 04/27/24 22:18 04/27/24 19:44 04/27/24 22:18
CT Intake/Output/Weight
04/27/24 04/27/24 04/28/24
06:59 18:59 06:59
Intake Total 804 / 804
Output Total 1600 / 2850 700 / 700
Balance -1600 / -2034 104 / 104
SaO2: 97 (CPAP)
Physical Exam
-
General: Awake, Oriented and AOx3
Cardiovascular: Regular rate & rhythm, Murmur (3/6 systolic), No Rub and No Gallop
Respiratory: Decreased Breath Sounds (at bases, otherwise clear)
Extremities: Edema +2
Data Reviewed
-
Lab Results: Results Reviewed
Medications: Active Meds Reviewed
Chest X-Ray: Report Reviewed and Image Reviewed
ECG: Report Reviewed and Image Reviewed
[2024-04-28] MEDS: AMPICILLIN 108 MG IV ×6 (03:48→23:32)
[2024-04-28 03:52] VITALS: BP 109/60
[2024-04-28] MEDS: STERILE WATER FOR INJECTION 20 ML IV ×2 (05:57→17:19)
[2024-04-28] MEDS: ROCEPHIN 2000 MG IV ×2 (05:58→17:19)
[2024-04-28 08:39] VITALS: BP 123/67
[2024-04-28 08:53] LABS: Glucose - Point of Care 112 mg/dl (70-99)
[2024-04-28] MEDS: NOVOLOG FLEXPEN-MODERATE RESISTANCE SC ×2 (08:53→17:19)
[2024-04-28] MEDS: DILAUDID 4 MG PO ×3 (09:08→21:07)
[2024-04-28] MEDS: TOPROL XL 50 MG PO (09:12)
[2024-04-28] MEDS: LASIX 10 MG PO (09:12)
[2024-04-28] MEDS: LIPITOR 40 MG PO (09:13)
[2024-04-28] MEDS: LIDOCAINE 4% PATCH TOPICAL (09:13)
[2024-04-28] MEDS: LOW STRENGTH ASPIRIN 81 MG PO (09:13)
[2024-04-28] MEDS: NON-FORMULARY ITEM 1 UNIT TOPICAL ×2 (09:14→19:48)
--- NOTE | 2024-04-28 09:19 | W.PN.ID1 ---
Date of Service
Date of Service: April 28, 2024
Today's Communication
Continue amp/ceftriaxone.
Assessment / Plan
# Complicated Enterococcal bacteremia (7 sets)
# Infective endocarditis of BiV ICD lead, MV and AV
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
# Leukocytosis
# Fever - resolved
- ELLIE: 2.4 cm vege on ICD wire; echodensity on AV and MV with severe mitral regurgitation
- Repeat blood cultures x4 from 04/20 and 04/22 neg to date
- Cardiothoracic surgery following.
For redo sternotomy,AVR,MVR,TVR,AICD removal Th.
- Continue Ampicillin 2g IV q4h and ceftriaxone 2g IV q12h
# Neck pain present on admission
- MRI no cervical discitis/osteo; + edema along interspinous soft tissues
- on muscle relaxant.
- continue warm compress.
# Conditions prior to admission
DM2
Hypertension
HLD
CAD status post CABG/stent
Atrial fibrillation
BiV ICD placement 2016
HFpEF
HALLIE
BPH
Lap cholecystectomy 02/05/24
Chief Complaint
-: Bacteremia and Other (Endocarditis, discitis)
Subjective / Review of Systems
Muscle relaxant put him to sleep. Neck pain same.
Vital Signs / Physical Exam
Vital Signs
Vital Signs
Temp Pulse Resp BP Pulse Ox
98.2 F 74 14 123/67 97
04/28/24 08:41 04/28/24 09:12 04/28/24 03:55 04/28/24 09:12 04/28/24 08:41
Physical Exam
Constitutional: No Acute Distress
Eyes: No Conjunctival Hemorrhage and Sclera Anicteric
Cardiovascular: Regular Rate, S1/S2, Murmur and Other (left CW ICD no erythema/induration)
Pulmonary: Clear
Gastrointestinal: Soft, Non Tender and Non Distended
Genito-Urinary: Negative CVA Tenderness
Extremities: Edema (BLE)
Neurological: AO x 3
Objective Data
Lab Data
Lab Results
04/27/24 03:36
04/27/24 03:36
ESR 48 mm/hour (0-20) H 04/15/24 16:55
PT 14.9 Sec (11.4-14.6) H 04/21/24 03:49
INR 1.13 04/21/24 03:49
APTT 40.1 Sec (23.4-35.0) H 04/21/24 03:49
Estimated Creat Clear 78 ml/min 04/27/24 03:36
Lactic Acid Cancelled 04/16/24 14:36
Total Bilirubin 1.0 mg/dl (0.2-1.3) 04/27/24 03:36
AST 29 U/L (17-59) 04/27/24 03:36
ALT 48 U/L (0-50) 04/27/24 03:36
Alkaline Phosphatase 177 U/L (38-126) H 04/27/24 03:36
C-Reactive Protein 166.20 mg/L (0.0-10.00) H 04/15/24 16:55
Most recent labs reviewed.
Micro Results:
04/22/24 06:46 Blood Culture - Final
Blood/Venous No Growth - Final Report
04/22/24 05:46 Blood Culture - Final
Blood/Venous No Growth - Final Report
04/19/24 05:33 Blood Culture - Final
Blood/Venous Enterococcus faecalis
Gram Stain - Final
04/20/24 05:09 Blood Culture - Final
Blood/Venous No Growth - Final Report
04/20/24 05:09 Blood Culture - Final
Blood/Venous No Growth - Final Report
04/18/24 04:30 Blood Culture - Final
Blood/Venous Enterococcus faecalis
Gram Stain - Final
04/17/24 04:34 Blood Culture - Final
Blood/Venous Enterococcus faecalis
Gram Stain - Final
04/19/24 07:49 Blood Culture - Final
Blood/Venous Enterococcus faecalis
Gram Stain - Final
04/16/24 09:58 Blood Culture - Final
Blood/Venous Enterococcus faecalis
Gram Stain - Final
04/15/24 21:45 Urine Culture - Final
Urine Enterococcus faecalis
04/15/24 21:30 Blood Culture - Final
Blood/Venous Enterococcus faecalis
Gram Stain - Final
04/15/24 21:12 Blood Culture - Final
Blood/Venous Enterococcus faecalis
Gram Stain - Final
04/15/24 21:20 Influenza Types A & B (BRADLEY) - Final
Nasal Swab Negative for Influenza A & B, NAAT
Negative results must be combined with clinical observations
and patient history.
Nucleic Acid Amplification test (NAAT)performed on the
[employer] platform.
Imaging:
04/20/2024 ECHO (ELLIE): Normal biventricular size and systolic function. Pacer wire seen, with large echodensity prolapsing between the right atrium and right ventricle through the tricuspid valve, associated with the right ventricular wire. There
is a large bulbous portion (2.4 x 1.4 cm) proximally that tapers down along the course of the wire and into the right ventricle. Echodensity consistent with vegetation seen on both anterior and posterior leaflets of the mitral valve, with
associated severe mitral regurgitation. An echodensity consistent with vegetation is seen on the aortic valve, with minimal aortic regurgitation. Please see full dictation for additional detail.
04/15/24 CT a/p: There is irregular endplate destruction at the T10-11 disc space, and findings are highly suggestive of discitis and osteomyelitis.
This does not appear to extend to the posterior margin of the disc space at this time, and no gross evidence to suggest extension of inflammatory process and the spinal canal on CT. As warranted, further evaluation with MRI of the lower thoracic
spine without and with contrast could be considered.
04/23/24 MRI C/T/L spine:
Cervical spine:
Multilevel advanced degenerative changes. No evidence of discitis or osteomyelitis. Subtle edema/hyperemia involving the interspinous soft tissues most pronounced at C5-6, possibly inflammatory in nature or possible interspinous ligament sprain.
Clinical correlation advised. Partially visualized nonspecific left supraspinatus and infraspinatus muscle edema. Clinical correlation necessary.
Thoracic spine:
T10-11 discitis/osteomyelitis. Inflammatory epidural soft tissue thickening. No epidural abscess. No paraspinal soft tissue abscess. Findings suspicious for right T10-11 facet septic arthritis. T11-12 with mild central canal narrowing. No cord
compression.
Lumbar spine:
No evidence of lumbar spine discitis or vertebral osteomyelitis. Abnormal signal and enhancement associated with right L3-4 and L5-S1 facets and adjacent/surrounding soft tissues, as described. In the absence of recent surgical intervention to
suggest postsurgical reactive inflammatory changes, the appearance would be highly suspicious for facet septic arthritis. No lumbar epidural collection or epidural abscess. No focal soft tissue collection or abscess. Otherwise, lumbar degenerative
changes, as described.
--- NOTE | 2024-04-28 09:25 | PTCARENOTE ---
patient awake, ambulated to BR with walker and assist of 1, tanja. well. patient has chronic neck pain, patient unable to move neck, Dilaudid po given as ordered. monitor shows AV paced, VSS. left cheek had biopsy cream applied as ordered. patient
presently sitting up in chair waiting for breakfast.
--- NOTE | 2024-04-28 09:49 | W.PN.CARDCBS ---
Addendum entered and electronically signed by Den Summers DO 04/28/24 13:13:
I saw and examined the patient.
The Packing Inspector's note was reviewed and I agree with the note.
Comment:
Plan:
Compensated from a cardiac standpoint for AVR/MVR/TVR/CABG with explant of his R BiV ICD leads by Dr. Nicholson on 04/30
Cont abx and supportive care
Cont oral lasix
Monitor daily wts
Discussed with at bedside.
Original Note:
Today's Communication / Plan
-
continue abx
planned for AVR/MVR/TVR/CABG with explant of his R BiV ICD leads by Dr. Nicholson on 04/30
Impression / Plan
-
PCP: Dr. Mike Doe
Cardiology: Dr. Servin of [place]
Impression:
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
Sepsis
Vertebral osteomyelitis
Hypotension
Abnormal echo suggesting pacer wire vegetation in the RV and vegetation on the mitral valve 04/16/2024
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
s/p [employer] ICD 12/28/16
-Device interrogation 04/17/2024 shows stable lead sensing, pacing threshold, and lead impedances; no AT AF; no VT VF since last interrogation or tachytherapies; discussed with [employer] printing supplies sales representative, Jose Adan, patient's device is MRI
compatible and safe; if patient to need MRI, would place patient DOO (preferable) or VOO at 80 bpm; patient is not reported as dependent
CAD with PA
s/p 3 mm Taxus LUCIO to unknown vessel 10/15/05
s/p CABG x 2 2005 at [facility]
Atrial fibrillation of unclear chronicity and duration
Chronic Eliquis OAC
HLD
DM2
remote former smoker
s/p lap grace 01/2024
Echo 04/16/2024: EF 50 to 55%, normal regional wall motion, pacer wire seen in the RV with large density (1.7 x 1.9 cm) on pacemaker which could be consistent with vegetation, thickened mitral valve leaflets with MAC and peak/mean 8/4 mmHg, mobile
echodensity on the MV consistent with vegetation, at least moderate eccentric MR, aortic sclerosis without stenosis, no aortic regurgitation, mild TR with PAP 20 to 25 mmHg
Plan:
-Presented with neck pain and admitted with osteomyelitis and enterococcal bacteremia. Found to have aortic/mitral endocarditis with pacemaker lead involvement.
-Plan is for redo sternotomy, AVR, MVR, TVR, CABG, and AICD removal, planned for , 04/30/2024.
-complains of ongoing neck discomfort
-Also planning to place epicardial ICD system at the time of surgery as clinical stability and heart exposure allows. Discussed with our [employer] team and we are ordering epicardial pacing leads and sew on ICD coil. Potential approach would be
redundant right atrial and left ventricular pacing leads and either sew on or passive ICD coil which could all be placed into a dual-chamber DF 1 ICD with the ICD coil into the RV coil port and the LV pacing lead into the RV pacing port.
-Cardiology team previously communicated with Dr. Estrada at the [facility] who implanted his device in 2017. No prior shock but does have inferior scar and ejection fraction of 40%.
-currently in asensed biv paced rhythm. 1 10-beat run of NSVT overnight.
-Continue IV antibiotics per ID.
-Also w/ LE edema that developed over the weekend. s/p 20mg IV lasix x 1 on 04/26. Now on PO lasix 10mg daily. Follow daily weights.
PREADMIT DATA: Patient came to [facility] with neck pain on 04/15/24 and was admitted with osteomyelitis and cardiology is now consulted for eval of abnormal echo. Patient has routine cardiology care at [place] - Dr. Servin. Patient was admitted to 02/03/24
until 02/06/24 with abdominal pain and had lap grace 02/05/24. Patient was then in the ER 02/27/24 for hypotension and URI symptoms at the recommendation of his PCP, but BP was normal and no evidence of acute process so patient was sent home. Patient
came back to ER 03/02/24 with chest and back pain and troponin negative and he was given toradol and valium for spasm. Patient was sent to [facility] for rehab briefly however then went home. Patient came to last night with neck pain that
started Saturday04/11/24. He reports limited neck mobility and development of fever. He was noted by imaging to have evidence of osteomyelitis then underwent echo which showed large mobile echodensity consistent with mitral valve vegetation, MR, and
large density on ppm also with concern for vegetation. Blood cultures prelim positive. cardiology consulted for evaluation.
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
Subjective
Date of Service: April 28, 2024
reports neck pain. denies CP, SOB
Objective
Labs:
04/27/24 03:36
04/27/24 03:36
Labs
Hgb 10.6 g/dL (13.0-18.0) L 04/27/24 03:36
Hct 33.1 % (39.0-52.0) L 04/27/24 03:36
Plt Count 290 10^3/uL (130-400) 04/27/24 03:36
PT 14.9 Sec (11.4-14.6) H 04/21/24 03:49
INR 1.13 04/21/24 03:49
APTT 40.1 Sec (23.4-35.0) H 04/21/24 03:49
Sodium 133 mmol/L (135-145) L 04/27/24 03:36
Potassium 4.1 mmol/L (3.5-5.1) 04/27/24 03:36
BUN 13 mg/dl (9-20) 04/27/24 03:36
Creatinine 0.7 mg/dL (0.7-1.3) 04/27/24 03:36
Glucose 133 mg/dl (70-99) H 04/27/24 03:36
Vital Signs and I&O:
Vital Signs
Temp Pulse Resp BP Pulse Ox
98.2 F 74 14 123/67 97
04/28/24 08:41 04/28/24 09:12 04/28/24 03:55 04/28/24 09:12 04/28/24 08:41
Vital Signs
Temp Pulse Resp BP Pulse Ox
98.2 F 74 14 123/67 97
04/28/24 08:41 04/28/24 09:12 04/28/24 03:55 04/28/24 09:12 04/28/24 08:41
Intake & Output
04/26/24 04/27/24 04/28/24 04/29/24
07:59 07:59 07:59 07:59
Intake Total 1476 / 1716 816 / 816 1388 / 1388
Output Total 1900 / 1900 3200 / 3200 1075 / 1075
Balance -424 / -184 -2384 / -2384 313 / 313
Physical Exam
Physical Exam
GEN: No distress, awake, alert, oriented x3. sitting in chair
HEENT: supple, anicteric, mmm, eomi
LUNGS: CTA B/L, no wheezes/rales
CV: Reg, S1/S2, 1/6 syst LSB, no murmur
ABD: soft, BS+, NT/ND
EXT: No cyanosis, clubbing, edema
NEURO: Gross non-focal
SKIN: Warm, pink, dry. No rash
--- NOTE | 2024-04-28 09:56 | CM ---
Reviewed chart. Met with Mr. Ferreira to review discharge plans. He states he is feeling okay. He states he has been walking around. Prior to admission he resides with his spouse in a two story home with six steps to enter. He has four steps to get
to the main living area. Prior to admission he was independent with ambulation and adls. He was usig a walker recently due to back pain. He has a single point cane, walker and CPAP Machine. He has a prescription plan and uses the [facility] for
his medications. His spouse will be home to assist in his care when he goes home. Medical work-up in progress. The discharge plan is to return home with his spouse and a home visit by the Transitional Care Nurse when medically stable.
[2024-04-28 10:02] VITALS: BMI 27.8
[2024-04-28 11:18] VITALS: BP 109/54
[2024-04-28 12:02] LABS: Glucose - Point of Care 284 mg/dl (70-99)
[2024-04-28] MEDS: NOVOLOG FLEXPEN-MODERATE RESISTANCE 5 UNITS SC (12:04)
--- NOTE | 2024-04-28 14:25 | W.PN.HOSP.TC ---
Today's Communication/Plan
-
Persistent C-spine pain baseline.
Minimal relief with current analgesic regimen and with addition of muscle relaxants.
Will ask neurosurgery to review C-spine imaging
Continue antibiotics
Assessment / Plan
Assessment / Plan
IMPRESSION:
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
Vertebral osteomyelitis
Other conditions:*
CAD
� Status post LUCIO 09/2005.
Status post CABG x 2 2005.
Atrial fibrillation of unclear chronicity and duration.
Chronic anticoagulation with Eliquis
Type 2 diabetes.
Dyslipidemia.
Former smoker.
Status post laparoscopic cholecystectomy 02/17
Plan:
Enterococcal bacteremia complicated with mitral and aortic valve endocarditis service pacemaker lead infection.
Vertebral osteomyelitis
ELLIE
Normal biventricular size and systolic function without regional wall motion
abnormality.
Pacer wires seen with large echodensity prolapsing between the right atrium and
right ventricle through the tricuspid valve associated with the right
ventricular wire. There is a large bulbous portion (2. 4 x 1.46 cm) proximally
that tapers down along the course of the wire and into the right ventricle.
Echodensity consistent with vegetation seen on both anterior and posterior
leaflets of the mitral valve with associated severe mitral regurgitation.
Echodensity consistent with vegetation on the aortic valve, minimal aortic
regurgitation seen.
Complex atheroma in the descending aorta.
No prior TTE available for comparison.
CT AP
At T10-11, there is irregular bony destruction of the endplates at the disc space, and findings are highly suggestive of discitis and osteomyelitis. Slight prominence of paraspinal soft tissue at this disc space level on the axial images. There are
no gross findings that would suggest posterior epidural extension.
Continue antibiotics: Ampicillin/ceftriaxone
Follow-up cultures now negative
MRI of the spine confirms T10-T11 discitis/osteomyelitis.
He remains with persistent and rather severe C-spine pain. MRI findings consistent with septal edema/hyperemia involving the interspinous soft tissue most pronounced at C5-6, possibly inflammatory in nature possible ligament sprain.
Continue current analgesic regimen with Tylenol and hydromorphone
Neurosurgery evaluation appreciated with no plan for surgical intervention spine
CAD.
Stable
Continue beta-an and statin
Left heart catheterization 04/24:
1. Patent sequential GOODRICH [id number] which remains widely patent
2. Large ramus intermedius with 90% ostial stenosis with poststenotic dilation.
Paroxysmal atrial fibrillation of unknown duration
Continue beta-blockade
Apixaban currently on hold
Continue Lovenox initially and therapeutic/weight-based dose reduced to prophylactic in preparation for cardiac cath
Type 2 diabetes.
Preadmission regimen Lantus 30 units at bedtime/Jardiance.
Continue basal bolus protocol.
Currently on Lantus at reduced dose of 15 units at bedtime
BPH
Continue Flomax
CODE STATUS DNR
Anticipated Discharge: > 48 hours
Subjective/Interval History
-
Date of Service: April 28, 2024
Objective Data
-
Vital Signs:
Vital Signs
Temp Pulse Resp BP Pulse Ox
97.5 F 86 20 109/54 99
04/28/24 11:18 04/28/24 12:00 04/28/24 11:18 04/28/24 11:18 04/28/24 11:18
I&O
04/27/24 04/28/24 04/29/24
06:59 06:59 06:59
Intake Total 816 / 816 1388 / 1388 216 / 216
Output Total 2850 / 2850 1425 / 1425
Balance -4 / -2034 -37 / -37
Physical Exam
-
General: No Apparent Distress
HEENT: PERRLA and Other (neck stiffness with limited range of motion )
Respiratory: Clear to Auscultation; Negative Wheezes
Cardiac: Regular Rhythm and S1/S2
GI: Soft and Nontender
Musculoskeletal: No Edema
Skin: Warm and Dry; Negative Rash
Neuro: AO x 3 and Other (5/5 strength upper and lower extremities )
Psych: Calm
--- NOTE | 2024-04-28 14:31 | PTCARENOTE ---
patient sitting up in chair all day, c/o neck pain, Dilaudid 4mg po given as ordered.
[2024-04-28 15:43] VITALS: BP 104/78
[2024-04-28 17:19] LABS: Glucose - Point of Care 140 mg/dl (70-99)
[2024-04-28] MEDS: FLUSH (NSS) 1 FLUSH IV (17:40)
[2024-04-28 18:22] VITALS: BP 128/62
[2024-04-28] MEDS: FLEXERIL 5 MG PO (19:49)
--- NOTE | 2024-04-28 20:23 | PTCARENOTE ---
Received patient at change of shift. A&Ox3. Sitting in chair. Vitals stable. C/o neck pain. Flexural given-- see MAR. Discussed plan of care for evening. Patient verbalized understanding. Call waller within reach.
[2024-04-28 21:06] LABS: Glucose - Point of Care 163 mg/dl (70-99)
[2024-04-28] MEDS: FLOMAX 0.4 MG PO (21:07)
[2024-04-28] MEDS: LANTUS 0.15 UNITS SC (21:07)
[2024-04-28] MEDS: XALATAN OPHTHALMIC SOLUTION 1 DROP BOTH EYES (21:07)
[2024-04-28 23:34] VITALS: BP 109/65
--- NOTE | 2024-04-29 03:22 | W.PN.CT ---
Today's Communication / Plan
-
Plan:
-Cont. current medical management per primary team
-Cont. current abx per ID, currently on Rocephin and Ampicillin
-Ongoing medical optimization
-For redo sternotomy, AVR/MVR/TVr/CABG with explant of his R BiV ICD leads by Dr. Nicholson, tomorrow 04/30
-Will cont. to closely monitor
Assessment / Plan
-
Assessment:
-Endocarditis (Enterococcus faecalis) involving Aortic valve, Mitral valve, Tricuspid valve and BiV ICD
-Severe MR
-Bicuspid AV/trivial AI
-Mild TR
-Infected BiV ICD
-Hx ICM (EF 20%) S/P MRI compatible [employer] BiV ICD, 12/28/2016
-LVEF 50-55% per TTE 04/16/24
-Enterococcus faecalis UTI
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
-L3-S1 septic arthritis
-Soft tissue edema C5-C6 interspinous
-Fever (peaked @ 102.7)
-Leukocytosis (wbc peaked @ 27.1)
-Hx CAD S/P CABG x 1 (GOODRICH-LAD), 2005 (patent per cath 04/24)
-Single Vessel CAD (RI 90% ostial), per cath 04/24
-HTN
-HLD
-T2DM (hgb A1C 6.9, on insulin)
-A-fib (on Eliquis @ home)
-HALLIE
-BPH (on Flomax)
-DJD
-Interstitial fibrosis/asbestosis
-Former tobacco use
-S/p Lap Skylar, 02/05/24
-S/p removal of infected dental implants
-S/P L4/L5 Laminectomy, 2018
Discussed patient care with: Cardiology, Nursing, Respiratory Therapy, Pharmacy and Care Team
Subjective
-
Date of Service: April 29, 2024
No issues overnight. Still with some neck pain, denies CP/SOB
Objective Data
-
PT 14.9 Sec (11.4-14.6) H 04/21/24 03:49
INR 1.13 04/21/24 03:49
APTT 40.1 Sec (23.4-35.0) H 04/21/24 03:49
Vital Signs
Vital Signs
Temp Pulse Resp BP Pulse Ox
98 F 83 18 109/65 97
04/28/24 23:36 04/29/24 00:00 04/28/24 23:36 04/28/24 23:34 04/28/24 23:36
CT Intake/Output/Weight
04/28/24 04/28/24 04/29/24
06:59 18:59 06:59
Intake Total 584 / 1388 344 / 344
Output Total 725 / 1425 400 / 650 250 / 650
Balance -141 / -37 -56 / -306 -250 / -306
SaO2: 97 (CPAP)
Physical Exam
-
General: Awake, Oriented and AOx3
Cardiovascular: Murmur (3/6 systolic)
Respiratory: Decreased Breath Sounds (at bases, otherwise clear)
Extremities: Edema +2
Data Reviewed
-
Lab Results: Results Reviewed
Medications: Active Meds Reviewed
Chest X-Ray: Report Reviewed and Image Reviewed
ECG: Report Reviewed and Image Reviewed
[2024-04-29] MEDS: AMPICILLIN 108 MG IV ×6 (03:44→23:03)
[2024-04-29 03:49] VITALS: BP 107/63
[2024-04-29 04:23] LABS: Hematocrit 26.9 % (39.0-52.0); Hemoglobin 8.9 g/dL (13.0-18.0); Mean Corp Hgb Conc. 33.1 g/dL (33.0-37.0); Mean Corpuscular Hgb 28.4 pg (27.0-31.0); Mean Corpuscular Volume 85.9 fL (80.0-94.0); Mean Platelet Volume 9.4 fL (7.4-10.4); Platelet Count 256 10^3/uL (130-400); Red Blood Cell Count 3.13 10^6/uL (4.70-6.10); Red Cell Dist. Width 16.4 % (11.5-14.5); White Blood Cell Count 10.4 10^3/uL (4.8-10.8)
[2024-04-29 04:59] LABS: Blood Urea Nitrogen 11 mg/dl (9-20); Calcium 8.5 mg/dl (8.4-10.2); Carbon Dioxide 27 mmol/L (22-30); Chloride 96 mmol/L (98-107); Estimated Creatinine Clearance 92 ml/min; Glucose 117 mg/dl (70-99); Magnesium 1.8 mg/dl (1.6-2.3); Sodium 131 mmol/L (135-145); eGFR > 60.00
[2024-04-29] MEDS: STERILE WATER FOR INJECTION 20 ML IV ×2 (06:08→17:36)
[2024-04-29] MEDS: ROCEPHIN 2000 MG IV ×2 (06:08→17:36)
[2024-04-29] MEDS: DILAUDID 2 MG PO (06:28)
[2024-04-29 07:12] VITALS: BP 121/64
--- NOTE | 2024-04-29 08:40 | W.PN.CARDCBS ---
Addendum entered and electronically signed by Get Stephens MD 04/29/24 13:44:
I saw and examined the patient.
The [employer] Consultant's note was reviewed and I agree with the note.
Comment: Briefly, 79-year-old man past medical history of ischemic cardiomyopathy with recovered EF s/p ICD and prior CABG who presents with weakness and back pain found to have discitis and bacteremia. Transthoracic echocardiogram and subsequent
transesophageal echocardiogram identified vegetations associated with the pacemaker lead as well as the mitral and aortic valves concerning for infectious endocarditis.
Resting comfortably in the IVU this morning where he is receiving IV antibiotics
No cardiac complaints, major ongoing issue is neck and back pain
Volume status appears reasonable despite severe MR in the setting of endocarditis
Telemetry shows paced rhythm
Tentative plan for redo sternotomy with AVR/MVR/TVR/CABG and ICD explant tomorrow
We will continue to follow along with you
Original Note:
Today's Communication / Plan
-
Plan for redo sternotomy, AVR, MVR, TVR, CABG, and AICD removal in AM
will follow perioperatively
Impression / Plan
-
PCP: Dr. Mike Doe
Cardiology: Dr. Servin of [place]
Impression:
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
Sepsis
Vertebral osteomyelitis
Hypotension
Abnormal echo suggesting pacer wire vegetation in the RV and vegetation on the mitral valve 04/16/2024
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
s/p [employer] ICD 12/28/16
-Device interrogation 04/17/2024 shows stable lead sensing, pacing threshold, and lead impedances; no AT AF; no VT VF since last interrogation or tachytherapies; discussed with [employer] sales representative meats, Jose Adan, patient's device is MRI
compatible and safe; if patient to need MRI, would place patient DOO (preferable) or VOO at 80 bpm; patient is not reported as dependent
CAD with [place]
s/p 3 mm Taxus LUCIO to unknown vessel 10/15/05
s/p CABG x 2 2005 at [facility]
Atrial fibrillation of unclear chronicity and duration
Chronic Eliquis OAC
HLD
DM2
remote former smoker
s/p lap grace 01/2024
Echo 04/16/2024: EF 50 to 55%, normal regional wall motion, pacer wire seen in the RV with large density (1.7 x 1.9 cm) on pacemaker which could be consistent with vegetation, thickened mitral valve leaflets with MAC and peak/mean 8/4 mmHg, mobile
echodensity on the MV consistent with vegetation, at least moderate eccentric MR, aortic sclerosis without stenosis, no aortic regurgitation, mild TR with PAP 20 to 25 mmHg
Plan:
-Presented with neck pain and admitted with osteomyelitis and enterococcal bacteremia. Found to have aortic/mitral endocarditis with pacemaker lead involvement.
-Plan is for redo sternotomy, AVR, MVR, TVR, CABG, and AICD removal, planned for , 04/30/2024.
-Also planning to place epicardial ICD system at the time of surgery as clinical stability and heart exposure allows. EP discussed with our [employer] team and we are ordering epicardial pacing leads and sew on ICD coil. Potential approach would be
redundant right atrial and left ventricular pacing leads and either sew on or passive ICD coil which could all be placed into a dual-chamber DF 1 ICD with the ICD coil into the RV coil port and the LV pacing lead into the RV pacing port.
-Cardiology team previously communicated with Dr. Estrada at the [facility] who implanted his device in 2017. No prior shock but does have inferior scar and ejection fraction of 40%.
-Major complaint overnight remains neck pain. Denies chest pain or shortness of breath
-currently in asensed biv paced rhythm on review of tele overnight. continue toprol
-Continue IV antibiotics per ID.
-Also w/ LE edema that developed over the weekend. s/p 20mg IV lasix x 1 on 04/26. Now on PO lasix 10mg daily. Follow daily weights.
-d/w patient and at bedside
PREADMIT DATA: Patient came to [facility] with neck pain on 04/15/24 and was admitted with osteomyelitis and cardiology is now consulted for eval of abnormal echo. Patient has routine cardiology care at [place] - Dr. Servin. Patient was admitted to 02/03/24
until 02/06/24 with abdominal pain and had lap grace 02/05/24. Patient was then in the ER 02/27/24 for hypotension and URI symptoms at the recommendation of his PCP, but BP was normal and no evidence of acute process so patient was sent home. Patient
came back to ER 03/02/24 with chest and back pain and troponin negative and he was given toradol and valium for spasm. Patient was sent to [facility] for rehab briefly however then went home. Patient came to last night with neck pain that
started Saturday04/11/24. He reports limited neck mobility and development of fever. He was noted by imaging to have evidence of osteomyelitis then underwent echo which showed large mobile echodensity consistent with mitral valve vegetation, MR, and
large density on ppm also with concern for vegetation. Blood cultures prelim positive. cardiology consulted for evaluation.
Progress Note - Therapeutic Activities Services Worker
Subjective
Date of Service: April 29, 2024
Continues to complain of neck discomfort. Denies chest pain or shortness of breath
Objective
Labs:
04/29/24 03:53
04/29/24 03:53
Labs
Hgb 8.9 g/dL (13.0-18.0) L 04/29/24 03:53
Hct 26.9 % (39.0-52.0) L 04/29/24 03:53
Plt Count 256 10^3/uL (130-400) 04/29/24 03:53
PT 14.9 Sec (11.4-14.6) H 04/21/24 03:49
INR 1.13 04/21/24 03:49
APTT 40.1 Sec (23.4-35.0) H 04/21/24 03:49
Sodium 131 mmol/L (135-145) L 04/29/24 03:53
Potassium 4.0 mmol/L (3.5-5.1) 04/29/24 03:53
BUN 11 mg/dl (9-20) 04/29/24 03:53
Creatinine 0.6 mg/dL (0.7-1.3) L 04/29/24 03:53
Glucose 117 mg/dl (70-99) H 04/29/24 03:53
Vital Signs and I&O:
Vital Signs
Temp Pulse Resp BP Pulse Ox
97.4 F 83 20 109/65 99
04/29/24 07:10 04/29/24 00:00 04/29/24 07:10 04/28/24 23:34 04/29/24 07:10
Vital Signs
Temp Pulse Resp BP Pulse Ox
97.4 F 83 20 109/65 99
04/29/24 07:10 04/29/24 00:00 04/29/24 07:10 04/28/24 23:34 04/29/24 07:10
Intake & Output
04/27/24 04/28/24 04/29/24 04/30/24
07:59 07:59 07:59 07:59
Intake Total 816 / 816 1388 / 1388 344 / 344
Output Total 3200 / 3200 1075 / 1075 1200 / 1200
Balance -2384 / -2384 313 / 313 -856 / -856
Physical Exam
Physical Exam
GEN: No distress, awake, alert, oriented x3.
HEENT: supple, anicteric, mmm, eomi
LUNGS: CTA anterolaterally B/L, no wheezes/rales
CV: Reg, S1/S2, 1/6 syst LSB, no murmur
ABD: soft, BS+, NT/ND
EXT: No cyanosis, clubbing, edema
NEURO: Gross non-focal
SKIN: Warm, pink, dry. No rash
[2024-04-29] MEDS: TOPROL XL 50 MG PO (08:42)
[2024-04-29] MEDS: LOW STRENGTH ASPIRIN 81 MG PO (08:43)
[2024-04-29] MEDS: LIPITOR 40 MG PO (08:43)
[2024-04-29] MEDS: LASIX 10 MG PO (08:43)
[2024-04-29] MEDS: NON-FORMULARY ITEM 1 UNIT TOPICAL ×2 (08:45→19:57)
[2024-04-29] MEDS: LIDOCAINE 4% PATCH TOPICAL (08:45)
[2024-04-29] MEDS: NOVOLOG FLEXPEN-MODERATE RESISTANCE SC (08:46)
[2024-04-29 08:47] LABS: Glucose - Point of Care 110 mg/dl (70-99)
[2024-04-29] MEDS: KCL 40 MEQ PO (09:20)
[2024-04-29] MEDS: LASIX 60 MG IV (09:20)
--- NOTE | 2024-04-29 09:45 | PTCARENOTE ---
received patient this am. monitor shows AV paced with BBC, VSS. patient still c/o neck stiffness and unable to turn head. KCL and lasix IV given as ordered. Dr. Nicholson and his team in seeing patient.
[2024-04-29 10:50] VITALS: BMI 27.7
--- NOTE | 2024-04-29 11:05 | CM ---
Addendum entered by Beth Murphy 04/30/24 08:25:
Faxed script to [facility].
Addendum entered by Beth Murphy 04/29/24 14:49:
Telephone call to [facility] Liaison to make the referral for IV ABX at home. Sent the referral to [facility]. Telephone call to [facility] Services Liaison to review nursing care with IV ABX. Sent the referral. Mr. Serna is 100 %
disabled form the [facility]. the [facility] needs to have our infectious disease doctor contact their infectious disease doctor Dr. Saúl Wang at [phone]. After they speak he will start the referral and an authorization can be
generated for the medications and the home infusion. TT I.D. to review about with her.
Original Note:
Reviewed chart. Met with and Mrs. Ferreira to review discharge plans. He states prior to admission he resides in a spilt level home with six steps to enter. He states he has three steps to get to the bedroom/full bathroom. He states prior to
admission he was independent with ambulation and adls. He states he only uses the walker when he is having back pain. He states he has a walker, single point cane and CPAP Machine at home. He states he gets his prescriptions with the [facility].
His spouse states she will be home to assist in his care if needed. Received a phone call from Lynn from [facility] ([phone] ext. [phone].) She states the [facility] maybe able to assist in getting his IV ABX if needed at home. Will need to confirm
IV ABX and duration if needed at home. He will need a mid-line or Picc line for IV ABX at home. Medical work-up in progress. The discharge plan is to return home with his spouse and a home visit by the Transitional Care Nurse when medically stable.
We reviewed pre-op and post-op routines. We briefly review the shower instructions. We also reviewed restrictions including sternal precautions and driving restrictions. Gave him the Cardiothoracic Surgery Educational Booklet. We discussed a home
visit by the Transitional Care Nurse. He is agreeable to a home visit. The plan is for AVR, MVR/TVR and CABG on 04/30/24.
[2024-04-29 11:21] VITALS: BP 104/66
[2024-04-29] MEDS: NOVOLOG FLEXPEN-MODERATE RESISTANCE 5 UNITS SC (12:00)
[2024-04-29 12:01] LABS: Glucose - Point of Care 260 mg/dl (70-99)
[2024-04-29] MEDS: DILAUDID 4 MG PO ×2 (12:01→21:48)
--- NOTE | 2024-04-29 12:05 | PTCARENOTE ---
patient c/o neck pain, Dilaudid po given as ordered.
--- NOTE | 2024-04-29 15:49 | W.PN.ID1 ---
Date of Service
Date of Service: April 29, 2024
Today's Communication
Continue amp/ceftriaxone
Assessment / Plan
# Complicated Enterococcal bacteremia (7 sets)
# Infective endocarditis of BiV ICD lead, MV and AV
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
# Leukocytosis- resolved
# Fever - resolved
- ELLIE: 2.4 cm vege on ICD wire; echodensity on AV and MV with severe mitral regurgitation
- Repeat blood cultures x4 from 04/20 and 04/22 neg to date
- For redo sternotomy,AVR,MVR,TVR,AICD tomorrow
- Continue Ampicillin 2g IV q4h and ceftriaxone 2g IV q12h x 6 weeks from cardiac surgery, ie through 06/11/24.
Weekly CBC diff, CMP, CRP, ESR
- Eventual double-lumen PICC
- Infusion submitted to case advocate.
- Updated Dr. Saúl Wang ([phone]) Infectious Disease at [place] [facility] for IV abx approval.
# Neck pain present on admission
- MRI no cervical discitis/osteo; + edema along interspinous soft tissues
- on muscle relaxant.
- continue warm compress.
# Conditions prior to admission
DM2
Hypertension
HLD
CAD status post CABG/stent
Atrial fibrillation
BiV ICD placement 2016
HFpEF
HALLIE
BPH
Lap cholecystectomy 02/05/24
Chief Complaint
-: Bacteremia and Other (Endocarditis, discitis)
Subjective / Review of Systems
No new complaints. Neck pain still severe. Back pain better. Heart surgery tomorrow.
Vital Signs / Physical Exam
Vital Signs
Vital Signs
Temp Pulse Resp BP Pulse Ox
97.5 F 84 18 104/66 97
04/29/24 11:22 04/29/24 11:21 04/29/24 11:22 04/29/24 11:21 04/29/24 11:22
Physical Exam
Constitutional: No Acute Distress
Eyes: No Conjunctival Hemorrhage and Sclera Anicteric
Cardiovascular: Regular Rate, S1/S2, Murmur and Other (left CW ICD no erythema/induration)
Pulmonary: Clear
Gastrointestinal: Soft, Non Tender and Non Distended
Genito-Urinary: Negative CVA Tenderness
Extremities: Edema (BLE)
Neurological: AO x 3
Objective Data
Lab Data
Lab Results
04/29/24 03:53
04/29/24 03:53
ESR 48 mm/hour (0-20) H 04/15/24 16:55
PT 14.9 Sec (11.4-14.6) H 04/21/24 03:49
INR 1.13 04/21/24 03:49
APTT 40.1 Sec (23.4-35.0) H 04/21/24 03:49
Estimated Creat Clear 92 ml/min 04/29/24 03:53
Lactic Acid Cancelled 04/16/24 14:36
Total Bilirubin 1.0 mg/dl (0.2-1.3) 04/27/24 03:36
AST 29 U/L (17-59) 04/27/24 03:36
ALT 48 U/L (0-50) 04/27/24 03:36
Alkaline Phosphatase 177 U/L (38-126) H 04/27/24 03:36
C-Reactive Protein 166.20 mg/L (0.0-10.00) H 04/15/24 16:55
Most recent labs reviewed.
Micro Results:
04/22/24 06:46 Blood Culture - Final
Blood/Venous No Growth - Final Report
04/22/24 05:46 Blood Culture - Final
Blood/Venous No Growth - Final Report
04/19/24 05:33 Blood Culture - Final
Blood/Venous Enterococcus faecalis
Gram Stain - Final
04/20/24 05:09 Blood Culture - Final
Blood/Venous No Growth - Final Report
04/20/24 05:09 Blood Culture - Final
Blood/Venous No Growth - Final Report
04/18/24 04:30 Blood Culture - Final
Blood/Venous Enterococcus faecalis
Gram Stain - Final
04/17/24 04:34 Blood Culture - Final
Blood/Venous Enterococcus faecalis
Gram Stain - Final
04/19/24 07:49 Blood Culture - Final
Blood/Venous Enterococcus faecalis
Gram Stain - Final
04/16/24 09:58 Blood Culture - Final
Blood/Venous Enterococcus faecalis
Gram Stain - Final
04/15/24 21:45 Urine Culture - Final
Urine Enterococcus faecalis
04/15/24 21:30 Blood Culture - Final
Blood/Venous Enterococcus faecalis
Gram Stain - Final
04/15/24 21:12 Blood Culture - Final
Blood/Venous Enterococcus faecalis
Gram Stain - Final
04/15/24 21:20 Influenza Types A & B (BRADLEY) - Final
Nasal Swab Negative for Influenza A & B, NAAT
Negative results must be combined with clinical observations
and patient history.
Nucleic Acid Amplification test (NAAT)performed on the
[employer] platform.
Imaging:
04/20/2024 ECHO (ELLIE): Normal biventricular size and systolic function. Pacer wire seen, with large echodensity prolapsing between the right atrium and right ventricle through the tricuspid valve, associated with the right ventricular wire. There
is a large bulbous portion (2.4 x 1.4 cm) proximally that tapers down along the course of the wire and into the right ventricle. Echodensity consistent with vegetation seen on both anterior and posterior leaflets of the mitral valve, with
associated severe mitral regurgitation. An echodensity consistent with vegetation is seen on the aortic valve, with minimal aortic regurgitation. Please see full dictation for additional detail.
04/15/24 CT a/p: There is irregular endplate destruction at the T10-11 disc space, and findings are highly suggestive of discitis and osteomyelitis.
This does not appear to extend to the posterior margin of the disc space at this time, and no gross evidence to suggest extension of inflammatory process and the spinal canal on CT. As warranted, further evaluation with MRI of the lower thoracic
spine without and with contrast could be considered.
04/23/24 MRI C/T/L spine:
Cervical spine:
Multilevel advanced degenerative changes. No evidence of discitis or osteomyelitis. Subtle edema/hyperemia involving the interspinous soft tissues most pronounced at C5-6, possibly inflammatory in nature or possible interspinous ligament sprain.
Clinical correlation advised. Partially visualized nonspecific left supraspinatus and infraspinatus muscle edema. Clinical correlation necessary.
Thoracic spine:
T10-11 discitis/osteomyelitis. Inflammatory epidural soft tissue thickening. No epidural abscess. No paraspinal soft tissue abscess. Findings suspicious for right T10-11 facet septic arthritis. T11-12 with mild central canal narrowing. No cord
compression.
Lumbar spine:
No evidence of lumbar spine discitis or vertebral osteomyelitis. Abnormal signal and enhancement associated with right L3-4 and L5-S1 facets and adjacent/surrounding soft tissues, as described. In the absence of recent surgical intervention to
suggest postsurgical reactive inflammatory changes, the appearance would be highly suspicious for facet septic arthritis. No lumbar epidural collection or epidural abscess. No focal soft tissue collection or abscess. Otherwise, lumbar degenerative
changes, as described.
[2024-04-29 15:50] VITALS: BP 154/98
[2024-04-29] MEDS: FLUSH (NSS) 2 FLUSH IV (16:14)
--- NOTE | 2024-04-29 16:16 | W.CVOR.SURPR ---
CVOR Surgeon Immed Pre Op
-
I have examined this patient prior to performance of the scheduled procedure.
The patient's condition is unchanged from the time of the dictated/written History and
Physical and the patient is able to undergo the scheduled procedure.
Redosternotomy
AV repair +/- replace
MV replacement
TV repair
Explant PPM/ICD leads and device
Implant epicardial leads and defib coil and new [employer] ICD
CABG x 1 (Ramus)
--- NOTE | 2024-04-29 16:17 | W.PN.HOSP.TC ---
Today's Communication/Plan
-
Continue IV antibiotics.
For surgery including bypass, valve replacement, infected AICD removal on 04/30
MRI of C-spine reviewed with neurosurgery again with no indication for surgical intervention.
Assessment / Plan
Assessment / Plan
IMPRESSION:
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
Vertebral osteomyelitis
Other conditions:*
CAD
� Status post LUCIO 09/2005.
Status post CABG x 2005.
Atrial fibrillation of unclear chronicity and duration.
Chronic anticoagulation with Eliquis
Type 2 diabetes.
Dyslipidemia.
Former smoker.
Status post laparoscopic cholecystectomy 02/17
Plan:
Enterococcal bacteremia complicated with mitral and aortic valve endocarditis service pacemaker lead infection.
Vertebral osteomyelitis
ELLIE
Normal biventricular size and systolic function without regional wall motion
abnormality.
Pacer wires seen with large echodensity prolapsing between the right atrium and
right ventricle through the tricuspid valve associated with the right
ventricular wire. There is a large bulbous portion (2. 4 x 1.46 cm) proximally
that tapers down along the course of the wire and into the right ventricle.
Echodensity consistent with vegetation seen on both anterior and posterior
leaflets of the mitral valve with associated severe mitral regurgitation.
Echodensity consistent with vegetation on the aortic valve, minimal aortic
regurgitation seen.
Complex atheroma in the descending aorta.
No prior TTE available for comparison.
CT AP
At T10-11, there is irregular bony destruction of the endplates at the disc space, and findings are highly suggestive of discitis and osteomyelitis. Slight prominence of paraspinal soft tissue at this disc space level on the axial images. There are
no gross findings that would suggest posterior epidural extension.
Continue antibiotics: Ampicillin/ceftriaxone
Follow-up cultures now negative
MRI of the spine confirms T10-T11 discitis/osteomyelitis.
He remains with persistent and rather severe C-spine pain. MRI findings consistent with septal edema/hyperemia involving the interspinous soft tissue most pronounced at C5-6, possibly inflammatory in nature possible ligament sprain.
Continue current analgesic regimen with Tylenol and hydromorphone
Neurosurgery evaluation appreciated with no plan for surgical intervention spine
CAD.
Stable
Continue beta-an and statin
Left heart catheterization 04/24:
1. Patent sequential GOODRICH [id number] which remains widely patent
2. Large ramus intermedius with 90% ostial stenosis with poststenotic dilation.
Paroxysmal atrial fibrillation of unknown duration
Continue beta-blockade
Apixaban currently on hold
Continue Lovenox initially and therapeutic/weight-based dose reduced to prophylactic in preparation for cardiac cath
Type 2 diabetes.
Preadmission regimen Lantus 30 units at bedtime/Jardiance.
Continue basal bolus protocol.
Currently on Lantus at reduced dose of 15 units at bedtime
BPH
Continue Flomax
CODE STATUS DNR
Anticipated Discharge: > 48 hours
Subjective/Interval History
-
Date of Service: April 29, 2024
Objective Data
-
Labs:
Laboratory Results
04/29/24
03:53
WBC 10.4
Hgb 8.9 L
Hct 26.9 L
Plt Count 256
Sodium 131 L
Potassium 4.0
Chloride 96 L
Carbon Dioxide 27
BUN 11
Creatinine 0.6 L
Glucose 117 H
Calcium 8.5
Vital Signs:
Vital Signs
Temp Pulse Resp BP Pulse Ox
97.5 F 84 18 104/66 97
04/29/24 11:22 04/29/24 11:21 04/29/24 11:22 04/29/24 11:21 04/29/24 11:22
I&O
04/28/24 04/29/24 04/30/24
06:59 06:59 06:59
Intake Total 1388 / 1388 344 / 344 216 / 216
Output Total 1425 / 1425 1200 / 1200 1999
Balance -37 / -37 -856 / -856 -1784 / -1784
Physical Exam
-
General: No Apparent Distress
HEENT: PERRLA and Other (neck stiffness with limited range of motion )
Respiratory: Clear to Auscultation; Negative Wheezes
Cardiac: Regular Rhythm and S1/S2
GI: Soft and Nontender
Musculoskeletal: No Edema
Skin: Warm and Dry; Negative Rash
Neuro: AO x 3 and Other (5/5 strength upper and lower extremities )
Psych: Calm
[2024-04-29 17:14] LABS: Glucose - Point of Care 209 mg/dl (70-99)
[2024-04-29] MEDS: NOVOLOG FLEXPEN-MODERATE RESISTANCE 3 UNITS SC (17:36)
--- NOTE | 2024-04-29 19:29 | PTCARENOTE ---
Report called to CVICU nurse, patient to room 2261 via wc accompanied by RN. medications, personal belongings sent with patient.
[2024-04-29] MEDS: FLEXERIL 5 MG PO (19:56)
[2024-04-29 20:09] VITALS: BP 116/66
--- NOTE | 2024-04-29 20:10 | PTCARENOTE ---
report received from IVU RN, pt transferred into room 2261. pt AAOx4. pt c/o neck pain, PRN Flexeril given. VSS. AV paced on monitor. POX 96% on room air. PIV intact and patent. clip prep completed. pt given bed bath with CHG surgical soap. gown,
linens, and electrodes changed. see worklist for full assessment, VS, and interventions. pt resting comfortably w call waller in reach and at bedside.
[2024-04-29 21:44] LABS: Glucose - Point of Care 194 mg/dl (70-99)
[2024-04-29] MEDS: FLOMAX 0.4 MG PO (21:47)
[2024-04-29] MEDS: XALATAN OPHTHALMIC SOLUTION 1 DROP BOTH EYES (21:48)
[2024-04-29] MEDS: LANTUS 0.15 UNITS SC (21:48)
[2024-04-29 23:01] VITALS: BP 127/71
[2024-04-30] VITALS (13 sets, daily range): BP systolic 92–132; BP diastolic 53–79; BMI 27.2
[2024-04-30] MEDS: AMPICILLIN 108 MG IV ×3 (04:17→20:03)
[2024-04-30] MEDS: DILAUDID 4 MG PO (04:21)
--- NOTE | 2024-04-30 04:40 | PTCARENOTE ---
VSS, no changes in assessment. AV paced. POX 96% on cpap. AM labs drawn and sent. 2nd bath given w CHG surgical soap. CHG wipes used. pt resting between care.
[2024-04-30 04:53] LABS: Hematocrit 28.9 % (39.0-52.0); Hemoglobin 9.4 g/dL (13.0-18.0); Mean Corp Hgb Conc. 32.5 g/dL (33.0-37.0); Mean Corpuscular Hgb 27.9 pg (27.0-31.0); Mean Corpuscular Volume 85.8 fL (80.0-94.0); Mean Platelet Volume 9.5 fL (7.4-10.4); Platelet Count 262 10^3/uL (130-400); Red Blood Cell Count 3.37 10^6/uL (4.70-6.10); Red Cell Dist. Width 16.3 % (11.5-14.5); White Blood Cell Count 10.4 10^3/uL (4.8-10.8)
[2024-04-30 05:12] LABS: INR 1.19; PT 15.7 Sec (11.4-14.6)
[2024-04-30 05:24] LABS: ALT (SGPT) 88 U/L (0-50); AST (SGOT) 57 U/L (17-59); Albumin 2.8 g/dl (3.5-5.0); Alkaline Phosphatase 241 U/L (38-126); Blood Urea Nitrogen 12 mg/dl (9-20); Calcium 8.7 mg/dl (8.4-10.2); Carbon Dioxide 31 mmol/L (22-30); Chloride 96 mmol/L (98-107); Estimated Creatinine Clearance 78 ml/min; Glucose 132 mg/dl (70-99); Potassium 3.7 mmol/L (3.5-5.1); Sodium 134 mmol/L (135-145); Total Protein 5.8 g/dl (6.3-8.2); eGFR > 60.00
[2024-04-30] MEDS: PROTONIX 40 MG PO (05:29)
[2024-04-30] MEDS: MAGNESIUM OXIDE 500 MG PO (05:29)
[2024-04-30] MEDS: LOPRESSOR 25 MG PO (05:29)
[2024-04-30] MEDS: BACTROBAN 2% OINTMENT 1 APPLIC NASAL ×2 (05:30→19:26)
[2024-04-30] MEDS: ROCEPHIN 2000 MG IV ×2 (05:31→18:23)
[2024-04-30] MEDS: STERILE WATER FOR INJECTION 20 ML IV ×2 (05:31→18:27)
--- NOTE | 2024-04-30 06:00 | PTCARENOTE ---
pre-op meds given. family at bedside. all questions answered.
[2024-04-30 07:39] LABS: ACT+ - POC 112 Seconds (82-134)
[2024-04-30 07:39] LABS: Urine Albumin Negative (Neg - Trace); Urine Bilirubin Negative (Negative); Urine Character Clear (Clear); Urine Color Yellow; Urine Glucose Negative (Negative); Urine Ketone Negative (Negative); Urine Leukocyte Negative (Negative); Urine Nitrite Negative (Negative); Urine Occult Blood 2+ (Negative); Urine Urobilinogen Negative (Neg - 1+)
[2024-04-30 07:43] LABS: B.E. - POC 2.9 mmol/L; Glucose - POC 129 mg/dl (70-99); HCO3 - POC 26 mmol/L (21-28); Hematocrit - POC 25 % PCV (42-52); Hemodilution- POC No; Hemoglobin Calculated - POC 8.5; Ionized Calcium - POC 1.13 mmol/L (1.15-1.33); Lactate - POC 1.66 mmol/L (0.36-0.75); PCO2 - POC 34 mmHg (35-48); PO2 - POC 436 mmHg (83-108); Potassium - POC 3.2 mmol/L (3.5-5.1); Sodium - POC 134 mmol/L (136-145); Specimen Type - POC Arterial; pH - POC 7.49 (7.35-7.45)
[2024-04-30 08:04] LABS: Urine Squamous Cell 0-2 /LPF (Few)
[2024-04-30 08:06] LABS: Urine Bacteria Few (Negative)
[2024-04-30 09:22] LABS: ACT+ - POC 518 Seconds (82-134)
[2024-04-30 09:24] LABS: B.E. - POC 2.3 mmol/L; Glucose - POC 170 mg/dl (70-99); HCO3 - POC 27 mmol/L (21-28); Hematocrit - POC 28 % PCV (42-52); Hemodilution- POC No; Hemoglobin Calculated - POC 9.4; Ionized Calcium - POC 1.14 mmol/L (1.15-1.33); Lactate - POC 0.89 mmol/L (0.36-0.75); O2 Saturation %Calculated-POC 99.9 % (94-98); PCO2 - POC 42 mmHg (35-48); PO2 - POC 353 mmHg (83-108); Potassium - POC 3.1 mmol/L (3.5-5.1); Sodium - POC 138 mmol/L (136-145); Specimen Type - POC Arterial; pH - POC 7.42 (7.35-7.45)
[2024-04-30 09:51] LABS: ACT+ - POC 557 Seconds (82-134)
[2024-04-30 09:51] LABS: B.E. - POC 5.4 mmol/L; Glucose - POC 172 mg/dl (70-99); HCO3 - POC 29 mmol/L (21-28); Hematocrit - POC 21 % PCV (42-52); Hemodilution- POC Yes; Hemoglobin Calculated - POC 7.3; Ionized Calcium - POC 1.05 mmol/L (1.15-1.33); Lactate - POC 1.84 mmol/L (0.36-0.75); PCO2 - POC 39 mmHg (35-48); PO2 - POC 472 mmHg (83-108); Potassium - POC 3.3 mmol/L (3.5-5.1); Sodium - POC 136 mmol/L (136-145); Specimen Type - POC Arterial; pH - POC 7.49 (7.35-7.45)
[2024-04-30 10:23] LABS: B.E. - POC 0.5 mmol/L; Glucose - POC 189 mg/dl (70-99); HCO3 - POC 24 mmol/L (21-28); Hematocrit - POC 24 % PCV (42-52); Hemodilution- POC Yes; Hemoglobin Calculated - POC 8.3; Ionized Calcium - POC 0.95 mmol/L (1.15-1.33); Lactate - POC 2.85 mmol/L (0.36-0.75); PCO2 - POC 32 mmHg (35-48); PO2 - POC 491 mmHg (83-108); POC Comment CPB; Potassium - POC 5.8 mmol/L (3.5-5.1); Sodium - POC 136 mmol/L (136-145); Specimen Type - POC Arterial; pH - POC 7.48 (7.35-7.45)
[2024-04-30 10:26] LABS: ACT+ - POC 483 Seconds (82-134)
[2024-04-30 11:10] LABS: B.E. - POC 1.7 mmol/L; Glucose - POC 154 mg/dl (70-99); HCO3 - POC 26 mmol/L (21-28); Hematocrit - POC 24 % PCV (42-52); Hemodilution- POC Yes; Hemoglobin Calculated - POC 8.1; Lactate - POC 3.16 mmol/L (0.36-0.75); PCO2 - POC 38 mmHg (35-48); PO2 - POC 378 mmHg (83-108); Potassium - POC 4.6 mmol/L (3.5-5.1); Sodium - POC 139 mmol/L (136-145); Specimen Type - POC Arterial; pH - POC 7.44 (7.35-7.45)
[2024-04-30 11:14] LABS: ACT+ - POC 546 Seconds (82-134)
--- NOTE | 2024-04-30 11:14 | CM ---
Chart reviewed. Patient is in the OR today. Patient is independent of ADLS, lives with his in a split level house, [address], ambulates with a RW and SPC. Plan is for the patient to return home with CT Transitional RN and IV antibiotics x 6
weeks extending to 06/11. Referrals sent to [facility]. CM to follow
[2024-04-30 11:53] LABS: ACT+ - POC 514 Seconds (82-134)
[2024-04-30 11:56] LABS: B.E. - POC 2.6 mmol/L; Glucose - POC 137 mg/dl (70-99); HCO3 - POC 28 mmol/L (21-28); Hematocrit - POC 22 % PCV (42-52); Hemodilution- POC Yes; Hemoglobin Calculated - POC 7.4; Lactate - POC 3.62 mmol/L (0.36-0.75); O2 Saturation %Calculated-POC 99.9 % (94-98); PCO2 - POC 47 mmHg (35-48); PO2 - POC 349 mmHg (83-108); Potassium - POC 4.6 mmol/L (3.5-5.1); Sodium - POC 141 mmol/L (136-145); Specimen Type - POC Arterial; pH - POC 7.38 (7.35-7.45)
[2024-04-30 13:05] LABS: ACT+ - POC 115 Seconds (82-134)
[2024-04-30 13:10] LABS: B.E. - POC 1.1 mmol/L; Glucose - POC 181 mg/dl (70-99); HCO3 - POC 27 mmol/L (21-28); Hematocrit - POC 27 % PCV (42-52); Hemodilution- POC Yes; Hemoglobin Calculated - POC 9.3; Ionized Calcium - POC 1.24 mmol/L (1.15-1.33); Lactate - POC 4.86 mmol/L (0.36-0.75); PCO2 - POC 47 mmHg (35-48); PO2 - POC 140 mmHg (83-108); POC Comment POST; Potassium - POC 4.2 mmol/L (3.5-5.1); Sodium - POC 142 mmol/L (136-145); Specimen Type - POC Arterial; pH - POC 7.36 (7.35-7.45)
[2024-04-30 14:07] LABS: ACT+ - POC 752 Seconds (82-134)
[2024-04-30 14:20] LABS: ACT+ - POC 346 Seconds (82-134)
[2024-04-30 14:21] LABS: B.E. - POC -0.9 mmol/L; Glucose - POC 167 mg/dl (70-99); HCO3 - POC 25 mmol/L (21-28); Hematocrit - POC 23 % PCV (42-52); Hemodilution- POC Yes; Hemoglobin Calculated - POC 7.7; Ionized Calcium - POC 0.81 mmol/L (1.15-1.33); Lactate - POC 4.32 mmol/L (0.36-0.75); O2 Saturation %Calculated-POC 99.9 % (94-98); PCO2 - POC 45 mmHg (35-48); PO2 - POC 327 mmHg (83-108); Potassium - POC 5.4 mmol/L (3.5-5.1); Sodium - POC 140 mmol/L (136-145); Specimen Type - POC Arterial; pH - POC 7.35 (7.35-7.45)
[2024-04-30 14:30] LABS: ACT+ - POC 269 Seconds (82-134)
[2024-04-30] MEDS: LIDOCAINE 4% PATCH TOPICAL (14:35)
[2024-04-30] MEDS: LIPITOR PO (14:35)
[2024-04-30] MEDS: NON-FORMULARY ITEM TOPICAL (14:35)
[2024-04-30] MEDS: TYLENOL PO ×2 (14:36→22:25)
[2024-04-30] MEDS: NEURONTIN PO ×2 (14:36→18:18)
[2024-04-30] MEDS: NOVOLOG FLEXPEN SC ×2 (14:36→18:18)
[2024-04-30 14:37] LABS: B.E. - POC 1.5 mmol/L; Glucose - POC 191 mg/dl (70-99); HCO3 - POC 27 mmol/L (21-28); Hematocrit - POC 24 % PCV (42-52); Hemodilution- POC Yes; Hemoglobin Calculated - POC 8.3; Ionized Calcium - POC 0.99 mmol/L (1.15-1.33); Lactate - POC 4.67 mmol/L (0.36-0.75); O2 Saturation %Calculated-POC 99.8 % (94-98); PCO2 - POC 44 mmHg (35-48); PO2 - POC 240 mmHg (83-108); Sodium - POC 142 mmol/L (136-145); Specimen Type - POC Arterial; pH - POC 7.39 (7.35-7.45)
[2024-04-30 14:41] LABS: ACT+ - POC 520 Seconds (82-134)
[2024-04-30 14:52] LABS: ACT+ - POC 120 Seconds (82-134)
[2024-04-30 14:56] LABS: B.E. - POC 0.7 mmol/L; Glucose - POC 184 mg/dl (70-99); HCO3 - POC 26 mmol/L (21-28); Hematocrit - POC 26 % PCV (42-52); Hemodilution- POC Yes; Hemoglobin Calculated - POC 8.7; Ionized Calcium - POC 1.21 mmol/L (1.15-1.33); O2 Saturation %Calculated-POC 96.6 % (94-98); PCO2 - POC 43 mmHg (35-48); PO2 - POC 89 mmHg (83-108); POC Comment POST; Potassium - POC 4.1 mmol/L (3.5-5.1); Sodium - POC 144 mmol/L (136-145); Specimen Type - POC Arterial; pH - POC 7.39 (7.35-7.45)
--- NOTE | 2024-04-30 15:33 | W.PN.CT.SURG ---
CT Surgery Operative Note
-
CARDIAC SURGERY OPERATIVE REPORT
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
Postoperative Diagnosis: Same
Procedure(s) Performed:
1. Ultrasound-guided access of bilateral groins using Seldinger technique and placement of 5 Samoan sheath
2. Redo sternotomy with extensive adhesiolysis, modifier 22
3. Resection of all pacemaker leads and defibrillation coil
4. Explant of prior HEALTH POLICY NURSE ICD from [employer]
5. Implant of right atrial, right ventricular, left ventricular epicardial leads
6. Implant of defibrillator coil towards the LV aspect of the heart, left lateral
7. Mitral valve replacement, chordal sparing [29 mm device with placement of Hubbell-Duncan cord to reinforce and support the posterior medial papillary muscle head]
8. Tricuspid valve repair [30 mm band annuloplasty]
9. Aortotomy with exploration and inspection of the aortic valve
10. Placement of temporary ventricular pacing wires backup
11. Transesophageal echocardiography
12. Open saphenous vein harvest, CABG was not performed due to dense adhesions towards the prior GOODRICH to LAD and scar overlying the ramus intermedius
Date of Surgery: 04/30/2024
Comorbidities:
1. 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
2. Prior cardiac surgery and CABG
3. Osteomyelitis of the thoracic vertebrae
4. Hyperlipidemia
5. Hypertension
6. CAD
7. Chronic heart failure with preserved left ventricular ejection fraction
8. History of cholelithiasis and gallstone pancreatitis
Attending Surgeon: Lemuel Nicholson MD, MS
Assistants: Miguelina Graves PA-C (present and necessary to assistant professor of drama, retraction, suction, exposure, suture management, and wound closure under my direction)
Anesthesiology: Carlos Dover MD and Herbert Lopez CRNA
Scrub and Circulating RNs: Florida Stallworth, RN, Suzy Webber, PRATEEK / Francisco Salcido RN, Julio C Levy
Roller Mill Operator: Kwame Agustin CCP & Ozzie Newton [facility]
Anesthesia: GETA
EBL: per perfusion records
Products: 2 plts and 5 prbcs
CPB Time: 223 minutes
Aortic Cross Clamp Time: 157 minutes
Indication(s) for Procedures: This is a 79-year-old male who presented initially with fevers, chills, and neck and back pain. He was found to have a significant vegetation and positive cultures for E faecalis. Transesophageal echocardiogram
demonstrated significant vegetations on his existing pacemaker and defibrillator coils/leads as well as vegetations on his mitral valve with severe destruction of both anterior and posterior leaflets resulting in insufficiency. There was
questionable tricuspid valve insufficiency. There is also a vegetation located on his aortic valve. Given his presentation, he was offered high risk surgical resection of his leads and device as well as very likely valve replacement/repair. I
quoted him an approximate 5 to 10% risk of mortality within 30 days, both he and the family decided to move forward.
Aortic Valve Description: Trileaflet valve, no significant vegetations located on the valve.
Mitral Valve Description: Heavily destroyed anterior and posterior leaflets with vegetations on both.
Tricuspid Valve Description: Dilated annulus mild adherence to pacemaker leads which was divided sharply.
Findings: His left ventricular ejection fraction preoperatively was 55% with no significant regional wall motion abnormalities. Following surgery his EF remained the same at 50-55 percent with no new regional wall motion abnormalities. After an
extensive period of dissection and identifying his previous GOODRICH and freeing of the base and apex of his heart, he was centrally cannulated and cardiopulmonary bypass was instituted. Additional dissection of scar tissue was performed. This
necessitated at least another 30 minutes of operating time in order to fully free up the heart for placement of his LV leads. I initially tried to free up as much around his GOODRICH to LAD anastomosis, however there was dense adhesions and scar
towards the lateral aspect of his heart towards the left atrial appendage. Once this was done, I attempted to identify the ramus intermedius that was affected. This was likely located underneath an area of dense scarring and so was unable to be
identified on the epicardial surface easily. Given that his presentation was not ACS, I opted to abort coronary artery bypass grafting and moved onto the main reason for his operation. Despite clamping what I thought was his GOODRICH graft, there was
still antegrade flow down the graft into the LAD resulting in some mild cardiac cavity. Therefore I elected to cooled down to 30 �C and once the right atrium was open, I placed a pursestring suture around the coronary sinus after extracting all
leads and gave direct ostial retrograde cardioplegia with high K which resulted in effective myocardial quiescence. All leads were taken and pulled down from the SVC and resected. Their myocardial attachments were cut and the leads as well as the
vegetation was sent off for pathological assessment and culture. The fossa ovalis was then opened longitudinally with an 11 blade. Incision was then enlarged with Davis scissors. His tissue quality was quite poor and friable given his active
state. The mitral valve was exposed and the vegetations on the anterior leaflet was resected and sent off as well for culture. As the anterior leaflet the mitral valve was destroyed and the midportion of P2 was destroyed, this was resected. Most
of the posterior cords were spared and additional cortex suture was placed towards the posterior medial papillary muscle head anchored to the annulus and the valve to support the LV. 13 pledgeted 2 Ethibond sutures were placed from LV through
annulus through sewing cuff of the valve which was then parachuted into place and secured with core knots. The transseptal incision was then closed with 4-0 Prolene in a running layer. As the tissue quality was quite poor, large bites were
unnecessary. This somewhat distorted the septal leaflet of the tricuspid valve and so I elected to repair the annulus that was already mildly dilated. This was done with a 30 mm triad band using a total of 10 nonpledgeted 2 Ethibond sutures
secured with core knots. The right atrium was then closed with 4-0 Prolene in a running fashion. Next, small aortotomy was created approximately 2 cm above the sinotubular junction in an oblique fashion. Eyedrops echo was placed into the LV and
careful inspection was performed on all 3 leaflets which revealed no obvious vegetations. I elected to leave the aortic valve alone in the close aortotomy in 2 layers with 4-0 Prolene in a running fashion per usual. Epicardial leads were also sewn
onto the LV laterally, the RV at the base, and the right atrial appendage straddling the right atriotomy. The defibrillation coil was then placed and draped over the LV left lateral leg and secured to the pericardium. Once were off cardiopulmonary
bypass for evaluation of the mitral, tricuspid, and interatrial septum was performed. There was a shunt across the interatrial septum at the previous septotomy repair site which looked to mild. There was trace to mild tricuspid valve
insufficiency. There was no significant aortic valve insufficiency. I had disclosed to the family that a portion the saavedra cinching the mitral valve prosthesis was left in place un-intentionally and so I had to reinstitute cardiopulmonary bypass
and rearrest and entered via the left atrium and remove the saavedra which took a total of approximately 5 minutes. While in there, additional [id number]-gc-[id number] suture was placed at the interatrial septum where there was a shunt with good effect. He
came of a cardiopulmonary bypass second time with no significant events, his pacemaking leads had excellent thresholds and sensing, and there is no longer a shunt across his interatrial septum and his mitral valve had a mean gradient of 2 and was
functioning well with normal leaflet excursion. The new HEALTH POLICY NURSE ICD was implanted towards the right pec after tunneling through the second intercostal space.
Specimen(s): Pacemaker leads and defibrillator coil, mitral valve leaflets.
Prosthesis:
1. Hubbard mitral's mitral valve prosthesis, biological valve, 29 mm, serial #[id number]
2. Medtronic 30 mm triad band, serial number [id number]
3. Medtronic epicardial leads: Right atrium [L EN 421136H], right ventricle [L EN 231026K], left ventricle [L EN 409608Z], defibrillator coil [TCR [id number]]
4. Medtronic HEALTH POLICY NURSE�ICD [serial number [id number]]
Description of Procedure: The patient was taken to the operating room. Their identity and procedure to be performed were verified and they were positioned supine on the operating table. Induction via general anesthesia with endotracheal intubation
was performed and central venous access and arterial monitoring were inserted. A preoperative transesophageal echocardiogram was performed to assess cardiac function and valvular function. The patient was then prepped and draped from chin to feet in
a sterile fashion. A preoperative time-out was performed with all members of the team present. Ultrasound was used to access both groins, the right common femoral vein was accessed using Seldinger technique with placement of a 5 Samoan sheath and
flushed with heparinized saline. The left common femoral artery was then accessed above the bifurcation with a 5 Samoan sheath using Seldinger technique and micropuncture. Simultaneous open Ar[place] of saphenous vein was performed of the right
thigh. A midline chest incision was performed along extraction of a total of 6 median sternotomy wires. Using an oscillating saw, the anterior table was entered followed by rakes at the xiphoid and division of the posterior table using straight
Kinney scissors. Laminar spreaders were used to separate the sternum with additional sharp dissection and separation the posterior table until the manubrium was free. Both the left and the right hemisternum was then elevated and the heart was freed
off the posterior aspect of the sternum. A median sternotomy retractor was then placed and gently spread. The initial plane of dissection was towards the base of the heart and the base of the RV off of the diaphragmatic surface. There
was a nice plane here which was then followed towards the apex and towards the right atrium. The pericardium had been closed and so this was traced on the anterior surface of the heart and heart was freed off the pericardium after placing multiple
pericardial stays. The innominate vein was isolated. The aorta was circumferentially dissected and freed in the area of the GOODRICH to LAD was identified using a Doppler probe. I freed up as much of the heart as I could before instituting
cardiopulmonary bypass. At this point full heparinization was given. The aortic cannulation site was chosen where it was soft, pliable, and free of calcium. Cannulation was performed with an arterial cannula in the proximal arch of the aorta,
angled metal tip cannular in the superior vena cava and straight bendable cannula in the inferior vena cava. The arterial cannula line had an appropriate bounce and correlating pressures. Next, a root vent/antegrade cannula was inserted into the
ascending aorta. The ACT was confirmed to be over 400 and retrograde autologous priming was performed before commencing cardiopulmonary bypass. Additional dissection was performed towards the LV and apex freeing up the lateral aspect of the heart.
I attempted to identify the ramus intermedius here however there is dense scarring towards the previous GOODRICH to LAD and left atrial appendage. Further mobilization resulted in tearing of the myocardium here and so I elected to abort CABG. The
pulmonary artery was away from the aorta to facilitate a clamp site. The oblique sinus was developed and the space space between the SVC and RPA. The aortic cross-clamp was placed after decreasing the flow on the bypass and mean arterial
pressure. A total of 1.2L initial dose of antegrade Del-Nido cardioplegia solution was given and planned for re-dosing every 60 minutes as necessary. There was rapid electro-mechanical arrest of the heart at 300 cc of cardioplegia. The left
ventricle was observed for distention on echocardiogram and manual palpation. Cold slush was placed into a lap on the RV and we systemically cooled to 32 degrees centigrade. Despite clamping the fat pad and GOODRICH, there was some electrical/myocardial
activity, and so I snared both SVC and IVC and entered the RA. The leads were cut out, and purse string was place around the coronary sinus and a retrograde was placed directly with intermittent retrograde cardioplegia given to keep myocardial
quiescence along with high potassium. Once the heart was fully arrested was rotated medially as best I could and LV leads were placed along the lateral margin towards the AV groove sewn into place with 5-0 Prolene.
Carbon dioxide was used to flood the field. I then sharply entered the fossa ovalis and extended the incision longitudinally. Retractors were placed in order to expose the mitral valve. Mitral valve was replaced as described above using a total
of 13 pledgeted 2-0 Ethibond sutures securing the valve with a core knot. 4-0 Prolene was then used to close the interatrial septum which was quite friable. Any remnants of the leads were then extracted and sharply taken with a 15 blade. There
was some adherence of the tricuspid valve to the leads. The annulus appeared to be dilated and with saline testing had leakage. I elected to repair the valve using 10 nonpledgeted 2 Ethibond sutures from the mid septal portion of the leaflet to
the anterior septal commissure securing a [address] This was done with core knots. The right atriotomy was then closed with 4-0 Prolene in a running fashion. The snares were then released from the SVC and IVC and a small aortotomy was
then created. The aortic valve was inspected and found to be free of any significant vegetations or destruction. The aortotomy was closed in 2 layers using 4-0 Prolene with pledgets at each apex. Additional right atrial leads were then placed
straddling the incision. Additional RV leads were placed towards the base of the heart. The defibrillator coil was then draped over the lateral aspect of the heart towards the LV side and secured onto the epicardial surface.
De-airing maneuvers were performed and temporary ventricular pacing wire was placed at the base of the right ventricle as a backup. The patient was placed in a Trendelenburg position and flows on bypass were lowered. The aortic cross clamp was
removed and flows were slowly brought back up. A [employer] patient care representative was here in order to test all the leads and found to have excellent thresholds and sensing. Transesophageal echocardiography revealed ventricular function was normal,
however, there was a mild intra-atrial shunt at the previous septotomy repair site. There is no significant aortic valve insufficiency, there is no significant tricuspid valve insufficiency. The RV function was normal. Once de-airing was
satisfactory the left ventricular and root vents were removed. After verifying acceptable parameters, we initiated weaning from cardiopulmonary bypass. Once we were off cardiopulmonary bypass, the venous cannulas was clamped and removed
sequentially. A test dose of protamine was administered and the patient was monitored for any adverse reaction before resuming protamine. Once half of the protamine dose was delivered, pump suckers were turned off and the systolic blood pressure was
lowered for aortic decannulation. The aortic cannula was removed and purse strings were tied down. All cannulation sites were oversewn with a 4-0 prolene. On completion echocardiogram, I noticed that the shunt had increased at the interatrial
septal defect, and that the mitral valve leaflets were not moving with normal excursion. I realized that a portion of the valve saavedra was still left in place and so full heparinization was given and we reinstituted cardiopulmonary bypass using
central aortic and 25 femoral venous percutaneous cannula. Heart was arrested with a total of 600 of antegrade cardioplegia and the left atrium was accessed at the Sondergaard's groove. The saavedra was removed without issue and the intra-atrial
septum was reinforced after identifying the area of leakage. This was done with 4-0 Prolene in a [id number] suture. The left atrium was then closed with 3-0 Prolene in a running fashion. Additional de-airing maneuvers were then performed and
the patient was placed into Trendelenburg position and flows were lowered in anticipation of removing the cross-clamp. Flows were then lowered on cardiopulmonary bypass per usual after de-airing was acceptable. The left atrial suture line was
inspected and hemostasis was confirmed. All cannulation sites were then reinforced with 4-0 Prolene. Mediastinal hemostasis was obtained. Using a red rubber catheter, the leads were then tunneled out the second costal space on the patient's right
and towards the right pec. A flap was then elevated in order to make space for the new ICD HEALTH POLICY NURSE. All connections were made and verified to be appropriate by the [employer] rep. The pacemaker was then placed into the pocket and the fascial layer was
closed over top. Two #24 Zenon drains were placed within the pericardium and additional 19 Samoan Zenon tenderness pacing to the left chest. The sternum was approximated with 4 #7 single and 3 #8 double stainless steel wires. Fascia was
approximated with #1 vicryl suture. The subcutaneous, dermis and epidermis were closed in layers in a running fashion. The skin wound was cleansed and dressed.
All instrument, sponge, and needle counts were confirmed to be correct x 2 at the end of the operation. The patient was transferred to the cardiac intensive care unit in critical but stable condition.
I, Dr. Lemuel Nicholson, was present, scrubbed for, and performed all critical elements of this procedure.
Lemuel Nicholson MD, MS
Cardiothoracic Surgeon
[facility]
This dictation was created using the [employer] dictation system. Please excuse any grammatical, typographical, or 'sound alike' errors
[2024-04-30 16:09] LABS: Glucose - Point of Care 190 mg/dl (70-99)
[2024-04-30 16:25] LABS: ACT-LR - POC 153 Seconds (116-155)
--- NOTE | 2024-04-30 16:38 | PTCARENOTE ---
Received pt from [facility] at 1600; pt intubated and sedated; 100% V paced on monitor and VSS; Levo, Epi, Vaso, Dobutamine, Insulin, and Precedex, see flow sheet for details; Neftaly Rivers in RV pulled per CVNP order, Left A-line and PIV x2 all lines
leveled and zeroed; Lungs diminished; CT x3 to -20 to wall suction no air leak and no crepitus noted; ETT 8 24 @ lip; SIMV 40%/5/5/500/14; hypoactive bowel sounds; Santana catheter draining blood tinged urine; palpable pulses throughout; no edema
noted; all surgical sites C/D/I; see nursing documentation.
FFP x2 given per order
CVNP at bedside ACT 153, Left femoral A-line pulled by CVNP
[2024-04-30 16:43] LABS: B.E. -1.9 mmol/L; HCO3 23.7 mmol/L (21-28); Ionized Calcium 1.15 mMOL/L (1.15-1.33); PCO2 43 mmHg (35-48); PO2 162 mmHg (83-108); Potassium 4.5 mMOL/L (3.5-5.1); Sodium 138 mMOL/L (136-145); pH 7.35 (7.35-7.45)
[2024-04-30 16:46] LABS: Mixed Venous O2 Saturation 77.2 %
--- NOTE | 2024-04-30 16:46 | W.PN.CARDCBS ---
Addendum entered and electronically signed by Omari Ware MD 04/30/24 18:52:
Patient seen postoperatively. Still on Pitressin at this time, insulin, other pressors being weaned. Sedation is off, still intubated.
Data reviewed. Note below reviewed. Agree with findings, assessments and recommendations.
Lungs are diminished but clear, regular rate and rhythm without murmurs, chest tubes in place, extremities intact, no edema thoracic incisions intact.
Current rhythm is normal sinus in the 90s/close to 100 with ventricular pacing.
Impression:
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
tricuspid valve band annuloplasty.
Continue supportive care.
Original Note:
Today's Communication / Plan
-
continue post op care
wean pressors as able
continue abx per ID
Impression / Plan
-
PCP: Dr. Mike Doe
Cardiology: Dr. Servin of [facility]
Impression:
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
Sepsis
Vertebral osteomyelitis
Hypotension
Abnormal echo suggesting pacer wire vegetation in the RV and vegetation on the mitral valve 04/16/2024
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
s/p [employer] ICD 12/28/16
-Device interrogation 04/17/2024 shows stable lead sensing, pacing threshold, and lead impedances; no AT AF; no VT VF since last interrogation or tachytherapies; discussed with [employer] bottling equipment sales representative, Jose Adan, patient's device is MRI
compatible and safe; if patient to need MRI, would place patient DOO (preferable) or VOO at 80 bpm; patient is not reported as dependent
CAD with IA
s/p 3 mm Taxus LUCIO to unknown vessel 10/15/05
s/p CABG x 2 2006 at [facility]
Atrial fibrillation of unclear chronicity and duration
Chronic Eliquis OAC
HLD
DM2
remote former smoker
s/p lap grace 01/2024
Echo 04/16/2024: EF 50 to 55%, normal regional wall motion, pacer wire seen in the RV with large density (1.7 x 1.9 cm) on pacemaker which could be consistent with vegetation, thickened mitral valve leaflets with MAC and peak/mean 8/4 mmHg, mobile
echodensity on the MV consistent with vegetation, at least moderate eccentric MR, aortic sclerosis without stenosis, no aortic regurgitation, mild TR with PAP 20 to 25 mmHg
Plan:
-He presented with neck pain. Admitted with osteomyelitis and enterococcal bacteremia in the setting of prior cholecystectomy 01/2024. Found to have evidence of endocarditis with pacemaker lead involvement.
-Status post redo sternotomy with extensive adhesiolysis, resection of all pacer and ICD leads as well as [employer] ICD, implant of RA, RV, LV epicardial leads and implant of [employer] ICD, chordal sparing bio MVR, TV repair. CABG was not
performed due to dense adhesions. Did not receive AVR as inspection showed no significant vegetations on the valve
-Currently remains intubated and sedated
-On levo at 3, dobutamine at 5, vaso at 0.02, epi at 2, insulin at 6
-Received 5 units PRBCs, 2 FFP, 2 platelets. hgb 10.1, plts 204. follow
-he was set to DDDR at 70 in OR, however presently device is tracking his knik atrial rate which is in 90s. currently asensed vpaced. follow as pressors weaned
-Continue IV antibiotics per ID.
-continue post op care
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
PREADMIT DATA: Patient came to [facility] with neck pain on 04/15/24 and was admitted with osteomyelitis and cardiology is now consulted for eval of abnormal echo. Patient has routine cardiology care at [facility] - Dr. Servin. Patient was admitted to 02/03/24
until 02/06/24 with abdominal pain and had lap grace 02/05/24. Patient was then in the ER 02/27/24 for hypotension and URI symptoms at the recommendation of his PCP, but BP was normal and no evidence of acute process so patient was sent home. Patient
came back to ER 03/02/24 with chest and back pain and troponin negative and he was given toradol and valium for spasm. Patient was sent to [facility] for rehab briefly however then went home. Patient came to last night with neck pain that
started Saturday04/11/24. He reports limited neck mobility and development of fever. He was noted by imaging to have evidence of osteomyelitis then underwent echo which showed large mobile echodensity consistent with mitral valve vegetation, MR, and
large density on ppm also with concern for vegetation. Blood cultures prelim positive. cardiology consulted for evaluation.
Progress Note - Director Of Outpatient Services
Subjective
Date of Service: April 30, 2024
intubated, sedated
Objective
Labs:
Labs
Hgb Cancelled 04/30/24 18:30
Hct Cancelled 04/30/24 18:30
Plt Count Cancelled 04/30/24 18:30
PT 15.7 Sec (11.4-14.6) H 04/30/24 04:35
INR 1.19 04/30/24 04:35
APTT 40.1 Sec (23.4-35.0) H 04/21/24 03:49
Sodium 134 mmol/L (135-145) L 04/30/24 04:35
Potassium 3.7 mmol/L (3.5-5.1) 04/30/24 04:35
BUN 12 mg/dl (9-20) 04/30/24 04:35
Creatinine 0.7 mg/dL (0.7-1.3) 04/30/24 04:35
Glucose 132 mg/dl (70-99) H 04/30/24 04:35
Vital Signs and I&O:
Vital Signs
Temp Pulse Resp BP Pulse Ox
97.8 F 112 0 110/62 98
04/30/24 16:00 04/30/24 16:15 04/30/24 16:15 04/30/24 04:32 04/30/24 16:15
Vital Signs
Temp Pulse Resp BP Pulse Ox
97.8 F 112 0 110/62 98
04/30/24 16:00 04/30/24 16:15 04/30/24 16:15 04/30/24 04:32 04/30/24 16:15
Intake & Output
04/28/24 04/29/24 04/30/24 05/01/24
07:59 07:59 07:59 07:59
Intake Total 1388 / 1388 344 / 344 1228 / 1228 71.5 / 71.5
Output Total 1075 / 1075 1200 / 1200 3750 / 3750 300 / 300
Balance 313 / 313 -856 / -856 -2522 / -2522 -228.5 / -228.5
Physical Exam
Physical Exam
GEN: No distress, intubated
HEENT: supple, mmm
LUNGS: CTA B/L, no wheezes
CV: Reg, S1/S2, no murmur
EXT: No cyanosis, clubbing, edema
NEURO: sedated
SKIN: Warm, pink, dry. No rash. Sternotomy and R chest incisions c/d/i. CTs in place
[2024-04-30 16:47] LABS: Hemoglobin 10.1 g/dL (13.0-18.0); Platelet Count 204 10^3/uL (130-400)
[2024-04-30] MEDS: CALCIUM GLUCONATE 100 IV (16:52)
[2024-04-30 16:54] LABS: APTT 35.4 Sec (23.4-35.0); INR 1.82; PT 21.5 Sec (11.4-14.6)
--- NOTE | 2024-04-30 16:58 | W.PN.UPDATE ---
Update Note
Progress Note Update
Briefly this is a 79-year-old male admitted on 04/16/2024 with fever, neck, and back pain. He was found to have Enterococcus faecalis bacteremia, vertebral osteomyelitis, and vegetations on his mitral/aortic valves and pacer leads. He was seen by
infectious disease team and treated with ampicillin and Rocephin. Blood cultures cleared on 04/20/2024.
IV fluids: 1000
U.O.:� 1700
UF:�
Blood:� 5PRBC, 2 plts
Wires:� bipolar V-wire
Inotropes:� Epi @ 2, Dobutamine @ 5
Pressors:� levophed @ 4, Vaso @ 0.02
Sedatives:� Precedex @ 0.5
�
NEURO: sedated, pupils +2mm B/L
RESP: #8OT @22cm> 500/40%/14/5. Lungs clear B/L. 2 mediastinal (50cc on arrival) and L pleural (50cc on arrival) chest tubes to -20cm suction. Sanguineous drainage, no air leak, no crepitus
CV: RRR +S1, S2, no S3, no�rub, no murmur. Dermabond to median sternotomy and B/L subclavicular incisions. RIJ w/Roberts locked @ 45cm. (unable to float into PA)
ABD: round, soft, no BS
EXT: no edema, +2/4 DP pulses B/L, no femoral bruit, LLE JOE wrap intact; left radial A-line intact
: Santana with clear sam color urine
�
A/P: POD #0 s/p redo sternotomy mitral valve replacement, chordal sparing [#29 mm device with placement of [place]-Duncan cord to reinforce and support the posterior medial papillary muscle head], tricuspid valve repair [#30 mm band annuloplasty],
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
No CABG due to dense adhesions overlying ramus
ELLIE: report pending
- wean sedative to assess neuro status with goal of extubation
- keep SBP 90s-130
- will need instruction regarding antibiotic prophylaxis for dental and invasive procedures
# Enterococcus faecalis endocarditis
- Preliminary surgical pathology of mitral valve with gram-positive cocci
- Continue ampicillin and Rocephin with anticipated end date of
- Will need double-lumen PICC placed prior to discharge
- Will need weekly CBC, CMP, CRP, and ESR sent to outpatient ID
- Will need home infusion service for antibiotics
# CAD (90% OM)
- patent GOODRICH to LAD
- will require ASA, statin, beta-an
# HFpEF
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
# Chronic Atrial fibrillation on Eliquis
- currently maintaining SR (a sense, v paced)
- will assess shelter AC need after lines/tubes removed and PICCplaced
�
# acute surgical blood loss anemia-expected
- trend CBC
�
# T2DM (A1C 6.9)
- insulin infusion x 48h, then resume Glargine, Jardiance
�
# right T10-11 facet septic arthritis
- multimodal pain regime
# BPH
- begin Flomax prior to Santana removal
[2024-04-30 16:59] LABS: Blood Urea Nitrogen 10 mg/dl (9-20); Estimated Creatinine Clearance 92 ml/min; Glucose 180 mg/dl (70-99); Magnesium 3.5 mg/dl (1.6-2.3)
[2024-04-30 17:10] LABS: Glucose - Point of Care 190 mg/dl (70-99)
[2024-04-30] MEDS: DILAUDID 0.5 MG IV ×2 (17:12→22:25)
[2024-04-30] MEDS: ANCEF 10 IV ×2 (17:14)
[2024-04-30] MEDS: NSS 500 IV (17:14)
[2024-04-30] MEDS: AMPICILLIN IV ×2 (17:14)
[2024-04-30] MEDS: ADRENALIN 250 IV (17:14)
[2024-04-30] MEDS: PITRESSIN 100 IV (17:15)
--- NOTE | 2024-04-30 18:16 | PTCARENOTE ---
Chest tube dressing with moderate red blood; CVNP updated and in to assess patient; assessment unchanged, CVNP redressed CT sites.
[2024-04-30] MEDS: PACERONE PO (18:18)
[2024-04-30 18:23] LABS: Glucose - Point of Care 156 mg/dl (70-99)
[2024-04-30] MEDS: NOVOLOG FLEXPEN-MODERATE RESISTANCE SC ×2 (18:25→18:26)
[2024-04-30] MEDS: LOW STRENGTH ASPIRIN PO (18:26)
[2024-04-30] MEDS: TOPROL XL PO (18:26)
--- NOTE | 2024-04-30 18:58 | CON.INTV ---
Addendum entered and electronically signed by Олег Blackwell MD 04/30/24 19:14:
Critical Care time [35] mins -- The patient is admitted for acute critical illness for the treatment of vital organ failure and/or prevention of further life-threatening conditions. Total care includes time spent in review of history, physical exam,
medications, hemodynamic/ventilator parameters, laboratory data, imaging and discussion with house staff, pharmacy, respiratory therapy, window glazier, and nursing.
Original Note:
Consultation
Consultation Request
Date/Time Consultation Requested: 04/30/2024
Date/Time Consultation Performed: 04/30/2024
Requesting Provider: Lemuel Nicholson
Performing Provider: Олег Blackwell
Reason for Consultation: Post-op management
Medical History
-
Chief Complaint: Post cardiac surgery
History of Present Illness:
Patient is currently intubated and sedated during my evaluation so information is primarily obtained from patient's chart and update from nursing at bedside.
In brief this is a 79-year-old gentleman who was admitted last month with fever and neck and back pain. He was found to have enterococcal bacteremia which was complicated by vertebral osteomyelitis as well as endocarditis with vegetations on both
aortic and mitral valve. Patient's pacer leads were also noted to be involved. Patient has been followed by infectious disease service and is on ampicillin and Rocephin dual therapy for Enterococcus bacteremia. Patient cleared the infection on
04/20. In view of endocarditis due to bacteremia and involvement of pacer leads, patient was taken to the OR for redo sternotomy with extensive adhesiolysis resection of all pacer and ICD leads as well as ICD implant of RA, RV, LV epicardial leads
and implant of [employer] ICD, chordal sparing bio MVR, TV repair. CABG was not performed due to dense adhesions. Patient did not receive AVR as inspection showed no significant vegetation on the valve.
Postprocedure, patient arrived in CVICU intubated and sedated on pressors. Carpentry Teacher consultation was requested for further evaluation
Past medical history, history of atrial fibrillation, coronary artery disease status post PCI and CABG in the past, hypertension, hyperlipidemia, diabetes mellitus, BPH, history of cholecystectomy
Smoking history. Patient is a former smoker but I do not have details I will wait for patient to wake up for additional information.
Allergies / Home Medications
Allergies
Allergy/AdvReac Type Severity Reaction Status Date / Time
brimonidine Allergy Unknown Verified 04/15/24 20:51
enalapril Allergy Unknown Verified 04/15/24 20:51
metformin Allergy Unknown Verified 04/15/24 20:51
valsartan Allergy Unknown Verified 04/15/24 20:51
Home Medications
�Medication �Instructions �Recorded �Confirmed �Last Taken �Type
apixaban 5 mg tablet 5 mg PO BID Blood Clot 02/03/24 04/15/24 Unknown History
Prevention/Tx
atorvastatin 40 mg tablet 40 mg PO DAILY High Cholesterol 02/03/24 04/15/24 Unknown History
cholecalciferol (vitamin D3) 50 50 mcg PO DAILY Supplement 02/03/24 04/15/24 Unknown History
mcg (2,000 unit) tablet
cyanocobalamin (vitamin B-12) 1,000 mcg PO BID Supplement 02/03/24 04/15/24 Unknown History
1,000 mcg tablet
metoprolol succinate 200 mg 200 mg PO DAILY Blood Pressure 02/03/24 04/15/24 Unknown History
tablet,extended release 24 hr
spironolactone 25 mg tablet 50 mg PO DAILY Fluid 02/03/24 04/15/24 Unknown History
Retention/Swelling
tamsulosin 0.4 mg capsule 0.4 mg PO HS Urinary Issue 02/03/24 04/15/24 Unknown History
empagliflozin 25 mg tablet 25 mg PO DAILY Diabetes 04/15/24 04/15/24 Unknown History
(Jardiance)
furosemide 20 mg tablet 10 mg PO DAILY Fluid 04/15/24 04/15/24 Unknown History
Retention/Swelling
insulin glargine 100 unit/mL (3 30 unit SC HS Diabetes 04/15/24 04/15/24 Unknown History
mL) subcutaneous pen
latanoprost 0.005 % eye drops 1 drp BOTH EYES HS Eye Condition 04/15/24 04/15/24 Unknown History
omega 6-ccv-kjd-fish oil 1,000 mg 1 cap PO BID Supplement 04/15/24 04/15/24 Unknown History
(120 mg-180 mg) capsule (Fish Oil)
therapeutic multivitamin 1 tab PO DAILY Supplement 04/15/24 04/15/24 Unknown History
fluorouracil 5 % topical cream See Rx Instructions .Route 04/16/24 04/16/24 Unknown History
.COMPLEX Autoimmune Disorder
Review of Systems
-
Unable to Obtain full review of systems at this time due to: Patient Intubation
Hematologic/Lymphatic: Other
Vitals / Labs / Diagnostic Testing
Vital Signs
Temp Pulse Resp BP Pulse Ox
96.2 F L 102 14 132/77 99
04/30/24 18:00 04/30/24 18:05 04/30/24 17:00 04/30/24 17:06 04/30/24 18:05
Lab Data
04/30/24 16:08
Laboratory Results
04/30/24 04/30/24
04:35 16:08
PT 15.7 H 21.5 H
INR 1.19 1.82
APTT 35.4 H
pH 7.35
pCO2 43
pO2 162 H
HCO3 23.7
O2 Delivery Level
Microbiology
04/30/24 Unknown Heart Gram Stain - Preliminary
04/30/24 Unknown Heart Fungal Culture - Preliminary
Culture in progress.
Positive cultures are reported as soon as detected.
Final report to follow in four to five weeks.
04/30/24 10:13 Heart Gram Stain - Preliminary
04/30/24 10:13 Heart Fungal Culture - Preliminary
Culture in progress.
Positive cultures are reported as soon as detected.
Final report to follow in four to five weeks.
Diagnostic Testing:
Physical Exam
-
Exam:
Patient currently intubated and sedated on SIMV
HEENT, conjunctival pallor, ET tube in place
Chest. Good air entry, no wheezing
Cardiovascular, heart rate normal
Abdomen, soft, nontender
extremities, no edema
Assessment
-
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 POD #0
Patient currently on vaso, dobutamine and insulin infusion, titrate per protocol
Management of chest tubes per primary service
Intubated/sedated, initiate SAT when able, currently on volume SIMV, tidal volume 400, rate 14, PSV of 5 with a PEEP of 5. Patient breathing at 14 no spontaneous respiration noted during my evaluation
ABG 7.35, pCO2 43, PaO2 of 162.
Pain control
RASS goal of 0 to -1
Intubated for procedure, SBT trial when patient able to spontaneously breath
CXR reviewed, pleural plaques noted, ET tube in place
Extubate per protocol
Other medical comorbidities:
-Complicated enterococcal faecalis bacteremia with endocarditis of mitral and aortic valve with severe MR and infected pacemaker lead with vertebral osteomyelitis, continue antibiotic per infectious disease service currently on ampicillin and
ceftriaxone
-Diabetes mellitus, on insulin infusion per protocol
-Paroxysmal atrial fibrillation, apixaban on hold. Patient had been on Lovenox prior to surgery, currently on amiodarone, anticoagulation on hold
-History of coronary artery disease status post CABG in the past. Aspirin, Plavix
ICU team will follow along.
Data:
ELLIE
Normal biventricular size and systolic function without regional wall motion
abnormality.
Pacer wires seen with large echodensity prolapsing between the right atrium and
right ventricle through the tricuspid valve associated with the right
ventricular wire. There is a large bulbous portion (2. 4 x 1.46 cm) proximally
that tapers down along the course of the wire and into the right ventricle.
Echodensity consistent with vegetation seen on both anterior and posterior
leaflets of the mitral valve with associated severe mitral regurgitation.
Echodensity consistent with vegetation on the aortic valve, minimal aortic
regurgitation seen.
Complex atheroma in the descending aorta.
No prior TTE available for comparison.
CT AP
At T10-11, there is irregular bony destruction of the endplates at the disc space, and findings are highly suggestive of discitis and osteomyelitis. Slight prominence of paraspinal soft tissue at this disc space level on the axial images. There are
no gross findings that would suggest posterior epidural extension.
--- NOTE | 2024-04-30 19:00 | PTCARENOTE ---
bedside report received from previous RN. pt in bed, asleep. pt wakes to verbal stimuli, follows commands. V.paced on monitor via PPM, HR 105. B/L radial and DP pulses palpable. heart tones clear. epicardial wires intact set to back up VVI. Epi gtt
infusing @ 0.01mcg, SBP 110s, MAP 80s, Epi turned to off. Dobut gtt infusing @ 5mcg. B/L breath sounds present. pt on vent via ETT, set to SIMV 14/500/5/5/40%,. POX 99%. CT x3 intact to -20cm wall suction, drainage WNL, no air leak present. mouth
care provided. hypoactive bowel sounds present. Insulin gtt infusing per glycemic protocol. jimenez catheter intact, draining CYU. UO adequate. RIJ cordis intact w KVO infusing. all surgical sites stable. see worklist for full assessment, VS, and
interventions.
[2024-04-30] MEDS: ANCEF 5 IV (19:24)
[2024-04-30] MEDS: NON-FORMULARY ITEM 1 UNIT TOPICAL (19:25)
[2024-04-30] MEDS: ASPIRIN 300 MG RECTAL (19:25)
[2024-04-30] MEDS: SENOKOT-S PO (19:27)
[2024-04-30 19:56] LABS: Glucose - Point of Care 118 mg/dl (70-99)
[2024-04-30 20:06] LABS: B.E. 6.4 mmol/L; HCO3 30.5 mmol/L (21-28); Ionized Calcium 1.23 mMOL/L (1.15-1.33); O2 Saturation % 99.5 % (94-98); PCO2 41 mmHg (35-48); PO2 126 mmHg (83-108); Potassium 4.6 mMOL/L (3.5-5.1); pH 7.48 (7.35-7.45)
[2024-04-30 20:08] LABS: Mixed Venous O2 Saturation 66.3 %
[2024-04-30 20:12] LABS: Hematocrit 24.9 % (39.0-52.0); Hemoglobin 8.4 g/dL (13.0-18.0); Platelet Count 159 10^3/uL (130-400)
[2024-04-30 20:17] LABS: INR 1.46; PT 18.3 Sec (11.4-14.6)
[2024-04-30 21:19] LABS: Glucose - Point of Care 111 mg/dl (70-99)
[2024-04-30 21:50] LABS: B.E. 3.6 mmol/L; HCO3 27.7 mmol/L (21-28); Ionized Calcium 1.19 mMOL/L (1.15-1.33); O2 Saturation % 99.7 % (94-98); PCO2 39 mmHg (35-48); PO2 129 mmHg (83-108); pH 7.46 (7.35-7.45)
--- NOTE | 2024-04-30 22:00 | PTCARENOTE ---
ABG reviewed by CT PA. pt extubated by PIG LEAD MELTER HELPER to 6LNC without incident. no wheezing or stridor noted. POX 99%. IS 750. VSS.
[2024-04-30] MEDS: ZOFRAN 4 MG IV (22:25)
[2024-04-30] MEDS: XALATAN OPHTHALMIC SOLUTION 1 DROP BOTH EYES (22:25)
[2024-04-30 22:57] LABS: Glucose - Point of Care 102 mg/dl (70-99)
--- NOTE | 2024-04-30 23:00 | PTCARENOTE ---
VSS. V.paced on monitor, HR 100. Levo gtt at 2mcg. Dobut gtt @ 5mg. POX 94% on 6LNC. CT output and UO WNL. Insulin gtt maintained. all surgical sites stable. pt sleeping between care.
[2024-05-01] VITALS (16 sets, daily range): BP systolic 98–129; BP diastolic 44–73; BMI 28.1
[2024-05-01] MEDS: NEURONTIN PO (00:05)
[2024-05-01] MEDS: PACERONE PO (00:05)
[2024-05-01] MEDS: OFIRMEV 100 IV (00:06)
[2024-05-01] MEDS: AMPICILLIN 108 MG IV ×6 (00:10→20:03)
[2024-05-01 01:10] LABS: Glucose - Point of Care 93 mg/dl (70-99)
[2024-05-01 02:59] LABS: Glucose - Point of Care 99 mg/dl (70-99)
--- NOTE | 2024-05-01 03:00 | PTCARENOTE ---
no acute changes, VSS. V.paced via PPM, HR 70s-80s. Levo gtt off. Dobut gtt remains @ 5mcg. POX 99% on 3LNC. CT output and UO WNL. Insulin gtt maintained per protocol. pt tolerating ice. all surgical sites stable. AM labs drawn and sent. EKG done.
pt resting between care.
[2024-05-01 03:01] LABS: B.E. 6.1 mmol/L; HCO3 30.6 mmol/L (21-28); Ionized Calcium 1.19 mMOL/L (1.15-1.33); O2 Saturation % 99.7 % (94-98); PCO2 43 mmHg (35-48); PO2 113 mmHg (83-108); Potassium 4.5 mMOL/L (3.5-5.1); pH 7.46 (7.35-7.45)
[2024-05-01 03:02] LABS: O2 Therapy 4L NC
[2024-05-01 03:05] LABS: Mixed Venous O2 Saturation 75.2 %
[2024-05-01 03:08] LABS: Hematocrit 26.7 % (39.0-52.0); Hemoglobin 9.1 g/dL (13.0-18.0); Mean Corp Hgb Conc. 34.1 g/dL (33.0-37.0); Mean Corpuscular Hgb 29.1 pg (27.0-31.0); Mean Corpuscular Volume 85.3 fL (80.0-94.0); Mean Platelet Volume 9.9 fL (7.4-10.4); Platelet Count 171 10^3/uL (130-400); Red Blood Cell Count 3.13 10^6/uL (4.70-6.10); Red Cell Dist. Width 15.1 % (11.5-14.5); White Blood Cell Count 8.5 10^3/uL (4.8-10.8)
[2024-05-01] MEDS: DILAUDID 0.5 MG IV (03:10)
[2024-05-01 03:34] LABS: Blood Urea Nitrogen 13 mg/dl (9-20); Calcium 8.3 mg/dl (8.4-10.2); Carbon Dioxide 30 mmol/L (22-30); Chloride 106 mmol/L (98-107); Estimated Creatinine Clearance 92 ml/min; Glucose 100 mg/dl (70-99); Magnesium 2.6 mg/dl (1.6-2.3); Potassium 4.5 mmol/L (3.5-5.1); Sodium 139 mmol/L (135-145); eGFR > 60.00
--- NOTE | 2024-05-01 04:26 | W.PN.CT ---
Today's Communication / Plan
-
-pod #1
-no issues overnight
-extubated uneventfully @ 10pm
-mVO2 75.2. drips: Dobut 5 and Insulin. Levo is off
-CT outputs: 2 meds 105/185, L pleur 105/215 in 12/24 hrs
-preop metabolic alkalosis, was diuresed with Lasix preop. Consider Diamox for diuresis
-s/p 6 pRBCs total, 2 FFPs and 2 platelets
-Cr stable 0.6
-continue insulin
-wean off Dobut as tolerated
-on Ampicillin and Ceftriaxone. Follow intraop cultures. Followed by ID
-current meds (ASA, Plavix, Lopressor, Amio, Protonix, Lipitor)
-encourage IS, OOB
Assessment / Plan
-
Procedure(s) Performed by Dr. Nicholson on 04/30/24, pod #1
1. Ultrasound-guided access of bilateral groins using Seldinger technique and placement of 5 Cypriot sheath
2. Redo sternotomy with extensive adhesiolysis, modifier 22
3. Resection of all pacemaker leads and defibrillation coil
4. 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
5. Implant of right atrial, right ventricular, left ventricular epicardial leads
6. Implant of defibrillator coil towards the LV aspect of the heart, left lateral
7. Mitral valve replacement, chordal sparing [29 mm device with placement of [place]-Duncan cord to reinforce and support the posterior medial papillary muscle head]
8. Tricuspid valve repair [30 mm band annuloplasty]
9. Aortotomy with exploration and inspection of the aortic valve
10. Placement of temporary ventricular pacing wires backup
11. Transesophageal echocardiography
12. Open saphenous vein harvest, CABG was not performed due to dense adhesions towards the prior GOODRICH to LAD and scar overlying the ramus intermedius
-Endocarditis (Enterococcus faecalis) involving Aortic valve, Mitral valve, Tricuspid valve and BiV ICD
-Severe MR
-Bicuspid AV/trivial AI
-Mild TR
-Infected BiV ICD
-Hx ICM (EF 20%) S/P MRI compatible [employer] BiV ICD, 12/28/2016
-LVEF 50-55% per TTE 04/16/24
-Enterococcus faecalis UTI
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
-L3-S1 septic arthritis
-Soft tissue edema C5-C6 interspinous
-Fever (peaked @ 102.7)
-Leukocytosis (wbc peaked @ 27.1)
-Hx CAD S/P CABG x 1 (GOODRICH-LAD), 2005 (patent per cath 04/24)
-Single Vessel CAD (RI 90% ostial), per cath 04/24
-HTN
-HLD
-T2DM (hgb A1C 6.9, on insulin)
-A-fib (on Eliquis @ home)
-HALLIE
-BPH (on Flomax)
-DJD
-Interstitial fibrosis/asbestosis
-Former tobacco use
-S/p Lap Skylar, 02/05/24
-S/p removal of infected dental implants
-S/P L4/L5 Laminectomy, 2018
-Chronic diastolic heart failure with preserved left ventricular ejection fraction
-History of cholelithiasis and gallstone pancreatitis
-Acute postop blood loss anemia - s/p 6 pRBCs
-Acute postop coagulopathy - s/p 2 unit platelets and 2 FFPs
-Acute postop metabolic alkalosis
-Acute postop atelectasis
-Acute postop hypovolemia with subsequent hypervolemia
Discussed patient care with: Nursing and Care Team
Subjective
-
Date of Service: May 01, 2024
Objective Data
-
Lab Results
05/01/24 02:54
05/01/24 02:54
PT 18.3 Sec (11.4-14.6) H 04/30/24 19:47
INR 1.46 04/30/24 19:47
APTT 35.4 Sec (23.4-35.0) H 04/30/24 16:08
Vital Signs
Vital Signs
Temp Pulse Resp BP Pulse Ox
97.3 F 74 20 126/66 98
05/01/24 03:00 05/01/24 03:00 05/01/24 03:00 04/30/24 22:00 05/01/24 03:00
CT Intake/Output/Weight
04/30/24 04/30/24 05/01/24
06:59 18:59 06:59
Intake Total 324 / 1228 168.7 / 939.4 770.7 / 939.4
Output Total 1250 / 3750 690 / 1560 870 / 1560
Balance -926 / -2522 -521.3 / -620.6 -99.3 / -620.6
SaO2: 98
Physical Exam
-
General: Awake and AOx3
Cardiovascular: Regular rate & rhythm, No Murmurs and No Rub
Respiratory: Decreased Breath Sounds
Sternum: Stable
Incision: Clean, Dry and Intact
Extremities: No Edema (2+ DPs b/l)
Abdomen: soft, nontender, nondistended, + decreased bowel sounds
Data Reviewed
-
Lab Results: Results Reviewed
Medications: Active Meds Reviewed
Chest X-Ray: Report Reviewed and Image Reviewed
ECG: Report Reviewed and Image Reviewed
[2024-05-01] MEDS: ANCEF 5 IV ×2 (04:35→12:12)
[2024-05-01 05:06] LABS: Glucose - Point of Care 104 mg/dl (70-99)
[2024-05-01] MEDS: STERILE WATER FOR INJECTION 20 ML IV ×2 (05:42→18:04)
[2024-05-01] MEDS: DOBUTREX 500 MG 250 IV (05:42)
[2024-05-01] MEDS: ROCEPHIN 2000 MG IV ×2 (05:42→18:04)
[2024-05-01] MEDS: TYLENOL 1000 MG PO ×3 (05:43→21:10)
--- NOTE | 2024-05-01 06:00 | PTCARENOTE ---
Dobut gtt decreased to 3mcg per Dr. Nicholson.
[2024-05-01 07:00] LABS: Glucose - Point of Care 107 mg/dl (70-99)
[2024-05-01] MEDS: NOVOLOG FLEXPEN SC (07:44)
[2024-05-01] MEDS: BACTROBAN 2% OINTMENT 1 APPLIC NASAL ×2 (07:57→20:03)
[2024-05-01 08:12] LABS: Glucose - Point of Care 128 mg/dl (70-99)
--- NOTE | 2024-05-01 08:16 | W.PN.ANS.POP ---
Anesthesia Post Operative
- Anesthesia Post Op Note
Vital Signs Stable-See Nursing Note: Yes
Airway Patent: Yes
Adequate Pain Control: Yes
Change in Mental Status: No
Current Postoperative Nausea & Vomiting: No
Anesthesia Complications: No
General Anesthetic Recall: No
Unplanned Admission: No
Post Op Hydration Adequate: Yes
--- NOTE | 2024-05-01 08:31 | PTCARENOTE ---
Patient received from operations supervisor 2nd shift resting in bed, AAO x 3, states pain controlled at this time. NSR via cm, SaO2 @ 98% on 2lnc. RIJ Cordis w/VIP extension. L radial arterial line present - leveled, flushed, and calibrated w/good waveform returned.
Epicardial V-wire to pulse generator. L pleural chest tube to pleurevac, mediastinal chest tubes x 2 (to separate pleurevac), both chambers to -20cm w/no air leaks noted. Santana catheter to gravity. All procedural sites stable. Patient updated to
plan of care for the day, in agreement. See work list for full assessment, interventions performed, and intravenous infusions and titration rates.
[2024-05-01 08:42] LABS: Mixed Venous O2 Saturation 71.1 %
[2024-05-01] MEDS: LOPRESSOR PO (09:02)
[2024-05-01] MEDS: LIDOCAINE 4% PATCH 1 PATCH TOPICAL (09:13)
[2024-05-01] MEDS: LOW STRENGTH ASPIRIN 81 MG PO (09:13)
[2024-05-01] MEDS: SENOKOT-S 1 TABLET PO ×2 (09:14→20:04)
[2024-05-01] MEDS: PROTONIX 40 MG PO (09:14)
[2024-05-01] MEDS: MAGNESIUM OXIDE 500 MG PO (09:14)
[2024-05-01] MEDS: LIPITOR 40 MG PO (09:14)
[2024-05-01] MEDS: NEURONTIN 100 MG PO ×3 (09:14→21:11)
[2024-05-01] MEDS: PACERONE 200 MG PO ×3 (09:14→21:11)
[2024-05-01] MEDS: PLAVIX 75 MG PO (09:15)
[2024-05-01] MEDS: ROXICODONE 5 MG PO ×3 (09:15→21:14)
[2024-05-01] MEDS: NON-FORMULARY ITEM 1 UNIT TOPICAL ×2 (09:15→20:05)
[2024-05-01] MEDS: LASIX 40 MG IV (09:45)
[2024-05-01] MEDS: DIAMOX 5 MG IV (09:46)
[2024-05-01 10:08] LABS: Glucose - Point of Care 150 mg/dl (70-99)
[2024-05-01 10:19] LABS: Mixed Venous O2 Saturation 67.6 %
--- NOTE | 2024-05-01 10:35 | W.PN.ID1 ---
Date of Service
Date of Service: May 01, 2024
Today's Communication
Continue amp/ceftriaxone
Assessment / Plan
# Complicated Enterococcal bacteremia (7 sets)
# Infective endocarditis of BiV ICD lead, MV and AV
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
# Leukocytosis- resolved
# Fever - resolved
- ELLIE: 2.4 cm vege on ICD wire; echodensity on AV and MV with severe mitral regurgitation
- Repeat blood cultures x4 from 04/20 and 04/22 neg to date
- 04/30/24 s/p redo sternotomy, ICD extraction, placement of new ICD, mitral valve replacement, TV repair, AV exploration
- Continue Ampicillin 2g IV q4h and ceftriaxone 2g IV q12h x 6 weeks from cardiac surgery, ie through 06/11/24.
Weekly CBC diff, CMP, CRP, ESR
- Eventual double-lumen PICC
- Infusion submitted to watch case polisher and placed in chart on 04/29
- Updated Dr. Saúl Wang ([phone]) Infectious Disease at [facility] for IV abx approval.
# Neck pain present on admission
- MRI no cervical discitis/osteo; + edema along interspinous soft tissues
# Conditions prior to admission
DM2
Hypertension
HLD
CAD status post CABG/stent
Atrial fibrillation
BiV ICD placement 2016
HFpEF
HALLIE
BPH
Lap cholecystectomy 02/05/24
Chief Complaint
-: Bacteremia and Other (Endocarditis, discitis)
Subjective / Review of Systems
Surgery went well. Pain controlled.
Neck pain stable.
Vital Signs / Physical Exam
Vital Signs
Vital Signs
Temp Pulse Resp BP Pulse Ox
97.5 F 70 27 125/63 98
05/01/24 08:00 05/01/24 10:00 05/01/24 10:00 05/01/24 09:46 05/01/24 08:38
Physical Exam
Constitutional: No Acute Distress and Comfortable
Eyes: Sclera Anicteric
Cardiovascular: Regular Rate and S1/S2
Pulmonary: Clear (anteriorly)
Gastrointestinal: Soft, Non Tender and Non Distended
Neurological: AO x 3
Psychological: Calm
Objective Data
Lab Data
Lab Results
05/01/24 02:54
05/01/24 02:54
ESR 48 mm/hour (0-20) H 04/15/24 16:55
PT 18.3 Sec (11.4-14.6) H 04/30/24 19:47
INR 1.46 04/30/24 19:47
APTT 35.4 Sec (23.4-35.0) H 04/30/24 16:08
Estimated Creat Clear 92 ml/min 05/01/24 02:54
Lactic Acid Cancelled 04/16/24 14:36
Total Bilirubin 1.0 mg/dl (0.2-1.3) 04/30/24 04:35
AST 57 U/L (17-59) 04/30/24 04:35
ALT 88 U/L (0-50) H 04/30/24 04:35
Alkaline Phosphatase 241 U/L (38-126) H 04/30/24 04:35
C-Reactive Protein 166.20 mg/L (0.0-10.00) H 04/15/24 16:55
Most recent labs reviewed.
Micro Results:
04/30/24 Unknown Tissue Culture - Pending
Heart Gram Stain - Preliminary
04/30/24 Unknown Fungal Smear - Pending
Heart Fungal Culture - Preliminary
Culture in progress.
Positive cultures are reported as soon as detected.
Final report to follow in four to five weeks.
04/30/24 10:13 Tissue Culture - Pending
Heart Gram Stain - Preliminary
04/30/24 Unknown Anaerobic Culture - Pending
Heart
04/30/24 Unknown Acid Fast Bacilli Smear - Pending
Heart Acid Fast Bacilli Culture - Pending
04/30/24 Unknown Wound Culture - Pending
Suture Gram Stain - Pending
04/30/24 10:13 Fungal Culture - Preliminary
Heart Culture in progress.
Positive cultures are reported as soon as detected.
Final report to follow in four to five weeks.
04/30/24 10:13 Acid Fast Bacilli Smear - Pending
Heart Acid Fast Bacilli Culture - Pending
04/30/24 10:13 Anaerobic Culture - Pending
Heart
04/22/24 06:46 Blood Culture - Final
Blood/Venous No Growth - Final Report
04/22/24 05:46 Blood Culture - Final
Blood/Venous No Growth - Final Report
04/19/24 05:33 Blood Culture - Final
Blood/Venous Enterococcus faecalis
Gram Stain - Final
04/20/24 05:09 Blood Culture - Final
Blood/Venous No Growth - Final Report
04/20/24 05:09 Blood Culture - Final
Blood/Venous No Growth - Final Report
04/18/24 04:30 Blood Culture - Final
Blood/Venous Enterococcus faecalis
Gram Stain - Final
04/17/24 04:34 Blood Culture - Final
Blood/Venous Enterococcus faecalis
Gram Stain - Final
04/19/24 07:49 Blood Culture - Final
Blood/Venous Enterococcus faecalis
Gram Stain - Final
04/16/24 09:58 Blood Culture - Final
Blood/Venous Enterococcus faecalis
Gram Stain - Final
04/15/24 21:45 Urine Culture - Final
Urine Enterococcus faecalis
04/15/24 21:30 Blood Culture - Final
Blood/Venous Enterococcus faecalis
Gram Stain - Final
04/15/24 21:12 Blood Culture - Final
Blood/Venous Enterococcus faecalis
Gram Stain - Final
04/15/24 21:20 Influenza Types A & B (BRADLEY) - Final
Nasal Swab Negative for Influenza A & B, NAAT
Negative results must be combined with clinical observations
and patient history.
Nucleic Acid Amplification test (NAAT)performed on the
[employer] platform.
Imaging:
04/20/2024 ECHO (ELLIE): Normal biventricular size and systolic function. Pacer wire seen, with large echodensity prolapsing between the right atrium and right ventricle through the tricuspid valve, associated with the right ventricular wire. There
is a large bulbous portion (2.4 x 1.4 cm) proximally that tapers down along the course of the wire and into the right ventricle. Echodensity consistent with vegetation seen on both anterior and posterior leaflets of the mitral valve, with
associated severe mitral regurgitation. An echodensity consistent with vegetation is seen on the aortic valve, with minimal aortic regurgitation. Please see full dictation for additional detail.
04/15/24 CT a/p: There is irregular endplate destruction at the T10-11 disc space, and findings are highly suggestive of discitis and osteomyelitis.
This does not appear to extend to the posterior margin of the disc space at this time, and no gross evidence to suggest extension of inflammatory process and the spinal canal on CT. As warranted, further evaluation with MRI of the lower thoracic
spine without and with contrast could be considered.
04/23/24 MRI C/T/L spine:
Cervical spine:
Multilevel advanced degenerative changes. No evidence of discitis or osteomyelitis. Subtle edema/hyperemia involving the interspinous soft tissues most pronounced at C5-6, possibly inflammatory in nature or possible interspinous ligament sprain.
Clinical correlation advised. Partially visualized nonspecific left supraspinatus and infraspinatus muscle edema. Clinical correlation necessary.
Thoracic spine:
T10-11 discitis/osteomyelitis. Inflammatory epidural soft tissue thickening. No epidural abscess. No paraspinal soft tissue abscess. Findings suspicious for right T10-11 facet septic arthritis. T11-12 with mild central canal narrowing. No cord
compression.
Lumbar spine:
No evidence of lumbar spine discitis or vertebral osteomyelitis. Abnormal signal and enhancement associated with right L3-4 and L5-S1 facets and adjacent/surrounding soft tissues, as described. In the absence of recent surgical intervention to
suggest postsurgical reactive inflammatory changes, the appearance would be highly suspicious for facet septic arthritis. No lumbar epidural collection or epidural abscess. No focal soft tissue collection or abscess. Otherwise, lumbar degenerative
changes, as described.
--- NOTE | 2024-05-01 10:39 | W.PN.CARDCBS ---
Addendum entered and electronically signed by Omari Ware MD 05/01/24 11:35:
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
epicardial pacing system with shocking coil
Medications: Reviewed
125/63, pulse 69, respiratory 25, intake and output -900, weight is 79 kg, looks surprisingly well, lungs are clear, regular rate and rhythm, no murmurs, JVD okay abdomen benign extremities without clubbing cyanosis or edema
Hemoglobin 9.1, platelets 171, BUN and creatinine 13 and 0.6 RA, RV and LV leads
Chest x-ray chest tube, hardware in place, lungs relatively clear small left effusion
EKG sinus rhythm with ventricular paced
Impression:
Bioprosthetic mitral valve replacement, tricuspid valve annuloplasty ring, aortic valve inspection, saphenous vein harvest, no CABG, epicardial ICD/WHEEL ASSEMBLER 04/30/2024
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
Vertebral osteomyelitis
CAD status post Taxus stents 2005 with CABG 2005
PAF
Hypertension
Hyperlipidemia
Laparoscopic cholecystectomy January 2024
Plan:
He looks remarkably well postop day 1.
Appreciate efforts of CT surgery
Continue supportive care
Original Note:
Today's Communication / Plan
-
Continue to monitor on telemetry
Monitor and trend electrolytes, hemoglobin
Patient did receive dose of IV Lasix 40 mg today
Continue antibiotics per [facility]
Impression / Plan
-
PCP: Dr. Mike Doe
Cardiology: Dr. Servin of [facility]
Impression:
Admitted on 04/16/2024 with fever, neck, and back pain
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
s/p Redo sternotomy with extensive adhesiolysis, Resection/explant of all old pacemaker leads and defibrillation coil, Implant of right atrial, right ventricular, left ventricular epicardial leads and defibrillator coil towards the LV aspect of the
heart, Mitral valve replacement (29 mm), Tricuspid valve repair (30 mm band annuloplasty) 04/30/2024 Dr. Nicholson
Sepsis
Vertebral osteomyelitis
Abnormal echo suggesting pacer wire vegetation in the RV and vegetation on the mitral valve 04/16/2024
Hypotension
post op anemia s/p 6 units pRBCs
postop coagulopathy - s/p 2 unit platelets and 2 FFPs
Admitted with osteomyelitis and enterococcal bacteremia in the setting of prior cholecystectomy 01/2024.
History of recovered ischemic cardiomyopathy,current EF 50-55% on echo 03/2024, previously EF 20% in past per patient
s/p [place] ICD 12/28/16, explanted 04/30/2024 See above
-Device interrogation 04/17/2024 shows stable lead sensing, pacing threshold, and lead impedances; no AT AF; no VT VF since last interrogation or tachytherapies; discussed with [employer] industrial sales representative, Jose Adan, patient's device is MRI
compatible and safe; if patient to need MRI, would place patient DOO (preferable) or VOO at 80 bpm; patient is not reported as dependent
CAD with GA
s/p 3 mm Taxus LUCIO to unknown vessel 10/15/05
s/p CABG x 2 2005 at [place]
Paroxysmal atrial fibrillation
Chronic Eliquis OAC
HLD
DM2
remote former smoker
s/p lap grace 01/2024
Echo 04/16/2024: EF 50 to 55%, normal regional wall motion, pacer wire seen in the RV with large density (1.7 x 1.9 cm) on pacemaker which could be consistent with vegetation, thickened mitral valve leaflets with MAC and peak/mean 8/4 mmHg, mobile
echodensity on the MV consistent with vegetation, at least moderate eccentric MR, aortic sclerosis without stenosis, no aortic regurgitation, mild TR with PAP 20 to 25 mmHg
Cardiac catheterization 04/24/2024: LM: NL. LAD: Moderate diffuse atherosclerotic disease in proximal LAD with patent GOODRICH to D1 and mid LAD. Ramus: 90% ostial stenosis. Left circumflex: LI. RCA: Mid 30% in-stent restenosis. PDA ostial 30%
stenosis. GOODRICH-D-LAD: Patent with antegrade and retrograde filling of both the LAD and diagonal branches
Plan:
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
-Status post s/p Redo sternotomy with extensive adhesiolysis, Resection/explant of all old pacemaker leads and defibrillation coil, Implant of right atrial, right ventricular, left ventricular epicardial leads and defibrillator coil towards the LV
aspect of the heart, Mitral valve replacement (29 mm), Tricuspid valve repair (30 mm band annuloplasty) 04/30/2024 Dr. Nicholson
-CABG was not performed due to dense adhesions. Did not receive AVR as inspection showed no significant vegetations on the valve
-Now extubated and seen sitting up in bed, overall doing well
-Currently off all drips
-Received 6 units PRBCs, 2 FFP, 2 platelets. hgb 9.1, plts 171. Continue to follow
-Appears to be volume overloaded, patient take a dose of IV Lasix 05/01/2024. Continue to monitor and trend renal function, electrolytes and weight
-Per review of telemetry patient now AV paced at 70 bpm
-ICD interrogated again on morning of 05/01/2024 by [employer] rep showing appropriate function and stable thresholds. After discussing with CT surgery will continue to pace at DDDR at 70. Could consider reducing base rate at follow-up in cardiology
office. Of note [place] atrial rate in the low 50s.
-Continue prophylactic amiodarone
-Continue aggressive IV antibiotics per [facility]. WBC 8.5, patient afebrile
-Daily EKGs to monitor QTc
-Continue aspirin and Plavix with eventual resumption of anticoagulation/Eliquis
-continue post op care
-d/w CT surgery nursing, patient and patient's at bedside
PREADMIT DATA: Patient came to [facility] with neck pain on 2/19/25 and was admitted with osteomyelitis and cardiology is now consulted for eval of abnormal echo. Patient has routine cardiology care at [facility] - Dr. Servin. Patient was admitted to 02/03/24
until 02/06/24 with abdominal pain and had lap grace 02/05/24. Patient was then in the ER 02/27/24 for hypotension and URI symptoms at the recommendation of his PCP, but BP was normal and no evidence of acute process so patient was sent home. Patient
came back to ER 03/02/24 with chest and back pain and troponin negative and he was given toradol and valium for spasm. Patient was sent to [facility] for rehab briefly however then went home. Patient came to last night with neck pain that
started Saturday04/11/24. He reports limited neck mobility and development of fever. He was noted by imaging to have evidence of osteomyelitis then underwent echo which showed large mobile echodensity consistent with mitral valve vegetation, MR, and
large density on ppm also with concern for vegetation. Blood cultures prelim positive. cardiology consulted for evaluation.
Progress Note - Cadd Technician
Subjective
Date of Service: May 01, 2024
Patient seen and examined. Patient sitting up in bed with at bedside. Currently off all drips and reports that he is feeling well.
Objective
Labs:
05/01/24 02:54
05/01/24 02:54
Labs
Hgb 9.1 g/dL (13.0-18.0) L 05/01/24 02:54
Hct 26.7 % (39.0-52.0) L 05/01/24 02:54
Plt Count 171 10^3/uL (130-400) 05/01/24 02:54
PT 18.3 Sec (11.4-14.6) H 04/30/24 19:47
INR 1.46 04/30/24 19:47
APTT 35.4 Sec (23.4-35.0) H 04/30/24 16:08
Sodium 139 mmol/L (135-145) 03/07/25 02:54
Potassium 4.5 mmol/L (3.5-5.1) 05/01/24 02:54
BUN 13 mg/dl (9-20) 05/01/24 02:54
Creatinine 0.6 mg/dL (0.7-1.3) L 05/01/24 02:54
Glucose 100 mg/dl (70-99) H 05/01/24 02:54
Vital Signs and I&O:
Vital Signs
Temp Pulse Resp BP Pulse Ox
97.5 F 70 27 125/63 98
05/01/24 08:00 05/01/24 10:00 05/01/24 10:00 05/01/24 09:46 05/01/24 08:38
Vital Signs
Temp Pulse Resp BP Pulse Ox
97.5 F 70 27 125/63 98
05/01/24 08:00 05/01/24 10:00 05/01/24 10:00 05/01/24 09:46 05/01/24 08:38
Intake & Output
04/29/24 04/30/24 05/01/24 05/02/24
06:59 06:59 06:59 06:59
Intake Total 344 / 344 1228 / 1228 1036.5 / 1064.6 349.6 / 349.6
Output Total 1200 / 1200 3750 / 3750 1740 / 1795 255 / 255
Balance -856 / -856 -2522 / -2522 -703.5 / -730.4 94.6 / 94.6
Physical Exam
Physical Exam
GEN: No distress, awake, Ox3, sitting in bed
HEENT: supple, anicteric, mmm
LUNGS: Mildly decreased breath sounds at bases otherwise CTA anteriorly, no wheezes/rales
CV: Reg, S1/S2, no murmur, rub or gallop
ABD: soft, BS+, NT/ND
EXT: +1 bilateral extremity edema, hands trace edema. No clubbing or cyanosis
NEURO: Gross non-focal
SKIN: No rash, warm, dry, pink
[2024-05-01] MEDS: NOVOLIN R INSULIN INFUSION 100 IV (11:04)
[2024-05-01 11:33] LABS: Glucose - Point of Care 147 mg/dl (70-99)
[2024-05-01 11:51] LABS: Mixed Venous O2 Saturation 75.7 %
[2024-05-01] MEDS: NOVOLOG FLEXPEN 2 UNITS SC (12:12)
[2024-05-01] MEDS: NSS IV (12:36)
[2024-05-01 13:18] LABS: Glucose - Point of Care 184 mg/dl (70-99)
--- NOTE | 2024-05-01 13:23 | W.PN.INTV ---
Today's Communication / Plan
Recommendations
- Monitor ins and outs closely
-Continue current management
Assessment
-
Very pleasant 79-year-old gentleman presented with fever and back pain and subsequently found to have enterococcal bacteremia with vertebral osteomyelitis as well as endocarditis with vegetations on both aortic and mitral valve. In addition
patient's pacer leads were also noted to be involved. Patient has since cleared bacteremia with antibiotic and he was taken to the OR 03/06 for redo sternotomy.
S/p redo sternotomy, mitral valve replacement, tricuspid valve repair, explant of prior FERRY HAND ICD, resection of all pacemaker leads and defibrillation coil, implant new leads and deflated related required. POD #1
Patient has been extubated and is saturating well on nasal cannula without any distress
No wheezing or stridor noted
Management of chest tubes per primary service
ABG 7.46, 43, 113
Pain control
-Chest x-ray, shows postoperative changes of the chest otherwise unremarkable
Other medical comorbidities:
-Complicated enterococcal faecalis bacteremia with endocarditis of mitral and aortic valve with severe MR and infected pacemaker lead with vertebral osteomyelitis, continue antibiotic per infectious disease service currently on ampicillin and
ceftriaxone
-Diabetes mellitus, on insulin infusion per protocol
-Paroxysmal atrial fibrillation, apixaban on hold. Patient had been on Lovenox prior to surgery, currently on amiodarone, anticoagulation on hold
-History of coronary artery disease status post CABG in the past. Aspirin, Plavix
ICU team will follow along.
Data:
ELLIE
Normal biventricular size and systolic function without regional wall motion
abnormality.
Pacer wires seen with large echodensity prolapsing between the right atrium and
right ventricle through the tricuspid valve associated with the right
ventricular wire. There is a large bulbous portion (2. 4 x 1.46 cm) proximally
that tapers down along the course of the wire and into the right ventricle.
Echodensity consistent with vegetation seen on both anterior and posterior
leaflets of the mitral valve with associated severe mitral regurgitation.
Echodensity consistent with vegetation on the aortic valve, minimal aortic
regurgitation seen.
Complex atheroma in the descending aorta.
No prior TTE available for comparison.
CT AP
At T10-11, there is irregular bony destruction of the endplates at the disc space, and findings are highly suggestive of discitis and osteomyelitis. Slight prominence of paraspinal soft tissue at this disc space level on the axial images. There are
no gross findings that would suggest posterior epidural extension.
Critical Care time 30 mins -- The patient is admitted for acute critical illness for the treatment of vital organ failure and/or prevention of further life-threatening conditions. Total care includes time spent in review of history, physical exam,
medications, hemodynamic/ventilator parameters, laboratory data, imaging and discussion with house staff, pharmacy, respiratory therapy, manufacturing shift supervisor, and nursing.
Subjective Dataa
Subjective Data
Date of Service:
Date of Service: May 01, 2024
Subjective:
Patient comfortably sitting in bed in no acute distress, currently extubated and saturating well.
Review of Systems
Genitourinary: Other (All 14 systems reviewed and negative except as stated above in the history of present illness.)
Objective Data
Data Reviewed
Vital Signs / I&O / Oxygen:
Vital Signs
Temp Pulse Resp BP Pulse Ox
97.8 F 70 15 107/61 94
05/01/24 12:00 05/01/24 13:00 05/01/24 13:00 05/01/24 12:07 05/01/24 13:00
Intake and Output
04/30/24 05/01/24 05/02/24
06:59 06:59 06:59
Intake Total 1228 / 1228 1036.5 / 1064.6 394.7 / 394.7
Output Total 3750 / 3750 1740 / 1795 930 / 930
Balance -2522 / -2522 -703.5 / -730.4 -535.3 / -535.3
SaO2 [SIMV] 99
SaO2 94
Nasal Cannula flow liters per 2
minute
Physical Exam
General: Comfortable
HEENT: Normocephalic
Cardiovascular: Regular Rhythm
Respiratory: Clear and Non-Labored Respirations
GI: Soft
Neurology: Awake, Alert and Oriented
Skin: Warm
Labs/Micro/Reports
Lab Data
05/01/24 02:54
05/01/24 02:54
Laboratory Results
04/30/24 04/30/24 04/30/24
16:08 19:47 21:44
PT 21.5 H 18.3 H
INR 1.82 1.46
APTT 35.4 H
pH 7.35 7.48 H 7.46 H
pCO2 43 41 39
pO2 162 H 126 H 129 H
HCO3 23.7 30.5 H 27.7
O2 Delivery Level
05/01/24
02:54
PT
INR
APTT
pH 7.46 H
pCO2 43
pO2 113 H
HCO3 30.6 H
O2 Delivery Level 4l nc
Microbiology
04/30/24 Unknown Heart Anaerobic Culture - Preliminary
Culture pending. Anaerobic cultures are examined after 3
days incubation. Additional information to follow.
04/30/24 Unknown Heart Tissue Culture - Preliminary
04/30/24 Unknown Heart Gram Stain - Preliminary
04/30/24 10:13 Heart Anaerobic Culture - Preliminary
Culture pending. Anaerobic cultures are examined after 3
days incubation. Additional information to follow.
04/30/24 10:13 Heart Tissue Culture - Preliminary
04/30/24 10:13 Heart Gram Stain - Preliminary
04/30/24 Unknown Heart Fungal Culture - Preliminary
Culture in progress.
Positive cultures are reported as soon as detected.
Final report to follow in four to five weeks.
04/30/24 10:13 Heart Fungal Culture - Preliminary
Culture in progress.
Positive cultures are reported as soon as detected.
Final report to follow in four to five weeks.
--- NOTE | 2024-05-01 13:43 | CARDSERVLU ---
Echocardiogram with Lumason completed after protocol screening completed. Allergies verified.
Patent IV site: __Left accessory 18 G PC site clear___
IV site flushed with 0.9% NaCl pre and post administration.
Diluted bolus method utilized to enhance visualization of ventricular soriano.
Total volume given: _3___ mL
Patient tolerated all procedures well without complications.
[2024-05-01] MEDS: FERRLECIT 110 MG IV (14:11)
--- NOTE | 2024-05-01 14:20 | PTCARENOTE ---
VS stable. Repeat echo completed. Patient assisted oob to chair x 2 assist, tolerated well. States pain controlled.
--- NOTE | 2024-05-01 14:50 | CM ---
Chart reviewed. I spoke with the patient and . Patient is independent of ADLS, lives with his in a split level home, [address], ambulates with a RW and also has a SPC. Referral sent for IV antibiotics to [facility]. Patient has [facility]. Authorization initiated with Dr Abreu to their infectious disease doctor Dr. Saúl Wang at [phone]. Referral sent to [facility]. for nursing care. Patient will need a PT evaluation to determine functional assessment. Plan is
for the patient to go home with IV antibiotics and VN or Acute Rehab. CM to follow
[2024-05-01 15:00] LABS: Glucose - Point of Care 221 mg/dl (70-99)
[2024-05-01 16:12] LABS: Glucose - Point of Care 195 mg/dl (70-99)
--- NOTE | 2024-05-01 16:18 | PTCARENOTE ---
VS obtained, assessment unchanged. Patient states he is very tired. Returned to bed for nap.
[2024-05-01 17:30] LABS: Glucose - Point of Care 163 mg/dl (70-99)
[2024-05-01 18:15] LABS: Mixed Venous O2 Saturation 66.7 %
[2024-05-01 18:17] LABS: Hematocrit 24.3 % (39.0-52.0); Hemoglobin 8.1 g/dL (13.0-18.0); Mean Corp Hgb Conc. 33.3 g/dL (33.0-37.0); Mean Corpuscular Hgb 29.7 pg (27.0-31.0); Mean Platelet Volume 10.1 fL (7.4-10.4); Platelet Count 178 10^3/uL (130-400); Red Blood Cell Count 2.73 10^6/uL (4.70-6.10); Red Cell Dist. Width 15.9 % (11.5-14.5); White Blood Cell Count 9.5 10^3/uL (4.8-10.8)
[2024-05-01] MEDS: FLEXBUMIN 100 IV (18:18)
[2024-05-01] MEDS: NOVOLOG FLEXPEN 4 UNITS SC (18:35)
[2024-05-01 18:36] LABS: Blood Urea Nitrogen 14 mg/dl (9-20); Calcium 7.7 mg/dl (8.4-10.2); Carbon Dioxide 30 mmol/L (22-30); Chloride 99 mmol/L (98-107); Estimated Creatinine Clearance 69 ml/min; Glucose 132 mg/dl (70-99); Potassium 3.5 mmol/L (3.5-5.1); Sodium 133 mmol/L (135-145); eGFR > 60.00
[2024-05-01] MEDS: KCL 40 MEQ PO (19:04)
[2024-05-01 19:05] LABS: Glucose - Point of Care 130 mg/dl (70-99)
[2024-05-01 19:56] LABS: Glucose - Point of Care 142 mg/dl (70-99)
--- NOTE | 2024-05-01 20:00 | PTCARENOTE ---
Assumed care of the patient at 1900. Patient in bed, AOx3, no current c/o pain. AV paced with rare PVCs on the monitor, V wire insulated, + pulses throughout, no edema, heart tones audible but distant. On RA, lung dim at the bases, CTx2 to -20 cm
wall suction, no air leak, tidaling, or crepitus noted, dressing CDI, occasional cough, IS encouraged. BS hypoactive, no c/o nausea, abdomen SNT. Santana catheter present draining clear, yellow urine. RIJ Cordis present, PIVx1 infusing insulin gtt. MS
chest incision CDI with Dermabond, B/L lateral chest wall incision CDI with Dermabond, groin and LLE Dermabonded CDI. Insulin gtt maintained per glycemic protocol. Patient updated on POC, in agreement, assessment of needs ongoing, call waller within
reach.
[2024-05-01] MEDS: LOPRESSOR 12.5 MG PO (20:05)
[2024-05-01] MEDS: MAGNESIUM OXIDE PO (20:09)
[2024-05-01 21:08] LABS: Glucose - Point of Care 130 mg/dl (70-99)
[2024-05-01] MEDS: XALATAN OPHTHALMIC SOLUTION 1 DROP BOTH EYES (21:14)
[2024-05-01 22:57] LABS: Glucose - Point of Care 103 mg/dl (70-99)
[2024-05-02] VITALS (23 sets, daily range): BP systolic 93–152; BP diastolic 57–125; PULSE 72; BMI 30.3
[2024-05-02] MEDS: AMPICILLIN 108 MG IV ×6 (00:34→21:15)
--- NOTE | 2024-05-02 00:34 | PTCARENOTE ---
CPAP applied to patient for bedtime. Respiratory contacted to add O2 to home machine for SpO2 dropping intermittently to 89 and sustaining 91-92% - CVPA made aware. Patient sleeping between care, reports pain controlled at this time. Call waller
within reach.
[2024-05-02 01:00] LABS: Glucose - Point of Care 64 mg/dl (70-99)
--- NOTE | 2024-05-02 01:05 | PTCARENOTE ---
Patient hypoglycemic to 64 - given 4 oz juice, recheck pending, CVPA made aware, insulin gtt stopped per protocol.
[2024-05-02 01:22] LABS: Glucose - Point of Care 71 mg/dl (70-99)
[2024-05-02] MEDS: ROXICODONE 5 MG PO ×4 (01:36→21:34)
[2024-05-02] MEDS: FLEXBUMIN 100 IV ×2 (01:36→11:48)
[2024-05-02 02:21] LABS: Glucose - Point of Care 114 mg/dl (70-99)
--- NOTE | 2024-05-02 02:23 | PTCARENOTE ---
Pt core temp 96.9, CVPA made aware, warm blankets applied.
[2024-05-02 03:24] LABS: Glucose - Point of Care 106 mg/dl (70-99)
--- NOTE | 2024-05-02 04:00 | PTCARENOTE ---
Pt temperature normalized, glycemic continued per protocol, sleeping between care.
[2024-05-02 04:21] LABS: Glucose - Point of Care 85 mg/dl (70-99)
[2024-05-02 05:10] LABS: Mixed Venous O2 Saturation 67.6 %
[2024-05-02 05:12] LABS: Hematocrit 22.3 % (39.0-52.0); Hemoglobin 7.3 g/dL (13.0-18.0); Mean Corp Hgb Conc. 32.7 g/dL (33.0-37.0); Mean Corpuscular Hgb 29.4 pg (27.0-31.0); Mean Corpuscular Volume 89.9 fL (80.0-94.0); Mean Platelet Volume 10.4 fL (7.4-10.4); Platelet Count 154 10^3/uL (130-400); Red Blood Cell Count 2.48 10^6/uL (4.70-6.10); Red Cell Dist. Width 15.9 % (11.5-14.5); White Blood Cell Count 9.8 10^3/uL (4.8-10.8)
[2024-05-02 05:19] LABS: Glucose - Point of Care 85 mg/dl (70-99)
[2024-05-02 05:37] LABS: Blood Urea Nitrogen 12 mg/dl (9-20); Calcium 8.3 mg/dl (8.4-10.2); Carbon Dioxide 29 mmol/L (22-30); Chloride 102 mmol/L (98-107); Estimated Creatinine Clearance 78 ml/min; Glucose 75 mg/dl (70-99); Magnesium 2.4 mg/dl (1.6-2.3); Potassium 4.1 mmol/L (3.5-5.1); Sodium 137 mmol/L (135-145); eGFR > 60.00
--- NOTE | 2024-05-02 05:51 | W.PN.CT ---
Addendum entered and electronically signed by Craig Tate MD 05/02/24 08:49:
I saw and examined the patient.
The PA's note was reviewed and I agree with the note.
Comment:
Postop day #2 status post redo sternotomy, mitral valve replacement, tricuspid valve repair, explant of ICD, reimplantation of epicardial leads and AICD
No major issues over the evening. Hemoglobin 7.3. Will transfuse 1 unit of packed red blood cells this a.m.
Aggressive diuresis with Lasix IV 3 times daily today
Maintain Santana today to monitor results of diuresis will plan for DC Santana tomorrow; creatinine 0.7
Out of bed, incentive spirometry
Original Note:
Today's Communication / Plan
-
-pod #2
-no significant issues overnight
-mVO2 67.6. drips: insulin only
-CT outputs: 2 meds 100/240 in 12/24 hrs
-Hg 7.3 - per AT, will give 1 pRBC, followed by diuresis
-Echo 05/01 with nl functioning valves, EF 47%
-diuresed with Lasix and Diamox on 05/01 (UO 1045)
-started on 25% Albumin x3
-appreciate ID input: Continue Ampicillin 2g IV q4h and ceftriaxone 2g IV q12h x 6 weeks from cardiac surgery, ie through 06/11/24. Eventual double-lumen PICC
-follow intraop cultures
-continue diuresis
-follow Cr
-encourage IS, OOB
Assessment / Plan
-
Procedure(s) Performed by Dr. Nicholson on 04/30/24, pod #2
1. Ultrasound-guided access of bilateral groins using Seldinger technique and placement of 5 Maori sheath
2. Redo sternotomy with extensive adhesiolysis, modifier 22
3. Resection of all pacemaker leads and defibrillation coil
4. Explant of prior CAFE MANAGER ICD from [employer]
5. Implant of right atrial, right ventricular, left ventricular epicardial leads
6. Implant of defibrillator coil towards the LV aspect of the heart, left lateral
7. Mitral valve replacement, chordal sparing [29 mm device with placement of [place] cord to reinforce and support the posterior medial papillary muscle head]
8. Tricuspid valve repair [30 mm band annuloplasty]
9. Aortotomy with exploration and inspection of the aortic valve
10. Placement of temporary ventricular pacing wires backup
11. Transesophageal echocardiography
12. Open saphenous vein harvest, CABG was not performed due to dense adhesions towards the prior GOODRICH to LAD and scar overlying the ramus intermedius
-Endocarditis (Enterococcus faecalis) involving Aortic valve, Mitral valve, Tricuspid valve and BiV ICD
-Severe MR
-Bicuspid AV/trivial AI
-Mild TR
-Infected BiV ICD
-Hx ICM (EF 20%) S/P MRI compatible [employer]i BiV ICD, 12/28/2016
-LVEF 50-55% per TTE 04/16/24
-Enterococcus faecalis UTI
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
-L3-S1 septic arthritis
-Soft tissue edema C5-C6 interspinous
-Fever (peaked @ 102.7)
-Leukocytosis (wbc peaked @ 27.1)
-Hx CAD S/P CABG x 1 (GOODRICH-LAD), 2005 (patent per cath 04/24)
-Single Vessel CAD (RI 90% ostial), per cath 04/24
-HTN
-HLD
-T2DM (hgb A1C 6.9, on insulin)
-A-fib (on Eliquis @ home)
-HALLIE
-BPH (on Flomax)
-DJD
-Interstitial fibrosis/asbestosis
-Former tobacco use
-S/p Lap Skylar, 02/05/24
-S/p removal of infected dental implants
-S/P L4/L5 Laminectomy, 2018
-Chronic diastolic heart failure with preserved left ventricular ejection fraction
-History of cholelithiasis and gallstone pancreatitis
-Acute postop blood loss anemia - s/p 6 pRBCs
-Acute postop coagulopathy - s/p 2 unit platelets and 2 FFPs
-Acute postop metabolic alkalosis
-Acute postop atelectasis
-Acute postop hypovolemia with subsequent hypervolemia
Echo 05/01/24:
1. Normal left ventricular chamber size with mild basal septal, basal inferior, and basal inferolateral hypokinesis. Low normal contractility of the remaining segments, EF 47%
2. #29 Hubbard Mitris Resilia bioprosthetic mitral valve, mean gradient is 3mmHg. No mitral regurgitation is seen. Normal left atrium
3. Normal-appearing aortic valve without stenosis or regurgitation
4. Normal right heart, status post 30 mm tricuspid annuloplasty band with normal pulmonary artery systolic pressure
Left ventricular function is roughly similar to the intraoperative transesophageal echo, though the ejection fraction may have decreased slightly.
The patient's ICD has been explanted since that study and an epicardial system substituted.
Discussed patient care with: Nursing and Care Team
Subjective
-
Date of Service: May 02, 2024
Objective Data
-
PT 18.3 Sec (11.4-14.6) H 04/30/24 19:47
INR 1.46 04/30/24 19:47
APTT 35.4 Sec (23.4-35.0) H 04/30/24 16:08
Vital Signs
Vital Signs
Temp Pulse Resp BP Pulse Ox
97.3 F 70 14 107/61 92
05/02/24 01:00 05/01/24 22:45 05/02/24 01:00 05/01/24 22:06 05/01/24 22:45
CT Intake/Output/Weight
05/01/24 05/01/24 05/02/24
06:59 18:59 06:59
Intake Total 867.8 / 1064.6 616.7 / 1508.7 892.0 / 1508.7
Output Total 1050 / 1795 1210 / 1575 365 / 1575
Balance -182.2 / -730.4 -593.3 / -66.3 527.0 / -66.3
SaO2: 92
Physical Exam
-
General: Awake and AOx3
Cardiovascular: Regular rate & rhythm, No Murmurs and No Rub
Respiratory: Decreased Breath Sounds
Sternum: Stable
Incision: Clean, Dry and Intact
Abdomen: soft, nontender, nondistended, + decreased bowel sounds
Extremities: No Edema (2+ DPs b/l)
Data Reviewed
-
Lab Results: Results Reviewed
Medications: Active Meds Reviewed
Chest X-Ray: Report Reviewed and Image Reviewed
ECG: Report Reviewed and Image Reviewed
[2024-05-02] MEDS: STERILE WATER FOR INJECTION 20 ML IV ×2 (06:16→17:19)
[2024-05-02] MEDS: ROCEPHIN 2000 MG IV ×2 (06:16→17:18)
[2024-05-02] MEDS: TYLENOL 1000 MG PO ×2 (06:16→21:13)
[2024-05-02 06:23] LABS: Glucose - Point of Care 90 mg/dl (70-99)
[2024-05-02] MEDS: PACERONE 200 MG PO ×3 (07:44→21:14)
[2024-05-02] MEDS: LOPRESSOR 12.5 MG PO ×2 (07:45→21:16)
[2024-05-02] MEDS: LOW STRENGTH ASPIRIN 81 MG PO (07:45)
[2024-05-02] MEDS: LIDOCAINE 4% PATCH 1 PATCH TOPICAL (07:45)
[2024-05-02] MEDS: LIPITOR 40 MG PO (07:45)
[2024-05-02] MEDS: PLAVIX 75 MG PO (07:45)
[2024-05-02] MEDS: MAGNESIUM OXIDE 500 MG PO (07:45)
[2024-05-02] MEDS: NEURONTIN 100 MG PO ×3 (07:45→21:12)
[2024-05-02] MEDS: SENOKOT-S 1 TABLET PO (07:45)
[2024-05-02] MEDS: NON-FORMULARY ITEM 1 UNIT TOPICAL ×2 (07:46→21:17)
[2024-05-02] MEDS: BACTROBAN 2% OINTMENT 1 APPLIC NASAL ×2 (07:46→21:12)
[2024-05-02] MEDS: PROTONIX 40 MG PO (07:50)
[2024-05-02] MEDS: NOVOLOG FLEXPEN SC ×3 (07:53→18:28)
--- NOTE | 2024-05-02 08:00 | PTCARENOTE ---
resumed care of patient from previous RN. walking rounds compelted. patient oob resting in chair at time of assessmeent. AV paced on omonitor. per pacer. HR 70. insulated V wire. +1-2 gen edema. weight up significantly. 97% RA, CTx2. draining
serosang. No air leaks/crepitus. To be kept per MD. jimenez drainign clear yellow urine. Tolerating diet. occasionally feeling nauseated. All surgical sites c/d/i. insulin per protocol will continue to monitor.
[2024-05-02 08:54] LABS: Glucose - Point of Care 134 mg/dl (70-99)
--- NOTE | 2024-05-02 11:00 | PTCARENOTE ---
1 unit PRBCs infused without issue. Lasix will be given post infusion.
[2024-05-02 11:12] LABS: Glucose - Point of Care 217 mg/dl (70-99)
--- NOTE | 2024-05-02 11:14 | W.PN.ID1 ---
Date of Service
Date of Service: May 02, 2024
Today's Communication
Continue ampicillin/ceftriaxone.
Assessment / Plan
# Complicated Enterococcal bacteremia (7 sets)
# Infective endocarditis of BiV ICD lead, MV and AV
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
# Neck pain: MRI no discitis; + soft tissue edema
- ELLIE: 2.4 cm vege on ICD wire; echodensity on AV and MV with severe mitral regurgitation
- Repeat blood cultures x4 from 04/20 and 04/22 neg to date
- 04/30/24 s/p redo sternotomy, ICD extraction, placement of new ICD, mitral valve replacement, TV repair, AV exploration
-ICD lead cx neg to date. Valve cx pending
- Continue Ampicillin 2g IV q4h and ceftriaxone 2g IV q12h x 6 weeks from cardiac surgery, ie through 06/11/24.
Weekly CBC diff, CMP, CRP, ESR
- Eventual double-lumen PICC
# Conditions prior to admission
DM2
Hypertension
HLD
CAD status post CABG/stent
Atrial fibrillation
BiV ICD placement 2016
HFpEF
HALLIE
BPH
Lap cholecystectomy 02/05/24
Chief Complaint
-: Bacteremia and Other (Endocarditis, discitis)
Subjective / Review of Systems
No complaints today. Slept well.
Vital Signs / Physical Exam
Vital Signs
Vital Signs
Temp Pulse Resp BP Pulse Ox
98.1 F 70 18 100/70 97
05/02/24 10:00 05/02/24 10:00 05/02/24 10:00 05/02/24 08:00 05/02/24 10:00
Physical Exam
Constitutional: No Acute Distress and Comfortable
Cardiovascular: Regular Rate and S1/S2
Pulmonary: Clear, Non Labored and Other
Gastrointestinal: Soft, Non Tender and Non Distended
Extremities: Edema
Neurological: AO x 3
Objective Data
Lab Data
Lab Results
05/02/24 05:02
05/02/24 05:02
ESR 48 mm/hour (0-20) H 04/15/24 16:55
PT 18.3 Sec (11.4-14.6) H 04/30/24 19:47
INR 1.46 04/30/24 19:47
APTT 35.4 Sec (23.4-35.0) H 04/30/24 16:08
Estimated Creat Clear 78 ml/min 05/02/24 05:02
Lactic Acid Cancelled 04/16/24 14:36
Total Bilirubin 1.0 mg/dl (0.2-1.3) 04/30/24 04:35
AST 57 U/L (17-59) 04/30/24 04:35
ALT 88 U/L (0-50) H 04/30/24 04:35
Alkaline Phosphatase 241 U/L (38-126) H 04/30/24 04:35
C-Reactive Protein 166.20 mg/L (0.0-10.00) H 04/15/24 16:55
Most recent labs reviewed.
Micro Results:
04/30/24 Unknown Catheter Tip Culture - Preliminary
Pace Maker/Introd Port No Growth After 18-24 Hours
04/30/24 Unknown Anaerobic Culture - Preliminary
Heart Culture pending. Anaerobic cultures are examined after 3
days incubation. Additional information to follow.
04/30/24 Unknown Tissue Culture - Preliminary
Heart Gram Stain - Preliminary
04/30/24 10:13 Anaerobic Culture - Preliminary
Heart Culture pending. Anaerobic cultures are examined after 3
days incubation. Additional information to follow.
04/30/24 10:13 Tissue Culture - Preliminary
Heart Gram Stain - Preliminary
04/30/24 Unknown Fungal Smear - Pending
Heart Fungal Culture - Preliminary
Culture in progress.
Positive cultures are reported as soon as detected.
Final report to follow in four to five weeks.
04/30/24 Unknown Acid Fast Bacilli Smear - Pending
Heart Acid Fast Bacilli Culture - Pending
04/30/24 10:13 Fungal Culture - Preliminary
Heart Culture in progress.
Positive cultures are reported as soon as detected.
Final report to follow in four to five weeks.
04/30/24 10:13 Acid Fast Bacilli Smear - Pending
Heart Acid Fast Bacilli Culture - Pending
04/22/24 06:46 Blood Culture - Final
Blood/Venous No Growth - Final Report
04/22/24 05:46 Blood Culture - Final
Blood/Venous No Growth - Final Report
04/19/24 05:33 Blood Culture - Final
Blood/Venous Enterococcus faecalis
Gram Stain - Final
04/20/24 05:09 Blood Culture - Final
Blood/Venous No Growth - Final Report
04/20/24 05:09 Blood Culture - Final
Blood/Venous No Growth - Final Report
04/18/24 04:30 Blood Culture - Final
Blood/Venous Enterococcus faecalis
Gram Stain - Final
04/17/24 04:34 Blood Culture - Final
Blood/Venous Enterococcus faecalis
Gram Stain - Final
04/19/24 07:49 Blood Culture - Final
Blood/Venous Enterococcus faecalis
Gram Stain - Final
04/16/24 09:58 Blood Culture - Final
Blood/Venous Enterococcus faecalis
Gram Stain - Final
04/15/24 21:45 Urine Culture - Final
Urine Enterococcus faecalis
04/15/24 21:30 Blood Culture - Final
Blood/Venous Enterococcus faecalis
Gram Stain - Final
04/15/24 21:12 Blood Culture - Final
Blood/Venous Enterococcus faecalis
Gram Stain - Final
04/15/24 21:20 Influenza Types A & B (BRADLEY) - Final
Nasal Swab Negative for Influenza A & B, NAAT
Negative results must be combined with clinical observations
and patient history.
Nucleic Acid Amplification test (NAAT)performed on the
[employer] platform.
Imaging:
04/20/2024 ECHO (ELLIE): Normal biventricular size and systolic function. Pacer wire seen, with large echodensity prolapsing between the right atrium and right ventricle through the tricuspid valve, associated with the right ventricular wire. There
is a large bulbous portion (2.4 x 1.4 cm) proximally that tapers down along the course of the wire and into the right ventricle. Echodensity consistent with vegetation seen on both anterior and posterior leaflets of the mitral valve, with
associated severe mitral regurgitation. An echodensity consistent with vegetation is seen on the aortic valve, with minimal aortic regurgitation. Please see full dictation for additional detail.
04/15/24 CT a/p: There is irregular endplate destruction at the T10-11 disc space, and findings are highly suggestive of discitis and osteomyelitis.
This does not appear to extend to the posterior margin of the disc space at this time, and no gross evidence to suggest extension of inflammatory process and the spinal canal on CT. As warranted, further evaluation with MRI of the lower thoracic
spine without and with contrast could be considered.
04/23/24 MRI C/T/L spine:
Cervical spine:
Multilevel advanced degenerative changes. No evidence of discitis or osteomyelitis. Subtle edema/hyperemia involving the interspinous soft tissues most pronounced at C5-6, possibly inflammatory in nature or possible interspinous ligament sprain.
Clinical correlation advised. Partially visualized nonspecific left supraspinatus and infraspinatus muscle edema. Clinical correlation necessary.
Thoracic spine:
T10-11 discitis/osteomyelitis. Inflammatory epidural soft tissue thickening. No epidural abscess. No paraspinal soft tissue abscess. Findings suspicious for right T10-11 facet septic arthritis. T11-12 with mild central canal narrowing. No cord
compression.
Lumbar spine:
No evidence of lumbar spine discitis or vertebral osteomyelitis. Abnormal signal and enhancement associated with right L3-4 and L5-S1 facets and adjacent/surrounding soft tissues, as described. In the absence of recent surgical intervention to
suggest postsurgical reactive inflammatory changes, the appearance would be highly suspicious for facet septic arthritis. No lumbar epidural collection or epidural abscess. No focal soft tissue collection or abscess. Otherwise, lumbar degenerative
changes, as described.
[2024-05-02] MEDS: LASIX 40 MG IV ×3 (11:49→21:16)
[2024-05-02] MEDS: KCL 20 MEQ PO ×3 (11:49→21:13)
--- NOTE | 2024-05-02 12:27 | W.PN.INTV ---
Today's Communication / Plan
Recommendations
- Continue diuretics, patient volume overloaded
-Spirometry
Assessment
-
Very pleasant 79-year-old gentleman presented with fever and back pain and subsequently found to have enterococcal bacteremia with vertebral osteomyelitis as well as endocarditis with vegetations on both aortic and mitral valve. In addition
patient's pacer leads were also noted to be involved. Patient has since cleared bacteremia with antibiotic and he was taken to the OR 03/06 for redo sternotomy.
S/p redo sternotomy, mitral valve replacement, tricuspid valve repair, explant of prior HUNTER TRAPPER ICD, resection of all pacemaker leads and defibrillation coil, implant new leads and deflated related required. POD #2
Patient has been extubated and is saturating well on nasal cannula without any distress
No wheezing or stridor noted
Management of chest tubes per primary service
ABG reviewed
Pain control
-Chest x-ray, reviewed
Other medical comorbidities:
-Complicated enterococcal faecalis bacteremia with endocarditis of mitral and aortic valve with severe MR and infected pacemaker lead with vertebral osteomyelitis, continue antibiotic per infectious disease service currently on ampicillin and
ceftriaxone
-Diabetes mellitus, on insulin infusion per protocol
-Paroxysmal atrial fibrillation, apixaban on hold. Patient had been on Lovenox prior to surgery, currently on amiodarone, anticoagulation on hold
-History of coronary artery disease status post CABG in the past. Aspirin, Plavix
-Patient volume overloaded on exam, getting diuretics
ICU team will follow along.
Data:
ELLIE
Normal biventricular size and systolic function without regional wall motion
abnormality.
Pacer wires seen with large echodensity prolapsing between the right atrium and
right ventricle through the tricuspid valve associated with the right
ventricular wire. There is a large bulbous portion (2. 4 x 1.46 cm) proximally
that tapers down along the course of the wire and into the right ventricle.
Echodensity consistent with vegetation seen on both anterior and posterior
leaflets of the mitral valve with associated severe mitral regurgitation.
Echodensity consistent with vegetation on the aortic valve, minimal aortic
regurgitation seen.
Complex atheroma in the descending aorta.
No prior TTE available for comparison.
CT AP
At T10-11, there is irregular bony destruction of the endplates at the disc space, and findings are highly suggestive of discitis and osteomyelitis. Slight prominence of paraspinal soft tissue at this disc space level on the axial images. There are
no gross findings that would suggest posterior epidural extension.
Critical Care time 30 mins -- The patient is admitted for acute critical illness for the treatment of vital organ failure and/or prevention of further life-threatening conditions. Total care includes time spent in review of history, physical exam,
medications, hemodynamic/ventilator parameters, laboratory data, imaging and discussion with house staff, pharmacy, respiratory therapy, oil field roustabout, and nursing.
Subjective Dataa
Subjective Data
Date of Service:
Date of Service: May 02, 2024
Subjective:
Patient in good spirits, sitting in bed in no acute distress.
Review of Systems
Cardiopulmonary: Edema
Genitourinary: Other (All 14 systems reviewed and negative except as stated above in the history of present illness.)
Objective Data
Data Reviewed
Vital Signs / I&O / Oxygen:
Vital Signs
Temp Pulse Resp BP Pulse Ox
98.1 F 70 18 125/70 97
05/02/24 10:00 05/02/24 12:00 05/02/24 10:00 05/02/24 12:00 05/02/24 10:00
Intake and Output
05/01/24 05/02/24 05/03/24
06:59 06:59 07:59
Intake Total 1036.5 / 1064.6 2178.6 / 2178.6 508.4 / 508.4
Output Total 1740 / 1795 1845 / 1845 145 / 145
Balance -703.5 / -730.4 333.6 / 333.6 363.4 / 363.4
SaO2 [SIMV] 99
SaO2 97
Nasal Cannula flow liters per 91
minute
Physical Exam
General: Comfortable
HEENT: Normocephalic
Cardiovascular: Regular Rhythm and Peripheral Edema
Respiratory: Clear and Non-Labored Respirations
GI: Soft
Neurology: Awake, Alert and Oriented
Skin: Warm
Labs/Micro/Reports
Lab Data
05/02/24 05:02
05/02/24 05:02
Microbiology
04/30/24 10:13 Heart Tissue Culture - Preliminary
Enterococcus species
04/30/24 10:13 Heart Gram Stain - Preliminary
04/30/24 Unknown Heart Tissue Culture - Preliminary
Enterococcus species
04/30/24 Unknown Heart Gram Stain - Preliminary
04/30/24 Unknown Pace Maker/Introd Port Catheter Tip Culture - Preliminary
No Growth After 48 Hours
04/30/24 Unknown Heart Anaerobic Culture - Preliminary
Culture pending. Anaerobic cultures are examined after 3
days incubation. Additional information to follow.
04/30/24 10:13 Heart Anaerobic Culture - Preliminary
Culture pending. Anaerobic cultures are examined after 3
days incubation. Additional information to follow.
04/30/24 Unknown Heart Fungal Culture - Preliminary
Culture in progress.
Positive cultures are reported as soon as detected.
Final report to follow in four to five weeks.
04/30/24 10:13 Heart Fungal Culture - Preliminary
Culture in progress.
Positive cultures are reported as soon as detected.
Final report to follow in four to five weeks.
[2024-05-02 13:25] LABS: Glucose - Point of Care 143 mg/dl (70-99)
--- NOTE | 2024-05-02 14:21 | W.PN.CARDCBS ---
Today's Communication / Plan
-
Supportive post op care
Diuresis
Impression / Plan
-
PCP: Dr. Mike Doe
Cardiology: Dr. Servin of [place]
Impression:
Admitted on 04/16/2024 with fever, neck, and back pain
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
s/p Redo sternotomy with extensive adhesiolysis, Resection/explant of all old pacemaker leads and defibrillation coil, Implant of right atrial, right ventricular, left ventricular epicardial leads and defibrillator coil towards the LV aspect of the
heart, Mitral valve replacement (29 mm), Tricuspid valve repair (30 mm band annuloplasty) 04/30/2024 Dr. Nicholson
Sepsis
Vertebral osteomyelitis
Abnormal echo suggesting pacer wire vegetation in the RV and vegetation on the mitral valve 04/16/2024
Hypotension
post op anemia s/p 6 units pRBCs
postop coagulopathy - s/p 2 unit platelets and 2 FFPs
Admitted with osteomyelitis and enterococcal bacteremia in the setting of prior cholecystectomy 01/2024.
History of recovered ischemic cardiomyopathy,current EF 50-55% on echo 03/2024, previously EF 20% in past per patient
s/p [employer] ICD 12/28/16, explanted 04/30/2024 See above
-Device interrogation 04/17/2024 shows stable lead sensing, pacing threshold, and lead impedances; no AT AF; no VT VF since last interrogation or tachytherapies; discussed with [employer] national account representative, Jose Adan, patient's device is MRI
compatible and safe; if patient to need MRI, would place patient DOO (preferable) or VOO at 80 bpm; patient is not reported as dependent
CAD with CO
s/p 3 mm Taxus LUCIO to unknown vessel 10/15/05
s/p CABG x 2 2005 at [place]
Paroxysmal atrial fibrillation
Chronic Eliquis OAC
HLD
DM2
remote former smoker
s/p lap grace 01/2024
Echo 04/16/2024: EF 50 to 55%, normal regional wall motion, pacer wire seen in the RV with large density (1.7 x 1.9 cm) on pacemaker which could be consistent with vegetation, thickened mitral valve leaflets with MAC and peak/mean 8/4 mmHg, mobile
echodensity on the MV consistent with vegetation, at least moderate eccentric MR, aortic sclerosis without stenosis, no aortic regurgitation, mild TR with PAP 20 to 25 mmHg
Cardiac catheterization 04/24/2024: LM: NL. LAD: Moderate diffuse atherosclerotic disease in proximal LAD with patent GOODRICH to D1 and mid LAD. Ramus: 90% ostial stenosis. Left circumflex: LI. RCA: Mid 30% in-stent restenosis. PDA ostial 30%
stenosis. GOODRICH-D-LAD: Patent with antegrade and retrograde filling of both the LAD and diagonal branches
Plan:
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
-Status post s/p Redo sternotomy with extensive adhesiolysis, Resection/explant of all old pacemaker leads and defibrillation coil, Implant of right atrial, right ventricular, left ventricular epicardial leads and defibrillator coil towards the LV
aspect of the heart, Mitral valve replacement (29 mm), Tricuspid valve repair (30 mm band annuloplasty) 04/30/2024 Dr. Nicholson
-CABG was not performed due to dense adhesions. Did not receive AVR as inspection showed no significant vegetations on the valve
-No major issues overnight currently receiving a unit packed red blood cells [has received 6 units packed red blood cells, 2 units FFP and 2 pools of platelets]
-Not requiring pressors.
-Appears to be volume overloaded, continue diuresis with IV Lasix
-monitor and trend renal function, electrolytes and weight. Monitor CBC.
-Per review of telemetry patient now AV paced at 70 bpm
-ICD interrogated again on morning of 05/01/2024 by [employer] rep showing appropriate function and stable thresholds. After discussing with CT surgery will continue to pace at DDDR at 70. Could consider reducing base rate at follow-up in cardiology
office.
-Continue prophylactic amiodarone
-Continue IV antibiotics per ID.
-Repeat EKG tomorrow.
-Continue aspirin and Plavix with eventual resumption of anticoagulation/Eliquis
-continue post op care
-d/w CT surgery nursing, patient and patient's at bedside
PREADMIT DATA: Patient came to [facility] with neck pain on 04/15/24 and was admitted with osteomyelitis and cardiology is now consulted for eval of abnormal echo. Patient has routine cardiology care at [place] - Dr. Servin. Patient was admitted to 02/03/24
until 02/06/24 with abdominal pain and had lap grace 02/05/24. Patient was then in the ER 02/27/24 for hypotension and URI symptoms at the recommendation of his PCP, but BP was normal and no evidence of acute process so patient was sent home. Patient
came back to ER 03/02/24 with chest and back pain and troponin negative and he was given toradol and valium for spasm. Patient was sent to [facility] for rehab briefly however then went home. Patient came to last night with neck pain that
started Saturday04/11/24. He reports limited neck mobility and development of fever. He was noted by imaging to have evidence of osteomyelitis then underwent echo which showed large mobile echodensity consistent with mitral valve vegetation, MR, and
large density on ppm also with concern for vegetation. Blood cultures prelim positive. cardiology consulted for evaluation.
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
Subjective
Date of Service: May 02, 2024
Seen and examined. Patient overall in good spirits with no specific complaints. Chart/telemetry and overnight events reviewed
Objective
Labs:
05/02/24 05:02
05/02/24 05:02
Labs
Hgb 7.3 g/dL (13.0-18.0) L 05/02/24 05:02
Hct 22.3 % (39.0-52.0) L 05/02/24 05:02
Plt Count 154 10^3/uL (130-400) 05/02/24 05:02
PT 18.3 Sec (11.4-14.6) H 04/30/24 19:47
INR 1.46 04/30/24 19:47
APTT 35.4 Sec (23.4-35.0) H 04/30/24 16:08
Sodium 137 mmol/L (135-145) 05/02/24 05:02
Potassium 4.1 mmol/L (3.5-5.1) 05/02/24 05:02
BUN 12 mg/dl (9-20) 05/02/24 05:02
Creatinine 0.7 mg/dL (0.7-1.3) 05/02/24 05:02
Glucose 75 mg/dl (70-99) 05/02/24 05:02
Vital Signs and I&O:
Vital Signs
Temp Pulse Resp BP Pulse Ox
98.1 F 70 18 125/70 97
05/02/24 10:00 05/02/24 12:00 05/02/24 10:00 05/02/24 12:00 05/02/24 10:00
Vital Signs
Temp Pulse Resp BP Pulse Ox
98.1 F 70 18 125/70 97
05/02/24 10:00 05/02/24 12:00 05/02/24 10:00 05/02/24 12:00 05/02/24 10:00
Intake & Output
04/30/24 05/01/24 05/02/24 05/03/24
06:59 06:59 06:59 07:59
Intake Total 1228 / 1228 1036.5 / 1064.6 2178.6 / 2178.6 532.9 / 532.9
Output Total 3750 / 3750 1740 / 1795 1845 / 1845 660 / 660
Balance -2522 / -2522 -703.5 / -730.4 333.6 / 333.6 -127.1 / -127.1
Physical Exam
Physical Exam
GEN: No distress, awake, Ox3, sitting in bed receiving PRBCs
HEENT: mmm
LUNGS: Mildly decreased breath sounds at bases otherwise CTA anteriorly, no wheezes/rales
CV: Reg, S1/S2, 1/6 SM. no rub +CT
ABD: soft, BS+, NT/ND
EXT: +1 bilateral extremity edema, hands trace edema.
[2024-05-02] MEDS: NSS 500 IV (14:26)
[2024-05-02] MEDS: FERRLECIT 110 MG IV (14:27)
[2024-05-02] MEDS: TYLENOL PO (14:27)
--- NOTE | 2024-05-02 20:00 | PTCARENOTE ---
Assumed care of the patient at 1900. AOx3, in bed, c/o neck stiffness/pain. AV Paced on the monitor, PPM, v wire insulated, heart tones audible, edema improved +1 of hands and LEs, pulses palpable. CTx2 to -20 cm wall suction, no air leak, tidaling,
or crepitus noted, sanguinous drainage in the chamber, lung sounds diminished throughout, placed on CPAP with 4LPM O2 for bedtime. Patient had a large BM in the bedside commode, reported feeling better after, BS normoactive, abdomen SNT, obese.
Santana catheter in place draining clear yellow urine. All surgical sites intact. RIJ Cordis and PIV. Patient updated on POC, in agreement, call waller within reach, assessment of needs ongoing.
[2024-05-02] MEDS: MAGNESIUM OXIDE PO (21:11)
[2024-05-02] MEDS: SENOKOT-S PO (21:16)
[2024-05-02] MEDS: XALATAN OPHTHALMIC SOLUTION 1 DROP BOTH EYES (21:17)
[2024-05-02] MEDS: MUCINEX 600 MG PO (21:55)
[2024-05-02 22:14] LABS: Glucose - Point of Care 132 mg/dl (70-99)
[2024-05-03] VITALS (12 sets, daily range): BP systolic 102–144; BP diastolic 53–95; PULSE 70; O2SAT 98; BMI 29.9
[2024-05-03] MEDS: AMPICILLIN 108 MG IV ×6 (00:10→19:13)
--- NOTE | 2024-05-03 00:15 | PTCARENOTE ---
No acute issues, patient sleeping between care. BP 143 systolic, CVNP aware, no additional orders at this time.
--- NOTE | 2024-05-03 00:29 | W.PN.CT ---
Addendum entered and electronically signed by Craig Tate MD 05/03/24 09:10:
I saw and examined the patient.
The PA's note was reviewed and I agree with the note.
Comment:
No major overnight issues. Hemoglobin 9.1, appropriate response status post 1 unit of packed red blood cells for hemoglobin of 7.3
DC chest tubes
DC Jimenez
Continue antibiotics
PICC line for tomorrow
Continue diuresis
Out of bed, I-S, ambulate
Original Note:
Today's Communication / Plan
-
No issues overnight�
Received 1 unit of RBC transfused on 05/02 for hgb of 7.3�
Continue Diuresis= receiving Furosemide 40 mg TID; jimenez maintain�
Consider removal of chest tubes (MS *2)�
Maintain cordis//transition to PICC line�
Continue with OOB to chair and working IS�
Continue ampicillin/ceftriaxone for Enterococcal bacteremia�
Current meds = (Amio, ASA, Lasix, Lipitor, Plavix, Gabapentin, Lopressor, protonix)�
Assessment / Plan
-
Procedure(s) Performed by Dr. Nicholson on 04/30/24, pod #3
1. Ultrasound-guided access of bilateral groins using Seldinger technique and placement of 5 Vietnamese sheath
2. Redo sternotomy with extensive adhesiolysis, modifier 22
3. Resection of all pacemaker leads and defibrillation coil
4. 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
5. Implant of right atrial, right ventricular, left ventricular epicardial leads
6. Implant of defibrillator coil towards the LV aspect of the heart, left lateral
7. Mitral valve replacement, chordal sparing [29 mm device with placement of [place] cord to reinforce and support the posterior medial papillary muscle head]
8. Tricuspid valve repair [30 mm band annuloplasty]
9. Aortotomy with exploration and inspection of the aortic valve
10. Placement of temporary ventricular pacing wires backup
11. Transesophageal echocardiography
12. Open saphenous vein harvest, CABG was not performed due to dense adhesions towards the prior GOODRICH to LAD and scar overlying the ramus intermedius
-Endocarditis (Enterococcus faecalis) involving Aortic valve, Mitral valve, Tricuspid valve and BiV ICD
-Severe MR
-Bicuspid AV/trivial AI
-Mild TR
-Infected BiV ICD
-Hx ICM (EF 20%) S/P MRI compatible [employer] BiV ICD, 12/28/2016
-LVEF 50-55% per TTE 04/16/24
-Enterococcus faecalis UTI
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
-L3-S1 septic arthritis
-Soft tissue edema C5-C6 interspinous
-Fever (peaked @ 102.7)
-Leukocytosis (wbc peaked @ 27.1)
-Hx CAD S/P CABG x 1 (GOODRICH-LAD), 2005 (patent per cath 04/24)
-Single Vessel CAD (RI 90% ostial), per cath 04/24
-HTN
-HLD
-T2DM (hgb A1C 6.9, on insulin)
-A-fib (on Eliquis @ home)
-HALLIE
-BPH (on Flomax)
-DJD
-Interstitial fibrosis/asbestosis
-Former tobacco use
-S/p Lap Skylar, 02/05/24
-S/p removal of infected dental implants
-S/P L4/L5 Laminectomy, 2018
-Chronic diastolic heart failure with preserved left ventricular ejection fraction
-History of cholelithiasis and gallstone pancreatitis
-Acute postop blood loss anemia - s/p 6 pRBCs
-Acute postop coagulopathy - s/p 2 unit platelets and 2 FFPs
-Acute postop metabolic alkalosis
-Acute postop atelectasis
-Acute postop hypovolemia with subsequent hypervolemia
Echo 05/01/24:
1. Normal left ventricular chamber size with mild basal septal, basal inferior, and basal inferolateral hypokinesis. Low normal contractility of the remaining segments, EF 47%
2. #29 [place] Mitris Resilia bioprosthetic mitral valve, mean gradient is 3mmHg. No mitral regurgitation is seen. Normal left atrium
3. Normal-appearing aortic valve without stenosis or regurgitation
4. Normal right heart, status post 30 mm tricuspid annuloplasty band with normal pulmonary artery systolic pressure
Left ventricular function is roughly similar to the intraoperative transesophageal echo, though the ejection fraction may have decreased slightly.
The patient's ICD has been explanted since that study and an epicardial system substituted.
Subjective
-
Date of Service: May 03, 2024
Objective Data
-
PT 18.3 Sec (11.4-14.6) H 04/30/24 19:47
INR 1.46 04/30/24 19:47
APTT 35.4 Sec (23.4-35.0) H 04/30/24 16:08
Vital Signs
Vital Signs
Temp Pulse Resp BP Pulse Ox
98.3 F 70 18 143/77 95
05/03/24 00:10 05/03/24 00:00 05/02/24 19:39 05/03/24 00:00 05/03/24 00:00
CT Intake/Output/Weight
05/02/24 05/02/24 05/03/24
06:59 18:59 07:59
Intake Total 1561.9 / 2178.6 1163.4 / 1421.4 258 / 1421.4
Output Total 635 / 1845 2225 / 3220 995 / 3220
Balance 926.9 / 333.6 -1061.6 / -1798.6 -737 / -1798.6
SaO2: 95
Physical Exam
-
General: Awake
Cardiovascular: Regular rate & rhythm
Respiratory: Clear
Sternum: Stable
Incision: Clean, Dry and Intact
Extremities: Edema +1
--- NOTE | 2024-05-03 04:00 | PTCARENOTE ---
Assessment unchanged, patient sleeping between care, pain controlled, call waller within reach.
[2024-05-03 04:24] LABS: Glucose - Point of Care 106 mg/dl (70-99)
[2024-05-03 05:37] LABS: Blood Urea Nitrogen 10 mg/dl (9-20); Calcium 8.3 mg/dl (8.4-10.2); Carbon Dioxide 28 mmol/L (22-30); Chloride 99 mmol/L (98-107); Estimated Creatinine Clearance 89 ml/min; Glucose 98 mg/dl (70-99); Magnesium 1.9 mg/dl (1.6-2.3); Potassium 4.1 mmol/L (3.5-5.1); Sodium 135 mmol/L (135-145); eGFR > 60.00
[2024-05-03 05:52] LABS: Hematocrit 27.5 % (39.0-52.0); Hemoglobin 9.1 g/dL (13.0-18.0); Mean Corp Hgb Conc. 33.1 g/dL (33.0-37.0); Mean Corpuscular Hgb 28.9 pg (27.0-31.0); Mean Corpuscular Volume 87.3 fL (80.0-94.0); Mean Platelet Volume 10.1 fL (7.4-10.4); Platelet Count 207 10^3/uL (130-400); Red Blood Cell Count 3.15 10^6/uL (4.70-6.10); Red Cell Dist. Width 16.1 % (11.5-14.5); White Blood Cell Count 9.3 10^3/uL (4.8-10.8)
[2024-05-03] MEDS: ROXICODONE 5 MG PO ×2 (06:10→21:22)
[2024-05-03] MEDS: ROCEPHIN 2000 MG IV ×2 (06:11→17:36)
[2024-05-03] MEDS: STERILE WATER FOR INJECTION 20 ML IV ×2 (06:11→17:36)
[2024-05-03] MEDS: TYLENOL 1000 MG PO ×3 (06:11→21:22)
[2024-05-03] MEDS: NOVOLOG FLEXPEN-MODERATE RESISTANCE SC (07:32)
--- NOTE | 2024-05-03 08:00 | PTCARENOTE ---
resumed care of the patient from previous RN. AAOx3. in bed resting at time of assessment. Remains 100% AV Paced on the monitor. HR 70. has PPM, and an insulated V wire (which i received orders to d/c). + pulses +1 edema. CTx2 remain to suction and
also will be d/c'd per orders this am. hyperactive bowel sounds. multiple bms. loose. Santana catheter in place draining clear yellow urine. will also remove as ordered this am. All surgical sites stable. RIJ Cordis and PIV. will continue to monitor.
[2024-05-03] MEDS: MAGNESIUM OXIDE 500 MG PO ×2 (08:17→19:14)
[2024-05-03] MEDS: PROTONIX 40 MG PO (08:17)
[2024-05-03 08:18] LABS: Glucose - Point of Care 121 mg/dl (70-99)
[2024-05-03] MEDS: LOW STRENGTH ASPIRIN 81 MG PO (08:18)
[2024-05-03] MEDS: FLOMAX 0.4 MG PO (08:18)
[2024-05-03] MEDS: NEURONTIN 100 MG PO ×3 (08:18→21:22)
[2024-05-03] MEDS: PLAVIX 75 MG PO (08:18)
[2024-05-03] MEDS: LIPITOR 40 MG PO (08:18)
[2024-05-03] MEDS: SENOKOT-S 1 TABLET PO (08:18)
[2024-05-03] MEDS: NON-FORMULARY ITEM 1 UNIT TOPICAL ×2 (08:20→19:14)
[2024-05-03] MEDS: TOPROL XL 50 MG PO (08:20)
[2024-05-03] MEDS: KCL 20 MEQ PO ×3 (08:20→21:23)
[2024-05-03] MEDS: BACTROBAN 2% OINTMENT 1 APPLIC NASAL ×2 (08:20→19:14)
[2024-05-03] MEDS: MUCINEX 600 MG PO ×2 (08:21→19:14)
[2024-05-03] MEDS: LASIX 40 MG IV ×3 (08:22→21:23)
[2024-05-03] MEDS: LIDOCAINE 4% PATCH TOPICAL (08:22)
[2024-05-03] MEDS: PACERONE 200 MG PO ×3 (08:22→21:23)
--- NOTE | 2024-05-03 11:32 | W.PN.INTV ---
Today's Communication / Plan
Recommendations
Patient transferring out of ICU, peer specialist service will sign off, please consult as needed
Assessment
-
Very pleasant 79-year-old gentleman presented with fever and back pain and subsequently found to have enterococcal bacteremia with vertebral osteomyelitis as well as endocarditis with vegetations on both aortic and mitral valve. In addition
patient's pacer leads were also noted to be involved. Patient has since cleared bacteremia with antibiotic and he was taken to the OR 03/06 for redo sternotomy.
S/p redo sternotomy, mitral valve replacement, tricuspid valve repair, explant of prior [employer] ICD, resection of all pacemaker leads and defibrillation coil, implant new leads and deflated related required. POD #3
Patient has been extubated and is saturating well on nasal cannula without any distress
No wheezing or stridor noted
Santana catheter and chest tube removed
Patient is -3.5 L over last 24 hours
Hemoglobin improved to 9.1 after blood transfusion, electrolytes and renal function unremarkable
-Chest x-ray, reviewed, improving, trace pleural effusion on the left side
Other medical comorbidities:
-Complicated enterococcal faecalis bacteremia with endocarditis of mitral and aortic valve with severe MR and infected pacemaker lead with vertebral osteomyelitis, continue antibiotic per infectious disease service currently on ampicillin and
ceftriaxone
-Diabetes mellitus
-Paroxysmal atrial fibrillation, apixaban on hold. Patient had been on Lovenox prior to surgery, currently on amiodarone, Eliquis resumed also metoprolol XL 50 daily
-History of coronary artery disease status post CABG in the past. Aspirin, Plavix. Metoprolol and statins.
-Volume overload responding well to diuretics
Patient transferring out of ICU, peer specialist service will sign off. Please call as needed
Data:
ELLIE
Normal biventricular size and systolic function without regional wall motion
abnormality.
Pacer wires seen with large echodensity prolapsing between the right atrium and
right ventricle through the tricuspid valve associated with the right
ventricular wire. There is a large bulbous portion (2. 4 x 1.46 cm) proximally
that tapers down along the course of the wire and into the right ventricle.
Echodensity consistent with vegetation seen on both anterior and posterior
leaflets of the mitral valve with associated severe mitral regurgitation.
Echodensity consistent with vegetation on the aortic valve, minimal aortic
regurgitation seen.
Complex atheroma in the descending aorta.
No prior TTE available for comparison.
CT AP
At T10-11, there is irregular bony destruction of the endplates at the disc space, and findings are highly suggestive of discitis and osteomyelitis. Slight prominence of paraspinal soft tissue at this disc space level on the axial images. There are
no gross findings that would suggest posterior epidural extension.
Critical Care time 30 mins -- The patient is admitted for acute critical illness for the treatment of vital organ failure and/or prevention of further life-threatening conditions. Total care includes time spent in review of history, physical exam,
medications, hemodynamic/ventilator parameters, laboratory data, imaging and discussion with house staff, pharmacy, respiratory therapy, concrete truck driver, and nursing.
Subjective Dataa
Subjective Data
Date of Service:
Date of Service: May 03, 2024
Subjective:
Patient comfortably sitting in bed in no acute distress, overall feels better.
Review of Systems
Genitourinary: Other (Mild neck pain, improving. All 14 systems reviewed and negative except as stated above in the history of present illness.)
Objective Data
Data Reviewed
Vital Signs / I&O / Oxygen:
Vital Signs
Temp Pulse Resp BP Pulse Ox
98.1 F 70 18 130/55 96
05/03/24 08:00 05/03/24 11:00 05/03/24 08:00 05/03/24 09:57 05/03/24 10:00
Intake and Output
05/02/24 05/03/24 05/04/24
05:59 06:59 06:59
Intake Total 138 / 138
Output Total 810 / 810
Balance -672 / -672
SaO2 [SIMV] 99
SaO2 96
Nasal Cannula flow liters per 4
minute
Physical Exam
General: Comfortable
HEENT: Normocephalic
Cardiovascular: Regular Rhythm and Peripheral Edema (Quite improved)
Respiratory: Clear and Non-Labored Respirations
GI: Soft
Neurology: Awake, Alert and Oriented
Skin: Warm
Labs/Micro/Reports
Lab Data
05/03/24 04:47
05/03/24 04:47
Microbiology
04/30/24 Unknown Heart Acid Fast Bacilli Smear - Preliminary
04/30/24 Unknown Heart Acid Fast Bacilli Culture - Preliminary
04/30/24 10:13 Heart Acid Fast Bacilli Smear - Preliminary
04/30/24 10:13 Heart Acid Fast Bacilli Culture - Preliminary
04/30/24 10:13 Heart Tissue Culture - Preliminary
Enterococcus species
04/30/24 10:13 Heart Gram Stain - Preliminary
04/30/24 Unknown Heart Tissue Culture - Preliminary
Enterococcus species
04/30/24 Unknown Heart Gram Stain - Preliminary
04/30/24 Unknown Pace Maker/Introd Port Catheter Tip Culture - Preliminary
No Growth After 48 Hours
04/30/24 Unknown Heart Anaerobic Culture - Preliminary
Culture pending. Anaerobic cultures are examined after 3
days incubation. Additional information to follow.
04/30/24 10:13 Heart Anaerobic Culture - Preliminary
Culture pending. Anaerobic cultures are examined after 3
days incubation. Additional information to follow.
04/30/24 Unknown Heart Fungal Culture - Preliminary
Culture in progress.
Positive cultures are reported as soon as detected.
Final report to follow in four to five weeks.
04/30/24 10:13 Heart Fungal Culture - Preliminary
Culture in progress.
Positive cultures are reported as soon as detected.
Final report to follow in four to five weeks.
--- NOTE | 2024-05-03 12:00 | PTCARENOTE ---
d/c wires with Zelalem at bedside. CTs D/c'd with zelalem at bedside as well 1 hour later VSS.
--- NOTE | 2024-05-03 12:16 | W.PN.CARDCBS ---
Today's Communication / Plan
-
Diuresed with Lasix 40 mg IV 3 times daily and can likely de-escalate in the next 24 hours
Chest tube management per CT surgery
continue PT efforts
Supportive postoperative
Impression / Plan
-
PCP: Dr. Mike Doe
Cardiology: Dr. Servin of CT
Impression:
Admitted on 04/16/2024 with fever, neck, and back pain
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
s/p Redo sternotomy with extensive adhesiolysis, Resection/explant of all old pacemaker leads and defibrillation coil, Implant of right atrial, right ventricular, left ventricular epicardial leads and defibrillator coil towards the LV aspect of the
heart, Mitral valve replacement (29 mm), Tricuspid valve repair (30 mm band annuloplasty) 04/30/2024 Dr. Nicholson
Sepsis
Vertebral osteomyelitis
Abnormal echo suggesting pacer wire vegetation in the RV and vegetation on the mitral valve 04/16/2024
Hypotension
post op anemia s/p 6 units pRBCs
postop coagulopathy - s/p 2 unit platelets and 2 FFPs
Admitted with osteomyelitis and enterococcal bacteremia in the setting of prior cholecystectomy 01/2024.
History of recovered ischemic cardiomyopathy,current EF 50-55% on echo 03/2024, previously EF 20% in past per patient
s/p [employer] ICD 12/28/16, explanted 04/30/2024 See above
-Device interrogation 04/17/2024 shows stable lead sensing, pacing threshold, and lead impedances; no AT AF; no VT VF since last interrogation or tachytherapies; discussed with [employer] loss control representative, Jose Adan, patient's device is MRI
compatible and safe; if patient to need MRI, would place patient DOO (preferable) or VOO at 80 bpm; patient is not reported as dependent
CAD with IN
s/p 3 mm Taxus LUCIO to unknown vessel 10/15/05
s/p CABG x 2 2005 at [facility]
Paroxysmal atrial fibrillation
Chronic Eliquis OAC
HLD
DM2
remote former smoker
s/p lap grace 01/2024
Echo 04/16/2024: EF 50 to 55%, normal regional wall motion, pacer wire seen in the RV with large density (1.7 x 1.9 cm) on pacemaker which could be consistent with vegetation, thickened mitral valve leaflets with MAC and peak/mean 8/4 mmHg, mobile
echodensity on the MV consistent with vegetation, at least moderate eccentric MR, aortic sclerosis without stenosis, no aortic regurgitation, mild TR with PAP 20 to 25 mmHg
Cardiac catheterization 04/24/2024: LM: NL. LAD: Moderate diffuse atherosclerotic disease in proximal LAD with patent GOODRICH to D1 and mid LAD. Ramus: 90% ostial stenosis. Left circumflex: LI. RCA: Mid 30% in-stent restenosis. PDA ostial 30%
stenosis. GOODRICH-D-LAD: Patent with antegrade and retrograde filling of both the LAD and diagonal branches
Plan:
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
-Status post s/p Redo sternotomy with extensive adhesiolysis, Resection/explant of all old pacemaker leads and defibrillation coil, Implant of right atrial, right ventricular, left ventricular epicardial leads and defibrillator coil towards the LV
aspect of the heart, Mitral valve replacement (29 mm), Tricuspid valve repair (30 mm band annuloplasty) 04/30/2024 Dr. Nicholson
-CABG was not performed due to dense adhesions. Did not receive AVR as inspection showed no significant vegetations on the valve
-No major issues overnight. Patient seen just following physical therapy and reportedly did well although still recommended skilled rehab at time of discharge
-Plan for chest tube removal
-Stable hemodynamics not requiring pressors
-Hemoglobin improved, today 9.1 g/dL after transfusion yesterday. [ Received 7 units packed red blood cells, 2 units FFP and 2 pools of platelets]
-Volume status appears better following aggressive IV diuresis with stable creatinine and electrolytes. Reported I's/O balance -3272 cc.
-Per review of telemetry patient now AV paced at 70 bpm
-ICD interrogated again on morning of 05/01/2024 by [employer] rep showing appropriate function and stable thresholds. After discussing with CT surgery will continue to pace at DDDR at 70. Could consider reducing base rate at follow-up in cardiology
office.
-Continue prophylactic amiodarone
-Continue IV antibiotics per ID.
-Repeat EKG tomorrow.
-Continue aspirin and Plavix with plan to resume Eliquis 05/04
-continue post op care
PREADMIT DATA: Patient came to [facility] with neck pain on 04/15/24 and was admitted with osteomyelitis and cardiology is now consulted for eval of abnormal echo. Patient has routine cardiology care at CT - Dr. Servin. Patient was admitted to 02/03/24
until 02/06/24 with abdominal pain and had lap grace 02/05/24. Patient was then in the ER 02/27/24 for hypotension and URI symptoms at the recommendation of his PCP, but BP was normal and no evidence of acute process so patient was sent home. Patient
came back to ER 03/02/24 with chest and back pain and troponin negative and he was given toradol and valium for spasm. Patient was sent to [facility] for rehab briefly however then went home. Patient came to last night with neck pain that
started Saturday04/11/24. He reports limited neck mobility and development of fever. He was noted by imaging to have evidence of osteomyelitis then underwent echo which showed large mobile echodensity consistent with mitral valve vegetation, MR, and
large density on ppm also with concern for vegetation. Blood cultures prelim positive. cardiology consulted for evaluation.
Progress Note - Director Of Corporate Sponsorships
Subjective
Date of Service: May 03, 2024
Seen and examined just after work physical therapy. Overnight no events
Objective
Labs:
05/03/24 04:47
05/03/24 04:47
Labs
Hgb 9.1 g/dL (13.0-18.0) L D 05/03/24 04:47
Hct 27.5 % (39.0-52.0) L 05/03/24 04:47
Plt Count 207 10^3/uL (130-400) D 05/03/24 04:47
PT 18.3 Sec (11.4-14.6) H 04/30/24 19:47
INR 1.46 04/30/24 19:47
APTT 35.4 Sec (23.4-35.0) H 04/30/24 16:08
Sodium 135 mmol/L (135-145) 05/03/24 04:47
Potassium 4.1 mmol/L (3.5-5.1) 05/03/24 04:47
BUN 10 mg/dl (9-20) 05/03/24 04:47
Creatinine 0.7 mg/dL (0.7-1.3) 05/03/24 04:47
Glucose 98 mg/dl (70-99) 05/03/24 04:47
Vital Signs and I&O:
Vital Signs
Temp Pulse Resp BP Pulse Ox
98.1 F 70 18 130/55 96
05/03/24 08:00 05/03/24 11:00 05/03/24 08:00 05/03/24 09:57 05/03/24 10:00
Vital Signs
Temp Pulse Resp BP Pulse Ox
98.1 F 70 18 130/55 96
05/03/24 08:00 05/03/24 11:00 05/03/24 08:00 05/03/24 09:57 05/03/24 10:00
Intake & Output
05/01/24 05/02/24 05/03/24 05/04/24
05:59 05:59 06:59 06:59
Intake Total 138 / 138
Output Total 810 / 810
Balance -672 / -672
Physical Exam
Physical Exam
GEN: No distress, awake, Ox3
HEENT: mmm
LUNGS: Mildly decreased breath sounds at bases otherwise CTA anteriorly, no wheezes/rales
CV: Reg, S1/S2, 1/6 SM. no rub +CT
ABD: soft, BS+, NT/ND
EXT: +trace bilateral extremity edema- improved
[2024-05-03] MEDS: NOVOLOG FLEXPEN-MODERATE RESISTANCE 3 UNITS SC (12:50)
[2024-05-03] MEDS: NSS IV (12:50)
[2024-05-03 12:57] LABS: Glucose - Point of Care 205 mg/dl (70-99)
[2024-05-03] MEDS: FERRLECIT 110 MG IV (14:03)
--- NOTE | 2024-05-03 14:53 | CHAP ---
Mr. Ferreira was in good spirits, grateful to God for his good progress, and the good care he is receiving. He welcomed prayer. Emotional and spiritual support provided.
--- NOTE | 2024-05-03 15:00 | PTCARENOTE ---
jimenez d/c'd. able to urinate post catheter removal without issue.
[2024-05-03 17:31] LABS: Glucose - Point of Care 176 mg/dl (70-99)
[2024-05-03] MEDS: NOVOLOG FLEXPEN-MODERATE RESISTANCE 1 UNITS SC (17:31)
--- NOTE | 2024-05-03 19:00 | PTCARENOTE ---
report received from previous RN, walking rounds done. pt in bed, AAOx4. pt denies any pain. VSS. AV paced on monitor via PPM, HR 70. POX 97% on room air. IS encouraged. RIJ cordis intact w KVO infusing. see worklist for full assessment, VS, and
interventions. pt resting comfortably w call waller in reach.
[2024-05-03] MEDS: SENOKOT-S PO (19:15)
[2024-05-03] MEDS: XALATAN OPHTHALMIC SOLUTION BOTH EYES (22:26)
[2024-05-04] VITALS (10 sets, daily range): BP systolic 69–142; BP diastolic 49–86; BMI 28.9
[2024-05-04] MEDS: AMPICILLIN 108 MG IV ×6 (00:04→20:30)
--- NOTE | 2024-05-04 00:30 | W.PN.CT ---
Today's Communication / Plan
-
No issues overnight�
Continue Diuresis = receiving Furosemide 40 mg TID; consider de-escalating �
Maintain cordis//plan for transition to PICC line for group home antibiotics�
Continue with OOB to chair and working IS�
Continue ampicillin/ceftriaxone for Enterococcal bacteremia�
Current meds = (Amio, ASA, Lasix, Eliquis, Lipitor, E, Gabapentin, Lopressor, protonix)�
ICD = appropriate function and stable thresholds; pace at DDDR at 70.��
Stop Plavix and started on Eliquis�
Planning for acute rehab�
Assessment / Plan
-
Procedure(s) Performed by Dr. Nicholson on 04/30/24, pod #4
1. Ultrasound-guided access of bilateral groins using Seldinger technique and placement of 5 Mongolian sheath
2. Redo sternotomy with extensive adhesiolysis, modifier 22
3. Resection of all pacemaker leads and defibrillation coil
4. 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
5. Implant of right atrial, right ventricular, left ventricular epicardial leads
6. Implant of defibrillator coil towards the LV aspect of the heart, left lateral
7. Mitral valve replacement, chordal sparing [29 mm device with placement of Hitchcock-Duncan cord to reinforce and support the posterior medial papillary muscle head]
8. Tricuspid valve repair [30 mm band annuloplasty]
9. Aortotomy with exploration and inspection of the aortic valve
10. Placement of temporary ventricular pacing wires backup
11. Transesophageal echocardiography
12. Open saphenous vein harvest, CABG was not performed due to dense adhesions towards the prior GOODRICH to LAD and scar overlying the ramus intermedius
-Endocarditis (Enterococcus faecalis) involving Aortic valve, Mitral valve, Tricuspid valve and BiV ICD
-Severe MR
-Bicuspid AV/trivial AI
-Mild TR
-Infected BiV ICD
-Hx ICM (EF 20%) S/P MRI compatible [employer] BiV ICD, 12/28/2016
-LVEF 50-55% per TTE 04/16/24
-Enterococcus faecalis UTI
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
-L3-S1 septic arthritis
-Soft tissue edema C5-C6 interspinous
-Fever (peaked @ 102.7)
-Leukocytosis (wbc peaked @ 27.1)
-Hx CAD S/P CABG x 1 (GOODRICH-LAD), 2005 (patent per cath 04/24)
-Single Vessel CAD (RI 90% ostial), per cath 04/24
-HTN
-HLD
-T2DM (hgb A1C 6.9, on insulin)
-A-fib (on Eliquis @ home)
-HALLIE
-BPH (on Flomax)
-DJD
-Interstitial fibrosis/asbestosis
-Former tobacco use
-S/p Lap Skylar, 02/05/24
-S/p removal of infected dental implants
-S/P L4/L5 Laminectomy, 2018
-Chronic diastolic heart failure with preserved left ventricular ejection fraction
-History of cholelithiasis and gallstone pancreatitis
-Acute postop blood loss anemia - s/p 6 pRBCs
-Acute postop coagulopathy - s/p 2 unit platelets and 2 FFPs
-Acute postop metabolic alkalosis
-Acute postop atelectasis
-Acute postop hypovolemia with subsequent hypervolemia
Echo 05/01/24:
1. Normal left ventricular chamber size with mild basal septal, basal inferior, and basal inferolateral hypokinesis. Low normal contractility of the remaining segments, EF 47%
2. #29 [place] Mitris Resilia bioprosthetic mitral valve, mean gradient is 3mmHg. No mitral regurgitation is seen. Normal left atrium
3. Normal-appearing aortic valve without stenosis or regurgitation
4. Normal right heart, status post 30 mm tricuspid annuloplasty band with normal pulmonary artery systolic pressure
Left ventricular function is roughly similar to the intraoperative transesophageal echo, though the ejection fraction may have decreased slightly.
The patient's ICD has been explanted since that study and an epicardial system substituted.
Subjective
-
Date of Service: May 04, 2024
Objective Data
-
PT 18.3 Sec (11.4-14.6) H 04/30/24 19:47
INR 1.46 04/30/24 19:47
APTT 35.4 Sec (23.4-35.0) H 04/30/24 16:08
Vital Signs
Vital Signs
Temp Pulse Resp BP Pulse Ox
98.4 F 70 18 116/95 98
05/03/24 19:18 05/03/24 19:18 05/03/24 08:00 05/03/24 19:18 05/03/24 20:[address]
CT Intake/Output/Weight
05/03/24 05/03/24 05/04/24
06:59 18:59 06:59
Intake Total 266 / 414 148 / 414
Output Total 1960 / 2160 200 / 2160
Balance -1694 / -1746 -52 / -1746
SaO2: 98
Physical Exam
-
General: Awake
Cardiovascular: Regular rate & rhythm
Respiratory: Clear and Equal
Sternum: Stable
Incision: Clean, Dry and Intact
Extremities: Edema +1
--- NOTE | 2024-05-04 05:10 | PTCARENOTE ---
no changes in assessment, VSS. AV paced, HR 70. POX 93% on cpap. all surgical sites stable. AM labs drawn and sent. pt sleeping between care.
[2024-05-04 05:46] LABS: Hematocrit 27.6 % (39.0-52.0); Hemoglobin 9.2 g/dL (13.0-18.0); Mean Corp Hgb Conc. 33.3 g/dL (33.0-37.0); Mean Corpuscular Hgb 29.8 pg (27.0-31.0); Mean Corpuscular Volume 89.3 fL (80.0-94.0); Mean Platelet Volume 9.7 fL (7.4-10.4); Platelet Count 277 10^3/uL (130-400); Red Blood Cell Count 3.09 10^6/uL (4.70-6.10); Red Cell Dist. Width 15.7 % (11.5-14.5)
[2024-05-04 05:49] LABS: Blood Urea Nitrogen 10 mg/dl (9-20); Calcium 8.6 mg/dl (8.4-10.2); Carbon Dioxide 28 mmol/L (22-30); Chloride 99 mmol/L (98-107); Estimated Creatinine Clearance 88 ml/min; Glucose 111 mg/dl (70-99); Magnesium 1.9 mg/dl (1.6-2.3); Potassium 3.9 mmol/L (3.5-5.1); Sodium 134 mmol/L (135-145); eGFR > 60.00
[2024-05-04] MEDS: TYLENOL 1000 MG PO ×2 (06:07→21:46)
[2024-05-04] MEDS: STERILE WATER FOR INJECTION 20 ML IV ×2 (06:07→18:41)
[2024-05-04] MEDS: ROCEPHIN 2000 MG IV ×2 (06:07→18:40)
[2024-05-04] MEDS: ROXICODONE 5 MG PO ×2 (06:17→15:49)
[2024-05-04] MEDS: KCL 20 MEQ PO ×3 (06:17→21:45)
[2024-05-04] MEDS: NOVOLOG FLEXPEN-MODERATE RESISTANCE SC (08:00)
[2024-05-04 08:01] LABS: Glucose - Point of Care 135 mg/dl (70-99)
--- NOTE | 2024-05-04 08:18 | W.PN.INTV ---
Today's Communication / Plan
Recommendations
Up OOB as tolerated
Encouraged incentive spirometer use
Maintain MAP >65
Goal SpO2 >90-94%
Goal BG 140�180
PT/OT/cardiac rehab consult
Patient is now downgraded to CVICU�telemetry status. No additional recommendations at this time. Community Chest Officer/Pulmonary service will now sign off. Please reconsult if there are any additional questions/concerns, or if patient's respiratory status
deteriorates.
Assessment
-
Very pleasant 79-year-old gentleman presented with fever and back pain and subsequently found to have enterococcal bacteremia with vertebral osteomyelitis as well as endocarditis with vegetations on both aortic and mitral valve. In addition
patient's pacer leads were also noted to be involved. Patient has since cleared bacteremia with antibiotic and he was taken to the OR 04/30 for redo sternotomy.
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
Patient remains on room air, and is breathing comfortably, saturating 95%
No wheezing or stridor noted
S[place] catheter and chest tube removed
-Chest x-ray, reviewed, shows persistent retrocardiac opacification, slightly worse today compared to 05/03/2024, possibly due to atelectasis
-Postoperative management as per CT surgery
-Maintain MAP >65
-Replete K>4, Mg>2
- trend UOP and I/O
-PT/OT/cardiac rehab consult
-Encouraged incentive spirometer use q1hr while awake
-Pain control
-DVT ppx
Other medical comorbidities:
-Complicated enterococcal faecalis bacteremia with endocarditis of mitral and aortic valve with severe MR and infected pacemaker lead with vertebral osteomyelitis, continue antibiotic per infectious disease service currently on ampicillin and
ceftriaxone
-Diabetes mellitus
-Paroxysmal atrial fibrillation, apixaban on hold. Patient had been on Lovenox prior to surgery, currently on amiodarone, Eliquis resumed also metoprolol XL 50 daily
-History of coronary artery disease status post CABG in the past. Aspirin, Plavix. Metoprolol and statins.
-Volume overload responding well to diuretics
Patient is now downgraded to CVICU�telemetry status. No additional recommendations at this time. Community Chest Officer/Pulmonary service will now sign off. Thank you for allowing us to be involved in the care of this patient. Please reconsult if there are
any additional questions/concerns, or if patient's respiratory status deteriorates.
Data:
ELLIE
Normal biventricular size and systolic function without regional wall motion
abnormality.
Pacer wires seen with large echodensity prolapsing between the right atrium and
right ventricle through the tricuspid valve associated with the right
ventricular wire. There is a large bulbous portion (2. 4 x 1.46 cm) proximally
that tapers down along the course of the wire and into the right ventricle.
Echodensity consistent with vegetation seen on both anterior and posterior
leaflets of the mitral valve with associated severe mitral regurgitation.
Echodensity consistent with vegetation on the aortic valve, minimal aortic
regurgitation seen.
Complex atheroma in the descending aorta.
No prior TTE available for comparison.
CT AP
At T10-11, there is irregular bony destruction of the endplates at the disc space, and findings are highly suggestive of discitis and osteomyelitis. Slight prominence of paraspinal soft tissue at this disc space level on the axial images. There are
no gross findings that would suggest posterior epidural extension.
Total time spent today was 57 minutes for this encounter. Time includes reviewing laboratory test/imaging results, reviewing pertinent medical records, obtaining and reviewing medical history, performing an appropriate exam, ordering medications,
tests and procedures. Time also includes documentation of this encounter, coordinating patient care and communicating with other healthcare professionals. Total time does not include separately billed tests performed on this date of service.
Subjective Dataa
Subjective Data
Date of Service:
Date of Service: May 04, 2024
Chief Complaint: Community Chest Officer Follow Up
Subjective:
Patient seen and evaluated today at bedside. Currently on room air breathing comfortably. No chest pain, PIERRE, nausea, fevers or chills.
Review of Systems
General: Other (Negative unless mentioned above)
Objective Data
Data Reviewed
Vital Signs / I&O / Oxygen:
Vital Signs
Temp Pulse Resp BP Pulse Ox
98.4 F 70 18 142/69 98
05/03/24 19:18 05/04/24 07:27 05/03/24 08:00 05/04/24 07:27 05/04/24 00:31
Intake and Output
05/03/24 05/04/24 05/05/24
06:59 06:59 06:59
Intake Total 870 / 890 20 / 20
Output Total 4460 / 4660 200 / 200
Balance -3590 / -3770 -180 / -180
SaO2 [SIMV] 99
SaO2 98
Nasal Cannula flow liters per 4
minute
Physical Exam
General: Respiratory Distress (n), Comfortable and Chills (n)
HEENT: Normocephalic
Cardiovascular: S1-S2 and Peripheral Edema (trace LE edema)
Respiratory: Clear, Wheeze (n), Crackles (n), Rhonchi (n) and Non-Labored Respirations
GI: Soft, Non Distended, Non Tender and Normal Bowel Sounds
Neurology: AO x 3 and Tremors (n)
Skin: Warm, Dry and Cyanosis (n)
Labs/Micro/Reports
Lab Data
05/04/24 05:08
05/04/24 05:08
Microbiology
04/30/24 Unknown Pace Maker/Introd Port Catheter Tip Culture - Final
No Growth After 72 Hours
04/30/24 10:13 Heart Tissue Culture - Preliminary
Enterococcus faecalis
04/30/24 10:13 Heart Gram Stain - Preliminary
04/30/24 Unknown Heart Tissue Culture - Preliminary
Enterococcus faecalis
04/30/24 Unknown Heart Gram Stain - Preliminary
04/30/24 10:13 Heart Anaerobic Culture - Preliminary
Culture pending. Anaerobic cultures are examined after 3
days incubation. Additional information to follow.
04/30/24 Unknown Heart Anaerobic Culture - Preliminary
Culture pending. Anaerobic cultures are examined after 3
days incubation. Additional information to follow.
04/30/24 Unknown Heart Acid Fast Bacilli Smear - Preliminary
04/30/24 Unknown Heart Acid Fast Bacilli Culture - Preliminary
04/30/24 10:13 Heart Acid Fast Bacilli Smear - Preliminary
04/30/24 10:13 Heart Acid Fast Bacilli Culture - Preliminary
--- NOTE | 2024-05-04 08:30 | PTCARENOTE ---
Assumed care of patient at 0700. Pt is awake, alert, and oriented. Minimal complaints of pain at this time. Pt remains AV paced, HR 70. BP 142/69 MAP 91. Pulse oximetry 95% on room air. Pt continues to utilize IS, able to achieve 1250, continued use
encouraged. Voids in urinal without issue. Midsternal sternal incision approximated and MARTÍNEZ. Bilateral groin sites approximated and MARTÍNEZ. Left leg incision approximated and MARTÍNEZ. Left and right upper chest incisions approximated and SECURITIES COUNSELOR. Pt currently
OOB in chair with call waller within reach.
[2024-05-04] MEDS: FLOMAX 0.4 MG PO (08:59)
[2024-05-04] MEDS: PACERONE 200 MG PO ×3 (08:59→21:45)
[2024-05-04] MEDS: NEURONTIN 100 MG PO ×3 (08:59→21:45)
[2024-05-04] MEDS: ELIQUIS 5 MG PO ×2 (08:59→20:29)
[2024-05-04] MEDS: MUCINEX 600 MG PO ×2 (08:59→20:29)
[2024-05-04] MEDS: LOW STRENGTH ASPIRIN 81 MG PO (08:59)
[2024-05-04] MEDS: PROTONIX 40 MG PO (08:59)
[2024-05-04] MEDS: LIPITOR 40 MG PO (08:59)
[2024-05-04] MEDS: MAGNESIUM OXIDE 500 MG PO ×2 (08:59→20:29)
[2024-05-04] MEDS: SENOKOT-S 1 TABLET PO ×2 (08:59→20:29)
[2024-05-04] MEDS: BACTROBAN 2% OINTMENT 1 APPLIC NASAL (09:00)
[2024-05-04] MEDS: TOPROL XL 50 MG PO (09:00)
[2024-05-04] MEDS: LASIX 40 MG IV (09:00)
[2024-05-04] MEDS: LIDOCAINE 4% PATCH TOPICAL (09:01)
[2024-05-04] MEDS: NON-FORMULARY ITEM 1 UNIT TOPICAL ×2 (09:01→20:30)
--- NOTE | 2024-05-04 10:08 | W.PN.ID1 ---
Date of Service
Date of Service: May 04, 2024
Today's Communication
Place double-lumen PICC.
Assessment / Plan
# Complicated Enterococcal bacteremia (7 sets)
# Infective endocarditis of BiV ICD lead, MV and AV
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
# Neck pain
- ELLIE: 2.4 cm vege on ICD wire; echodensity on AV and MV with severe mitral regurgitation
- Repeat blood cultures x4 from 04/20 and 04/22 neg to date
- 04/30/24 s/p redo sternotomy, ICD extraction, placement of new ICD, mitral valve replacement, TV repair, AV exploration
-ICD lead cx neg to date.
Mitral Valve vege: Enterococcus faecalis
Tissue vege : Enterococcus faecalis
- Continue Ampicillin 2g IV q4h and ceftriaxone 2g IV q12h x 6 weeks from cardiac surgery, ie through 06/11/24.
Weekly CBC diff, CMP, CRP, ESR
- Ordered double-lumen PICC
- Infusion sheet in patient's chart. Already spoke to [facility] physician for abx approval.
# Conditions prior to admission
DM2
Hypertension
HLD
CAD status post CABG/stent
Atrial fibrillation
BiV ICD placement 2016
HFpEF
HALLIE
BPH
Lap cholecystectomy 02/05/24
Chief Complaint
-: Bacteremia and Other (Endocarditis, discitis)
Subjective / Review of Systems
Feels well. No complaints.
Vital Signs / Physical Exam
Vital Signs
Vital Signs
Temp Pulse Resp BP Pulse Ox
97.6 F 70 18 142/69 95
05/04/24 08:00 05/04/24 08:00 05/04/24 08:00 05/04/24 07:27 05/04/24 08:00
Physical Exam
Constitutional: No Acute Distress and Comfortable
Eyes: No Conjunctival Hemorrhage and Sclera Anicteric
Cardiovascular: Regular Rate and S1/S2
Pulmonary: Clear
Gastrointestinal: Soft, Non Tender, Non Distended and Normal Bowel Sounds
Genito-Urinary: Negative CVA Tenderness
Neurological: AO x 3
Objective Data
Lab Data
Lab Results
05/04/24 05:08
05/04/24 05:08
ESR 48 mm/hour (0-20) H 04/15/24 16:55
PT 18.3 Sec (11.4-14.6) H 04/30/24 19:47
INR 1.46 04/30/24 19:47
APTT 35.4 Sec (23.4-35.0) H 04/30/24 16:08
Estimated Creat Clear 88 ml/min 05/04/24 05:08
Lactic Acid Cancelled 04/16/24 14:36
Total Bilirubin 1.0 mg/dl (0.2-1.3) 04/30/24 04:35
AST 57 U/L (17-59) 04/30/24 04:35
ALT 88 U/L (0-50) H 04/30/24 04:35
Alkaline Phosphatase 241 U/L (38-126) H 04/30/24 04:35
C-Reactive Protein 166.20 mg/L (0.0-10.00) H 04/15/24 16:55
Most recent labs reviewed.
Micro Results:
04/30/24 Unknown Catheter Tip Culture - Final
Pace Maker/Introd Port No Growth After 72 Hours
04/30/24 10:13 Tissue Culture - Preliminary
Heart Enterococcus faecalis
Gram Stain - Preliminary
04/30/24 Unknown Tissue Culture - Preliminary
Heart Enterococcus faecalis
Gram Stain - Preliminary
04/30/24 10:13 Anaerobic Culture - Preliminary
Heart Culture pending. Anaerobic cultures are examined after 3
days incubation. Additional information to follow.
04/30/24 Unknown Anaerobic Culture - Preliminary
Heart Culture pending. Anaerobic cultures are examined after 3
days incubation. Additional information to follow.
04/30/24 Unknown Acid Fast Bacilli Smear - Preliminary
Heart Acid Fast Bacilli Culture - Preliminary
04/30/24 10:13 Acid Fast Bacilli Smear - Preliminary
Heart Acid Fast Bacilli Culture - Preliminary
04/30/24 Unknown Fungal Smear - Pending
Heart Fungal Culture - Preliminary
Culture in progress.
Positive cultures are reported as soon as detected.
Final report to follow in four to five weeks.
04/30/24 10:13 Fungal Culture - Preliminary
Heart Culture in progress.
Positive cultures are reported as soon as detected.
Final report to follow in four to five weeks.
04/22/24 06:46 Blood Culture - Final
Blood/Venous No Growth - Final Report
04/22/24 05:46 Blood Culture - Final
Blood/Venous No Growth - Final Report
04/19/24 05:33 Blood Culture - Final
Blood/Venous Enterococcus faecalis
Gram Stain - Final
04/20/24 05:09 Blood Culture - Final
Blood/Venous No Growth - Final Report
04/20/24 05:09 Blood Culture - Final
Blood/Venous No Growth - Final Report
04/18/24 04:30 Blood Culture - Final
Blood/Venous Enterococcus faecalis
Gram Stain - Final
04/17/24 04:34 Blood Culture - Final
Blood/Venous Enterococcus faecalis
Gram Stain - Final
04/19/24 07:49 Blood Culture - Final
Blood/Venous Enterococcus faecalis
Gram Stain - Final
04/16/24 09:58 Blood Culture - Final
Blood/Venous Enterococcus faecalis
Gram Stain - Final
04/15/24 21:45 Urine Culture - Final
Urine Enterococcus faecalis
04/15/24 21:30 Blood Culture - Final
Blood/Venous Enterococcus faecalis
Gram Stain - Final
04/15/24 21:12 Blood Culture - Final
Blood/Venous Enterococcus faecalis
Gram Stain - Final
04/15/24 21:20 Influenza Types A & B (BRADLEY) - Final
Nasal Swab Negative for Influenza A & B, NAAT
Negative results must be combined with clinical observations
and patient history.
Nucleic Acid Amplification test (NAAT)performed on the
[employer] platform.
Imaging:
04/20/2024 ECHO (ELLIE): Normal biventricular size and systolic function. Pacer wire seen, with large echodensity prolapsing between the right atrium and right ventricle through the tricuspid valve, associated with the right ventricular wire. There
is a large bulbous portion (2.4 x 1.4 cm) proximally that tapers down along the course of the wire and into the right ventricle. Echodensity consistent with vegetation seen on both anterior and posterior leaflets of the mitral valve, with
associated severe mitral regurgitation. An echodensity consistent with vegetation is seen on the aortic valve, with minimal aortic regurgitation. Please see full dictation for additional detail.
04/15/24 CT a/p: There is irregular endplate destruction at the T10-11 disc space, and findings are highly suggestive of discitis and osteomyelitis.
This does not appear to extend to the posterior margin of the disc space at this time, and no gross evidence to suggest extension of inflammatory process and the spinal canal on CT. As warranted, further evaluation with MRI of the lower thoracic
spine without and with contrast could be considered.
04/23/24 MRI C/T/L spine:
Cervical spine:
Multilevel advanced degenerative changes. No evidence of discitis or osteomyelitis. Subtle edema/hyperemia involving the interspinous soft tissues most pronounced at C5-6, possibly inflammatory in nature or possible interspinous ligament sprain.
Clinical correlation advised. Partially visualized nonspecific left supraspinatus and infraspinatus muscle edema. Clinical correlation necessary.
Thoracic spine:
T10-11 discitis/osteomyelitis. Inflammatory epidural soft tissue thickening. No epidural abscess. No paraspinal soft tissue abscess. Findings suspicious for right T10-11 facet septic arthritis. T11-12 with mild central canal narrowing. No cord
compression.
Lumbar spine:
No evidence of lumbar spine discitis or vertebral osteomyelitis. Abnormal signal and enhancement associated with right L3-4 and L5-S1 facets and adjacent/surrounding soft tissues, as described. In the absence of recent surgical intervention to
suggest postsurgical reactive inflammatory changes, the appearance would be highly suspicious for facet septic arthritis. No lumbar epidural collection or epidural abscess. No focal soft tissue collection or abscess. Otherwise, lumbar degenerative
changes, as described.
--- NOTE | 2024-05-04 10:48 | W.PN.CARDCBS ---
Addendum entered and electronically signed by Den Summers DO 05/04/24 11:37:
I saw and examined the patient.
The Piercer's note was reviewed and I agree with the note.
Comment:
Cont post op care
Resume Eliquis and stop Plavix
Cont IV lasix
Cont Abx as per [facility], receiving PICC line today
Discussed with nursing and with at bedside.
Original Note:
Today's Communication / Plan
-
Resume Eliquis and stop Plavix
Replete potassium
Ongoing IV diuresis at lower dose
Continue antibiotics per [facility]
PICC line today
Usual postop care/encourage PT/OT
Impression / Plan
-
PCP: Dr. Mike Doe
Cardiology: Dr. Servin of [facility]
Impression:
Admitted on 04/16/2024 with fever, neck, and back pain
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
s/p Redo sternotomy with extensive adhesiolysis, Resection/explant of all old pacemaker leads and defibrillation coil, Implant of right atrial, right ventricular, left ventricular epicardial leads and defibrillator coil towards the LV aspect of the
heart, Mitral valve replacement (29 mm), Tricuspid valve repair (30 mm band annuloplasty) 04/30/2024 Dr. Nicholson
Sepsis
Vertebral osteomyelitis
Abnormal echo suggesting pacer wire vegetation in the RV and vegetation on the mitral valve 04/16/2024
Hypotension
post op anemia s/p 6 units pRBCs
postop coagulopathy - s/p 2 unit platelets and 2 FFPs
Admitted with osteomyelitis and enterococcal bacteremia in the setting of prior cholecystectomy 01/2024.
History of recovered ischemic cardiomyopathy,current EF 50-55% on echo 03/2024, previously EF 20% in past per patient
s/p [employer] ICD 12/28/16, explanted 04/30/2024 See above
-Device interrogation 04/17/2024 shows stable lead sensing, pacing threshold, and lead impedances; no AT AF; no VT VF since last interrogation or tachytherapies; discussed with [employer] disability representative, Jose Adan, patient's device is MRI
compatible and safe; if patient to need MRI, would place patient DOO (preferable) or VOO at 80 bpm; patient is not reported as dependent
CAD with [place]
s/p 3 mm Taxus LUCIO to unknown vessel 10/15/05
s/p CABG x 2 2005 at [place]
Paroxysmal atrial fibrillation
Chronic Eliquis OAC
HLD
DM2
remote former smoker
s/p lap grace 01/2024
Echo 04/16/2024: EF 50 to 55%, normal regional wall motion, pacer wire seen in the RV with large density (1.7 x 1.9 cm) on pacemaker which could be consistent with vegetation, thickened mitral valve leaflets with MAC and peak/mean 8/4 mmHg, mobile
echodensity on the MV consistent with vegetation, at least moderate eccentric MR, aortic sclerosis without stenosis, no aortic regurgitation, mild TR with PAP 20 to 25 mmHg
Cardiac catheterization 04/24/2024: LM: NL. LAD: Moderate diffuse atherosclerotic disease in proximal LAD with patent GOODRICH to D1 and mid LAD. Ramus: 90% ostial stenosis. Left circumflex: LI. RCA: Mid 30% in-stent restenosis. PDA ostial 30%
stenosis. GOODRICH-D-LAD: Patent with antegrade and retrograde filling of both the LAD and diagonal branches
Plan:
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
-Status post s/p Redo sternotomy with extensive adhesiolysis, Resection/explant of all old pacemaker leads and defibrillation coil, Implant of right atrial, right ventricular, left ventricular epicardial leads and defibrillator coil towards the LV
aspect of the heart, Mitral valve replacement (29 mm), Tricuspid valve repair (30 mm band annuloplasty) 04/30/2024 Dr. Nicholson
-CABG was not performed due to dense adhesions. Did not receive AVR as inspection showed no significant vegetations on the valve
-Overall doing well with no issues overnight.
-Chest tubes removed 05/03
-Hemodynamically stable off drips
-Hemoglobin stable 9.2 g/dL last transfusion 05/02. [ Received 7 units packed red blood cells, 2 units FFP and 2 pools of platelets]
-Volume status appears improving following aggressive IV diuresis. Weight down 6 lbs overnight. Lasix de-escalated to 40 mg IV on 05/04/2024
-Stable creatinine 0.7. K+ 3.9 with ongoing repletion.
-Per review of telemetry patient now AV paced at 70 bpm
-ICD interrogated again on morning of 05/01/2024 by [employer] rep showing appropriate function and stable thresholds. After discussing with CT surgery will continue to pace at DDDR at 70. Could consider reducing base rate at follow-up in cardiology
office.
-Continue prophylactic amiodarone
-Continue IV antibiotics per ID. Plan is to continue Ampicillin 2g IV q4h and ceftriaxone 2g IV q12h x 6 weeks from cardiac surgery, ie through 06/11/24.
-Continue aspirin. Eliquis resumed on 05/04/24 and Plavix stopped
-continue post op care
-PT/OT evaluations ongoing. Currently recommending acute rehab upon discharge
PREADMIT DATA: Patient came to [facility] with neck pain on 04/15/24 and was admitted with osteomyelitis and cardiology is now consulted for eval of abnormal echo. Patient has routine cardiology care at [facility] - Dr. Servin. Patient was admitted to 02/03/24
until 02/06/24 with abdominal pain and had lap grace 02/05/24. Patient was then in the ER 02/27/24 for hypotension and URI symptoms at the recommendation of his PCP, but BP was normal and no evidence of acute process so patient was sent home. Patient
came back to ER 03/02/24 with chest and back pain and troponin negative and he was given toradol and valium for spasm. Patient was sent to [facility] for rehab briefly however then went home. Patient came to last night with neck pain that
started Saturday04/11/24. He reports limited neck mobility and development of fever. He was noted by imaging to have evidence of osteomyelitis then underwent echo which showed large mobile echodensity consistent with mitral valve vegetation, MR, and
large density on ppm also with concern for vegetation. Blood cultures prelim positive. cardiology consulted for evaluation.
Progress Note - Cytogenetics Technologist
Subjective
Date of Service: May 04, 2024
Patient seen and examined. Patients at bedside. Patient reports he feels a little stiff but overall is feeling well. Feels somewhat deconditioned but denies chest pain, shortness of breath, dizziness or lightheadedness. Also mentions that
he feels less edematous and both upper and lower extremity edema have significantly improved
Objective
Labs:
05/04/24 05:08
05/04/24 05:08
Labs
Hgb 9.2 g/dL (13.0-18.0) L 05/04/24 05:08
Hct 27.6 % (39.0-52.0) L 05/04/24 05:08
Plt Count 277 10^3/uL (130-400) D 05/04/24 05:08
PT 18.3 Sec (11.4-14.6) H 04/30/24 19:47
INR 1.46 04/30/24 19:47
APTT 35.4 Sec (23.4-35.0) H 04/30/24 16:08
Sodium 134 mmol/L (135-145) L 05/04/24 05:08
Potassium 3.9 mmol/L (3.5-5.1) 05/04/24 05:08
BUN 10 mg/dl (9-20) 05/04/24 05:08
Creatinine 0.7 mg/dL (0.7-1.3) 05/04/24 05:08
Glucose 111 mg/dl (70-99) H 05/04/24 05:08
Vital Signs and I&O:
Vital Signs
Temp Pulse Resp BP Pulse Ox
97.6 F 70 18 142/69 95
05/04/24 08:00 05/04/24 08:00 05/04/24 08:00 05/04/24 07:27 05/04/24 10:17
Vital Signs
Temp Pulse Resp BP Pulse Ox
97.6 F 70 18 142/69 95
05/04/24 08:00 05/04/24 08:00 05/04/24 08:00 05/04/24 07:27 05/04/24 10:17
Intake & Output
05/02/24 05/03/24 05/04/24 05/05/24
05:59 06:59 06:59 06:59
Intake Total 870 / 890 20 / 20
Output Total 4460 / 4660 200 / 200
Balance -3590 / -3770 -180 / -180
Physical Exam
Physical Exam
GEN: No distress, awake, Ox3, sitting in bed
HEENT: supple, anicteric, mmm
LUNGS: Mildly decreased breath sounds at left base otherwise CTA anteriorly, no wheezes/rales
CV: Reg, S1/S2, no murmur, rub or gallop
ABD: soft, BS+, NT/ND
EXT: Trace lower extremity edema. No clubbing or cyanosis
NEURO: Gross non-focal
SKIN: No rash, warm, dry, pink
[2024-05-04] MEDS: NOVOLOG FLEXPEN-MODERATE RESISTANCE 1 UNITS SC (12:42)
[2024-05-04] MEDS: NSS IV (12:42)
[2024-05-04 12:43] LABS: Glucose - Point of Care 158 mg/dl (70-99)
--- NOTE | 2024-05-04 12:45 | PTCARENOTE ---
Right IJ cordis d/c'd. PICC placed at bedside by PICC team. Pt remains AV paced, HR 70. BP 112/86 MAP 94. Pulse oximetry 95% on room air.
--- NOTE | 2024-05-04 14:51 | CON.MR ---
Documented by User: Vidhya Saucedo MD, Resident 05/05/24 14:25
Consultation
Consultation Request
Date/Time Consultation Performed: 05/04/2024
Requesting Provider: Dr. Lemuel Nicholson
Medical History
-
Chief Complaint: Fever, neck and back pain
History of Present Illness:
Patient is a 79-year-old male with past medical history as below who presented to the ED with back pain x 1 month, neck pain x 4 days prior to admission and fever. He was seen by his PCP and was sent to the hospital for elevated white count. He
was recently admitted in January 2020 for for a laparoscopic cholecystectomy. CT scan of the abdomen and pelvis showed irregular endplate destruction at the T10-T11 disc base highly suggestive of discitis and osteomyelitis. He was treated for
osteomyelitis with sepsis with IV ampicillin 2g every 4 hours and IV ceftriaxone 2 g every 12 hours (04/16/2024). 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
Blood cultures were positive for enterococcal bacteremia cleared 04/20/24. Patient is currently status post redo sternotomy with extensive adhesiolysis, resection/explant of all old pacemaker leads and defibrillation coil, reimplant of right
ventricular, right atrial, left ventricular epicardial leads and defibrillator coil towards the LV aspect of the heart, mitral valve replacement, tricuspid valve repair. Chest tubes removed 05/03/24. Developed postop anemia and coagulopathy status
post 7 units PRBC, 2 units FFPs and 2 units platelets. Plan for PICC line placement and continue IV antibiotics x 6 weeks from cardiac surgery (through 06/11/24). Patient was given Lasix for diuresis postop, received 1 dose IV Lasix 40 mg yesterday.
Echo 04/16/2024: EF 50 to 55%, normal regional wall motion, pacer wire seen in the RV with large density (1.7 x 1.9 cm) on pacemaker which could be consistent with vegetation, thickened mitral valve leaflets with MAC and peak/mean 8/4 mmHg, mobile
echodensity on the MV consistent with vegetation, at least moderate eccentric MR, aortic sclerosis without stenosis, no aortic regurgitation, mild TR with PAP 20 to 25 mmHg
Cardiac catheterization 04/24/2024: LM: NL. LAD: Moderate diffuse atherosclerotic disease in proximal LAD with patent GOODRICH to D1 and mid LAD. Ramus: 90% ostial stenosis. Left circumflex: LI. RCA: Mid 30% in-stent restenosis. PDA ostial 30%
stenosis. GOODRICH-D-LAD: Patent with antegrade and retrograde filling of both the LAD and diagonal branches
DVT prophylaxis Eliquis
Past Medical History
Past Medical History: Arrhythmias (Paroxysmal A-fib), CAD (Status post CABG x2), CVA, HTN, Hypercholesterolemia, IDDM and Other (Recovered ischemic cardiomyopathy, BPH, HALLIE, interstitial fibrosis/asbestosis)
Past Surgical History: Cholecystectomy and Other (L4-L5 laminectomy, AICD)
Family History
Family History: Reviewed & Not Pertinent
Social History
Functional Level Premorbidity:
Independent for all activities. Used a cane, rolling walker prior to admission at home.
Current Funct Level: Ambulation, Transfer, UE/LE Dressing:
Moderate to maximum assistance with bed mobility, moderate assistance with transfer, moderate assistance with toileting dependent to donning bilateral socks
Tobacco: Former Smoker (12 pack years, quit 1972)
Alcohol: Occasional
Drug: None
Personal:
Living: With Spouse
Number of Floors: Other (bi-level)
# Steps to Enter: 2
# Steps to Second Floor: 5
Potential First Floor Set Up: Yes
Driving: Yes
Employment: Retired
Allergies / Home Medications
Allergy/AdvReac Type Severity Reaction Status Date / Time
brimonidine Allergy Unknown Verified 04/15/24 20:51
enalapril Allergy Unknown Verified 04/15/24 20:51
metformin Allergy Unknown Verified 04/15/24 20:51
valsartan Allergy Unknown Verified 04/15/24 20:51
�Medication �Instructions �Recorded �Confirmed �Last Taken �Type
apixaban 5 mg tablet 5 mg PO BID Blood Clot 02/03/24 04/15/24 Unknown History
Prevention/Tx
atorvastatin 40 mg tablet 40 mg PO DAILY High Cholesterol 02/03/24 04/15/24 Unknown History
cholecalciferol (vitamin D3) 50 50 mcg PO DAILY Supplement 02/03/24 04/15/24 Unknown History
mcg (2,000 unit) tablet
cyanocobalamin (vitamin B-12) 1,000 mcg PO BID Supplement 02/03/24 04/15/24 Unknown History
1,000 mcg tablet
metoprolol succinate 200 mg 200 mg PO DAILY Blood Pressure 02/03/24 04/15/24 Unknown History
tablet,extended release 24 hr
spironolactone 25 mg tablet 50 mg PO DAILY Fluid 02/03/24 04/15/24 Unknown History
Retention/Swelling
tamsulosin 0.4 mg capsule 0.4 mg PO HS Urinary Issue 02/03/24 04/15/24 Unknown History
empagliflozin 25 mg tablet 25 mg PO DAILY Diabetes 04/15/24 04/15/24 Unknown History
(Jardiance)
furosemide 20 mg tablet 10 mg PO DAILY Fluid 04/15/24 04/15/24 Unknown History
Retention/Swelling
insulin glargine 100 unit/mL (3 30 unit SC HS Diabetes 04/15/24 04/15/24 Unknown History
mL) subcutaneous pen
latanoprost 0.005 % eye drops 1 drp BOTH EYES HS Eye Condition 04/15/24 04/15/24 Unknown History
omega 6-gci-qgo-fish oil 1,000 mg 1 cap PO BID Supplement 04/15/24 04/15/24 Unknown History
(120 mg-180 mg) capsule (Fish Oil)
therapeutic multivitamin 1 tab PO DAILY Supplement 04/15/24 04/15/24 Unknown History
fluorouracil 5 % topical cream See Rx Instructions .Route 04/16/24 04/16/24 Unknown History
.COMPLEX Autoimmune Disorder
Physical Exam
Active Medications
Generic Name Dose Route Start Last Admin
Trade Name Freq PRN Reason Stop Dose Admin
Acetaminophen 1,000 mg 04/30/24 14:00 05/04/24 06:07
Acetaminophen 500 Mg Tablet PO 05/28/24 13:59 1,000 mg
TID@0600,1400,2200 WILLIAM Administration
Acetaminophen 650 mg 04/30/24 13:41
Acetaminophen 325 Mg Tablet PO 05/28/24 13:40
Q4HPRN PRN
mild pain,headache,temp >101F
Amiodarone HCl 200 mg 04/30/24 16:00 05/04/24 08:59
Amiodarone 200 Mg Tablet PO 05/28/24 15:59 200 mg
TID WILLIAM Administration
Apixaban 5 mg 05/04/24 08:00 05/04/24 08:59
Apixaban (Eliquis) 5 Mg Tablet PO 06/01/24 07:59 5 mg
BID WILLIAM Administration
Aspirin 81 mg 05/01/24 08:00 05/04/24 08:59
Aspirin 81 Mg Chewable Tablet PO 05/29/24 07:59 81 mg
DAILY WILLIAM Administration
Atorvastatin Calcium 40 mg 04/16/24 08:00 05/04/24 08:59
Atorvastatin (Lipitor) 40 Mg Tablet PO 05/14/24 07:59 40 mg
DAILY WILLIAM Administration
Bisacodyl 10 mg 04/30/24 13:41
Bisacodyl 10 Mg Rectal Suppository RECTAL 05/28/24 13:40
DAILYPRN PRN
constipation
Ceftriaxone Sodium 2,000 mg 04/16/24 18:00 05/04/24 06:07
Ceftriaxone 2,000 Mg/20 Ml Vial IV 05/31/24 06:01 2,000 mg
Q12H WILLIAM Administration
Dextrose 12.5 grams 04/30/24 13:41
Dextrose 50% (0.5 Grams/Ml) 50 Ml Syringe IV 05/28/24 13:40
P10SMIT PRN
Blood Glucose < 70
Gabapentin 100 mg 04/30/24 13:41 05/04/24 08:59
Gabapentin 100 Mg Capsule PO 05/28/24 13:40 100 mg
TID WILLIAM Administration
Guaifenesin 600 mg 05/02/24 22:00 05/04/24 08:59
Guaifenesin 600 Mg Extended Release Tablet PO 05/30/24 21:59 600 mg
Q12 WILLIAM Administration
Ampicillin Sodium 2,000 mg/ 108 mls @ 108 mls/hr 04/16/24 12:00 05/04/24 12:42
Sodium Chloride IV 06/08/24 16:59 108 mls
Q4H WILLIAM Administration
Sodium Chloride 500 mls @ 10 mls/hr 04/30/24 13:41 05/04/24 12:42
Nss IV 05/28/24 07:15 Not Given
CORDIS WILLIAM
Insulin Aspart 0 units 05/03/24 07:30 05/04/24 12:42
Insulin Aspart Moderate Resistance 300 Units/3 Ml Pen.Injctr SC 05/31/24 07:29 1 units
AC WILLIAM Administration
Protocol
Latanoprost 1 drop 04/16/24 22:00 05/03/24 22:26
Latanoprost 0.005% (Ophthalmic Solution) 2.5 Ml Bottle BOTH EYES 05/14/24 21:59 Not Given
HS WILLIAM
Lidocaine 1 patch 04/19/24 08:15 05/04/24 09:01
Lidocaine 4% Topical Patch TOPICAL 05/17/24 08:14 Not Given
DAILY WILLIAM
Protocol
Magnesium Hydroxide 30 ml 04/30/24 13:41
Milk Of Magnesia 30 Ml Cup PO 05/28/24 13:40
BIDPRN PRN
if no BM in three days
Magnesium Oxide 500 mg 05/01/24 08:00 05/04/24 08:59
Magnesium Oxide 500 Mg Tablet PO 05/29/24 07:59 500 mg
BID WILLIAM Administration
Metoprolol Succinate 50 mg 05/03/24 08:00 05/04/24 09:00
Metoprolol 50 Mg Extended Release Tablet PO 05/31/24 07:59 50 mg
DAILY WILLIAM Administration
Fluorouracil 5% 0 unit 04/16/24 20:00 05/04/24 09:01
Cream (Pt's Own Med) TOPICAL 05/14/24 19:59 1 unit
- Apply To L Cheek BID WILLIAM Administration
Bid
Ondansetron HCl 4 mg 04/30/24 13:41 04/30/24 22:25
Ondansetron 4 Mg/2 Ml Vial IV 05/28/24 13:40 4 mg
Q8HPRN PRN Administration
nausea/vomiting
Oxycodone HCl 2.5 mg 04/30/24 13:41
Oxycodone 5 Mg Regular Release Tablet PO 05/14/24 13:40
Q4HPRN PRN
mild pain
Oxycodone HCl 5 mg 04/30/24 13:41 05/04/24 06:17
Oxycodone 5 Mg Regular Release Tablet PO 05/14/24 13:40 5 mg
Q4HPRN PRN Administration
moderate pain
Pantoprazole Sodium 40 mg 05/01/24 08:00 05/04/24 08:59
Pantoprazole 40 Mg Delayed Release Tablet PO 05/29/24 07:59 40 mg
DAILY WILLIAM Administration
Patch Removal 0 patch 04/19/24 20:00 05/03/24 19:14
Remove Lidocaine Patch REMOVE 05/17/24 19:59 1 patch
DAILY@2000 WILLIAM Administration
Senna/Docusate Sodium 1 tablet 04/30/24 20:00 05/04/24 08:59
Docusate W/Senna (Marcy-Colace) Tablet PO 05/28/24 19:59 1 tablet
Q12 WILLIAM Administration
Sodium Chloride 0 flush 04/30/24 14:00
Sodium Chloride 0.9% (Flush) Syringe IV 05/28/24 13:59
PER PROTOCOL WILLIAM
Sterile Water 20 ml 04/30/24 18:00 05/04/24 06:07
Sterile Water For Injection 20 Ml Vial IV 05/31/24 06:01 20 ml
Q12H WILLIAM Administration
Tamsulosin HCl 0.4 mg 05/03/24 08:00 05/04/24 08:59
Tamsulosin 0.4 Mg Capsule PO 05/31/24 07:59 0.4 mg
DAILY WILLIAM Administration
Vital Signs
Temp Pulse Resp BP Pulse Ox
97.6 F 70 18 112/86 95
05/04/24 08:00 05/04/24 14:00 05/04/24 08:00 05/04/24 12:31 05/04/24 10:17
Height 5 ft 6 in
Actual Weight 81.3 kg
Body Mass Index (BMI) 28.9
Physical Exam
Physical Exam:
General Appearance/Observation: Well-developed, well-nourished individual in no apparent distress.
Pain/Comfort Assessment: Neck, more pronounced on the right side, radiates to the ear and occipital. severity - 5/10, improved %50 compared to initial pain.
Mood/Affect: Appropriate
Integumentary/Operative Site:
Other Type of Wound: Sternal incision, left thigh incision
Intact, no active bleeding, tender to touch, no warmth or redness or purulent drainage
Eyes: Conjunctiva/Lids: normal Pupils: pupils equal round and reactive to light and Accommodation
Ears/Nose/Throat: oral mucosa moist, throat clear. Lips/Teeth/Gums: normal
Neck: No muscle spasm or tenderness
Cardiovascular: Heart: regular, no murmur
Pulses: dorsalis pedis 2+ bilaterally
Respiratory: Respiratory Effort/Chest Expansion: reduced Auscultation: Decreased breath sounds at bases bilaterally
Gastrointestinal: abdomen not tender, no distension, normal abdominal bowel sounds
Genitourinary: No Santana
Rectal Exam: Deferred
Extremities: Edema: None Cyanosis: None Trophic changes: None
Neurology Exam:
Orientation: Alert, Oriented to self, Time, Place
Memory: Intact immediately and at 3 minutes
Higher cortical function
Speech: Intact
Repetition: Intact
Comprehension: Intact
Two step command: Intact
Naming: Intact
Cranial Nerves:
CNII: Pupillary light reflex: Intact Visual Field: Intact
CN III, IV, : Extraocular muscles: Intact
CN V: Facial Sensation at Forehead: Intact , Maxilla: Intact, Mandible: Intact
CN VII: Facial movement: Symmetric
CN VIII: Hearing: Normal
CN IX/X: Speech & swallow: Normal, Position of Uvula: Midline
CN XI: Shoulder shrug: Symmetric
CN XII: Tongue protrusion: Midline
Sensory:
Light touch: Intact in bilateral upper and lower extremities, decreased sensation in right lower extremity (secondary to stroke)
Reflexes:
Biceps: 2+ bilaterally
Brachioradialis: 2+ bilaterally
Triceps: 2+ bilaterally
Patellar: 2+ right, 1+ left
Achilles: 2+ bilaterally
Babinski: Downgoing bilaterally
Clonus: None
Ryder: Negative bilaterally
Cerebellar: Dysmetria/Ataxia: None
Musculoskeletal:
Motor: (Manual muscle scale 0-5)
Muscle SA EF WE EE FF FA HF KE DF EHL PF
Right 5 5 5 5 5 5 4 4 5 5 5
Left 5 5 5 5 5 5 5 5 5 5 5
Tone: Normal in all extremities
Range of Motion: Passively within normal limits in all extremities
Lab Results
05/04/24 05:08
05/04/24 05:08
WBC 9.0 10^3/uL (4.8-10.8) 05/04/24 05:08
Hgb 9.2 g/dL (13.0-18.0) L 05/04/24 05:08
Hct 27.6 % (39.0-52.0) L 05/04/24 05:08
MCV 89.3 fL (80.0-94.0) 05/04/24 05:08
Plt Count 277 10^3/uL (130-400) D 05/04/24 05:08
ESR 48 mm/hour (0-20) H 04/15/24 16:55
PT 18.3 Sec (11.4-14.6) H 04/30/24 19:47
INR 1.46 04/30/24 19:47
Sodium 134 mmol/L (135-145) L 05/04/24 05:08
Potassium 3.9 mmol/L (3.5-5.1) 05/04/24 05:08
Chloride 99 mmol/L (98-107) 05/04/24 05:08
Carbon Dioxide 28 mmol/L (22-30) 05/04/24 05:08
BUN 10 mg/dl (9-20) 05/04/24 05:08
Creatinine 0.7 mg/dL (0.7-1.3) 05/04/24 05:08
eGFR > 60.00 05/04/24 05:08
Glucose 111 mg/dl (70-99) H 05/04/24 05:08
Hemoglobin A1c 6.9 % (4.0-5.6) H 04/21/24 03:50
Calcium 8.6 mg/dl (8.4-10.2) 05/04/24 05:08
Magnesium 1.9 mg/dl (1.6-2.3) 05/04/24 05:08
Total Bilirubin 1.0 mg/dl (0.2-1.3) 04/30/24 04:35
Direct Bilirubin 0.2 mg/dl (0.0-0.4) 04/21/24 03:49
AST 57 U/L (17-59) 04/30/24 04:35
ALT 88 U/L (0-50) H 04/30/24 04:35
Alkaline Phosphatase 241 U/L (38-126) H 04/30/24 04:35
C-Reactive Protein 166.20 mg/L (0.0-10.00) H 04/15/24 16:55
Total Protein 5.8 g/dl (6.3-8.2) L 04/30/24 04:35
Albumin 2.8 g/dl (3.5-5.0) L 04/30/24 04:35
Diagnostic Results
As per HPI.
Assessment / Plan
Assessment
79 y/o male with pmhx of HTN, HLP, IDDM, paroxysmal Afib, stroke, BPH, HALLIE, ischemic cardiomyopathy, asbestosis, CAD s/p CABG admitted for osteomyelitis, discitis (at the T10-T11 level) and Enterococcal bacteremia with endocarditis of the mitral and
aortic valves as well as infection of ICD s/p redo sternotomy.
Plan
PM&R PT/OT to increase independence with ADLs, improve balance, coordination, endurance, strength, mobility, community reintegration, decreased burden of care on others and family education.
Discitis/osteomyelitis/bacteremia: Continue IV antibiotics through 06/11/2024.
S/P sternotomy: Sternal precautions. Monitor incision, pain control.
HTN: continue medications, monitor closely
HLD: Continue statin
Coronary artery disease: Continue aspirin, statin, metoprolol
S/P CABG: Aspirin, statin, BP control.
Atrial fibrillation: Continue Eliquis, metoprolol and prophylactic amiodarone.
CHF: EF 50 to 55%, continue metoprolol, monitor fluid status
DM II: Accu-Cheks, insulin sliding scale.
HALLIE: Continue CPAP use.
Anemia: Likely multifactorial. Continue to monitor, transfuse if hemoglobin<7 or concerns for active bleeding.
Peripheral polyneuropathy: Patient has a history of stroke with residual right-sided lower extremity neuropathy.
Skin: monitor for pressure sores/rashes/lesions. Monitor incision.
Pain: Patient has neck pain. Can consider nonpharmacological options (heating pad) as well as muscle relaxants at night time to help relieve pain. Acetaminophen or oxycodone as needed.
Bowel: Colace and Senna, PRN bisacodyl.
Bladder: Not oliguric
GI Prophylaxis: Pantoprazole
DVT Prophylaxis: Eliquis
Pulmonary: Incentive spirometry
Safety: Continue to reinforce assistance with all transfers.
Code Status: Full code
Dispo (date/plan/equipment needs): Acute rehab. Social history reviewed.
Functional and Medical Goals: Modified Independent with ADL�s, ambulation, transfers
Summary
-
Things that must be addressed in Hospital prior to discharge:
1. Please consult PT/OT.
2. Please consult speech.
3. Patient must be stable on oral pain medications.
4. Only Pigtail chest tubes are possible.
5. Blood pressure must be less than 180 systolic and 100 diastolic for 24 hours before being stable for transfer to SNF/acute rehab.
6. Please give blood pressure parameters.
7. Please comment on dvt chemoprophylaxis restrictions.
Discharge Destination: Home
Summary of recommendations:
- Discharge Destination: Home
Will continue to follow patient.
Will sign off, please re-consult if needed.
Thank you for allowing me to care for your patient. Please contact me with any questions or concerns.
Comments
-
This note was dictated using a voice recognition system. Please excuse any typographical errors from pest technician. If you believe there are any discrepancies, please notify our office.

Documented by User: Omari Hathaway MD 05/06/24 00:13
Consultation
Consultation Request
Performing Provider: Dr. Hathaway
Reason for Consultation: Rehabilitation potential
Physical Exam
Lab Results
05/04/24 05:08
05/04/24 05:08
WBC 9.0 10^3/uL (4.8-10.8) 05/04/24 05:08
Hgb 9.2 g/dL (13.0-18.0) L 05/04/24 05:08
Hct 27.6 % (39.0-52.0) L 05/04/24 05:08
MCV 89.3 fL (80.0-94.0) 05/04/24 05:08
Plt Count 277 10^3/uL (130-400) D 05/04/24 05:08
ESR 48 mm/hour (0-20) H 04/15/24 16:55
PT 18.3 Sec (11.4-14.6) H 04/30/24 19:47
INR 1.46 04/30/24 19:47
Sodium 134 mmol/L (135-145) L 05/04/24 05:08
Potassium 3.9 mmol/L (3.5-5.1) 05/04/24 05:08
Chloride 99 mmol/L (98-107) 05/04/24 05:08
Carbon Dioxide 28 mmol/L (22-30) 05/04/24 05:08
BUN 10 mg/dl (9-20) 05/04/24 05:08
Creatinine 0.7 mg/dL (0.7-1.3) 05/04/24 05:08
eGFR > 60.00 05/04/24 05:08
Glucose 111 mg/dl (70-99) H 05/04/24 05:08
Hemoglobin A1c 6.9 % (4.0-5.6) H 04/21/24 03:50
Calcium 8.6 mg/dl (8.4-10.2) 05/04/24 05:08
Magnesium 1.9 mg/dl (1.6-2.3) 05/04/24 05:08
Total Bilirubin 1.0 mg/dl (0.2-1.3) 04/30/24 04:35
Direct Bilirubin 0.2 mg/dl (0.0-0.4) 04/21/24 03:49
AST 57 U/L (17-59) 04/30/24 04:35
ALT 88 U/L (0-50) H 04/30/24 04:35
Alkaline Phosphatase 241 U/L (38-126) H 04/30/24 04:35
C-Reactive Protein 166.20 mg/L (0.0-10.00) H 04/15/24 16:55
Total Protein 5.8 g/dl (6.3-8.2) L 04/30/24 04:35
Albumin 2.8 g/dl (3.5-5.0) L 04/30/24 04:35
Laboratory Data
05/05/24 04:14
05/05/24 04:14
PT 18.3 Sec (11.4-14.6) H 04/30/24 19:47
INR 1.46 04/30/24 19:47
APTT 35.4 Sec (23.4-35.0) H 04/30/24 16:08
Total Bilirubin 1.0 mg/dl (0.2-1.3) 04/30/24 04:35
Direct Bilirubin 0.2 mg/dl (0.0-0.4) 04/21/24 03:49
AST 57 U/L (17-59) 04/30/24 04:35
ALT 88 U/L (0-50) H 04/30/24 04:35
Alkaline Phosphatase 241 U/L (38-126) H 04/30/24 04:35
Total Protein 5.8 g/dl (6.3-8.2) L 04/30/24 04:35
Albumin 2.8 g/dl (3.5-5.0) L 04/30/24 04:35
Assessment / Plan
Assessment
79 y/o male with PMH (HTN, HLP, IDDM, paroxysmal Afib, stroke, BPH, HALLIE, ischemic cardiomyopathy, asbestosis, CAD s/p CABG) admitted for osteomyelitis, discitis (at the T10-T11 level) and Enterococcal bacteremia with endocarditis of the mitral and
aortic valves status post replacement as well as infection of ICD s/p redo sternotomy resulting in ADL and amatory dysfunction.
Plan
PM&R PT/OT to increase independence with ADLs, improve balance, coordination, endurance, strength, mobility, community reintegration, decreased burden of care on others and family education.
Discitis/osteomyelitis/bacteremia: Continue IV ceftriaxone and ampicillin through 06/11/2024. Patient's willing to do antibiotics at home.
S/P sternotomy: Sternal precautions. Monitor incision, pain control.
HTN: Lasix 40 mg daily, metoprolol 50 mg daily, monitor closely
HLD: statin
Coronary artery disease: aspirin, statin, metoprolol
S/P CABG: Aspirin, statin, BP control.
Atrial fibrillation: Eliquis, metoprolol and prophylactic amiodarone.
CHF: EF 50 to 55%, continue metoprolol, monitor fluid status
DM II: Accu-Cheks, insulin sliding scale.
HALLIE: CPAP use.
Anemia: Likely multifactorial. Continue to monitor, transfuse if hemoglobin<7 or concerns for active bleeding.
Peripheral neuropathy: Patient has a history of stroke with residual right-sided lower extremity neuropathy.
Skin: monitor for pressure sores/rashes/lesions. Monitor incision.
Pain: Patient has neck pain. Can consider nonpharmacological options (heating pad/ice) as well as Bengay like cream topically. Could also consider muscle relaxants at night time to help relieve pain. Acetaminophen as needed, would avoid opioid
medications.
Bowel: Colace and Senna, PRN bisacodyl.
Bladder: Not oliguric, no retention concern per patient
GI Prophylaxis: Pantoprazole
DVT Prophylaxis: Eliquis, mechanical
Pulmonary: Incentive spirometry
Safety: Continue to reinforce assistance with all transfers.
Code Status: Full code
Dispo (date/plan/equipment needs): Acute rehab. Social history reviewed.
Functional and Medical Goals: Modified Independent with ADL�s, ambulation, transfers
Patient seen and examined with resident 05/05/2024. Agree with above with changes as noted. 79-year-old male with neck pain and fever. Found to have T10-T11 discitis and osteomyelitis concern with endocarditis status post mitral and aortic valve
replacement, infection of AICD with removal. He continues on antibiotics through 06/11/2024. Spoke with him and his . His is willing to do antibiotics at home so that he can get home and avoid time in a nursing home facility.
General Appearance/Observation: Well-developed, well-nourished male in no apparent distress.
Pain/Comfort Assessment: Neck, more pronounced on the right side, radiates to the ear and occipital. severity - 5/10, and improved,.
Mood/Affect: Appropriate
Integumentary/Operative Site:
Other Type of Wound: Sternal incision healing well, 3 drain sites scabbed, left thigh incision healing well. Incision for AICD removal healing well.
No local erythema or warmth. No drainage.
Eyes: Conjunctiva/Lids: normal Pupils: pupils equal round and reactive to light and Accommodation
Ears/Nose/Throat: oral mucosa moist, throat clear. Lips/Teeth/Gums: normal
Neck: Patient with bilateral trapezius muscle spasm with moderate tenderness, limited range of motion of the neck
Cardiovascular: Heart: regular, no murmur
Pulses: dorsalis pedis 2+ bilaterally
Respiratory: Respiratory Effort/Chest Expansion: Decreased bilaterally auscultation: Decreased breath sounds at bases bilaterally, no wheezes, rales, rhonchi
Gastrointestinal: abdomen not tender, no distension, normal abdominal bowel sounds
Genitourinary: No Santana
Extremities: Edema: Slight pedal edema bilaterally cyanosis: None Trophic changes: None
Neurology Exam:
Orientation: Alert, Oriented to self, Time, Place
Memory: Intact for recent medical concerns
Repetition: Intact
Comprehension: Intact
Two step command: Intact
Cranial Nerves:
CNII: Pupillary light reflex: Intact
CN III, IV, : Extraocular muscles: Intact
CN V: Facial Sensation at Forehead: Intact , Maxilla: Intact, Mandible: Intact
CN VII: Facial movement: Symmetric
CN VIII: Hearing: Normal
CN IX/X: Speech & swallow: Normal, Position of Uvula: Midline
CN XI: Shoulder shrug: Symmetric
CN XII: Tongue protrusion: Midline
Sensory:
Light touch: Intact in bilateral upper and lower extremities, decreased sensation in right lower extremity in a nondermatomal pattern (secondary to stroke)
Reflexes:
Biceps: 2+ bilaterally
Brachioradialis: 2+ bilaterally
Triceps: 2+ bilaterally
Patellar: 2+ left, 0 right
Achilles: 2+ left, 0 right
Babinski: Downgoing bilaterally
Clonus: None
Ryder: Negative bilaterally
Cerebellar: Dysmetria/Ataxia: None
Musculoskeletal: Motor: (Manual muscle scale 0-5)
Muscle SA EF WE EE FF FA HF KE DF EHL PF
Right >3 >3 5 >3 5 5 4 4 5 5 5
Left >3 >3 5 >3 5 5 5 5 5 5 5
Tone: Normal in all extremities
Range of Motion: Passively within normal limits in all extremities
Summary
-
Summary of recommendations:
- Discharge Destination: Acute inpatient rehabilitation
Pain: Patient has neck pain. Can consider nonpharmacological options (heating pad/ice) as well as Bengay like cream topically. Could also consider muscle relaxants at night time to help relieve pain. Acetaminophen as needed, would avoid opioid
medications.
Bowel: Colace and Senna, PRN bisacodyl.
Bladder: Not oliguric, no retention concern per patient
GI Prophylaxis: Pantoprazole
DVT Prophylaxis: Eliquis, mechanical
Thank you for allowing me to care for your patient. Please contact me with any questions or concerns.
--- NOTE | 2024-05-04 15:27 | VATNOTE ---
PICC line coiled per CXR report. [facility] consult requested.
[2024-05-04] MEDS: TYLENOL PO (15:50)
--- NOTE | 2024-05-04 16:05 | PTCARENOTE ---
Pt back from IR for PICC line repositioning. Pt remains AV paced. HR 70. BP 134/63 MAP 84. Pulse oximetry 98% on room air.
--- NOTE | 2024-05-04 16:47 | CM ---
Chart reviewed. Patient is independent of ADLS, lives with his in a split level home, [address], ambulates with a RW and SPC. PT evaluation recommending Acute Rehab. Referral sent to [facility]. CM to hossein
[2024-05-04 17:42] LABS: Glucose - Point of Care 203 mg/dl (70-99)
[2024-05-04] MEDS: NOVOLOG FLEXPEN-MODERATE RESISTANCE 3 UNITS SC (18:40)
--- NOTE | 2024-05-04 20:00 | PTCARENOTE ---
assumed care of pt from previous RN. pt A&Ox4, resting in bed at time of assessment. 100% A/V paced w/ PPM on tele-monitor. POX 95% on RA. abd s/n, +BS. voiding clear, yellow urine in urinal. all surgical sites stable, CDI. R UE PICC. PIV intact.
see worklist for complete nursing assessment, interventions, VS, and I&Os.
[2024-05-04 21:03] LABS: Glucose - Point of Care 216 mg/dl (70-99)
[2024-05-04] MEDS: XALATAN OPHTHALMIC SOLUTION 1 DROP BOTH EYES (21:46)
[2024-05-05] VITALS (8 sets, daily range): BP systolic 114–134; BP diastolic 58–85; PULSE 70; O2SAT 94; BMI 29.0
--- NOTE | 2024-05-05 | PTCARENOTE ---
assessment remains unchanged. VSS. no c/o pain at this time.
[2024-05-05] MEDS: AMPICILLIN 108 MG IV ×7 (00:05→22:51)
[2024-05-05] MEDS: ROXICODONE 5 MG PO ×3 (00:14→23:49)
--- NOTE | 2024-05-05 03:43 | W.PN.CT ---
Today's Communication / Plan
-
Plan:
-No major issues overnight. Hemodynamically and neurologically intact�
-Had PICC line placed yesterday 05/04 for Antibiotic administration
-Cont. antibiotics per ID, currently on Ampicillin and Ceftriaxone, continue through 06/11/2024
-Resumed Eliquis yesterday 05/04/2024. Plavix was DC'd
-Cont. current meds = (Amio, ASA, Lasix, Eliquis, Lipitor, E, Gabapentin, Lopressor, protonix)�
-Postop hyponatremia has resolved, 135 today, up from 134
-Currently AV paced at 70 bpm
-Encourage use of IS
-OOB into chair/Ambulate
-PT/OT following and recommend acute rehab placement
-Physiatry to evaluate for [facility] rehab placement
�
Assessment / Plan
-
Procedure(s) Performed by Dr. Nicholson on 04/30/24, pod #5
1. Ultrasound-guided access of bilateral groins using Seldinger technique and placement of 5 Kyrgyz sheath
2. Redo sternotomy with extensive adhesiolysis, modifier 22
3. Resection of all pacemaker leads and defibrillation coil
4. 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
5. Implant of right atrial, right ventricular, left ventricular epicardial leads
6. Implant of defibrillator coil towards the LV aspect of the heart, left lateral
7. Mitral valve replacement, chordal sparing [29 mm device with placement of [place]-Duncan cord to reinforce and support the posterior medial papillary muscle head]
8. Tricuspid valve repair [30 mm band annuloplasty]
9. Aortotomy with exploration and inspection of the aortic valve
10. Placement of temporary ventricular pacing wires backup
11. Transesophageal echocardiography
12. Open saphenous vein harvest, CABG was not performed due to dense adhesions towards the prior GOODRICH to LAD and scar overlying the ramus intermedius
-Endocarditis (Enterococcus faecalis) involving Aortic valve, Mitral valve, Tricuspid valve and BiV ICD
-Severe MR
-Bicuspid AV/trivial AI
-Mild TR
-Infected BiV ICD
-Hx ICM (EF 20%) S/P MRI compatible Troy-Sci BiV ICD, 12/28/2016
-LVEF 50-55% per TTE 04/16/24
-Enterococcus faecalis UTI
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
-L3-S1 septic arthritis
-Soft tissue edema C5-C6 interspinous
-Fever (peaked @ 102.7)
-Leukocytosis (wbc peaked @ 27.1)
-Hx CAD S/P CABG x 1 (GOODRICH-LAD), 2005 (patent per cath 04/24)
-Single Vessel CAD (RI 90% ostial), per cath 04/24
-HTN
-HLD
-T2DM (hgb A1C 6.9, on insulin)
-A-fib (on Eliquis @ home)
-HALLIE
-BPH (on Flomax)
-DJD
-Interstitial fibrosis/asbestosis
-Former tobacco use
-S/p Lap Skylar, 02/05/24
-S/p removal of infected dental implants
-S/P L4/L5 Laminectomy, 2018
-Chronic diastolic heart failure with preserved left ventricular ejection fraction
-History of cholelithiasis and gallstone pancreatitis
-Acute postop blood loss anemia - s/p 6 pRBCs
-Acute postop coagulopathy - s/p 2 unit platelets and 2 FFPs
-Acute postop metabolic alkalosis
-Acute postop atelectasis/pleural effusion
-Acute postop hypovolemia with subsequent hypervolemia
-Acute postop hyponatremia
Echo 05/01/24:
1. Normal left ventricular chamber size with mild basal septal, basal inferior, and basal inferolateral hypokinesis. Low normal contractility of the remaining segments, EF 47%
2. #29 Hubbard Mitris Resilia bioprosthetic mitral valve, mean gradient is 3mmHg. No mitral regurgitation is seen. Normal left atrium
3. Normal-appearing aortic valve without stenosis or regurgitation
4. Normal right heart, status post 30 mm tricuspid annuloplasty band with normal pulmonary artery systolic pressure
Left ventricular function is roughly similar to the intraoperative transesophageal echo, though the ejection fraction may have decreased slightly.
The patient's ICD has been explanted since that study and an epicardial system substituted.
Discussed patient care with: Cardiology, Nursing, Respiratory Therapy, Pharmacy and Care Team
Subjective
-
Date of Service: May 05, 2024
Pt c/o mild incisional pain, otherwise feels well. States neck pain has subsided but he's not too steady on his feet
Objective Data
-
PT 18.3 Sec (11.4-14.6) H 04/30/24 19:47
INR 1.46 04/30/24 19:47
APTT 35.4 Sec (23.4-35.0) H 04/30/24 16:08
Vital Signs
Vital Signs
Temp Pulse Resp BP Pulse Ox
98.5 F 70 16 121/74 97
05/05/24 00:00 05/05/24 01:00 05/04/24 20:00 05/04/24 23:51 05/05/24 00:00
CT Intake/Output/Weight
05/04/24 05/04/24 05/05/24
06:59 18:59 06:59
Intake Total 604 / 890 296 / 512 216 / 512
Output Total 2500 / 4660 1350 / 1575 225 / 1575
Balance -1896 / -3770 -1054 / -1063 -9 / -1063
SaO2: 97 (RA)
Physical Exam
-
General: Awake, Oriented and AOx3
Cardiovascular: Regular rate & rhythm, No Murmurs, No Rub and No Gallop
Respiratory: Decreased Breath Sounds (at bases, otherwise clear)
Sternum: Stable
Incision: Clean, Dry, Intact and Dressing Intact
Extremities: Other (+trace)
Data Reviewed
-
Lab Results: Results Reviewed
Medications: Active Meds Reviewed
Chest X-Ray: Report Reviewed and Image Reviewed
ECG: Report Reviewed and Image Reviewed
--- NOTE | 2024-05-05 04:00 | PTCARENOTE ---
no acute changes. VSS.
[2024-05-05 04:36] LABS: Hematocrit 29.6 % (39.0-52.0); Hemoglobin 9.5 g/dL (13.0-18.0); Mean Corp Hgb Conc. 32.1 g/dL (33.0-37.0); Mean Corpuscular Hgb 28.8 pg (27.0-31.0); Mean Corpuscular Volume 89.7 fL (80.0-94.0); Mean Platelet Volume 9.4 fL (7.4-10.4); Platelet Count 307 10^3/uL (130-400); Red Cell Dist. Width 16.4 % (11.5-14.5); White Blood Cell Count 8.8 10^3/uL (4.8-10.8)
[2024-05-05 04:54] LABS: Blood Urea Nitrogen 8 mg/dl (9-20); Calcium 8.7 mg/dl (8.4-10.2); Carbon Dioxide 29 mmol/L (22-30); Chloride 101 mmol/L (98-107); Estimated Creatinine Clearance 92 ml/min; Glucose 111 mg/dl (70-99); Magnesium 1.9 mg/dl (1.6-2.3); Potassium 4.4 mmol/L (3.5-5.1); Sodium 135 mmol/L (135-145); eGFR > 60.00
[2024-05-05] MEDS: TYLENOL 1000 MG PO ×3 (05:47→22:19)
[2024-05-05] MEDS: ROCEPHIN 2000 MG IV ×2 (05:47→17:35)
[2024-05-05] MEDS: STERILE WATER FOR INJECTION 20 ML IV ×2 (05:47→17:35)
[2024-05-05] MEDS: TOPROL XL 50 MG PO (09:02)
[2024-05-05] MEDS: LIDOCAINE 4% PATCH 1 PATCH TOPICAL (09:02)
[2024-05-05] MEDS: LOW STRENGTH ASPIRIN 81 MG PO (09:02)
[2024-05-05] MEDS: ELIQUIS 5 MG PO ×2 (09:03→20:34)
[2024-05-05] MEDS: PROTONIX 40 MG PO (09:03)
[2024-05-05] MEDS: FLOMAX 0.4 MG PO (09:03)
[2024-05-05] MEDS: SENOKOT-S PO (09:03)
[2024-05-05] MEDS: MAGNESIUM OXIDE 500 MG PO ×2 (09:03→20:34)
[2024-05-05] MEDS: NEURONTIN 100 MG PO ×3 (09:03→22:19)
[2024-05-05] MEDS: LIPITOR 40 MG PO (09:03)
[2024-05-05] MEDS: MUCINEX 600 MG PO ×2 (09:03→20:34)
[2024-05-05] MEDS: PACERONE 200 MG PO ×3 (09:03→22:19)
[2024-05-05] MEDS: NSS IV (09:04)
[2024-05-05] MEDS: NON-FORMULARY ITEM 1 UNIT TOPICAL ×2 (09:08→20:36)
--- NOTE | 2024-05-05 09:15 | PTCARENOTE ---
Assumed care of patient at 0700. Pt is awake, alert, and oriented. Pt with complaints of neck pain, scheduled lidocaine patch administered. Pt remains AV paced, HR 70's. BP 128/78 MAP 93. Pulse oximetry 96% on room air. Continued use of IS
encouraged. Pt had bowel movement this morning. Tolerating PO diet. Voiding without issue. Midsternal incision approximated and MARTÍNEZ. Left and right chest incisions approximated and MARTÍNEZ. 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 Right upper extremity
PICC in place. Pt currently OOB in chair with call waller in reach and at bedside.
[2024-05-05] MEDS: NOVOLOG FLEXPEN-MODERATE RESISTANCE SC (09:17)
[2024-05-05 09:18] LABS: Glucose - Point of Care 120 mg/dl (70-99)
--- NOTE | 2024-05-05 11:33 | CM ---
Chart reviewed. Patient is independent of ADLS, lives in a split level, [address], ambulates with a RW and SPC. PT evaluation recommending Acute Rehab. PM+R to see patient. Referrals sent to [facility]. Plan is for the patient to go to Acute Rehab. CM
to follow
--- NOTE | 2024-05-05 13:09 | W.PN.CARDCBS ---
Today's Communication / Plan
-
continue post op care
continue diuresis
plan for [facility] upon DC
IV abx per ID
Impression / Plan
-
PCP: Dr. Mike Doe
Cardiology: Dr. Servin of [facility]
Impression:
Admitted on 04/16/2024 with fever, neck, and back pain
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
s/p Redo sternotomy with extensive adhesiolysis, Resection/explant of all old pacemaker leads and defibrillation coil, Implant of right atrial, right ventricular, left ventricular epicardial leads and defibrillator coil towards the LV aspect of the
heart, Mitral valve replacement (29 mm), Tricuspid valve repair (30 mm band annuloplasty) 04/30/2024 Dr. Nicholson
Sepsis
Vertebral osteomyelitis
Abnormal echo suggesting pacer wire vegetation in the RV and vegetation on the mitral valve 04/16/2024
Hypotension
post op anemia s/p 6 units pRBCs
postop coagulopathy - s/p 2 unit platelets and 2 FFPs
Admitted with osteomyelitis and enterococcal bacteremia in the setting of prior cholecystectomy 01/2024.
History of recovered ischemic cardiomyopathy,current EF 50-55% on echo 03/2024, previously EF 20% in past per patient
s/p [employer] ICD 12/28/16, explanted 04/30/2024 See above
-Device interrogation 04/17/2024 shows stable lead sensing, pacing threshold, and lead impedances; no AT AF; no VT VF since last interrogation or tachytherapies; discussed with [employer] claims service representative, Jose Adan, patient's device is MRI
compatible and safe; if patient to need MRI, would place patient DOO (preferable) or VOO at 80 bpm; patient is not reported as dependent
CAD with IL
s/p 3 mm Taxus LUCIO to unknown vessel 10/15/05
s/p CABG x 2005 at [facility]
Paroxysmal atrial fibrillation
Chronic Eliquis OAC
HLD
DM2
remote former smoker
s/p lap grace 01/2024
Echo 04/16/2024: EF 50 to 55%, normal regional wall motion, pacer wire seen in the RV with large density (1.7 x 1.9 cm) on pacemaker which could be consistent with vegetation, thickened mitral valve leaflets with MAC and peak/mean 8/4 mmHg, mobile
echodensity on the MV consistent with vegetation, at least moderate eccentric MR, aortic sclerosis without stenosis, no aortic regurgitation, mild TR with PAP 20 to 25 mmHg
Cardiac catheterization 04/24/2024: LM: NL. LAD: Moderate diffuse atherosclerotic disease in proximal LAD with patent GOODRICH to D1 and mid LAD. Ramus: 90% ostial stenosis. Left circumflex: LI. RCA: Mid 30% in-stent restenosis. PDA ostial 30%
stenosis. GOODRICH-D-LAD: Patent with antegrade and retrograde filling of both the LAD and diagonal branches
Plan:
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
-Status post s/p Redo sternotomy with extensive adhesiolysis, Resection/explant of all old pacemaker leads and defibrillation coil, Implant of right atrial, right ventricular, left ventricular epicardial leads and defibrillator coil towards the LV
aspect of the heart, Mitral valve replacement (29 mm), Tricuspid valve repair (30 mm band annuloplasty) 04/30/2024 Dr. Nicholson
-CABG was not performed due to dense adhesions. Did not receive AVR as inspection showed no significant vegetations on the valve
-feeling well
-continue IV abx per ID. Plan is to continue Ampicillin 2g IV q4h and ceftriaxone 2g IV q12h x 6 weeks from cardiac surgery through 06/11/24.
-continue diuresis. remains with LE edema and weight still up from presurgical weight. cr stable at 0.6.
-hgb 9.5. Received 7 units packed red blood cells, 2 units FFP and 2 packs of platelets
-av paced on review of tele. After discussing with CT surgery will continue to pace at DDDR at 70. Could consider reducing base rate at follow-up in cardiology office. continue toprol, amiodarone
-Continue aspirin. Eliquis resumed on 05/04/24 and Plavix stopped
-continue post op care
-continue PT/OT. plan for [facility] upon DC.
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
PREADMIT DATA: Patient came to [facility] with neck pain on 04/15/24 and was admitted with osteomyelitis and cardiology is now consulted for eval of abnormal echo. Patient has routine cardiology care at [facility] - Dr. Servin. Patient was admitted to 02/03/24
until 02/06/24 with abdominal pain and had lap grace 02/05/24. Patient was then in the ER 02/27/24 for hypotension and URI symptoms at the recommendation of his PCP, but BP was normal and no evidence of acute process so patient was sent home. Patient
came back to ER 03/02/24 with chest and back pain and troponin negative and he was given toradol and valium for spasm. Patient was sent to [facility] for rehab briefly however then went home. Patient came to last night with neck pain that
started Saturday04/11/24. He reports limited neck mobility and development of fever. He was noted by imaging to have evidence of osteomyelitis then underwent echo which showed large mobile echodensity consistent with mitral valve vegetation, MR, and
large density on ppm also with concern for vegetation. Blood cultures prelim positive. cardiology consulted for evaluation.
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
Subjective
Date of Service: May 05, 2024
Feeling well. No complaints
Objective
Labs:
05/05/24 04:14
05/05/24 04:14
Labs
Hgb 9.5 g/dL (13.0-18.0) L 05/05/24 04:14
Hct 29.6 % (39.0-52.0) L 05/05/24 04:14
Plt Count 307 10^3/uL (130-400) 05/05/24 04:14
PT 18.3 Sec (11.4-14.6) H 04/30/24 19:47
INR 1.46 04/30/24 19:47
APTT 35.4 Sec (23.4-35.0) H 04/30/24 16:08
Sodium 135 mmol/L (135-145) 05/05/24 04:14
Potassium 4.4 mmol/L (3.5-5.1) 05/05/24 04:14
BUN 8 mg/dl (9-20) L 05/05/24 04:14
Creatinine 0.6 mg/dL (0.7-1.3) L 05/05/24 04:14
Glucose 111 mg/dl (70-99) H 05/05/24 04:14
Vital Signs and I&O:
Vital Signs
Temp Pulse Resp BP Pulse Ox
97.7 F 71 18 128/78 96
05/05/24 08:00 05/05/24 10:00 05/05/24 08:00 05/05/24 09:02 05/05/24 09:02
Vital Signs
Temp Pulse Resp BP Pulse Ox
97.7 F 71 18 128/78 96
05/05/24 08:00 05/05/24 10:00 05/05/24 08:00 05/05/24 09:02 05/05/24 09:02
Intake & Output
05/03/24 05/04/24 05/05/24 05/06/24
07:59 07:59 07:59 07:59
Intake Total 890 / 998 600 / 708 108 / 108
Output Total 4660 / 4660 2050 / 2250 200 / 200
Balance -3770 / -3662 -1450 / -1542 -92 / -92
Physical Exam
Physical Exam
GEN: No distress, awake, alert, oriented x3. Sitting in chair
HEENT: supple, anicteric, mmm, EOMI
LUNGS: CTA bilaterally, no wheezes/rales
CV: Reg, S1/S2, no murmur
ABD: soft, BS+, NT/ND
EXT: No cyanosis, clubbing. 1+ edema of bilateral lower extremity
NEURO: Gross non-focal
SKIN: Warm, pink, dry. No rash. Chest incisions clean dry and intact
[2024-05-05] MEDS: NOVOLOG FLEXPEN-MODERATE RESISTANCE 1 UNITS SC ×2 (13:21→17:29)
[2024-05-05 13:22] LABS: Glucose - Point of Care 177 mg/dl (70-99)
--- NOTE | 2024-05-05 13:30 | PTCARENOTE ---
No changes in assessment. Pt remains AV paced, HR 70. BP 116/65 MAP 81. Pulse oximetry 95% on room air. Pt ambulated in room with walker and RN assistance. Pt remains OOB in chair with family at bedside.
[2024-05-05] MEDS: LASIX 40 MG IV ×2 (13:59→16:42)
--- NOTE | 2024-05-05 16:45 | PTCARENOTE ---
Pt feeling SOB with chest pressure, pulse oximetry 93% on room air. Placed on 2L for comfort, pulse oximetry 97%. CT [place], Dee aware. 40IV Lasix administered. Troponin sent. Pt remains SR with HR 70. BP 114/59 MAP 77.
[2024-05-05 17:32] LABS: Glucose - Point of Care 180 mg/dl (70-99)
[2024-05-05] MEDS: SENOKOT-S 1 TABLET PO (20:34)
[2024-05-05] MEDS: XALATAN OPHTHALMIC SOLUTION 1 DROP BOTH EYES (22:20)
[2024-05-05 22:34] LABS: Glucose - Point of Care 133 mg/dl (70-99)
--- NOTE | 2024-05-05 23:00 | PTCARENOTE ---
Rec'd pt as a transfer from CVICU at change of shift. Pt AAO*3, VSS, and AV paced on TELE monitor. Reports mild neck pain with relief from repositioning, and no other acute pain or discomfort. Pt with R pic line in place. Plan of care updated
with pt and verbalizes understanding. Pt currently resting with call waller in reach and plan of care ongoing. See MAR and flowchart for full pt assessment and care.
[2024-05-06] VITALS (7 sets, daily range): BP systolic 116–143; BP diastolic 59–68; PULSE 70; O2SAT 96–97; BMI 28.8
[2024-05-06] MEDS: AMPICILLIN 108 MG IV ×3 (04:08→12:16)
[2024-05-06] MEDS: STERILE WATER FOR INJECTION 20 ML IV (05:05)
[2024-05-06] MEDS: ROCEPHIN 2000 MG IV (05:05)
[2024-05-06] MEDS: TYLENOL 1000 MG PO ×2 (05:06→14:38)
--- NOTE | 2024-05-06 05:52 | PTCARENOTE ---
2230 Troponin resulted at 1.160. Pt denies any chest pain or discomfort. CT RICHMOND [place]arg[place] aware and no new ordered rec'd. Plan of care ongoing. Pt resting with call waller in reach.
--- NOTE | 2024-05-06 06:08 | W.PN.CT ---
Today's Communication / Plan
-
-pod #6
-no issues or complaints overnight. Hemodynamically and neurologically intact�
-05/05 c/o CP/SOB- trending trops (1.14->1.16 so far)
-trop/BMP this am pending
-PICC line placed 05/04- per ID, on Ampicillin 2g IV q4h and ceftriaxone 2g IV q12h x 6 weeks from cardiac surgery, ie through 06/11/24.
-Eliquis resumed 05/04/2024. Plavix was DC'd
-diuresing with iv Lasix
-current meds (Amio, ASA, Lasix iv qd, Eliquis, Lipitor, Flomax, Toprol XL 50 qd, Protonix)�
-PT/OT following and recommend acute rehab placement
-s/p Physiatry eval 05/05
-appreciate everyone's input
-plans for d/c when bed is available at [facility]
�
Assessment / Plan
-
Procedure(s) Performed by Dr. Nicholson on 04/30/24, pod #6
1. Ultrasound-guided access of bilateral groins using Seldinger technique and placement of 5 Bangladeshi sheath
2. Redo sternotomy with extensive adhesiolysis, modifier 22
3. Resection of all pacemaker leads and defibrillation coil
4. Explant of prior CLOSING AGENT ICD from [employer]
5. Implant of right atrial, right ventricular, left ventricular epicardial leads
6. Implant of defibrillator coil towards the LV aspect of the heart, left lateral
7. Mitral valve replacement, chordal sparing [29 mm device with placement of [place]-Duncan cord to reinforce and support the posterior medial papillary muscle head]
8. Tricuspid valve repair [30 mm band annuloplasty]
9. Aortotomy with exploration and inspection of the aortic valve
10. Placement of temporary ventricular pacing wires backup
11. Transesophageal echocardiography
12. Open saphenous vein harvest, CABG was not performed due to dense adhesions towards the prior GOODRICH to LAD and scar overlying the ramus intermedius
-Endocarditis (Enterococcus faecalis) involving Aortic valve, Mitral valve, Tricuspid valve and BiV ICD
-Severe MR
-Bicuspid AV/trivial AI
-Mild TR
-Infected BiV ICD
-Hx ICM (EF 20%) S/P MRI compatible [employer]-Sci BiV ICD, 12/28/2016- explanted on 04/30/24. Now has Mdt CLOSING AGENT ICD - no future MRI as new ICD leads are external
-LVEF 50-55% per TTE 04/16/24
-Enterococcus faecalis UTI
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
-L3-S1 septic arthritis
-Soft tissue edema C5-C6 interspinous
-Fever (peaked @ 102.7)
-Leukocytosis (wbc peaked @ 27.1)
-Hx CAD S/P CABG x 1 (GOODRICH-LAD), 2005 (patent per cath 04/24)
-Single Vessel CAD (RI 90% ostial), per cath 04/24
-HTN
-HLD
-T2DM (hgb A1C 6.9, on insulin)
-A-fib (on Eliquis @ home)
-HALLIE
-BPH (on Flomax)
-DJD
-Interstitial fibrosis/asbestosis
-Former tobacco use
-S/p Lap Skylar, 02/05/24
-S/p removal of infected dental implants
-S/P L4/L5 Laminectomy, 2018
-Chronic diastolic heart failure with preserved left ventricular ejection fraction
-History of cholelithiasis and gallstone pancreatitis
-Acute postop blood loss anemia - s/p 6 pRBCs
-Acute postop coagulopathy - s/p 2 unit platelets and 2 FFPs
-Acute postop metabolic alkalosis
-Acute postop atelectasis/pleural effusion
-Acute postop hypovolemia with subsequent hypervolemia
-Acute postop hyponatremia
Echo 05/01/24:
1. Normal left ventricular chamber size with mild basal septal, basal inferior, and basal inferolateral hypokinesis. Low normal contractility of the remaining segments, EF 47%
2. #29 Hubbard Mitris Resilia bioprosthetic mitral valve, mean gradient is 3mmHg. No mitral regurgitation is seen. Normal left atrium
3. Normal-appearing aortic valve without stenosis or regurgitation
4. Normal right heart, status post 30 mm tricuspid annuloplasty band with normal pulmonary artery systolic pressure
Left ventricular function is roughly similar to the intraoperative transesophageal echo, though the ejection fraction may have decreased slightly.
The patient's ICD has been explanted since that study and an epicardial system substituted.
Discussed patient care with: Nursing and Care Team
Subjective
-
Date of Service: May 06, 2024
Objective Data
-
Lab Results
05/05/24 04:14
05/05/24 04:14
PT 18.3 Sec (11.4-14.6) H 04/30/24 19:47
INR 1.46 04/30/24 19:47
APTT 35.4 Sec (23.4-35.0) H 04/30/24 16:08
Vital Signs
Vital Signs
Temp Pulse Resp BP Pulse Ox
98.4 F 70 16 134/64 94
05/05/24 22:17 05/05/24 22:19 05/05/24 22:17 05/05/24 22:19 05/05/24 22:28
CT Intake/Output/Weight
05/05/24 05/05/24 05/06/24
06:59 18:59 06:59
Intake Total 324 / 620 324 / 324
Output Total 900 / 2250 1550 / 1550
Balance -576 / -1630 -1226 / -1226
SaO2: 94
Physical Exam
-
General: Awake and AOx3
Cardiovascular: Regular rate & rhythm, No Murmurs and No Rub
Respiratory: Decreased Breath Sounds
Sternum: Stable
Incision: Clean, Dry and Intact
Extremities: Other (trace edema b/l)
Abdomen: soft, nontender, nondistended, + bowel sounds
Data Reviewed
-
Lab Results: Results Reviewed
Medications: Active Meds Reviewed
Chest X-Ray: Report Reviewed and Image Reviewed
ECG: Report Reviewed and Image Reviewed
[2024-05-06 06:49] LABS: Blood Urea Nitrogen 9 mg/dl (9-20); Calcium 8.4 mg/dl (8.4-10.2); Carbon Dioxide 28 mmol/L (22-30); Chloride 98 mmol/L (98-107); Estimated Creatinine Clearance 78 ml/min; Glucose 121 mg/dl (70-99); Potassium 3.8 mmol/L (3.5-5.1); Sodium 135 mmol/L (135-145); eGFR > 60.00
[2024-05-06 07:51] LABS: Glucose - Point of Care 120 mg/dl (70-99)
[2024-05-06] MEDS: NOVOLOG FLEXPEN-MODERATE RESISTANCE SC (08:35)
[2024-05-06] MEDS: MUCINEX 600 MG PO (08:37)
[2024-05-06] MEDS: PACERONE 200 MG PO (08:37)
[2024-05-06] MEDS: MAGNESIUM OXIDE 500 MG PO (08:37)
[2024-05-06] MEDS: LOW STRENGTH ASPIRIN 81 MG PO (08:37)
[2024-05-06] MEDS: PROTONIX 40 MG PO (08:37)
[2024-05-06] MEDS: LASIX 40 MG PO (08:38)
[2024-05-06] MEDS: SENOKOT-S 1 TABLET PO (08:38)
[2024-05-06] MEDS: ELIQUIS 5 MG PO (08:38)
[2024-05-06] MEDS: LIPITOR 40 MG PO (08:38)
[2024-05-06] MEDS: FLOMAX 0.4 MG PO (08:39)
[2024-05-06] MEDS: NON-FORMULARY ITEM 1 UNIT TOPICAL (08:39)
[2024-05-06] MEDS: TOPROL XL 50 MG PO (08:39)
[2024-05-06] MEDS: NEURONTIN 100 MG PO (08:39)
[2024-05-06] MEDS: ROXICODONE 2.5 MG PO (08:40)
[2024-05-06] MEDS: LIDOCAINE 4% PATCH TOPICAL (08:55)
--- NOTE | 2024-05-06 09:47 | W.PN.CARDCBS ---
Addendum entered and electronically signed by Get Stephens MD 05/06/24 10:30:
I saw and examined the patient.
The Slitter Operator's note was reviewed and I agree with the note.
Comment: Briefly, 79-year-old man past medical history of ischemic cardiomyopathy with recovered EF s/p ICD and prior CABG who presents with weakness and back pain found to have discitis and bacteremia. Transthoracic echocardiogram and subsequent
transesophageal echocardiogram identified vegetations associated with the pacemaker lead as well as the mitral and aortic valves concerning for infectious endocarditis. Patient underwent MV replacement/TV repair/ICD explant with epicardial ICD
implant on 04/30/24.
Resting comfortably OOB to chair in the IVU this morning, no cardiac complaints
History of heart failure with recovered ejection fraction -EF postprocedure was mildly reduced at 47%
Mild LE edema on exam, but breathing is comfortable on RA.
Has been receiving IV lasix and now transition to PO. Reviewed with patient that he will need to monitor weight and edema closely after discharge and may require additional PRN lasix.
Outpatient spironolactone, Jardiance and metoprolol resumed
History of A-fib
Telemetry shows appropriate AV paced rhythm
Eliquis has been resumed
Amiodarone in the postoperative period
Awaiting discharge to [facility]
Outpatient follow-up to be arranged
Original Note:
Today's Communication / Plan
-
continue IV abx
asa, eliquis
check EKG. no present CP
continue toprol. jardiance resumed today. would resume lower dose of OP aldactone 12.5mg daily and uptitrate as OP for BP control
continue po lasix
BMP in 1 week
will need repeat BCx per ID
repeat echo once abx completed
OP cardiac follow up arranged
for [facility] when bed available
Impression / Plan
-
PCP: Dr. Mike Doe
Cardiology: Dr. Servin of [facility]
Impression:
Admitted on 04/16/2024 with fever, neck, and back pain
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
s/p Redo sternotomy with extensive adhesiolysis, Resection/explant of all old pacemaker leads and defibrillation coil, Implant of right atrial, right ventricular, left ventricular epicardial leads and defibrillator coil towards the LV aspect of the
heart, Mitral valve replacement (29 mm), Tricuspid valve repair (30 mm band annuloplasty) 04/30/2024 Dr. Nicholson
Sepsis
Vertebral osteomyelitis
Abnormal echo suggesting pacer wire vegetation in the RV and vegetation on the mitral valve 04/16/2024
Hypotension
post op anemia s/p 6 units pRBCs
postop coagulopathy - s/p 2 unit platelets and 2 FFPs
Admitted with osteomyelitis and enterococcal bacteremia in the setting of prior cholecystectomy 01/2024.
History of recovered ischemic cardiomyopathy,current EF 50-55% on echo 03/2024, previously EF 20% in past per patient
s/p [employer] ICD 12/28/16, explanted 04/30/2024 See above
-Device interrogation 04/17/2024 shows stable lead sensing, pacing threshold, and lead impedances; no AT AF; no VT VF since last interrogation or tachytherapies; discussed with [employer] printing sales representative, Jose Adan, patient's device is MRI
compatible and safe; if patient to need MRI, would place patient DOO (preferable) or VOO at 80 bpm; patient is not reported as dependent
CAD with MT
s/p 3 mm Taxus LUCIO to unknown vessel 10/15/05
s/p CABG x 2 2005 at [facility]
Paroxysmal atrial fibrillation
Chronic Eliquis OAC
HLD
DM2
remote former smoker
s/p lap grace 01/2024
Echo 04/16/2024: EF 50 to 55%, normal regional wall motion, pacer wire seen in the RV with large density (1.7 x 1.9 cm) on pacemaker which could be consistent with vegetation, thickened mitral valve leaflets with MAC and peak/mean 8/4 mmHg, mobile
echodensity on the MV consistent with vegetation, at least moderate eccentric MR, aortic sclerosis without stenosis, no aortic regurgitation, mild TR with PAP 20 to 25 mmHg
Cardiac catheterization 04/24/2024: LM: NL. LAD: Moderate diffuse atherosclerotic disease in proximal LAD with patent GOODRICH to D1 and mid LAD. Ramus: 90% ostial stenosis. Left circumflex: LI. RCA: Mid 30% in-stent restenosis. PDA ostial 30%
stenosis. GOODRICH-D-LAD: Patent with antegrade and retrograde filling of both the LAD and diagonal branches
ECHO 05/01/24: EF 47%, mild basal septal, basal inferior, basal inferolateral hypokinesis, #29 Hubbard bioprosthetic mitral valve, mean gradient 3 mmHg, no MR, normal-appearing aortic valve, normal right heart status post 30 mm tricuspid annuloplasty
band with normal PASP
Plan:
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
-Status post s/p Redo sternotomy with extensive adhesiolysis, Resection/explant of all old pacemaker leads and defibrillation coil, Implant of right atrial, right ventricular, left ventricular epicardial leads and defibrillator coil towards the LV
aspect of the heart, Mitral valve replacement (29 mm), Tricuspid valve repair (30 mm band annuloplasty) 04/30/2024 Dr. Nicholson
-CABG was not performed due to dense adhesions. Did not receive AVR as inspection showed no significant vegetations on the valve
-he reported some CP/SOB yesterday in setting of sitting up in bed after walking to bathroom and back. trops relatively stable at 1.1-1.2. no present discomfort. check EKG.
-he has been transitioned to po lasix. would continue upon DC. BMP in 1 week
-continue toprol, jardiance. was on aldactone 50mg daily as OP. will plan to resume 12.5mg daily upon DC and can uptitrate as needed for BP control
-continue Ampicillin 2g IV q4h and ceftriaxone 2g IV q12h x 6 weeks from cardiac surgery through 06/11/24 as per ID recs
-will need repeat blood cultures per ID
-will need repeat echo once abx completed to reassess valves
-hgb 9.5. Received 7 units packed red blood cells, 2 units FFP and 2 packs of platelets this admit. back on eliquis, asa
-av paced on review of tele. will continue to pace at DDDR at 70. Could consider reducing base rate at follow-up in cardiology office.
-continue post op care
-continue PT/OT. plan for [facility] upon DC.
-will arrange OP cardiac follow up, plans to follow with [facility] moving forward
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
PREADMIT DATA: Patient came to [facility] with neck pain on 04/15/24 and was admitted with osteomyelitis and cardiology is now consulted for eval of abnormal echo. Patient has routine cardiology care at [facility] - Dr. Srevin. Patient was admitted to 02/03/24
until 02/06/24 with abdominal pain and had lap grace 02/05/24. Patient was then in the ER 02/27/24 for hypotension and URI symptoms at the recommendation of his PCP, but BP was normal and no evidence of acute process so patient was sent home. Patient
came back to ER 03/02/24 with chest and back pain and troponin negative and he was given toradol and valium for spasm. Patient was sent to [facility] for rehab briefly however then went home. Patient came to last night with neck pain that
started Saturday04/11/24. He reports limited neck mobility and development of fever. He was noted by imaging to have evidence of osteomyelitis then underwent echo which showed large mobile echodensity consistent with mitral valve vegetation, MR, and
large density on ppm also with concern for vegetation. Blood cultures prelim positive. cardiology consulted for evaluation.
Progress Note - Patrol Judge
Subjective
Date of Service: May 06, 2024
No complaints overnight.
Objective
Labs:
05/05/24 04:14
05/06/24 05:29
Labs
Hgb 9.5 g/dL (13.0-18.0) L 05/05/24 04:14
Hct 29.6 % (39.0-52.0) L 05/05/24 04:14
Plt Count 307 10^3/uL (130-400) 05/05/24 04:14
PT 18.3 Sec (11.4-14.6) H 04/30/24 19:47
INR 1.46 04/30/24 19:47
APTT 35.4 Sec (23.4-35.0) H 04/30/24 16:08
Sodium 135 mmol/L (135-145) 05/06/24 05:29
Potassium 3.8 mmol/L (3.5-5.1) 05/06/24 05:29
BUN 9 mg/dl (9-20) 05/06/24 05:29
Creatinine 0.7 mg/dL (0.7-1.3) 05/06/24 05:29
Glucose 121 mg/dl (70-99) H 05/06/24 05:29
Troponins
05/05/24 05/05/24 05/06/24
16:55 22:27 05:29
Troponin I 1.140 H* 1.160 H* 1.210 H*
Vital Signs and I&O:
Vital Signs
Temp Pulse Resp BP Pulse Ox
97.6 F 70 16 143/59 95
05/06/24 06:48 05/06/24 08:00 05/06/24 06:48 05/06/24 06:46 05/06/24 08:04
Vital Signs
Temp Pulse Resp BP Pulse Ox
97.6 F 70 16 143/59 95
05/06/24 06:48 05/06/24 08:00 05/06/24 06:48 05/06/24 06:46 05/06/24 08:04
Intake & Output
05/04/24 05/05/24 05/06/2413/25
07:59 07:59 07:59 07:59
Intake Total 890 / 998 600 / 708 564 / 564
Output Total 4660 / 4660 2049 / 2249 2700 / 270
Balance -3770 / -3662 -1450 / -1542 -2136 / -2136
Physical Exam
Physical Exam
GEN: No distress, awake, alert, oriented x3. Sitting in chair
HEENT: supple, anicteric, mmm, EOMI
LUNGS: CTA bilaterally, no wheezes/rales
CV: Reg, S1/S2, no murmur
ABD: soft, BS+, NT/ND
EXT: No cyanosis, clubbing. 1+ edema of bilateral lower extremity
NEURO: Gross non-focal
SKIN: Warm, pink, dry. No rash. Chest incisions clean dry and intact.
--- NOTE | 2024-05-06 10:14 | W.DCSUMMARY ---
Discharge Summary
Discharge Data
Date of Admission: 04/16/24
Date of Discharge: 05/06/24
-
Pending Results: No
Hospital Course
Primary care physician: Mike Doe
Outpatient mobile crane operator: DR. Servin
Inpatient consultants: [facility] cardiology, pulmonary cab starter, infectious disease
Procedures:
1. redo sternotomy, mitral valve replacement, tricuspid valve repair, explant of pacer leads and [employer] ICD, new lead and [employer] ICD implant
Primary Diagnosis:
1. 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
Secondary Diagnoses:
1. Coronary artery disease (90% OM) per cath 04/24/24
2. History of CABG x 1 GOODRICH-LAD (2005), patent per cath 04/24/24
3. T 10-11 discitis/osteomyelitis
4. Hyperlipidemia
5. Hypertension
6. Hx Hx ICM (EF 20%) with BiV ICD implant (2016)>HFimpHF (EF 40% post-implant)
8. History of cholelithiasis and gallstone pancreatitis
9. T2DM (A1C 6.9)
10. Enterococcus faecalis UTI
11. L3-S1 septic arthritis
12. Soft tissue edema C5-C6 interspinous
13. HALLIE
14. BPH (on Flomax)
15. DJD
16. Interstitial fibrosis/asbestosis
17. Former tobacco use (quit 1972)
18. S/p Lap Skylar, 02/05/24
19. S/p removal of infected dental implants
20. S/P L4/L5 Laminectomy, 2018
21. History of cholelithiasis and gallstone pancreatitis
22. Acute postop surgical blood loss anemia - s/p 6 pRBCs
23. Acute postop coagulopathy - s/p 2 unit platelets and 2 FFPs
24. Acute postop metabolic alkalosis
25. Acute postop atelectasis/pleural effusion
26. Acute postop hypovolemia with subsequent hypervolemia
27. Acute postop hyponatremia
HPI: 79-year-old male was admitted to [facility] on 04/16/2024 with fever, weakness and neck/back pain found to have discitis/osteomyelitis and Enterococcus faecalis bacteremia.
Hospital course: Transthoracic echocardiogram and subsequent transesophageal echocardiogram identified vegetations associated with the pacemaker lead as well as the mitral and aortic valves. Patient was evaluated by ID and treated with ampicillin
and Rocephin. Blood cultures cleared on 04/20. The patient was aggressively diuresed prior to proceeding to surgery. Patient went to the operating room on 04/30/[address] Lemuel Nicholson for redo sternotomy with extensive adhesiolysis, explant of
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
valve replacement, chordal sparing [#29 mm device with placement of [place] cord to reinforce and support the posterior medial papillary muscle head], tricuspid valve repair [#30 mm band annuloplasty]. Open saphenous vein harvest, CABG was not
performed due to dense adhesions towards the prior GOODRICH to LAD and scar overlying the ramus intermedius. For further details please refer to operative note. Patient received 5 PRBC, 2 platelet and 2 FFP IntraOp. Patient returned to CVICU on
Levophed, dobutamine, epinephrine, vasopressin, Precedex, and insulin. Epinephrine and Levophed were quickly weaned off. Patient received additional packed cell the day of surgery for anemia. Postoperative day 1, the left pleural chest tube was
removed. Dobutamine was weaned from 5-3 mcg/kg/min. Mixed venous oxygen saturations remained stable at 67 and 75%. 80 TTE confirmed no shunt with EF of 47%. On postoperative day #2, patient received additional 1U PRBC for hemoglobin of 7.3.
Patient was diuresed with Lasix 40 mg 3 times daily. Chest tubes and wires were removed on postoperative day #3. Santana was removed. Flomax resumed. Patient diuresed with 40 mg of IV Lasix 3 times daily. Eliquis was started on postoperative day
#4 and Plavix discontinued. Lasix 40 mg IV x 1 was given PT OT recommended rehab. Rehab consult was placed. A right upper extremity PICC line was placed by IV team and adjusted by IR as tip was closed pacing wires. Patient was evaluated by rehab
on 05/05. Patient had complained of mid sternal chest pain and shortness of breath. Troponins 1.1-1.2 and felt to be consistent with postoperative state. On postoperative day #6, patient was continued on Lasix 40 mg p.o. daily with resumption of
Aldactone at 12.5 mg (prior home dose 50 mg) and Jardiance daily. Glucoses remained stable off scheduled insulin since OR with diabetic/cardiac diet and sliding scale insulin coverage. Future MRI is contraindicated as ICD leads are external. Bed
availability at [facility] was confirmed and patient discharged in stable condition. End date for antibiotics (ampicillin and ceftriaxone) will be 06/05/2024 per ID. Patient will require weekly CBC, CMP, CRP, and ESR reported to ID.
Home medication changes:
Discharge Plan
-
Patient Disposition: Acute Rehab Facility
Discharge Diagnosis/Procedures: endocarditis>redo mitral valve replacement, tricuspid valve repair, explant infected ICD/leads, implant new leads/ICD
Condition: Fair
Diet: Low Cholesterol, 2 Gram Sodium and Diabetic, Carb Controlled
Activity: No strenuous activity
Driving Restrictions: Not until seen by your Dr
Bathing Restrictions: OK to Shower
Other Services: Cardiac Rehab
Specialty Instructions: Weigh Daily- Call MD for wt gain/loss 3 lbs overnight/5 lbs in 1 week
Activity Restrictions/Additional Instructions:
Wound Care Instructions Lower Buttocks- Clean with normal saline or soap and water. Cover open areas with Calazime (or other zinc based product) or keep covered with silicone border foam. If using foam change Q 48 hours and PRN if loose
Turning schedule
Use air cushion to chair and avoid sliding
Referrals:
CT Transitional Care Nurse [Outside] (The Cardiothoracic Transitional Care Nurse will call you to set up a visit in 1-2 days.)
[facility] [Outside] - 06/24/24 9:30 am
(Cardiac Rehab Orientation appointment is on 06/24/24 at 9:30am
The Cardiac Rehab gym is located on the first floor of the [facility].)
Carlyle Servin MD [Non-Admitting Privileges] - 06/03/24 9:30 am
Mike Doe MD [Family Provider] -
Lemuel Nicholson MD [Active] - 06/01/24 2:45 pm
Prescriptions:
New
Ampicillin 2000 MG
0.9% Sodium Chloride 100 ml [Nss] 100 ML
108 mls/hr IV Q4H
Reason for use: endocarditis
Ordered By: Dee Blandon CRNP
Last Taken: 05/06/24 12:16 108 mls
ceftriaxone 2 gram Recon Soln
2,000 mg IV Q12H Qty: 0 0RF
furosemide 40 mg Tablet
40 mg PO DAILY Qty: 0 0RF
acetaminophen 325 mg Tablet
650 mg PO Q4HPRN PRN (Reason: mild pain,headache,temp >101F ) Qty: 0 0RF
metoprolol succinate 50 mg Tablet Extended Release 24 Hr
50 mg PO DAILY Qty: 0 0RF
pantoprazole 40 mg Tablet,Delayed Release (Dr/Ec)
40 mg PO DAILY Qty: 0 0RF
aspirin 81 mg Tablet,Chewable
81 mg PO DAILY Qty: 0 0RF
gabapentin 100 mg Capsule
100 mg PO TID Qty: 0 0RF
oxycodone 5 mg Tablet
5 mg PO Q4HPRN PRN (Reason: severe pain) Qty: 0 0RF
melatonin 5 mg Tablet
5 mg PO HS PRN (Reason: insomnia) Qty: 0 0RF
insulin aspart U-100 100 unit/mL (3 mL) insulin pen
1 sliding scale dose SC AC Qty: 15 1RF
spironolactone 25 mg Tablet
12.5 mg PO DAILY Qty: 0 0RF
Continued
atorvastatin 40 mg Tablet
40 mg PO DAILY
cyanocobalamin (vitamin B-12) 1,000 mcg Tablet
1,000 mcg PO BID
tamsulosin 0.4 mg Capsule
0.4 mg PO HS
cholecalciferol (vitamin D3) 50 mcg (2,000 unit) Tablet
50 mcg PO DAILY
apixaban 5 mg Tablet
5 mg PO BID
latanoprost 0.005 % Drops
1 drp BOTH EYES HS
therapeutic multivitamin Tablet
1 tab PO DAILY
Jardiance 25 mg Tablet
25 mg PO DAILY
fluorouracil 5 % Cream
See Rx Instructions .ROUTE .COMPLEX
Rx Instructions:
Apply to left cheek BID.
Discontinued
metoprolol succinate 200 mg Tablet Extended Release 24 Hr
200 mg PO DAILY
spironolactone 25 mg Tablet
50 mg PO DAILY
furosemide 20 mg Tablet
10 mg PO DAILY
insulin glargine 100 unit/mL (3 mL) Insulin Pen
30 unit SC HS
omega 0-qki-siz-fish oil [Fish Oil] 1,000 (120-180) mg Capsule
1 cap PO BID
Discharge Orders:
Discharge Patient (As Directed); Ordered 05/06/24
Ordered By: Dee Blandon
Care Plan Goals
Care Plan Goals:
Problem: Readiness for enhanced knowledge related to diagnosis and treatment plan
Goal: Understand your diagnosis and treatment plan needs, including medications if applicable.
Instructions: Know your diagnosis, underlying causes and treatment plan options, including medications if applicable. Consult with your health care team to learn about your diagnosis and treatment plan, including medications if applicable.
Discharge Date and Time
Print Language: HAITIAN
[2024-05-06] MEDS: ALDACTONE 12.5 MG PO (12:16)
[2024-05-06] MEDS: NSS IV (12:17)
[2024-05-06 12:20] LABS: Glucose - Point of Care 176 mg/dl (70-99)
[2024-05-06] MEDS: NOVOLOG FLEXPEN-MODERATE RESISTANCE 1 UNITS SC (12:20)
--- NOTE | 2024-05-06 13:33 | CM ---
pt cleared to go to [facility] today. [facility] care and [facility] are aware. faxed the SW at [facility] with information on referrals for iv antibx at in. spoke to Dr Wang at OR, he will arrange any payment needed [facility] pt aware of all
arrangements.
--- NOTE | 2024-05-06 13:35 | W.PN.ID1 ---
Date of Service
Date of Service: May 06, 2024
Today's Communication
Continue amp/ceftriaxone.
Assessment / Plan
# Complicated Enterococcal bacteremia (7 sets)
# Infective endocarditis of BiV ICD lead, MV and AV
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
# Neck pain
- ELLIE: 2.4 cm vege on ICD wire; echodensity on AV and MV with severe mitral regurgitation
- Repeat blood cultures x4 from 04/20 and 04/22 neg to date
- 04/30/24 s/p redo sternotomy, ICD extraction, placement of new ICD, mitral valve replacement, TV repair, AV exploration
-ICD lead cx neg to date.
Mitral Valve vege: Enterococcus faecalis
Tissue vege : Enterococcus faecalis
- Continue Ampicillin 2g IV q4h and ceftriaxone 2g IV q12h x 6 weeks from cardiac surgery, ie through 06/11/24.
Weekly CBC diff, CMP, CRP, ESR
- Will be discharged to [facility]
- When patient is ready for discharge from rehab to home before end of antibiotic, please alert Dr. Cathi Abreu ([place]) [phone] or [employer] [place] system Dr. Saúl Wang [phone] needs to approve home IV antibiotic. I updated Dr. Wang
today.
# Conditions prior to admission
DM2
Hypertension
HLD
CAD status post CABG/stent
Atrial fibrillation
BiV ICD placement 2016
HFpEF
HALLIE
BPH
Lap cholecystectomy 02/05/24
Chief Complaint
-: Bacteremia and Other (Endocarditis, discitis)
Subjective / Review of Systems
Doing well. Neck pain better.
Vital Signs / Physical Exam
Vital Signs
Vital Signs
Temp Pulse Resp BP Pulse Ox
97.9 F 70 18 117/65 95
05/06/24 12:01 05/06/24 12:00 05/06/24 12:01 05/06/24 11:25 05/06/24 12:01
Physical Exam
Constitutional: No Acute Distress and Comfortable
Eyes: No Conjunctival Hemorrhage and Sclera Anicteric
Cardiovascular: Regular Rate and S1/S2
Pulmonary: Clear
Gastrointestinal: Soft, Non Tender, Non Distended and Normal Bowel Sounds
Genito-Urinary: Negative CVA Tenderness
Extremities: Negative Edema
Neurological: AO x 3
Lines: PICC (RUE intact)
Objective Data
Lab Data
Lab Results
05/05/24 04:14
05/06/24 05:29
ESR 48 mm/hour (0-20) H 04/15/24 16:55
PT 18.3 Sec (11.4-14.6) H 04/30/24 19:47
INR 1.46 04/30/24 19:47
APTT 35.4 Sec (23.4-35.0) H 04/30/24 16:08
Estimated Creat Clear 78 ml/min 05/06/24 05:29
Lactic Acid Cancelled 04/16/24 14:36
Total Bilirubin 1.0 mg/dl (0.2-1.3) 04/30/24 04:35
AST 57 U/L (17-59) 04/30/24 04:35
ALT 88 U/L (0-50) H 04/30/24 04:35
Alkaline Phosphatase 241 U/L (38-126) H 04/30/24 04:35
C-Reactive Protein 166.20 mg/L (0.0-10.00) H 04/15/24 16:55
Most recent labs reviewed.
Micro Results:
04/30/24 Unknown Tissue Culture - Final
Heart Enterococcus faecalis
Gram Stain - Final
04/30/24 Unknown Anaerobic Culture - Final
Heart NO ANAEROBES ISOLATED
04/30/24 10:13 Anaerobic Culture - Final
Heart NO ANAEROBES ISOLATED
04/30/24 10:13 Tissue Culture - Final
Heart Enterococcus faecalis
Gram Stain - Final
04/30/24 Unknown Fungal Smear - Final
Heart No yeast or fungal elements seen.
Fungal Culture - Preliminary
Culture in progress.
Positive cultures are reported as soon as detected.
Final report to follow in four to five weeks.
04/30/24 10:13 Fungal Culture - Preliminary
Heart Culture in progress.
Positive cultures are reported as soon as detected.
Final report to follow in four to five weeks.
04/30/24 Unknown Catheter Tip Culture - Final
Pace Maker/Introd Port No Growth After 72 Hours
04/30/24 Unknown Acid Fast Bacilli Smear - Preliminary
Heart Acid Fast Bacilli Culture - Preliminary
04/30/24 10:13 Acid Fast Bacilli Smear - Preliminary
Heart Acid Fast Bacilli Culture - Preliminary
04/22/24 06:46 Blood Culture - Final
Blood/Venous No Growth - Final Report
04/22/24 05:46 Blood Culture - Final
Blood/Venous No Growth - Final Report
04/19/24 05:33 Blood Culture - Final
Blood/Venous Enterococcus faecalis
Gram Stain - Final
04/20/24 05:09 Blood Culture - Final
Blood/Venous No Growth - Final Report
04/20/24 05:09 Blood Culture - Final
Blood/Venous No Growth - Final Report
04/18/24 04:30 Blood Culture - Final
Blood/Venous Enterococcus faecalis
Gram Stain - Final
04/17/24 04:34 Blood Culture - Final
Blood/Venous Enterococcus faecalis
Gram Stain - Final
04/19/24 07:49 Blood Culture - Final
Blood/Venous Enterococcus faecalis
Gram Stain - Final
04/16/24 09:58 Blood Culture - Final
Blood/Venous Enterococcus faecalis
Gram Stain - Final
04/15/24 21:45 Urine Culture - Final
Urine Enterococcus faecalis
04/15/24 21:30 Blood Culture - Final
Blood/Venous Enterococcus faecalis
Gram Stain - Final
04/15/24 21:12 Blood Culture - Final
Blood/Venous Enterococcus faecalis
Gram Stain - Final
04/15/24 21:20 Influenza Types A & B ([facility]LEY) - Final
Nasal Swab Negative for Influenza A & B, NAAT
Negative results must be combined with clinical observations
and patient history.
Nucleic Acid Amplification test (NAAT)performed on the
[employer] platform.
Imaging:
04/20/2024 ECHO (ELLIE): Normal biventricular size and systolic function. Pacer wire seen, with large echodensity prolapsing between the right atrium and right ventricle through the tricuspid valve, associated with the right ventricular wire. There
is a large bulbous portion (2.4 x 1.4 cm) proximally that tapers down along the course of the wire and into the right ventricle. Echodensity consistent with vegetation seen on both anterior and posterior leaflets of the mitral valve, with
associated severe mitral regurgitation. An echodensity consistent with vegetation is seen on the aortic valve, with minimal aortic regurgitation. Please see full dictation for additional detail.
04/15/24 CT a/p: There is irregular endplate destruction at the T10-11 disc space, and findings are highly suggestive of discitis and osteomyelitis.
This does not appear to extend to the posterior margin of the disc space at this time, and no gross evidence to suggest extension of inflammatory process and the spinal canal on CT. As warranted, further evaluation with MRI of the lower thoracic
spine without and with contrast could be considered.
04/23/24 MRI C/T/L spine:
Cervical spine:
Multilevel advanced degenerative changes. No evidence of discitis or osteomyelitis. Subtle edema/hyperemia involving the interspinous soft tissues most pronounced at C5-6, possibly inflammatory in nature or possible interspinous ligament sprain.
Clinical correlation advised. Partially visualized nonspecific left supraspinatus and infraspinatus muscle edema. Clinical correlation necessary.
Thoracic spine:
T10-11 discitis/osteomyelitis. Inflammatory epidural soft tissue thickening. No epidural abscess. No paraspinal soft tissue abscess. Findings suspicious for right T10-11 facet septic arthritis. T11-12 with mild central canal narrowing. No cord
compression.
Lumbar spine:
No evidence of lumbar spine discitis or vertebral osteomyelitis. Abnormal signal and enhancement associated with right L3-4 and L5-S1 facets and adjacent/surrounding soft tissues, as described. In the absence of recent surgical intervention to
suggest postsurgical reactive inflammatory changes, the appearance would be highly suspicious for facet septic arthritis. No lumbar epidural collection or epidural abscess. No focal soft tissue collection or abscess. Otherwise, lumbar degenerative
changes, as described.
--- NOTE | 2024-05-06 15:21 | PTCARENOTE ---
Pt walked with PT/OT, no further chest discomfort noted. Pt seen by cardiology and . Report called to [facility]. Peripheral IV device and telemetry removed, PICC line left in place. Report called to [facility] and pt transferred there via
wheelchair.
== END 2024-05-06 14:45 | DRG 216 ==
LOC: IVU 00:48
PROVIDERS: Clinical Nurse Specialist Acute Care; Emergency Medicine; Internal Medicine; Internal Medicine Cardiovascular Disease; Internal Medicine Interventional Cardiology; Nurse Practitioner; Nurse Practitioner Family; Physician Assistant Medical; Radiology Diagnostic Radiology; Student in an Organized Health Care Education/Training Program; ADMITTING PHYSICIAN Internal Medicine; ATTENDING PHYSICIAN Thoracic Surgery (Cardiothoracic Vascular Surgery); CONSULT PHYSICIAN Internal Medicine; CONSULT PHYSICIAN Physical Medicine & Rehabilitation; EMERGENCY PHYSICIAN Student in an Organized Health Care Education/Training Program; FAMILY PHYSICIAN Internal Medicine; OTHER PHYSICIAN Internal Medicine Cardiovascular Disease; OTHER PHYSICIAN Internal Medicine Infectious Disease; OTHER PHYSICIAN Neurological Surgery; OTHER PHYSICIAN Thoracic Surgery (Cardiothoracic Vascular Surgery)
PROC: 4B02XTZ Measurement of Cardiac Defibrillator, External Approach (ICD-10-PCS; 2024-04-18)
PROC: B24BZZ4 Ultrasonography of Heart with Aorta, Transesophageal (ICD-10-PCS; 2024-04-20)
PROC: 5A09357 Assistance with Respiratory Ventilation, Less than 24 Consecutive Hours, Continuous Positive Airway Pressure (ICD-10-PCS; 2024-04-23)
PROC: B2151ZZ Fluoroscopy of Left Heart using Low Osmolar Contrast (ICD-10-PCS; 2024-04-24)
PROC: B2181ZZ Fluoroscopy of Left Internal Mammary Bypass Graft using Low Osmolar Contrast (ICD-10-PCS; 2024-04-24)
PROC: B3101ZZ Fluoroscopy of Thoracic Aorta using Low Osmolar Contrast (ICD-10-PCS; 2024-04-24)
PROC: 4A023N7 Measurement of Cardiac Sampling and Pressure, Left Heart, Percutaneous Approach (ICD-10-PCS; 2024-04-24)
PROC: B2111ZZ Fluoroscopy of Multiple Coronary Arteries using Low Osmolar Contrast (ICD-10-PCS; 2024-04-24)
PROC: 30233K1 Transfusion of Nonautologous Frozen Plasma into Peripheral Vein, Percutaneous Approach (ICD-10-PCS; 2024-04-30)
PROC: 02PA0MZ Removal of Cardiac Lead from Heart, Open Approach (ICD-10-PCS; 2024-04-30)
PROC: 02RG08Z Replacement of Mitral Valve with Zooplastic Tissue, Open Approach (ICD-10-PCS; 2024-04-30)
PROC: 02H60KZ Insertion of Defibrillator Lead into Right Atrium, Open Approach (ICD-10-PCS; 2024-04-30)
PROC: 02HK0KZ Insertion of Defibrillator Lead into Right Ventricle, Open Approach (ICD-10-PCS; 2024-04-30)
PROC: 5A1221Z Performance of Cardiac Output, Continuous (ICD-10-PCS; 2024-04-30)
PROC: 0JPT0PZ Removal of Cardiac Rhythm Related Device from Trunk Subcutaneous Tissue and Fascia, Open Approach (ICD-10-PCS; 2024-04-30)
PROC: 30233N1 Transfusion of Nonautologous Red Blood Cells into Peripheral Vein, Percutaneous Approach (ICD-10-PCS; 2024-04-30)
PROC: 30233R1 Transfusion of Nonautologous Platelets into Peripheral Vein, Percutaneous Approach (ICD-10-PCS; 2024-04-30)
PROC: 02NN0ZZ Release Pericardium, Open Approach (ICD-10-PCS; 2024-04-30)
PROC: 02UJ0JZ Supplement Tricuspid Valve with Synthetic Substitute, Open Approach (ICD-10-PCS; 2024-04-30)
PROC: 02H Heart and Great Vessels, Insertion (ICD-10-PCS; 2024-04-30)
PROC: 0JH609Z Insertion of Cardiac Resynchronization Defibrillator Pulse Generator into Chest Subcutaneous Tissue and Fascia, Open Approach (ICD-10-PCS; 2024-04-30)
PROC: 02JA0ZZ Inspection of Heart, Open Approach (ICD-10-PCS; 2024-04-30)
PROC: 02HV33Z Insertion of Infusion Device into Superior Vena Cava, Percutaneous Approach (ICD-10-PCS; 2024-05-04)
PROC: 02WY33Z Revision of Infusion Device in Great Vessel, Percutaneous Approach (ICD-10-PCS; 2024-05-04)
DX: T82.7XXA Infection and inflammatory reaction due to other cardiac and vascular devices, implants and grafts, initial encounter (principal); A41.81 Sepsis due to Enterococcus; I33.0 Acute and subacute infective endocarditis; M46.24 Osteomyelitis of vertebra, thoracic region; I50.32 Chronic diastolic (congestive) heart failure; I31.0 Chronic adhesive pericarditis; D62 Acute posthemorrhagic anemia; D68.9 Coagulation defect, unspecified; E87.1 Hypo-osmolality and hyponatremia; E87.4 Mixed disorder of acid-base balance; J98.11 Atelectasis; N39.0 Urinary tract infection, site not specified; T82.190A Other mechanical complication of cardiac electrode, initial encounter; Y83.2 Surgical operation with anastomosis, bypass or graft as the cause of abnormal reaction of the patient, or of later complication, without mention of misadventure at the time of the procedure; Y83.1 Surgical operation with implant of artificial internal device as the cause of abnormal reaction of the patient, or of later complication, without mention of misadventure at the time of the procedure; I11.0 Hypertensive heart disease with heart failure; Z66 Do not resuscitate; I34.0 Nonrheumatic mitral (valve) insufficiency; M46.44 Discitis, unspecified, thoracic region; I69.398 Other sequelae of cerebral infarction; E86.1 Hypovolemia; M46.57 Other infective spondylopathies, lumbosacral region; T82.855A Stenosis of coronary artery stent, initial encounter; J61 Pneumoconiosis due to asbestos and other mineral fibers; G57.81 Other specified mononeuropathies of right lower limb; L89.322 Pressure ulcer of left buttock, stage 2; L89.312 Pressure ulcer of right buttock, stage 2; I25.10 Atherosclerotic heart disease of native coronary artery without angina pectoris; N40.0 Benign prostatic hyperplasia without lower urinary tract symptoms; E78.00 Pure hypercholesterolemia, unspecified; G47.33 Obstructive sleep apnea (adult) (pediatric); E11.9 Type 2 diabetes mellitus without complications; I25.2 Old myocardial infarction; Z11.52 Encounter for screening for COVID-19; Z79.01 Long term (current) use of anticoagulants; Z79.4 Long term (current) use of insulin; Z79.899 Other long term (current) drug therapy; Z82.49 Family history of ischemic heart disease and other diseases of the circulatory system; Z87.891 Personal history of nicotine dependence; Z90.49 Acquired absence of other specified parts of digestive tract; Z95.1 Presence of aortocoronary bypass graft; Z95.5 Presence of coronary angioplasty implant and graft; Z95.810 Presence of automatic (implantable) cardiac defibrillator
CPT/HCPCS: 88305; 88312; 93308; 33202; 36584; 70355; 70450; 70491; 71045; 71046; 71275; 72156; 72157; 72158; 74177; 80048; 80053; 81003; 81015; 82248; 82330; 82565; 82805; 82810; 82947; 82962; 83036; 83605; 83735; 84132; 84302; 84484; 84520; 85014; 85018; 85025; 85027; 85049; 85610; 85652; 85730; 86140; 86850; 86900; 86901; 86920; 87015; 87040; 87070; 87075; 87077; 87084; 87086; 87102; 87116; 87176; 87186; 87205; 87206; 87502; 87811; 93005; 93306; 93312; 93320; 93321; 93325; 93455; 93567; 93880; 94002; 94060; 94640; 96361; 96365; 96375; 97116; 97163; 97167; 97530; 97535; 99285; A9575; C1751; C1768; C1769; C1777; C1882; C1894; C1898; J2916; P9016; P9045; P9047; P9059; P9073; Q9967

== ENCOUNTER 2024-06-24 11:32 | Outpatient (RCR) | payer MEDICARE, OTHER, SELFPAY ==
[2024-06-24 10:36] LABS: Glucose - Point of Care 161 mg/dl (70-99)
== END 2024-06-24 23:59 | disposition home or self-care (01) ==
LOC: CRHB 11:32
PROVIDERS: ATTENDING PHYSICIAN Internal Medicine Cardiovascular Disease; FAMILY PHYSICIAN Internal Medicine
DX: Z95.4 Presence of other heart-valve replacement (principal)
CPT/HCPCS: 82962; G0422; G0423

== ENCOUNTER 2024-07-24 11:45 | Outpatient (RCR) | payer MEDICARE, OTHER, SELFPAY ==
[2024-06-25 11:19] LABS: Glucose - Point of Care 142 mg/dl (70-99)
[2024-06-25 12:21] LABS: Glucose - Point of Care 156 mg/dl (70-99)
[2024-06-26 10:59] LABS: Glucose - Point of Care 147 mg/dl (70-99)
[2024-06-26 11:54] LABS: Glucose - Point of Care 139 mg/dl (70-99)
[2024-06-29 11:04] LABS: Glucose - Point of Care 197 mg/dl (70-99)
[2024-06-29 12:02] LABS: Glucose - Point of Care 158 mg/dl (70-99)
[2024-07-03 10:58] LABS: Glucose - Point of Care 155 mg/dl (70-99)
[2024-07-03 11:53] LABS: Glucose - Point of Care 149 mg/dl (70-99)
[2024-07-06 11:08] LABS: Glucose - Point of Care 138 mg/dl (70-99)
[2024-07-06 12:06] LABS: Glucose - Point of Care 135 mg/dl (70-99)
== END 2024-07-24 23:59 | disposition home or self-care (01) ==
LOC: CRHB 11:45
PROVIDERS: ATTENDING PHYSICIAN Internal Medicine Cardiovascular Disease; FAMILY PHYSICIAN Internal Medicine
DX: Z95.4 Presence of other heart-valve replacement (principal)
CPT/HCPCS: 82962; G0422; G0423

== ENCOUNTER 2024-08-24 11:56 | Outpatient (RCR) | payer MEDICARE, OTHER, SELFPAY | END 2024-08-24 23:59 | disposition home or self-care (01) | LOC: CRHB 11:56 | PROVIDERS: ATTENDING PHYSICIAN Internal Medicine Cardiovascular Disease; FAMILY PHYSICIAN Internal Medicine | DX: I25.10 Atherosclerotic heart disease of native coronary artery without angina pectoris (principal); Z95.4 Presence of other heart-valve replacement; Z95.2 Presence of prosthetic heart valve; Z95.1 Presence of aortocoronary bypass graft; Z95.5 Presence of coronary angioplasty implant and graft | CPT/HCPCS: 93797; 93798; G0422; G0423 ==

== ENCOUNTER → 2024-08-25 13:42 | Outpatient (REF) | payer MEDICARE, OTHER, SELFPAY | LOC: HWRCS 13:42 | PROVIDERS: ATTENDING PHYSICIAN Thoracic Surgery (Cardiothoracic Vascular Surgery); FAMILY PHYSICIAN Internal Medicine | DX: Z01.810 Encounter for preprocedural cardiovascular examination (principal) | CPT/HCPCS: 93306 ==

== ENCOUNTER 2024-09-23 11:04 | Outpatient (RCR) | payer MEDICARE, OTHER, SELFPAY | END 2024-09-23 23:59 | disposition home or self-care (01) | LOC: CRHB 11:04 | PROVIDERS: ATTENDING PHYSICIAN Internal Medicine Cardiovascular Disease; FAMILY PHYSICIAN Internal Medicine | DX: I25.10 Atherosclerotic heart disease of native coronary artery without angina pectoris (principal); Z95.4 Presence of other heart-valve replacement; Z95.2 Presence of prosthetic heart valve | CPT/HCPCS: G0422; G0423 ==

== ENCOUNTER 2024-09-25 10:38 | Outpatient (RCR) | payer MEDICARE, OTHER, SELFPAY | END 2024-09-29 11:20 | disposition home or self-care (01) | LOC: CRHB 10:38 | PROVIDERS: ATTENDING PHYSICIAN Internal Medicine Cardiovascular Disease; FAMILY PHYSICIAN Internal Medicine | DX: Z95.4 Presence of other heart-valve replacement (principal); Z95.2 Presence of prosthetic heart valve | CPT/HCPCS: G0422; G0423 ==